=== PATIENT | male | born 1940 | race Caucasian/White ===

== ENCOUNTER → 2017-04-10 | Outpatient (CLI) | payer OTHER ==
[~2017-04-10] MED LIST: ALEN70TA2 PO; ASPCH81X PO; ATOR-24 PO; CIPR-255 PO; FINA5TAB PO; HYDR-3983 PO; MTR600 PO; OXYC7.5T65 PO; PHEN-775 PO; SILO8CAP PO; TAMS0.4C38 PO; ZNF4 PO
== END | disposition home or self-care (01) ==
LOC: C.LABSPEC 17:23
PROVIDERS: ATTEND Nurse Practitioner Adult Health
DX: N40.1 Benign prostatic hyperplasia with lower urinary tract symptoms (principal)

== ENCOUNTER → 2017-05-22 | Outpatient (CLI) | payer OTHER ==
[2017-05-22 17:55] LABS: URINE APPEARANCE CLEAR (CLEAR); URINE BILIRUBIN NEG (NEG); URINE COLOR YELLOW; URINE NITRITE NEG (NEG); URINE SPECIFIC GRAVITY 1.018 (1.000-1.030); UROBILINOGEN NEG (NEG)
[2017-05-22 18:08] LABS: MANUAL MICROSCOPIC REQUIRED? NO; REVIEW REQ? NO
--- NOTE | 2017-06-06 10:42 | CODING QUERY MEDICAL NECESSITY ---
CQSUPPORTING DIAGNOSIS NEEDED A supporting diagnosis is required for the test/procedure performed on this patient in order for us to be reimbursed by the patient's insurance. Please provide a supporting diagnosis for the following test/procedure listed below next to the test name along with your signature. *If there is no additional diagnosis for this patient that would support the following test/procedure please document that below next to the test/procedure. Test(s)/Procedure(s) that require a supporting diagnosis: PIETRO 05/22/17 URINE CULTURE TEST Provider Signature: Date: Thank you Carmen Cespedes Health Information Management Once completed, please kindly fax back to [phone] For questions please call [phone]
== END | disposition home or self-care (01) ==
LOC: C.LABSPEC 13:32
PROVIDERS: ATTEND Urology
DX: Z01.812 Encounter for preprocedural laboratory examination (principal)

== ENCOUNTER → 2017-05-23 | Day surgery (SDC) | payer OTHER ==
[2017-05-11 09:04] VITALS: BMI 25.0
[~2017-05-23] VITALS: Ht 167.6 cm; Wt 70.9 kg
[~2017-05-23] MED LIST changes: +ATROPINE SULFATE 0.1 MG/ML 5ML SYR IV PRN; +EpHEDrine SULFATE INJ 50 MG/ML AMP IV PRN; +LIDOCAINE HCL 2% 2 ML VIAL (20MG/ML) ONE; +MIDAZOLAM HCL 1 MG/ML 2ML VIAL ONE; +PROPOFOL IV EMULSION 10 MG/ML 20 ML VIAL IV ONE
[2017-05-23 13:57] VITALS: Ht 167.6 cm; Wt 70.9 kg
[2017-05-23 14:03] VITALS: TEMP 36.4
--- NOTE | 2017-05-23 14:46 | Endo History and Physical ---
History & Physical Date of Service: May 23, 2017. Chief Complaint: Rectal Bleeding Referring Physician: JOANNA Michelle History of Present Illness For colonoscopy Past Surgical History Hx Cardiac Surgery: No Hx Internal Defibrillator: No Hx Pacemaker: No Hx Abdominal Surgery: Yes (HERNIA REPAIR X2 ) Hx of Implantable Prosthesis: No Hx Post-Op Nausea and Vomiting: No Hx Cancer Surgery: No Hx Thoracic Surgery: No Hx Orthopedic: No Hx Urinary Tract Surgery: No Family History Polyp Social History Smoking Status: Current Every Day Smoker Hx Substance Use: No Hx Alcohol Use: No Allergies Coded Allergies: NO KNOWN DRUG ALLERGIES (Verified Allergy, Unknown, ., 05/11/17) Current Medications Reported Home Medications Medications Dose Route/Sig Max Daily Dose Days Date Category Dose Instructions Zanaflex (Tizanidine HCl) 4 Mg Tab 4 Mg PO BID PRN 05/11/17 Reported Rapaflo (Silodosin) 8 Mg Cap 1 Cap PO QPM 90 05/11/17 Reported Ibuprofen 600 Mg Tab 1 Tab PO DIRECTED PRN 05/11/17 Reported Percocet 7.5MG/325MG (Oxycodone/Acetaminophen) Tab 1 Tab PO Q8H PRN 05/11/17 Reported PRN PAIN Flomax (Tamsulosin Hcl) 0.4 Mg Cap 0.4 Mg PO DAILY 05/11/17 Reported pt not sure what time he takes this Proscar (Finasteride) 5 Mg Tab 5 Mg PO QAM 05/11/17 Reported Lipitor (Atorvastatin Calcium) 40 Mg Tab 40 Mg PO QAM 05/11/17 Reported Aspirin Chewable (Aspirin) 81 Mg Chew 1 Tab PO QAM 05/11/17 Reported Fosamax (Alendronate Sodium) 70 Mg Tab 70 Mg PO WK 05/11/17 Reported wednesdays Vital Signs Weight (Kilograms): 70.91 Height (Feet): 5 Height (Inches): 6 Date Time Temp Pulse Resp B/P (MAP) Pulse Ox O2 Delivery O2 Flow Rate FiO2 05/23/17 14:03 36.4 80 18 145/80 (101) 96 Room Air Physical Exam General Appearance: WD/WN, + pertinent finding (neurofibromas) Respiratory/Chest: Respiratory effort: no dyspnea Cardiovascular: Heart Auscultation: RRR Abdomen: Inspection & Palpation: soft Assessment and Plan rectal bleeding for colonoscopy
--- NOTE | 2017-05-23 15:12 | Discharge Instructions ---
Endoscopy Patient Instructions Date / Procedure(s) Performed May 23, 2017. Colonoscopy Allergy Information Coded Allergies: NO KNOWN DRUG ALLERGIES (Verified Allergy, Unknown, ., 05/11/17) Discharge Date / Findings May 23, 2017. Diverticulosis, hemorrhoids Medication Instructions Restart Stopped Medication(s): resume meds Reported Home Medications Medications Dose Route/Sig Max Daily Dose Days Date Category Dose Instructions Zanaflex (Tizanidine HCl) 4 Mg Tab 4 Mg PO BID PRN 05/11/17 Reported Rapaflo (Silodosin) 8 Mg Cap 1 Cap PO QPM 90 05/11/17 Reported Ibuprofen 600 Mg Tab 1 Tab PO DIRECTED PRN 05/11/17 Reported Percocet 7.5MG/325MG (Oxycodone/Acetaminophen) Tab 1 Tab PO Q8H PRN 05/11/17 Reported PRN PAIN Flomax (Tamsulosin Hcl) 0.4 Mg Cap 0.4 Mg PO DAILY 05/11/17 Reported pt not sure what time he takes this Proscar (Finasteride) 5 Mg Tab 5 Mg PO QAM 05/11/17 Reported Lipitor (Atorvastatin Calcium) 40 Mg Tab 40 Mg PO QAM 05/11/17 Reported Aspirin Chewable (Aspirin) 81 Mg Chew 1 Tab PO QAM 05/11/17 Reported Fosamax (Alendronate Sodium) 70 Mg Tab 70 Mg PO WK 05/11/17 Reported wednesdays Provider Instructions Activity Restrictions - No exercising or heavy lifting for 24 hours. - Do not drink alcohol the day of the procedure. - Do not drive a car or operate machinery until the day after the procedure. - Do not make any important decisions or sign important papers in 24 hours after the procedure. Following Day: - Return to full activity which may include returning to work/school. Diet Start your diet with liquids and light foods (jello, soup, juice, toast). Then eat your usual diet if not nauseated. Treatment For Common After Affects For mild abdominal pain, bloating, or excessive gas: - Rest - Eat lightly - Lie on right side Follow-Up Information Follow-up with JOANNA Michelle as scheduled Anesthesia Information What You Should Know You have had a procedure that required some medicine to reduce anxiety and discomfort. This treatment is called moderate sedation. After receiving the treatment, you may be sleepy, but you will be able to breathe on your own. The effects of the treatment may last for several hours. Follow these instructions along with Activity/Diet recommendations noted above: * Do NOT do anything where dizziness or clumsiness would be dangerous. * Rest quietly at home today, then you can be up and about tomorrow. * Have a responsible person stay with you the rest of today. * You may have had an I.V. today. If so, you may take the dressing off later today. Recommendations Call your doctor if: * Trouble breathing * Continuous vomiting for more than 24 hours * Temperature above 101 degrees * Severe abdominal pain or bloating * Pain not relieved by pain medicine ordered * There is increased drainage or redness from any incision * A large amount of rectal bleeding greater than 2-3 tablespoons. (If you had a polyp/s removed or have hemorrhoids, a small amount of blood - from the rectum is to be expected.) * You have any unanswered questions or concerns. IN THE EVENT OF A SERIOUS EMERGENCY, GO TO THE NEAREST EMERGENCY ROOM Your discharge instructions were prepared by provider Amol Beal. Patient Instructions Signature Page Donavon Bartlett Patient (or Guardian) Signature/Date: I have read and understand the instructions given to me by my caregivers. Caregiver/RN/Doctor Signature/Date: The above-named patient and/or guardian has received patient instructions on this date. + Original Patient Signature Page (only) stays with chart. Please make copy for patient.
--- NOTE | 2017-05-23 15:15 | GI REPORT ---
Procedure Date: 05/23/2017 2:37 PM Procedure: Colonoscopy Indications: Rectal bleeding Medicines: Midazolam 2 mg IV, Propofol total dose 130 mg IV, Lidocaine 45 mg IV Complications: No immediate complications. Estimated Blood Loss: Estimated blood loss: none. Procedure: Pre-Anesthesia Assessment: - Prior to the procedure, a History and Physical was performed, and patient medications, allergies and sensitivities were reviewed. The patient's tolerance of previous anesthesia was reviewed. - The risks and benefits of the procedure and the sedation options and risks were discussed with the patient. All questions were answered and informed consent was obtained. After I obtained informed consent, the scope was passed under direct vision. Throughout the procedure, the patient's blood pressure, pulse, and oxygen saturations were monitored continuously. The scope was introduced through the anus and advanced to the cecum, identified by appendiceal orifice and ileocecal valve. The colonoscopy was performed without difficulty. The patient tolerated the procedure well. The quality of the bowel preparation was good. Findings: Non-bleeding internal hemorrhoids were found during endoscopy. The hemorrhoids were mild. A few diverticula were found in the sigmoid colon. Impression: - Non-bleeding internal hemorrhoids. - Diverticulosis in the sigmoid colon. - No specimens collected. Recommendation: - Discharge patient to home (ambulatory). - Continue present medications. - Repeat colonoscopy in 10 years for screening purposes. - Return to primary care physician PRN. Amol Beal M.D. Amol Beal MD 05/23/2017 3:14:49 PM This report has been signed electronically. Note Initiated On: 05/23/2017 2:37 PM I attest to the content of the Intraoperative Record and orders documented therein, exceptions below
--- NOTE | 2017-05-23 15:35 | Anesthesiology Progress Note ---
Anesthesia Post Op Note Date & Time May 23, 2017 at 15:35 Vital Signs Pain Intensity: 0 Vital Signs Past 12 Hours Date Time Temp Pulse Resp B/P (MAP) Pulse Ox O2 Delivery O2 Flow Rate FiO2 05/23/17 15:29 69 18 125/90 (102) 97 Room Air 05/23/17 15:14 64 16 134/78 (96) 97 Room Air 05/23/17 14:03 36.4 80 18 145/80 (101) 96 Room Air Notes Mental Status: alert / awake / arousable, participated in evaluation Pt Amnestic to Procedure: Yes Nausea / Vomiting: adequately controlled Pain: adequately controlled Airway Patency, RR, SpO2: stable & adequate BP & HR: stable & adequate Hydration State: stable & adequate Anesthetic Complications: no major complications apparent
[2017-05-23 15:41] VITALS: BP 164/97; PULSE 64; O2SAT 97
== END | disposition home or self-care (01) ==
LOC: C.GI 13:42
PROVIDERS: ATTEND Internal Medicine Gastroenterology
DX: K62.5 Hemorrhage of anus and rectum (principal); K64.8 Other hemorrhoids; K57.30 Diverticulosis of large intestine without perforation or abscess without bleeding; Z87.891 Personal history of nicotine dependence; Z79.82 Long term (current) use of aspirin; Z79.899 Other long term (current) drug therapy

== ENCOUNTER → 2017-05-31 | Outpatient (CLI) | payer OTHER ==
[~2017-05-31] MED LIST changes: -ATROPINE SULFATE 0.1 MG/ML 5ML SYR IV PRN; -EpHEDrine SULFATE INJ 50 MG/ML AMP IV PRN; -LIDOCAINE HCL 2% 2 ML VIAL (20MG/ML) ONE; -MIDAZOLAM HCL 1 MG/ML 2ML VIAL ONE; +OPTIRAY 320 IV PRN; -PROPOFOL IV EMULSION 10 MG/ML 20 ML VIAL IV ONE
--- NOTE | 2017-05-31 11:51 | DIAGNOSTIC IMAGING REPORT ---
(CHEST) THORAX WITH CLINICAL HISTORY: 76 years-old Male presenting with R93.8 Abnormal chest xrayvalid 05/25/14-08/23/17 E X0D E [id number]. TECHNIQUE: Multidetector CT imaging of the chest was performed after the administration of intravenous contrast. IV contrast: 91 mL of Optiray 320. A dose lowering technique was used consistent with the principles of ALARA (as low as reasonably achievable). COMPARISON: Chest x-ray from 05/21/2017. CT DOSE (mGy.cm): The estimated cumulative dose is 222.69 mGycm. FINDINGS: Under Cutting Machine Operator topogram: Unremarkable. On soft tissue windows, subcentimeter hypodense nodule in the left lobe of the thyroid with associated coarse calcification. Numerous soft tissue nodules associated with the skin, likely neurofibromas. No axillary, supraclavicular, hilar, or mediastinal lymphadenopathy. Normal aorta. Normal heart size. Aortic valve calcification. No pericardial or pleural effusion. Upper abdomen normal. On lung windows, dependent groundglass opacity at the lung bases. No other focal infiltrate. Few blebs in pulmonary cysts noted. Paraseptal emphysema at the right apex. Mild emphysema at the apices. Airways patent. On bone windows, degenerative changes of the spine. IMPRESSION: 1. Dependent groundglass opacity at the lung bases, likely atelectasis. No pulmonary nodule. The radiographic appearance of pulmonary nodules was secondary to superimposed numerous skin nodules that are most suggestive of neurofibromas. Correlate with a history of neurofibromatosis. Electronically signed by: Jos Rogers M.D. 05/31/2017 11:50 AM Dictated Date/Time: 05/31/2017 11:30 AM
== END | disposition home or self-care (01) ==
LOC: C.CTS 10:43
PROVIDERS: ATTEND Urology
DX: R93.8 Abnormal findings on diagnostic imaging of other specified body structures (principal)

== ENCOUNTER 2017-06-04 08:55 | Day surgery (SDC) | payer OTHER ==
[2017-05-21 14:56] VITALS: BMI 25.0
--- NOTE | 2017-05-21 15:31 | PAT Medication Instructions ---
Service Date May 21, 2017. Current Home Medication List Alendronate Sodium (Fosamax), 70 MG PO WK Aspirin (Aspirin Chewable), 1 TAB PO QAM Atorvastatin (Lipitor), 40 MG PO QAM Finasteride (Proscar), 5 MG PO QAM Ibuprofen (Ibuprofen), 1 TAB PO DIRECTED PRN for Pain Oxycodone/Acetaminophen 7.5MG/325MG (Percocet 7.5MG/325MG), 1 TAB PO Q8H PRN for Pain Silodosin (Rapaflo), 1 CAP PO QPM Tamsulosin Hcl (Flomax), 0.4 MG PO daily Tizanidine (Zanaflex ), 4 MG PO BID PRN for Pain Medication Instructions For Your Scheduled Surgery - Continue as usual: Alendronate Sodium (Fosamax), 70 MG PO WK - Hold the following medications 7-10 days prior to surgery per surgeon's instructions: Aspirin (Aspirin Chewable), 1 TAB PO QAM - Hold the following medications the morning of surgery: Ibuprofen (Ibuprofen), 1 TAB PO DIRECTED PRN for Pain (otherwise okay to continue per surgeon) Tizanidine (Zanaflex ), 4 MG PO BID PRN for Pain - Take the following medications the morning of surgery with a sip of water OTHERWISE NOTHING TO EAT OR DRINK AFTER MIDNIGHT: Atorvastatin (Lipitor), 40 MG PO QAM Finasteride (Proscar), 5 MG PO QAM Oxycodone/Acetaminophen 7.5MG/325MG (Percocet 7.5MG/325MG), 1 TAB PO Q8H PRN for Pain (may take if needed up to 4 hours prior to surgery) Tamsulosin Hcl (Flomax), 0.4 MG PO daily - Take the following medications as scheduled the night before surgery: Oxycodone/Acetaminophen 7.5MG/325MG (Percocet 7.5MG/325MG), 1 TAB PO Q8H PRN for Pain Tizanidine (Zanaflex ), 4 MG PO BID PRN for Pain Silodosin (Rapaflo), 1 CAP PO QPM If you have any questions please call us at [phone] or [phone] or [phone]
--- NOTE | 2017-05-21 16:18 | DIAGNOSTIC IMAGING REPORT ---
TWO VIEW CHEST CLINICAL HISTORY: Preoperative examination. FINDINGS: PA and lateral chest radiographs are obtained. No prior studies are available for comparison at the time of dictation. A PA view is degraded by patient rotation. The heart is enlarged and there is atherosclerotic calcification of the thoracic aorta. The pulmonary vasculature is noncongested. There is left basilar atelectasis. No airspace consolidation or pleural effusion is identified. There is no pneumothorax. The skeletal structures are osteopenic. Degenerative change is noted throughout the thoracic spine. There are healed right-sided rib fractures. There are numerous soft tissue nodules identified. Additionally, there are at least 2 foci of nodularity projecting over the right lung measuring up to 1.2 cm. IMPRESSION: 1. Mild cardiomegaly with no active disease in the chest. 2. Numerous subcutaneous nodules are identified. 3. There are 2 rounded nodular densities projecting over the right lung. These also likely represent subcutaneous soft tissue nodules but cannot be definitively localized. Follow-up with a chest CT is recommended to exclude pulmonary lesions. Electronically signed by: Jaylon Garza M.D. 05/21/2017 4:16 PM Dictated Date/Time: 05/21/2017 4:14 PM
[2017-05-21 16:25] LABS: BASO % 0.9 %; BASO ABS # 0.06 K/uL (0-0.2); COMPLETE YES; EOS % 2.5 %; HEMATOCRIT 41.6 % (42-52); IG% 2.3 %; LYMPH % 34.2 %; LYMPH ABS # 2.34 K/uL (1.2-3.4); MEAN CELL VOLUME 92.9 fL (80-100); MEAN CORPUSCULAR HEMOGLOBIN 31.5 pg (25-34); MEAN CORPUSCULAR HGB CONC 33.9 g/dl (32-36); MEAN PLATELET VOLUME 9.2 fL (7.4-10.4); MONO % 9.1 %; PLATELET COUNT 252 K/uL (130-400); RED BLOOD COUNT 4.48 M/uL (4.7-6.1); WHITE BLOOD COUNT 6.85 K/uL (4.8-10.8)
[2017-05-21 16:32] LABS: BUN/CREATININE RATIO 17.5 (10-20); CALCIUM 8.9 mg/dl (8.5-10.1); CREATININE 1.1 mg/dl (0.60-1.40); POTASSIUM 4.7 mmol/L (3.5-5.1)
[~2017-06-04] VITALS: Ht 167.6 cm; Wt 72.3 kg
[~2017-06-04 08:55] MED LIST changes: -CIPR-255 PO; +CIPROFLOXACIN / D5W 400 MG IV SCH; -HYDR-3983 PO; +LACTATED RINGER'S 1000ML 1,000 ML IV SCH; -OPTIRAY 320 IV PRN; -PHEN-775 PO
[2017-06-04 09:26] VITALS: BP 177/99; PULSE 73; TEMP 36.5; O2SAT 96; Ht 167.6 cm; Wt 72.3 kg
[2017-06-04] MEDS ORDERED: DEXAMETHASONE SOD INJ 4 MG/ML VIAL ONE (09:37)
[2017-06-04] MEDS ORDERED: ONDANSETRON INJ 2 MG/ML 2 ML VIAL ONE (09:37)
[2017-06-04] MEDS ORDERED: PROPOFOL IV EMULSION 10 MG/ML 20 ML VIAL IV ONE (09:37)
[2017-06-04] MEDS ORDERED: LIDOCAINE HCL 2% 2 ML VIAL (20MG/ML) ONE (09:37)
[2017-06-04] MEDS ORDERED: FENTANYL CITRATE INJ 50 MCG/1 ML 2 ML VIAL ONE (09:37)
[2017-06-04] MEDS ORDERED: MIDAZOLAM HCL 1 MG/ML 2ML VIAL ONE (09:37)
[2017-06-04] MEDS ORDERED: HYDR-3983 PO (09:47)
--- NOTE | 2017-06-04 10:00 | History & Physical Bridge Note ---
H&P Re-Evaluation Bridge Note: I have examined the patient, reviewed the History & Physical and in the interval since the performance of the History & Physical I have noted the following changes of clinical significance: No changes noted
[2017-06-04] MEDS ORDERED: PHEN-775 PO (10:12)
[2017-06-04] MEDS ORDERED: CIPR-255 PO (10:12)
[2017-06-04] MEDS ORDERED: ONDANSETRON INJ 2 MG/ML 2 ML VIAL IV PRN (10:15)
[2017-06-04] MEDS ORDERED: PROMETHAZINE HCL INJ 6.25 MG in SODIUM CHLORIDE 0.9% 50ML 50 ML IV PRN (10:15)
[2017-06-04] MEDS ORDERED: EpHEDrine SULFATE INJ 50 MG/ML AMP IV PRN (10:15)
[2017-06-04] MEDS ORDERED: ATROPINE SULFATE 0.1 MG/ML 5ML SYR IV PRN (10:15)
[2017-06-04] MEDS ORDERED: FENTANYL CITRATE INJ 50 MCG/1 ML 2 ML VIAL IV PRN (10:15)
--- NOTE | 2017-06-04 10:19 | Discharge Instructions ---
Discharge Instructions Date of Service Jun 04, 2017. Admission Reason for Admission: Benign Prostatic Hypertrophy Discharge Discharge Diagnosis / Problem: BPH s/p GLTURP Discharge Goals Goal(s): Improve function, Improve disease control, Therapeutic intervention Activity Recommendations Activity Limitations: as noted below Lifting Limitations: no more than 25 pounds, gradually increase as tolerated Exercise/Sports Limitations: rest today, gradually increase as tolerated May Resume Sexual Activity: after two weeks Shower/Bathe: may shower/bathe in 3 days Driving or Machine Use: resume 1 day after discharge . Instructions / Follow-Up Instructions / Follow-Up As scheduled in office for removal of catheter and postoperative check OK to use home narcotics. Pyridium for bladder discomfort, take Cipro as prescribed Discharge Diet Recommended Diet: Regular Diet (good fluid intake) Procedures Procedures Performed: Greenlight TURP Pending Studies Studies pending at discharge: no Medical Emergencies . Who to Call and When: Medical Emergencies: If at any time you feel your situation is an emergency, please call 911 immediately. . Non-Emergent Contact Non-Emergency issues call your: Urologist Call Non-Emergent contact if: you have a fever, temperature is above 101, your pain is not controlled, your pain is worsening, your pain is unusual for you, your pain is concerning you, you have any medication questions . . "Provider Documentation" section prepared by Anthony Santana. . VTE Core Measure Inpt VTE Proph given/why not?: SCD's [place] Drug Monitoring Program Search Results: patient reviewed within database, see additional documentation (regular Rx for narcotics)
[2017-06-04] MEDS ORDERED: SODIUM CHLORIDE 0.9% INJ 10 ML VIAL ONE (10:57)
[2017-06-04] MEDS ORDERED: EpHEDrine SULFATE 50MG/5ML SYR ONE (10:57)
[2017-06-04] MEDS ORDERED: BELLADONNA/OPIUM SUPP 60 MG SUPP PR ONE ×2 (11:11)
--- NOTE | 2017-06-04 11:49 | [facility] Post Operative Brief Note ---
Immediate Operative Summary Operative Date Jun 04, 2017. Pre-Operative Diagnosis Benign Prostatic Hyperplasia with Lower Urinary Tract Symptoms Post-Operative Diagnosis Benign Prostatic Hyperplasia with Lower Urinary Tract Symptoms Procedure(s) Performed Greenlight TURP Surgeon Dr. Riley Santana Roller Gold Leaf Surgeon(s) NONE Estimated Blood Loss 20 ml Findings Open fossa and excellent hemostasis after 109K J used. Specimens NONE per surgeon Drains 22 fr 15 cc H2O Anesthesia GALMA Complication(s) None Disposition Recovery Room / PACU
--- NOTE | 2017-06-04 11:52 | [facility] Operative Report ---
Operative Report Operative Date Jun 04, 2017. Pre-Operative Diagnosis Benign Prostatic Hyperplasia with Lower Urinary Tract Symptoms Post-Operative Diagnosis Benign Prostatic Hyperplasia with Lower Urinary Tract Symptoms Procedure(s) Performed Greenlight TURP Surgeon Dr. Riley Santana Digital Pre Press Operator Surgeon(s) NONE Estimated Blood Loss 20 ml Findings Open fossa and excellent hemostasis after 109K J used. Specimens NONE per surgeon Drains 22 fr 15 cc H2O Anesthesia GALMA Disposition Recovery Room / PACU Indications 76-year-old male with refractory urinary symptoms despite the use of oral medications for his BPH was been found to have obstructive prostatic hypertrophy on office cystoscopy. He is here today for greenlight vaporization of his prostate gland manage his disease. Please see H&P for further details. Intravenous ciprofloxacin was provided for antibiotic coverage and SCDs used for DVT prophylaxis. Description of Procedure Patient was properly identified and brought into the operative suite after identification of appropriate consent of the chart. General anesthesia with laryngeal mask was initiated and the patient was prepped and draped in standard fashion for this procedure. Full timeout procedure was followed. Greenlight laser resectoscope was inserted into the bladder under direct visualization of bladder was surveyed in its entirety. Ureteral orifices were noted to be relatively close to the bladder neck and great care was taken to avoid any injury over the course of the procedure. No intravesical tumors, papillary lesions, mucosal changes or stones were noted. A lobulated prostate gland with obstructive hypertrophy was appreciated mostly through the lateral lobes although an elevated bladder neck was also present. Using a side-firing greenlight laser fiber circumferential vaporization of the prostate was undertaken. This was performed between 80 and 140 W. Relaxing incisions were made at the bladder neck, again great care being taken to avoid injury to the ureters, at the 5 and 7:00 positions to avoid future bladder neck contracture. Care was also taken to avoid any resection distal to the verumontanum. After completion of vaporization for approximate 109,000 J of energy prostate was noted to be visually unobstructed with excellent hemostasis. Bladder was partially distended and 22 Turkmen Strong catheter was placed with no resistance and return of clear irrigation. 15 mL of sterile water were placed within the balloon. Catheter was placed to gravity drainage and belladonna and opium suppository was provided for additional postoperative analgesia. Anesthesia was reversed and patient was transferred to the recovery room in stable condition. Follow-up care: Patient will be discharged home with a Strong catheter in place. Outpatient trial void is confirmed. Prescription for ciprofloxacin and pyridium was provided; patient has narcotic pain medication chronically at home. Outpatient appointments are confirmed. Patient to contact our service with any fevers, chills, nausea, vomiting or other difficulties in the postoperative period. I attest to the content of the Intraoperative Record and any orders documented therein. Any exceptions are noted below.
[2017-06-04] MEDS ORDERED: OXYCODONE/ACETAMINOPHEN 5-325 TAB PO PRN (12:00)
[2017-06-04] MEDS ORDERED: PHENAZOPYRIDINE HCL 200 MG TAB PO PRN (12:00)
--- NOTE | 2017-06-04 12:20 | Anesthesiology Progress Note ---
Anesthesia Post Op Note Date & Time Jun 04, 2017 at 12:20 Vital Signs Pain Intensity: 0 Vital Signs Past 12 Hours Date Time Temp Pulse Resp B/P (MAP) Pulse Ox O2 Delivery O2 Flow Rate FiO2 06/04/17 12:10 36.6 65 16 156/93 97 Room Air 06/04/17 12:00 66 18 170/94 97 Oxymask 3 06/04/17 11:50 65 16 163/98 96 Oxymask 5 06/04/17 11:40 36.7 83 14 177/119 95 Oxymask 10 06/04/17 09:26 36.5 73 16 177/99 (125) 96 Room Air Notes Mental Status: alert / awake / arousable, participated in evaluation Pt Amnestic to Procedure: Yes Nausea / Vomiting: adequately controlled Pain: adequately controlled Airway Patency, RR, SpO2: stable & adequate BP & HR: stable & adequate Hydration State: stable & adequate Anesthetic Complications: no major complications apparent
[2017-06-04 12:23] VITALS: BP 176/86; PULSE 63; TEMP 36.9; O2SAT 96
[2017-06-04 12:53] VITALS: BP 173/84; PULSE 70; TEMP 36.7; O2SAT 94
== END 2017-06-04 13:18 | disposition home or self-care (01) ==
LOC: C.ACU 08:55
PROVIDERS: ATTEND Urology
DX: N40.1 Benign prostatic hyperplasia with lower urinary tract symptoms (principal); R33.9 Retention of urine, unspecified; R39.12 Poor urinary stream; E78.00 Pure hypercholesterolemia, unspecified; E11.9 Type 2 diabetes mellitus without complications; I25.2 Old myocardial infarction; Z68.25 Body mass index [BMI] 25.0-25.9, adult; Z98.41 Cataract extraction status, right eye; Z98.42 Cataract extraction status, left eye; Z79.82 Long term (current) use of aspirin; Z79.899 Other long term (current) drug therapy

== ENCOUNTER → 2017-06-26 | Outpatient (CLI) | payer OTHER ==
[~2017-06-26] MED LIST changes: +CIPR-255 PO; -CIPROFLOXACIN / D5W 400 MG IV SCH; +HYDR-3983 PO; -LACTATED RINGER'S 1000ML 1,000 ML IV SCH; -OXYC7.5T65 PO
== END | disposition home or self-care (01) ==
LOC: C.LABSPEC 10:16
PROVIDERS: ATTEND Urology
DX: N40.1 Benign prostatic hyperplasia with lower urinary tract symptoms (principal); R33.9 Retention of urine, unspecified; R39.12 Poor urinary stream

== ENCOUNTER → 2017-07-25 | Outpatient (CLI) | payer OTHER | END | disposition home or self-care (01) | LOC: C.LABBFT 09:12 | PROVIDERS: ATTEND Nurse Practitioner Adult Health | DX: N40.1 Benign prostatic hyperplasia with lower urinary tract symptoms (principal); R33.9 Retention of urine, unspecified ==

== ENCOUNTER → 2017-08-01 | Outpatient (CLI) | payer OTHER | END | disposition home or self-care (01) | LOC: C.LABSPEC 16:59 | PROVIDERS: ATTEND Urology | DX: N40.1 Benign prostatic hyperplasia with lower urinary tract symptoms (principal); R33.9 Retention of urine, unspecified; R30.0 Dysuria; R39.12 Poor urinary stream ==

== ENCOUNTER → 2017-09-06 | Outpatient (CLI) | payer OTHER | END | disposition home or self-care (01) | LOC: C.MAMM 12:54 | PROVIDERS: ATTEND Nurse Practitioner Family | DX: M81.0 Age-related osteoporosis without current pathological fracture (principal); M85.851 Other specified disorders of bone density and structure, right thigh ==

== ENCOUNTER → 2017-12-18 | Outpatient (CLI) | payer OTHER ==
[~2017-12-18] MED LIST changes: +ALPR-411 PO; +PRD/1 PO; +PRED10TA PO
--- NOTE | 2017-12-19 07:45 | PULMONARY FUNCTION TEST ---
Spirometry shows a normal forced vital capacity and FEV1 with a slightly decreased FEV1/FVC ratio. Mid flow rates were 66% of predicted. This would be suggesting mild obstruction. Repeat study done following bronchodilators showed improvement in small airways function only. Advise clinical correlation. Flow volume loops were consistent with spirometric findings.
== END | disposition home or self-care (01) ==
LOC: C.RC 10:04
PROVIDERS: ATTEND Nurse Practitioner Family
DX: R05 Cough (principal); F17.210 Nicotine dependence, cigarettes, uncomplicated

== ENCOUNTER → 2017-12-21 | Day surgery (SDC) | payer OTHER ==
[2017-12-20 13:51] VITALS: BMI 26.0
[~2017-12-21] VITALS: Ht 167.6 cm; Wt 72.7 kg
[~2017-12-21] MED LIST changes: +ATROPINE SULFATE 0.1 MG/ML 5ML SYR IV PRN; +CEFAZOLIN 1000MG IV PUSH 7.5 ML IV SCH; -CIPR-255 PO; +EpHEDrine SULFATE INJ 50 MG/ML AMP IV PRN; +FENTANYL CITRATE INJ 50 MCG/1 ML 2 ML VIAL IV PRN; +FENTANYL CITRATE INJ 50 MCG/1 ML 2 ML VIAL ONE; +LACTATED RINGER'S 1000ML 1,000 ML IV SCH; +LIDOCAINE HCL 1% 20 ML VIAL ONE; +LIDOCAINE HCL 2% 2 ML VIAL (20MG/ML) ONE; +MIDAZOLAM HCL 1 MG/ML 2ML VIAL ONE; +ONDANSETRON INJ 2 MG/ML 2 ML VIAL IV PRN; +ONDANSETRON INJ 2 MG/ML 2 ML VIAL ONE; +PROPOFOL IV EMULSION 10 MG/ML 20 ML VIAL IV ONE; -SILO8CAP PO; +SODIUM CHLORIDE 0.9% 1000ML 1,000 ML IV SCH
[2017-12-21 10:50] VITALS: BP 172/102; PULSE 78; TEMP 36.8; O2SAT 96; Ht 167.6 cm; Wt 72.7 kg
--- NOTE | 2017-12-21 11:13 | History and Physical ---
History & Physical Date Dec 21, 2017. (Maribel Prince, SIXTO) Chief Complaint possible temporal arteritis (Maribel Prince PA-C) History of Present Illness The patient is a 77 year old male with PMH of hypercholesterolemia, BPH, depression/anxiety, neurofibromatosis, seen today for temporal artery biopsy to be performed. Pt states he has had severe, sharp pains in BL temporal areas for past month. They were occurring approx once per hour and lasting a few seconds to a minute. States he called his PCP, who started him on prednisone, which has improved his sx significantly. Did see fondant cooker yesterday, as well, who suggested temporary artery bx be performed. Pt denies hx of similar sx in past. Admits worsening vision over past few months. Denies dizziness, chest pain, SOB, abd pain, N/V, rest pain, claudication, other complaints. (Maribel Prince PA-C) Allergies Coded Allergies: NO KNOWN DRUG ALLERGIES (Verified Allergy, Unknown, ., 12/21/17) Home Medications Scheduled Alendronate Sodium (Fosamax), 70 MG PO WK Aspirin (Aspirin Chewable), 1 TAB PO QAM Atorvastatin (Lipitor), 40 MG PO QAM Finasteride (Proscar), 5 MG PO QAM Prednisone Tab (Prednisone), 40 MG PO QAM Tamsulosin Hcl (Flomax), 0.4 MG PO QAM Scheduled PRN Alprazolam (Xanax), 0.5 MG PO DAILY PRN for Anxiety/Agitation Hydrocodone/Acetaminophen 7.5MG/325MG ([place] 7.5MG/325MG), 1 TAB PO UD PRN for Pain Ibuprofen (Ibuprofen), 1 TAB PO DIRECTED PRN for Pain Tizanidine (Zanaflex ), 4 MG PO UD PRN for Pain Surgical / Medical History Hx Cardiac Surgery: No Hx Abdominal Surgery: Yes (HERNIA REPAIR X1 ) Hx Cancer Surgery: No Hx Thoracic Surgery: No Hx Orthopedic: No Hx Urinary Tract Surgery: No HX Other Surgery: Yes Past Medical/Surgical History: High Cholesterol, Other (BPH, neurofibromatosis) (Maribel Prince, SIXTO) Family History + father from ruptured AAA (Maribel Prince PA-C) Social History Smoking Status: Current Every Day Smoker Hx Tobacco Use In Past Year?: Yes (TYRING TO QUIT, 1/2PPD, SMOKING FOR 50 YRS ) Hx Alcohol Use - Type & Amnt: No Hx Substance Use -Type & Amnt: No (Maribel Prince, CYC) Review of Systems Constitutional: No chills, No fever, No malaise Skin: No change in color ENMT: No sore throat Respiratory: No cough, No hemoptysis, No short of breath Cardiovascular: No chest pain, No chest pressure, No palpitations, No syncope, No edema, No intermittent claudication Gastrointestinal: No abdominal pain, No diarrhea, No nausea, No vomiting Neurologic: + headache, No dizziness, No weakness, No numbness, No tingling ( Maribel Prince, CYC) Physical Exam Constitutional: General Apperance: heathly-appearing, well-nourished, well-developed Level of Distress: NAD Psychiatric: Mental Status: active & alert, normal mood, normal affect Orientation: oriented except where noted, to time, to place, to person Memory: recent memory normal, remote memory normal Head: normocephalic, atraumatic (Mildly tender over temporal areas BL, L more than R) Eyes: EOM: EOMI ENMT: normal ENT inspection, hearing grossly normal Neck: supple, trachea midline Lungs: Respiratory effort: no dyspnea Auscultation: no wheezing, no rales/crackles Cardiovascular: Apical Impulse: not displaced Heart Auscultation: RRR, no rubs, no gallops Peripheral Pulses: Pulses: full and equal, in all extremities except if noted Bruits: none appreciated Carotid Pulse: normal on the left, normal on the right Brachial Pulses: normal on the left, normal on the right Radial Pulse: normal on the left, normal on the right Femoral Pulse: normal on the left, normal on the right Posterior Tibialis Pulse: normal on the left, normal on the right Dorsalis Pedis Pulse: normal on the left, normal on the right Abdomen: Bowel Sounds: normal Inspection & Palpation: soft, non-distended, no tenderness, guarding & rebound Musculoskeletal: normal strength (5/5 throughout), normal tone Extremities: Upper Right: no cyanosis, no edema, no varicosities Upper Left: no cyanosis, no edema, no varicosities Lower Right: no cyanosis, no edema, no varicosities Lower Left: no cyanosis, no edema, no varicosities Neurologic: Cranial Nerves: grossly intact Sensation: grossly intact Additional Comments: Entire body covered with numerous nontender, flesh colored papules. (Maribel Prince, PA-C) Assessment and Plan ASSESSMENT and PLAN: Possible temporal arteritis Pt has had improvement of sx since starting prednisone and temporal tenderness is noted on exam. Pt admitted for BL temporal artery bx to be performed in OR by Dr Macedo today. Procedure discussed with pt, he is agreeable. (Maribel Prince, PA-C) Patient was seen, examined, and chart reviewed. Agree with exam and treatment plan of the Vascular PA. Patient for bilateral temporal artery biopsies. I have discussed the risks options and benefits of the procedure with the patient. The patient understands the risks options and benefits and agrees to the procedure. (Doug Macedo M.D.)
--- NOTE | 2017-12-21 14:27 | [facility] Post Operative Brief Note ---
Immediate Operative Summary Operative Date Dec 21, 2017. Pre-Operative Diagnosis Temporal Arteritis Post-Operative Diagnosis Giant cell arteritis Procedure(s) Performed Bilateral Temporal Artery Biopsy Surgeon Dr Macedo Patient Care Surgeon(s) Alisa Prince PA-C Estimated Blood Loss 5ml Findings Consistent with Post-Op Diagnosis Specimens A. Right temporal artery biopsy B. Left temporal artery biopsy Drains None Anesthesia Type MAC Complication(s) none Disposition Accompanied Pt To Recover: no Disposition: Recovery Room / PACU
--- NOTE | 2017-12-21 14:31 | Discharge Instructions ---
Discharge Instructions Date of Service Dec 21, 2017. Visit Reason for Visit: Temporal Arteritis Discharge Discharge Diagnosis / Problem: Giant cell arteritis Discharge Goals Goal(s): Diagnostic testing Activity Recommendations Activity Limitations: per Instructions/Follow-up section Anesthesia . Post Anesthesia Instructions: If you have had General Anesthesia or IV Sedation: * Do not drive today. * Resume driving when surgeon permits. * Do not make important decisions or sign legal documents today. * Call surgeon for: 1. Temperature elevations greater than 101 degrees F. 2. Uncontrollable pain. 3. Excessive bleeding. 4. Persistent nausea and vomiting. 5. Medication intolerance (nausea, vomiting or rash). * For nausea and vomiting use only clear liquids such as: tea, soda, bouillon until nausea subsides, then gradually increase diet as tolerated. * If you have any concerns or questions, call your surgeon's office. If physician is unavailable and it is an emergency, call 911 or go to the nearest emergency room. . Instructions / Follow-Up Instructions / Follow-Up Call [phone] to schedule a follow up appointment if one not already scheduled. ACTIVITY RECOMMENDATIONS: See Above SPECIAL CARE INSTRUCTIONS: Call your doctor if: * Temperature above 101 degrees * Pain not relieved by pain medicine ordered * There is increased drainage or redness from any incision * You have any unanswered questions or concerns. Diet Recommendations Recommended Home Diet: resume previous diet Procedures Procedures Performed: Bilateral Temporal Artery Biopsy Pending Studies Studies pending at discharge: yes List of pending studies: path report Medical Emergencies . Who to Call and When: Medical Emergencies: If at any time you feel your situation is an emergency, please call 911 immediately. . Non-Emergent Contact Non-Emergency issues call your: Surgeon . . "Provider Documentation" section prepared by Doug Macedo. .
--- NOTE | 2017-12-21 14:38 | [facility] Operative Report ---
Operative Report Operative Date Dec 21, 2017. Pre-Operative Diagnosis Temporal Arteritis Post-Operative Diagnosis Giant cell arteritis Procedure(s) Performed Bilateral Temporal Artery Biopsy Surgeon Dr Macedo Metallurgical Engineer Surgeon(s) Alisa Prince PA-C Estimated Blood Loss 5ml Findings Both temporal arteries were biopsied, neither appeared thickened. Specimens A. Right temporal artery biopsy B. Left temporal artery biopsy Drains None Anesthesia Type MAC Complication(s) none Disposition no Recovery Room / PACU Indications This is a 77-year-old gentleman who had a bilateral headaches and tenderness over the temporal arteries. He was started on steroids and biopsy was recommended.I have discussed the risks options and benefits of the procedure with the patient. The patient understands the risks options and benefits and agrees to the procedure. Both temporal arteries was biopsied at this time. Description of Procedure The patient was taken to the operating room placed in supine position. The right temporal area was then prepped and draped in a sterile manner. Local anesthetic was administered. An incision was made over the temporal artery pulse. The temporal artery was then isolated. Bleeding was controlled using the electrocautery. The temporal artery was then ligated on both sides and a 2 cm piece was excised and sent for biopsy. Adequate hemostasis was then obtained. The wound was closed with interrupted 3-0 Vicryl for the subcutaneous layer and a running 4-0 subcuticular Vicryl suture for the skin edges. Dermabond was used for dressing. The left religious area was then prepped and draped in a sterile manner. Again local anesthetic was administered. A longitudinal incision was made over the temporal artery pulse. The temporal artery was identified. Again it was isolated and ligated proximally and distally. Approximately a 2 cm piece was excised and sent for biopsy. Bleeding was controlled using electrocautery. The wound was then closed on this side also with a 3-0 Vicryl for the subcutaneous layer and a running 4-0 subcuticular Vicryl for the skin edges. Dermabond was used for dressing on this side also. The patient left the operating room in satisfactory condition and tolerated the procedure well. Needle, sponge, and instrument were correct at the case. I attest to the content of the Intraoperative Record and any orders documented therein. Any exceptions are noted below.
[2017-12-21 15:15] VITALS: BP 159/90; PULSE 70; TEMP 37.2; O2SAT 95
--- NOTE | 2017-12-21 15:16 | Anesthesiology Progress Note ---
Anesthesia Post Op Note Date & Time Dec 21, 2017 at 15:15 Vital Signs Pain Intensity: 3 Vital Signs Past 12 Hours Date Time Temp Pulse Resp B/P (MAP) Pulse Ox O2 Delivery O2 Flow Rate FiO2 12/21/17 14:40 36.5 78 16 160/92 95 Room Air 12/21/17 10:50 36.8 78 18 172/102 (125) 96 Room Air Notes Mental Status: alert / awake / arousable, participated in evaluation Pt Amnestic to Procedure: Yes Nausea / Vomiting: adequately controlled Pain: adequately controlled Airway Patency, RR, SpO2: stable & adequate BP & HR: stable & adequate Hydration State: stable & adequate Anesthetic Complications: no major complications apparent
== END | disposition home or self-care (01) ==
LOC: C.ACU 10:11
PROVIDERS: ATTEND Surgery Vascular Surgery
DX: M31.6 Other giant cell arteritis (principal); E78.00 Pure hypercholesterolemia, unspecified; N40.0 Benign prostatic hyperplasia without lower urinary tract symptoms; Z98.890 Other specified postprocedural states; Z79.899 Other long term (current) drug therapy; Z79.82 Long term (current) use of aspirin; F17.200 Nicotine dependence, unspecified, uncomplicated; Z98.41 Cataract extraction status, right eye; Z98.42 Cataract extraction status, left eye

== ENCOUNTER → 2017-12-24 | Outpatient (CLI) | payer OTHER ==
[~2017-12-24] MED LIST changes: -ATROPINE SULFATE 0.1 MG/ML 5ML SYR IV PRN; -CEFAZOLIN 1000MG IV PUSH 7.5 ML IV SCH; -EpHEDrine SULFATE INJ 50 MG/ML AMP IV PRN; -FENTANYL CITRATE INJ 50 MCG/1 ML 2 ML VIAL IV PRN; -FENTANYL CITRATE INJ 50 MCG/1 ML 2 ML VIAL ONE; -LACTATED RINGER'S 1000ML 1,000 ML IV SCH; -LIDOCAINE HCL 1% 20 ML VIAL ONE; -LIDOCAINE HCL 2% 2 ML VIAL (20MG/ML) ONE; -MIDAZOLAM HCL 1 MG/ML 2ML VIAL ONE; -ONDANSETRON INJ 2 MG/ML 2 ML VIAL IV PRN; -ONDANSETRON INJ 2 MG/ML 2 ML VIAL ONE; -PRD/1 PO; -PROPOFOL IV EMULSION 10 MG/ML 20 ML VIAL IV ONE; -SODIUM CHLORIDE 0.9% 1000ML 1,000 ML IV SCH
[2017-12-24 12:23] LABS: HEMATOCRIT 41.6 % (42-52); HEMOGLOBIN 14.1 g/dL (14.0-18.0); MEAN CELL VOLUME 91.2 fL (80-100); MEAN CORPUSCULAR HEMOGLOBIN 30.9 pg (25-34); MEAN CORPUSCULAR HGB CONC 33.9 g/dl (32-36); MEAN PLATELET VOLUME 9.3 fL (7.4-10.4); PLATELET COUNT 310 K/uL (130-400); RED CELL DISTRIBUTION WIDTH CV 13.3 % (11.5-14.5); RED CELL DISTRIBUTION WIDTH SD 43.9 fL (36.4-46.3); WHITE BLOOD COUNT 11.16 K/uL (4.8-10.8)
[2017-12-24 12:34] LABS: ALBUMIN 3.2 gm/dl (3.4-5.0); ALKALINE PHOSPHATASE 54 U/L (45-117); ALT/SGPT 29 U/L (12-78); AST/SGOT 14 U/L (15-37); CREATININE 1.19 mg/dl (0.60-1.40)
[2017-12-24 13:08] LABS: BASO % 0.2 %; BASO ABS # 0.02 K/uL (0-0.2); EOS % 0.2 %; EOS ABS # 0.02 K/uL (0-0.5); IG# 0.61 K/uL (0.00-0.02); LYMPH % 11.2 %; LYMPH ABS # 1.25 K/uL (1.2-3.4); MONO % 3.5 %; MONO ABS # 0.39 K/uL (0.11-0.59); NEUT % 79.4 %; NEUT ABS # 8.87 K/uL (1.4-6.5)
== END | disposition home or self-care (01) ==
LOC: C.LAB1850 10:45
PROVIDERS: ATTEND Internal Medicine Rheumatology
DX: R70.0 Elevated erythrocyte sedimentation rate (principal); M31.6 Other giant cell arteritis

== ENCOUNTER → 2018-04-18 | Outpatient (CLI) | payer OTHER | END | disposition home or self-care (01) | LOC: C.LABBFT 12:09 | PROVIDERS: ATTEND Internal Medicine Rheumatology | DX: M31.6 Other giant cell arteritis (principal); M81.0 Age-related osteoporosis without current pathological fracture; K21.9 Gastro-esophageal reflux disease without esophagitis ==

== ENCOUNTER 2018-09-29 17:01 | Observation (INO) ==
[2018-09-29] MEDS ORDERED: SODIUM CHLORIDE 0.9% 500 ML IV SCH (17:45)
[2018-09-29 18:05] LABS: Basophils # (auto) 0.04 K/uL (0-0.2); Basophils % (auto) 0.5 %; Eosinophils # (auto) 0.02 K/uL (0-0.5); Eosinophils % (auto) 0.3 %; Hematocrit (blood only) 44.4 % (42-52); Hemoglobin 15.3 g/dL (14.0-18.0); Immature Granulocytes # (auto) 0.12 K/uL (0.00-0.02); Immature Granulocytes % (auto) 1.6 %; Lymphocytes # (auto) 1.13 K/uL (1.2-3.4); Lymphocytes % (auto) 14.9 %; Mean Corpuscular Hgb Conc 34.5 g/dL (32-36); Mean Corpuscular Volume 93.9 fL (80-100); Mean Platelet Volume 9.8 fL (7.4-10.4); Monocytes # (auto) 0.58 K/uL (0.11-0.59); Monocytes % (auto) 7.6 %; Neutrophils % (auto) 75.1 %; Platelet Count 210 K/uL (130-400); RDW Coefficient of Variation 12.9 % (11.5-14.5); RDW Standard Deviation 44.2 fL (36.4-46.3); Red Blood Count 4.73 M/uL (4.7-6.1); White Blood Count 7.59 K/uL (4.8-10.8)
--- NOTE | 2018-09-29 18:07 | XRay Report ---
XR chest 1V portable CLINICAL HISTORY: 77 years-old Male presenting with weakness. TECHNIQUE: Portable upright AP view of the chest was obtained. COMPARISON: 08/22/2018. FINDINGS: Cardiac silhouette mildly enlarged. No focal opacity. No large effusion or pneumothorax. Osteopenia s uggested. Numerous skin lesions suggested as on prior exam. IMPRESSION: 1. Mild cardiomegaly. No other convincing evidence of acute cardiopulmonary disease. Electronically signed by: Jos Rogers M.D. 09/29/2018 6:05 PM
--- NOTE | 2018-09-29 18:37 | CT Scan Report ---
CT head/brain wo con CLINICAL HISTORY: 77 years-old Male presenting with fall, dizzy. TECHNIQUE: Multidetector CT imaging of the head was performed without the use of intravenous contrast . IV contrast: None. A dose lowering technique was used consistent with the principles of ALARA (as l ow as reasonably achievable). COMPARISON: 08/22/2018. CT DOSE (mGy.cm): The estimated cumulative dose is 614.27 mGy.cm. FINDINGS: Race Steward topogram: Unremarkable. Proportional ventricular and sulcal prominence, likely age-related parenchymal volume loss. No hemorr tami. Periventricular and subcortical white matter hypoattenuation, nonspecific but likely indicative of chronic small vessel ischemic change. 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 No ac [place] territorial infarct. No mass effect or midline shift. No extra-axial fluid collection. Paranasal sinuses and mastoid air cells clear. Calvarium intact. Prominence of diploic veins. Innumerable skin nodules associated with skin thickening. IMPRESSION: 1. No significant change compared to the prior study. No acute intracranial abnormality. Electronically signed by: Jos Rogers M.D. 09/29/2018 6:35 PM
[2018-09-29 18:41] LABS: Albumin Globulin Ratio 1.2 (0.9-2); Albumin Level 3.7 gm/dl (3.4-5.0); BUN Creatinine Ratio 17.5 (10-20); Bilirubin,Total 0.5 mg/dl (0.2-1); Calcium 8.8 mg/dl (8.5-10.1); Est GFR (African American) 54.7; Est GFR (Non-African American) 47.2; Globulin 3.1 gm/dl (2.5-4.0); Total Protein 6.8 gm/dl (6.4-8.2)
[2018-09-29 19:18] LABS: Appearance Urine Clear (Clear); Bilirubin Urine Negative (Negative); Color Urine Yellow; Glucose Urine UA Negative (Negative); Ketones Urine Negative (Negative); Leukocyte Esterase Urine Negative (Negative); Nitrite Urine Negative (Negative); Protein Urine Negative (Negative); Specific Gravity Urine 1.017 (1.000-1.030); Urobilinogen Urine Negative (Negative)
--- NOTE | 2018-09-29 19:40 | Emergency Department Note ---
Entered by Get Alanis acting as a scribe for History of Present Illness General Chief complaint: Fall Stated complaint: FALL Time Seen by Provider: 09/29/18 17:28 Source: patient History of Present Illness Provider complaint: Fall Onset (ago): hour(s) (Today) Location: lower extremity Radiation: non-radiation Severity: similar to prior episodes Pain Consistency: + other (Episodic) Relieved By: + none Associated symptoms: + nausea/vomiting, + weakness and + other (Lightheaded, no diarrhea, no abdominal pain, no hematochezia, no incontinence); no chest pain, no fever/chills and no syncope The patient is a 77 year old male who presents to the Emergency Room after having two falling episodes today at his living facility. The first time he fell he was without a cane and walking near the entrance of his facility. He states both of his legs suddenly became weak but he did not lose consciousness. The second fall occurred due to the same mechanisn, however he did have a cane this time. During the second fall he did hit his head, but denies ever losing consciousness. He has has no recent illnesses but he has been feeling lightheaded as of late and vomited after the first fall today. He denies any abdominal pain, hematochezia, fever, flu symptoms, neck pain, back pain incontinence, chest pain or tongue bite but he has had trouble staying hydrated. He is not on any blood thinners. 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 Home Medications Home Medications Medication Instructions Recorded Confirmed Type alendronate 70 mg PO WK 09/29/18 09/29/18 History aspirin 81 m PO DAILY 09/29/18 09/29/18 History baclofen 10 mg PO HS PRN 09/29/18 09/29/18 History cilostazol 50 mg PO BID 09/29/18 09/29/18 History finasteride 5 mg PO DAILY 09/29/18 09/29/18 History fluoxetine 40 mg PO DAILY 09/29/18 09/29/18 History hydrocodone-acetaminophen 1 tab PO BID PRN 09/29/18 09/29/18 History ipratropium-albuterol [Combivent 1 puff INHALATION QID 09/29/18 09/29/18 History Respimat] lovastatin 40 mg PO DAILY 09/29/18 09/29/18 History omeprazole 20 mg PO HS 09/29/18 09/29/18 History prednisone 5 mg PO DAILY 09/29/18 09/29/18 History quetiapine 50 mg PO HS 09/29/18 09/29/18 History tizanidine 4 mg PO Q8H PRN 09/29/18 09/29/18 History verapamil 120 mg PO DAILY 09/29/18 09/29/18 History Allergies Allergy/AdvReac Type Severity Reaction Status Date / Time No Known Allergies Allergy Verified 09/29/18 17:30 Past Med/Surg History Medical History Neurofibromatosis Hyperlipidemia Temporal arteritis Family History Other AAA (abdominal aortic aneurysm) Social History Feels Safe at Home: Yes Smoking Status: Current every day smoker Review of Systems See HPI for pertinent positives & negatives. and A total of 10 systems reviewed and were otherwise negative Physical Exam Vital Signs Vital Signs - 24 hr 09/29/18 17:09 09/29/18 17:32 09/29/18 19:06 Temperature 36.6 C Temperature Source Oral Sepsis Recent Fever Within 48 Hours No Sepsis New/Unexplained Change in Mental Status No Sepsis Action Taken by Nursing No Action Required Pulse Rate 88 Pulse Rate [Apical] 82 Respiratory Rate 20 20 Blood Pressure 177/109 H Blood Pressure [Left Arm] 193/112 H Blood Pressure Mean 131 Blood Pressure Mean [Left Arm] 139 Blood Pressure Position Sitting Pulse Oximetry 96 97 99 Oxygen Delivery Method Room Air Room Air Room Air 09/29/18 20:37 Temperature Temperature Source Sepsis Recent Fever Within 48 Hours Sepsis New/Unexplained Change in Mental Status Sepsis Action Taken by Nursing Pulse Rate Pulse Rate [Apical] 82 Respiratory Rate 20 Blood Pressure Blood Pressure [Left Arm] 163/105 H Blood Pressure Mean Blood Pressure Mean [Left Arm] 124 Blood Pressure Position Pulse Oximetry 98 Oxygen Delivery Method Room Air General: Non-ill appearing older male in no acute distress. HEENT: Normal cephalic with small contusion on the posterior scalp without active bleeding. Pupils are equal round and reactive to light. Extraocular movements are intact. Oropharynx is pink with moist mucous membranes. No swelling of the mouth lips or tongue. Neck: Supple with a midline trachea. No meningeal signs or stiffness, no JVD or bruits. No Stridor. Chest: Clear to auscultation bilaterally. No wheezes or rhonchi. No increased work of breathing. Heart: regular rate and rhythm. Abdomen: Soft nontender, nondistended without rebound guarding or rigidity. Extremities: No cyanosis clubbing or edema. No calf tenderness or assymetry Spine/Back. Non tender to palpation. No CVA tenderness Skin: Good turgor without rashes. Multiple diffuse neurofibromatosis Neurologic exam: Cranial nerves two through 12 are intact. Motor and sensation are intact and symmetrical throughout. Course 1730: Past medical records reviewed. The patient was evaluated in room A11B, and a complete history and physical examination were performed. 0: I spoke to the patient and he states he feels generally weak and does not feel comfortable going home. 1927: I spoke to Dr. Masha Lowery [facility] Hospitalist about the patient's case and he is going to accept him for further evaluation. He also is going to see the patient and wants tme to order a brain MRI and carotid ultrasound. 1930: I reevaluated the patient and he is resting comfortably. I also updated the patient a about the treatment plan and he agreed. Consultations Consultation #1: I spoke to Dr. Masha Lowery [facility] Hospitalist about the patient's case and he is going to accept him for further evaluation. He also is going to see the patient and wants tme to order a brain MRI and carotid ultrasound. Time: 19:28 Administered Medications Discontinued Medications Sodium Chloride (Nss) 500 mls @ 999 mls/hr IV .Q31M [facility] Stop: 09/29/18 18:15 Last Infusion: 09/29/18 20:20 Dose: 0 mls/hr Admin: 09/29/18 19:25 Dose: 500 mls/hr Medical Decision Making Differential Diagnosis Differential Diagnoses include: Cardiac disease, dehydration, anemia, arrthymia , neurological process, and electrolyte/metabolic abnormality, amongst others. Medical Records Attestation: I reviewed the patient's medical records. Home Medications Current Medication List: was personally reviewed by me Laboratory Data Attestation: I reviewed the patient's lab results. Result diagrams: 09/29/18 17:55 09/29/18 17:55 Lab Results 09/29/18 09/29/18 09/29/18 Range/Units 17:55 17:55 17:58 WBC 7.59 (4.8-10.8) K/uL RBC 4.73 (4.7-6.1) M/uL Hgb 15.3 (14.0-18.0) g/dL Hct 44.4 (42-52) % MCV 93.9 (80-100) fL MCH 32.3 (25-34) pg MCHC 34.5 (32-36) g/dL RDW Std Deviation 44.2 (36.4-46.3) fL RDW Coeff of Alexei 12.9 (11.5-14.5) % Plt Count 210 (130-400) K/uL MPV 9.8 (7.4-10.4) fL Immature Gran % (Auto) 1.6 % Neut % (Auto) 75.1 % Lymph % (Auto) 14.9 % [place] % (Auto) 7.6 % Eos % (Auto) 0.3 % Baso % (Auto) 0.5 % Immature Gran # (Auto) 0.12 H (0.00-0.02) K/uL Neut # (Auto) 5.70 (1.4-6.5) K/uL Lymph # (Auto) 1.13 L (1.2-3.4) K/uL [place] # (Auto) 0.58 (0.11-0.59) K/uL Eos # (Auto) 0.02 (0-0.5) K/uL Baso # (Auto) 0.04 (0-0.2) K/uL Sodium 140 (136-145) mmol/L Potassium (3.5-5.1) mmol/L Chloride 107 (98-107) mmol/L Carbon Dioxide 24 (21-32) mmol/L Anion Gap 10.0 (3-11) BUN 25 H (7-18) mg/dl Creatinine 1.44 H (0.6-1.4) mg/dl Est Cr Clr Drug Dosing 40.0 ml/min Est GFR ( Amer) 54.7 Est GFR (Non-Af Amer) 47.2 BUN/Creatinine Ratio 17.5 (10-20) Glucose 116 H (70-99) mg/dl Calcium 8.8 (8.5-10.1) mg/dl Total Bilirubin 0.5 (0.2-1) mg/dl AST (15-37) U/L ALT 15 (12-78) U/L Alkaline Phosphatase 38 L (45-117) U/L POC Troponin I < 0.03 (0-0.045) ng/ml Total Protein 6.8 (6.4-8.2) gm/dl Albumin 3.7 (3.4-5.0) gm/dl Globulin 3.1 (2.5-4.0) gm/dl Albumin/Globulin Ratio 1.2 (0.9-2) TSH 2.330 (0.300-4.500) uIu/ml Urine Color Urine Appearance (Clear) Urine pH (4.5-7.5) Ur Specific Protection (1.000-1.030) Urine Protein (Negative) Urine Glucose (UA) (Negative) Urine Ketones (Negative) Urine Blood (Negative) Urine Nitrite (Negative) Urine Bilirubin (Negative) Urine Urobilinogen (Negative) Ur Leukocyte Esterase (Negative) 09/29/18 Range/Units 19:00 WBC (4.8-10.8) K/uL RBC (4.7-6.1) M/uL Hgb (14.0-18.0) g/dL Hct (42-52) % MCV (80-100) fL MCH (25-34) pg MCHC (32-36) g/dL RDW Std Deviation (36.4-46.3) fL RDW Coeff of Alexei (11.5-14.5) % Plt Count (130-400) K/uL MPV (7.4-10.4) fL Immature Gran % (Auto) % Neut % (Auto) % Lymph % (Auto) % [place] % (Auto) % Eos % (Auto) % Baso % (Auto) % Immature Gran # (Auto) (0.00-0.02) K/uL Neut # (Auto) (1.4-6.5) K/uL Lymph # (Auto) (1.2-3.4) K/uL [place] # (Auto) (0.11-0.59) K/uL Eos # (Auto) (0-0.5) K/uL Baso # (Auto) (0-0.2) K/uL Sodium (136-145) mmol/L Potassium (3.5-5.1) mmol/L Chloride (98-107) mmol/L Carbon Dioxide (21-32) mmol/L Anion Gap (3-11) BUN (7-18) mg/dl Creatinine (0.6-1.4) mg/dl Est Cr Clr Drug Dosing ml/min Est GFR ( Amer) Est GFR (Non-Af Amer) BUN/Creatinine Ratio (10-20) Glucose (70-99) mg/dl Calcium (8.5-10.1) mg/dl Total Bilirubin (0.2-1) mg/dl AST (15-37) U/L ALT (12-78) U/L Alkaline Phosphatase (45-117) U/L POC Troponin I (0-0.045) ng/ml Total Protein (6.4-8.2) gm/dl Albumin (3.4-5.0) gm/dl Globulin (2.5-4.0) gm/dl Albumin/Globulin Ratio (0.9-2) TSH (0.300-4.500) uIu/ml Urine Color Yellow Urine Appearance Clear (Clear) Urine pH 5.0 (4.5-7.5) Ur Specific Protection 1.017 (1.000-1.030) Urine Protein Negative (Negative) Urine Glucose (UA) Negative (Negative) Urine Ketones Negative (Negative) Urine Blood Negative (Negative) Urine Nitrite Negative (Negative) Urine Bilirubin Negative (Negative) Urine Urobilinogen Negative (Negative) Ur Leukocyte Esterase Negative (Negative) Imaging Data Radiologist's Impression: Radiology results as stated below per my review and the radiologist's interpretation: XR chest 1V portable CLINICAL HISTORY: 77 years-old Male presenting with weakness. TECHNIQUE: Portable upright AP view of the chest was obtained. COMPARISON: 08/22/2018. FINDINGS: Cardiac silhouette mildly enlarged. No focal opacity. No large effusion or pneumothorax. Osteopenia suggested. Numerous skin lesions suggested as on prior exam. IMPRESSION: 1. Mild cardiomegaly. No other convincing evidence of acute cardiopulmonary disease. Electronically signed by: Jos Rogers M.D. 09/29/2018 6:[address] head/brain wo con CLINICAL HISTORY: 77 years-old Male presenting with fall, dizzy. TECHNIQUE: Multidetector CT imaging of the head was performed without the use of intravenous contrast. IV contrast: None. A dose lowering technique was used consistent with the principles of ALARA (as low as reasonably achievable). COMPARISON: 08/22/2018. CT DOSE (mGy.cm): The estimated cumulative dose is 614.27 mGy.cm. FINDINGS: Atm Manager topogram: Unremarkable. Proportional ventricular and sulcal prominence, likely age-related parenchymal volume loss. No hemorrhage. Periventricular and subcortical white matter hypoattenuation, nonspecific but likely indicative of chronic small vessel ischemic change. 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 No acute territorial infarct. No mass effect or midline shift. No extra-axial fluid collection. Paranasal sinuses and mastoid air cells clear. Calvarium intact. Prominence of diploic veins. Innumerable skin nodules associated with skin thickening. IMPRESSION: 1. No significant change compared to the prior study. No acute intracranial abnormality. Electronically signed by: Jos Rogers M.D. 09/29/2018 6:35 PM ECG Data Attestation: I personally reviewed and interpreted this ECG as follows: Indication: weakness Rate (beats per minute): 88 Rhythm: normal sinus Findings: + other (Old inferior infarct), + 1st degree AV block and + PVC; no ST elevation Comparison ECG Date: from (August 22, 2018) Change: the following changes noted (PVCs are now present) Blood Pressure Blood Pressure Findings: Elevated blood pressure Blood Pressure Disposition: further management by hospitalist [facility] Narrative This patient comes in as described above. He was placed in room A 11. He has been falling he fell twice today, he is not sure why. he does not think that he passed out he said that his legs just gave out bilaterally. He does not report any seizure-like activity or incontinence or tongue biting. IV access was established hydrated with IV normal saline bolus. EKG was obtained which does not suggest any acute coronary syndrome or significant arrhythmia. He has no significant x-ray or metabolic abnormalities. CAT scan of his head was obtained and was unremarkable. He has no significant electrolyte or metabolic abnormalities. his blood pressure was noted to be elevated. In the past, this has also been significantly elevated. I think this is more of a chronic issue and therefore does not need to be lowered acutely without any evidence of acute end organ damage. he does have some renal insufficiency. I did discuss case with Dr. Rodriguez as I do think he needs to be admitted/observe for weakness and falls. Dr. Castellano has asked in the meantime if I could order a noncontrast MRI of his brain as well as a carotid ultrasound which I did. The patient will be admitted/observe to Dr. Castellano. Impression & Plan Weakness, Dizziness, Frequent falls Discharge Plan Visit Data Chief Complaint: Fall Stated Complaint: FALL ED Provider: Hussain Ocasio Discharge Problem: Weakness, Dizziness, Frequent falls Patient Disposition: Being Evaluated by Hospitalist Forms Stand Alone Forms: My [facility] Prescriptions Prescriptions: No Action verapamil 120 mg tablet extended release 120 mg PO DAILY RF: 0 fluoxetine 40 mg capsule 40 mg PO DAILY RF: 0 cilostazol 50 mg tablet 50 mg PO BID RF: 0 tizanidine 4 mg tablet 4 mg PO Q8H PRN (Reason: Muscle Spasm) RF: 0 alendronate 70 mg tablet 70 mg PO WK RF: 0 lovastatin 40 mg tablet 40 mg PO DAILY RF: 0 prednisone 5 mg tablet 5 mg PO DAILY RF: 0 baclofen 10 mg tablet 10 mg PO HS PRN (Reason: Pain) RF: 0 hydrocodone-acetaminophen 7.5-325 mg tablet 1 tab PO BID PRN (Reason: Pain) RF: 0 omeprazole 20 mg capsule,delayed release(DR/EC) 20 mg PO HS RF: 0 finasteride 5 mg tablet 5 mg PO DAILY RF: 0 quetiapine 50 mg tablet 50 mg PO HS RF: 0 ipratropium-albuterol [Combivent Respimat] 20-100 mcg/actuation mist 1 puff Inhalation QID RF: 0 aspirin 81 mg Tablet,Delayed Release (Dr/Ec) 81 m PO DAILY RF: 0 Referrals Referrals: Jennifer Fitch [Primary Care Provider] - The scribe's documentation has been prepared under my direction and personally reviewed by me in its entirety. I confirm that the note above accurately reflects all work, treatment, procedures, and medical decision making performed by me.
--- NOTE | 2018-09-29 21:21 | Magnetic Resonance Report ---
MR brain wo con CLINICAL HISTORY: 77 years-old Male presenting with leg weakness, unable to stand, freq falls, lighth eadedness; history of seizures. TECHNIQUE: Multisequence, multiplanar MR imaging of the brain was performed without the use of intrav enous contrast. IV contrast: None. COMPARISON: Noncontrast CT head performed today. FINDINGS: Localizer images: Unremarkable. Proportional ventricular and sulcal prominence, likely age-related parenchymal volume loss. Periventr icular and subcortical white matter T2/FLAIR hyperintensity, nonspecific but likely indicative of chr onic small vessel ischemic change. Postcontrast imaging was not performed. No mass effect or midline shift. No restricted diffusion to suggest acute ischemia. No hemorrhage. No extra-axial fluid collection. T2 skull base flow voids preserved. Bone marrow signal intensity within the calvarium within normal l imits. Innumerable skin nodules with diffuse skin thickening. IMPRESSION: 1. Chronic small vessel ischemic change. No acute intracranial abnormality. Electronically signed by: Jos Rogers M.D. 09/29/2018 9:20 PM
--- NOTE | 2018-09-29 21:46 | Ultrasound Report ---
US carotid doppler BI CLINICAL HISTORY: 77 years-old Male presenting with weakness, falls. TECHNIQUE: Real-time grayscale and color and spectral Doppler ultrasound imaging of the bilateral car otid arteries was performed. NASCET criteria was used in evaluating this study. COMPARISON: None. FINDINGS: RIGHT: Common carotid artery (CCA): Patent. Peak systolic velocity (PSV) 84 cm/s. Internal carotid artery (ICA): Patent. PSV 66 cm/s. End diastolic velocity (EDV) 23 cm/s. ICA/CCA (systolic) ratio: 0.8. External carotid artery (ECA): Patent. PSV 103 cm/s. LEFT: CCA: Atherosclerosis at the carotid bulb. PSV 80 cm/s. ICA: Patent. PSV 61 cm/s. EDV 22 cm/s. ICA/CCA (systolic) ratio: 0.8. ECA: Patent. PSV 81 cm/s. Bilateral antegrade flow within the vertebral arteries. Blood pressure: Not taken due to intravenous line. Brachial: Right: mmHg, Left: mmHg. Reference ranges: Stenosis measurements are compared to reference velocity parameters by the Society of Radiologists in Ultrasound (SRU) consensus and Sonographic NASCET index (S-NASCET). * SRU Primary parameters: ICA PSV <125 cm/s = normal or less than 50% stenosis; ICA PSV 125-230 cm/s = 50-69% stenosis; ICA PSV >230 cm/s = greater than or equal to 70% stenosis. * SRU Additional parameters: ICA/CCA PSV ratio <2 = normal or less than 50% stenosis; ratio 2-4 = 5 0-69% stenosis; ratio >4 = greater than or equal to 70% stenosis. ICA EDV <40 cm/s = normal or less t sanders 50% stenosis; ICA EDV 40-100 cm/s = 50-69% stenosis; ICA EDV >100 cm/s = greater than or equal to 70% stenosis. * S-NASCET parameters: Deceleration spectral broadening + PSV <125 cm/s = less than 50% stenosis; pa nsystolic spectral broadening + PSV <125 cm/s = 16-49% stenosis; pansystolic spectral broadening + PS V >125 cm/s + EDV <110 cm/s or ICA/CCA PSV ratio 2-4 = 50-69% stenosis; pansystolic spectral broadeni ng + PSV >270 cm/s OR EDV >110 cm/s OR ICA/CCA PSV ratio >4 = 70-79% stenosis; EDV >140 cm/s = 80-99% stenosis. IMPRESSION: 1. No hemodynamically significant stenosis seen within the carotid arteries. Electronically signed by: Jos Rogers M.D. 09/29/2018 9:44 PM
--- NOTE | 2018-09-29 22:42 | History & Physical Report ---
Date of Service September 29, 2018 Assessment & Plan (1) Frequent falls: 77M here for acute weakness and fall while at home. 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 Says his legs will "give out" on him suddenly while walking with his cane or without. He states this has been an ongoing problem off and on for at least two years. On review of records it does appear that he has been in the ED for similar complaints in the past. Pt is rather sedentary, stating "there's nothing to do " in his home, walks with a cane. Does have lower back pain that is treated symptomatically. Work up thus far to query CVA causes have been negative. Pt does not currently complain of focal weakness. He is on daily prednisone, for giant cell arteritis, as well as actemra. He has medication induced osteoporosis on review of outpatient records. Pt stated he felt generally weak and unsafe to return home. ED course: CXR, head CT, brain MRI and carotid doppler studies unremarkable for acute or significant changes. ECG does not suggest acute coronary syndrome. CBC and BMP generally unremarkable with the exception of slightly elevated creatinine. Trop negative. TSH wnl. UA normal. 500ml bolus given. Frequent falls -acute bilateral leg weakness, has been going on for 3 years per patient -not associated with pain in legs to suggest claudication although pt's h/o CAD makes it possible -XR lumbar spine/pelvis ordered to evaluate for acute abnormalities or stenosis to explain weakness -PT/OT to eval and treat -suspect this is multifactorial -- likely due to chronic prednisone use (for his temporal arteritis), is also on actemra ([place]-6 inh) but weakness is not a known side effect -pt is very sedentary, deconditioning also likely a contributing factor FEN/GI: heart healthy diet, no fluids at this time DVT ppx: lovenox CODE STATUS: FULL DISPO: med/surg, PT OT to eval treat, DC planning for possible rehab (2) Neurofibromatosis: (3) Hyperlipidemia: home statin continued (4) Temporal arteritis: Stable; Followed by rheumatology [facility] [place] home meds continued including prednisone -actemra injection is every Sunday, so not ordered here. (5) Weakness: as above (6) Depression: home fluoxetine, seroquel continued (7) BPH (benign prostatic hyperplasia): home meds continued (8) CAD (coronary artery disease): home meds continued (9) GERD (gastroesophageal reflux disease): home meds continued History of Present Illness Primary Care Provider: Jennifer Fitch 77M here for acute weakness and fall while at home. 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 Says his legs will "give out" on him suddenly while walking with his cane or without. He states this has been an ongoing problem off and on for at least two years. On review of records it does appear that he has been in the ED for similar complaints in the past. Pt is rather sedentary, stating "there's nothing to do " in his home, walks with a cane. Does have lower back pain that is treated symptomatically. Work up thus far to query CVA causes have been negative. Pt does not currently complain of focal weakness. He is on daily prednisone, for giant cell arteritis, as well as actemra. He has medication induced osteoporosis on review of outpatient records. Pt stated he felt generally weak and unsafe to return home. ED course: CXR, head CT, brain MRI and carotid doppler studies unremarkable for acute or significant changes. ECG does not suggest acute coronary syndrome. CBC and BMP generally unremarkable with the exception of slightly elevated creatinine. Trop negative. TSH wnl. UA normal. 500ml bolus given. Allergies Allergy/AdvReac Type Severity Reaction Status Date / Time No Known Allergies Allergy Verified 09/29/18 17:30 Home Medications Home Medications Medication Instructions Recorded Confirmed Type alendronate 70 mg PO WK 09/29/18 09/29/18 History aspirin 81 m PO DAILY 09/29/18 09/29/18 History baclofen 10 mg PO HS PRN 09/29/18 09/29/18 History cilostazol 50 mg PO BID 09/29/18 09/29/18 History finasteride 5 mg PO DAILY 09/29/18 09/29/18 History fluoxetine 40 mg PO DAILY 09/29/18 09/29/18 History hydrocodone-acetaminophen 1 tab PO BID PRN 09/29/18 09/29/18 History ipratropium-albuterol [Combivent 1 puff INHALATION QID 09/29/18 09/29/18 History Respimat] lovastatin 40 mg PO DAILY 09/29/18 09/29/18 History omeprazole 20 mg PO HS 09/29/18 09/29/18 History prednisone 5 mg PO DAILY 09/29/18 09/29/18 History quetiapine 50 mg PO HS 09/29/18 09/29/18 History tizanidine 4 mg PO Q8H PRN 09/29/18 09/29/18 History verapamil 120 mg PO DAILY 09/29/18 09/29/18 History Past Med/Surg History Medical History Neurofibromatosis (Chronic) Hyperlipidemia (Chronic) Temporal arteritis (Chronic) Family History Other AAA (abdominal aortic aneurysm) Social History Feels Safe at Home: Yes Smoking Status: Current every day smoker Review of Systems All systems reviewed & are unremarkable except as noted in HPI & below ( nonspecific weakness, but denies fevers/chills, dysphagia, facial droop, seizurelike activity, chest pain, dyspnea, abdominal pain, diarrhea/constipation , or numbness tingling in extremities.) Physical Exam 2 Vital Signs (Past 24 Hours): Last Vital Signs Temp 36.6 C 09/29/18 17:09 Pulse 80 09/29/18 22:30 Resp 18 09/29/18 22:30 BP 134/99 09/29/18 22:30 Pulse Ox 98 09/29/18 22:30 Physical Exam: Vitals noted as above and within normal limits. GENERAL: Awake, alert, well-appearing, in no distress HENT: Normocephalic, atraumatic. EYES: Normal conjunctiva. Sclera non-icteric. EOMI. NECK: Supple. Full range of motion. no JVD RESPIRATORY: Clear to auscultation. CARDIAC: Regular rate, normal rhythm. Extremities warm and well perfused. Pulses equal. ABDOMEN: Soft, non-distended. No tenderness to palpation. No rebound or guarding. No masses. Bowel sounds are normal. LOWER EXTREMITIES: Calves are equal size bilaterally and non-tender. No edema. No discoloration. NEURO: No gross focal motor deficits noted. Negative Babinski bilaterally. Finger to nose normal. CN II-XII in tact. SKIN: Rash not present. No jaundice noted. Countless dermal neurofibromas diffusely across body surface. Results & Data Laboratory Results 09/29/18 09/29/18 09/29/18 Range/Units 19:00 17:58 17:55 WBC (4.8-10.8) K/uL RBC (4.7-6.1) M/uL Hgb (14.0-18.0) g/dL Hct (42-52) % MCV (80-100) fL MCH (25-34) pg MCHC (32-36) g/dL RDW Std Deviation (36.4-46.3) fL RDW Coeff of Alexei (11.5-14.5) % Plt Count (130-400) K/uL MPV (7.4-10.4) fL Immature Gran % (Auto) % Neut % (Auto) % Lymph % (Auto) % [place] % (Auto) % Eos % (Auto) % Baso % (Auto) % Immature Gran # (Auto) (0.00-0.02) K/uL Neut # (Auto) (1.4-6.5) K/uL Lymph # (Auto) (1.2-3.4) K/uL [place] # (Auto) (0.11-0.59) K/uL Eos # (Auto) (0-0.5) K/uL Baso # (Auto) (0-0.2) K/uL Sodium 140 (136-145) mmol/L Potassium (3.5-5.1) mmol/L Chloride 107 (98-107) mmol/L Carbon Dioxide 24 (21-32) mmol/L Anion Gap 10.0 (3-11) BUN 25 H (7-18) mg/dl Creatinine 1.44 H (0.6-1.4) mg/dl Est Cr Clr Drug Dosing 40.0 ml/min Est GFR ( Amer) 54.7 Est GFR (Non-Af Amer) 47.2 BUN/Creatinine Ratio 17.5 (10-20) Glucose 116 H (70-99) mg/dl Calcium 8.8 (8.5-10.1) mg/dl Total Bilirubin 0.5 (0.2-1) mg/dl AST (15-37) U/L ALT 15 (12-78) U/L Alkaline Phosphatase 38 L (45-117) U/L POC Troponin I < 0.03 (0-0.045) ng/ml Total Protein 6.8 (6.4-8.2) gm/dl Albumin 3.7 (3.4-5.0) gm/dl Globulin 3.1 (2.5-4.0) gm/dl Albumin/Globulin Ratio 1.2 (0.9-2) TSH 2.330 (0.300-4.500) uIu/ml Urine Color Yellow Urine Appearance Clear (Clear) Urine pH 5.0 (4.5-7.5) Ur Specific [place] 1.017 (1.000-1.030) Urine Protein Negative (Negative) Urine Glucose (UA) Negative (Negative) Urine Ketones Negative (Negative) Urine Blood Negative (Negative) Urine Nitrite Negative (Negative) Urine Bilirubin Negative (Negative) Urine Urobilinogen Negative (Negative) Ur Leukocyte Esterase Negative (Negative) 09/29/18 Range/Units 17:55 WBC 7.59 (4.8-10.8) K/uL RBC 4.73 (4.7-6.1) M/uL Hgb 15.3 (14.0-18.0) g/dL Hct 44.4 (42-52) % MCV 93.9 (80-100) fL MCH 32.3 (25-34) pg MCHC 34.5 (32-36) g/dL RDW Std Deviation 44.2 (36.4-46.3) fL RDW Coeff of Alexei 12.9 (11.5-14.5) % Plt Count 210 (130-400) K/uL MPV 9.8 (7.4-10.4) fL Immature Gran % (Auto) 1.6 % Neut % (Auto) 75.1 % Lymph % (Auto) 14.9 % [place] % (Auto) 7.6 % Eos % (Auto) 0.3 % Baso % (Auto) 0.5 % Immature Gran # (Auto) 0.12 H (0.00-0.02) K/uL Neut # (Auto) 5.70 (1.4-6.5) K/uL Lymph # (Auto) 1.13 L (1.2-3.4) K/uL [place] # (Auto) 0.58 (0.11-0.59) K/uL Eos # (Auto) 0.02 (0-0.5) K/uL Baso # (Auto) 0.04 (0-0.2) K/uL Sodium (136-145) mmol/L Potassium (3.5-5.1) mmol/L Chloride (98-107) mmol/L Carbon Dioxide (21-32) mmol/L Anion Gap (3-11) BUN (7-18) mg/dl Creatinine (0.6-1.4) mg/dl Est Cr Clr Drug Dosing ml/min Est GFR ( Amer) Est GFR (Non-Af Amer) BUN/Creatinine Ratio (10-20) Glucose (70-99) mg/dl Calcium (8.5-10.1) mg/dl Total Bilirubin (0.2-1) mg/dl AST (15-37) U/L ALT (12-78) U/L Alkaline Phosphatase (45-117) U/L POC Troponin I (0-0.045) ng/ml Total Protein (6.4-8.2) gm/dl Albumin (3.4-5.0) gm/dl Globulin (2.5-4.0) gm/dl Albumin/Globulin Ratio (0.9-2) TSH (0.300-4.500) uIu/ml Urine Color Urine Appearance (Clear) Urine pH (4.5-7.5) Ur Specific [place] (1.000-1.030) Urine Protein (Negative) Urine Glucose (UA) (Negative) Urine Ketones (Negative) Urine Blood (Negative) Urine Nitrite (Negative) Urine Bilirubin (Negative) Urine Urobilinogen (Negative) Ur Leukocyte Esterase (Negative) Diagnostic Findings XR chest 1V portable CLINICAL HISTORY: 77 years-old Male presenting with weakness. TECHNIQUE: Portable upright AP view of the chest was obtained. COMPARISON: 08/22/2018. FINDINGS: Cardiac silhouette mildly enlarged. No focal opacity. No large effusion or pneumothorax. Osteopenia suggested. Numerous skin lesions suggested as on prior exam. IMPRESSION: 1. Mild cardiomegaly. No other convincing evidence of acute cardiopulmonary disease. Electronically signed by: Jos Rogers M.D. 09/29/2018 6:[address] head/brain wo con CLINICAL HISTORY: 77 years-old Male presenting with fall, dizzy. TECHNIQUE: Multidetector CT imaging of the head was performed without the use of intravenous contrast. IV contrast: None. A dose lowering technique was used consistent with the principles of ALARA (as low as reasonably achievable). COMPARISON: 08/22/2018. CT DOSE (mGy.cm): The estimated cumulative dose is 614.27 mGy.cm. FINDINGS: Pul[employer] And [employer] Tester topogram: Unremarkable. Proportional ventricular and sulcal prominence, likely age-related parenchymal volume loss. No hemorrhage. Periventricular and subcortical white matter hypoattenuation, nonspecific but likely indicative of chronic small vessel ischemic change. 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 No acute territorial infarct. No mass effect or midline shift. No extra-axial fluid collection. Paranasal sinuses and mastoid air cells clear. Calvarium intact. Prominence of diploic veins. Innumerable skin nodules associated with skin thickening. IMPRESSION: 1. No significant change compared to the prior study. No acute intracranial abnormality. Electronically signed by: Jos Rogers M.D. 09/29/2018 6:35 PM MR brain wo con CLINICAL HISTORY: 77 years-old Male presenting with leg weakness, unable to stand, freq falls, lightheadedness; history of seizures. TECHNIQUE: Multisequence, multiplanar MR imaging of the brain was performed without the use of intravenous contrast. IV contrast: None. COMPARISON: Noncontrast CT head performed today. FINDINGS: Localizer images: Unremarkable. Proportional ventricular and sulcal prominence, likely age-related parenchymal volume loss. Periventricular and subcortical white matter T2/FLAIR hyperintensity, nonspecific but likely indicative of chronic small vessel ischemic change. Postcontrast imaging was not performed. No mass effect or midline shift. No restricted diffusion to suggest acute ischemia. No hemorrhage. No extra-axial fluid collection. T2 skull base flow voids preserved. Bone marrow signal intensity within the calvarium within normal limits. Innumerable skin nodules with diffuse skin thickening. IMPRESSION: 1. Chronic small vessel ischemic change. No acute intracranial abnormality. Electronically signed by: Jos Rogers M.D. 09/29/2018 9:20 PM US carotid doppler BI CLINICAL HISTORY: 77 years-old Male presenting with weakness, falls. TECHNIQUE: Real-time grayscale and color and spectral Doppler ultrasound imaging of the bilateral carotid arteries was performed. NASCET criteria was used in evaluating this study. COMPARISON: None. FINDINGS: RIGHT: Common carotid artery (CCA): Patent. Peak systolic velocity (PSV) 84 cm/s. Internal carotid artery (ICA): Patent. PSV 66 cm/s. End diastolic velocity (EDV ) 23 cm/s. ICA/CCA (systolic) ratio: 0.8. External carotid artery (ECA): Patent. PSV 103 cm/s. LEFT: CCA: Atherosclerosis at the carotid bulb. PSV 80 cm/s. ICA: Patent. PSV 61 cm/s. EDV 22 cm/s. ICA/CCA (systolic) ratio: 0.8. ECA: Patent. PSV 81 cm/s. Bilateral antegrade flow within the vertebral arteries. Blood pressure: Not taken due to intravenous line. Brachial: Right: mmHg, Left: mmHg. Reference ranges: Stenosis measurements are compared to reference velocity parameters by the Society of Radiologists in Ultrasound (SRU) consensus and Sonographic NASCET index (S-NASCET). * SRU Primary parameters: ICA PSV <125 cm/s = normal or less than 50% stenosis ; ICA PSV 125-230 cm/s = 50-69% stenosis; ICA PSV >230 cm/s = greater than or equal to 70% stenosis. * SRU Additional parameters: ICA/CCA PSV ratio <2 = normal or less than 50% stenosis; ratio 2-4 = 50-69% stenosis; ratio >4 = greater than or equal to 70% stenosis. ICA EDV <40 cm/s = normal or less than 50% stenosis; ICA EDV 40-100 cm /s = 50-69% stenosis; ICA EDV >100 cm/s = greater than or equal to 70% stenosis. * S-NASCET parameters: Deceleration spectral broadening + PSV <125 cm/s = less than 50% stenosis; pansystolic spectral broadening + PSV <125 cm/s = 16-49% stenosis; pansystolic spectral broadening + PSV >125 cm/s + EDV <110 cm/s or ICA /CCA PSV ratio 2-4 = 50-69% stenosis; pansystolic spectral broadening + PSV > 270 cm/s OR EDV >110 cm/s OR ICA/CCA PSV ratio >4 = 70-79% stenosis; EDV >140 cm /s = 80-99% stenosis. IMPRESSION: 1. No hemodynamically significant stenosis seen within the carotid arteries. Electronically signed by: Jos Rogers M.D. 09/29/2018 9:44 PM Medications Administered 500 ml bolus NSS IV ECG Additional Comments: rate 80s, normal sinus rhythm with old inferior infarct, and first deg AV block, no ST elevations. Code Status & VTE Plan Code Status full Supervising Physician Co-Signing Physician Notes Attending addendum: I have physically seen this patient, have supervised the medical residents activities, and agree with the H&P unless as otherwise noted. Assessment and Plan: Increasing frequency of falls/acute, predictable bilateral lower extremity weakness hypo- Previous imaging from 1 month ago plus today's imaging are negative for acute brain event. Would order x-rays of lumbar spine and pelvis, and if necessary a CT and/or MRI. Consult PT/OT. Patient has a very sedentary lifestyle, which likely is contributing to his symptoms. Continue on his usual pain regimen from home. We will consult manager social responsibility, as patient may require an inpatient rehab stay. Remainder of orders and notations as noted. Resident Activity Tracking Resident Involvement: Resident Care Provided Care Provided: Adult Hospital Medicine
[2018-09-30] MEDS ORDERED: POLYETHYLENE (MIRALAX) 17 GM PACK PO PRN (00:19)
[2018-09-30] MEDS ORDERED: BACLOFEN 10 MG TAB PO PRN (00:19)
[2018-09-30] MEDS: HYDROCODONE/ACETAMINOPHEN 7.5/325MG TAB PO PRN ×3 (00:35→18:50)
[2018-09-30 07:24] LABS: INR 1.1 (0.9-1.1); Prothrombin Time 10.7 Seconds (9.0-12.0)
[2018-09-30] MEDS: TIZANIDINE HCL 4 MG TABLET PO PRN (07:47)
[2018-09-30] MEDS: predniSONE 5 MG TAB PO SCH (07:48)
[2018-09-30] MEDS: FLUOXETINE HCL 20 MG CAP PO SCH (07:48)
[2018-09-30] MEDS: ASPIRIN 81 MG ECTAB PO SCH (07:49)
[2018-09-30] MEDS: CILOSTAZOL 100 MG TAB PO SCH ×2 (07:49→20:12)
[2018-09-30] MEDS: LOVASTATIN 20 MG TAB PO SCH (07:50)
[2018-09-30] MEDS: ENOXAPARIN INJ 40 MG/0.4 ML SYR SQ SCH (07:51)
[2018-09-30] MEDS: IPRATROPIUM BROMIDE/ALBUTEROL respimat INH INH SCH ×4 (07:51→20:11)
[2018-09-30] MEDS: FINASTERIDE 5 MG TAB PO SCH (07:59)
[2018-09-30 08:41] LABS: BUN Creatinine Ratio 18.4 (10-20); Calcium 8.5 mg/dl (8.5-10.1); Creatinine Clr Calc Pharmacy 50.5 ml/min; Est GFR (African American) 72.5; Est GFR (Non-African American) 62.6; Magnesium 2.1 mg/dl (1.8-2.4); Potassium 3.4 mmol/L (3.5-5.1)
[2018-09-30] MEDS ORDERED: POTASSIUM CHLORIDE 10 MEQ TABCR PO STA (08:52)
[2018-09-30] MEDS ORDERED: LISINOPRIL 5 MG TAB PO SCH (09:00)
--- NOTE | 2018-09-30 09:15 | XRay Report ---
XR pelvis 1-2V routine, XR lumbar spine 2-3V HISTORY: 77 years-old Male bilateral leg weakness acute bilateral leg weakness COMPARISON: CTA of the abdomen and pelvis 07/29/2018 TECHNIQUE: Single AP view of the pelvis with 3 views of the lumbar spine FINDINGS: PELVIS: Mild right and mild to moderate left femoral acetabular joint osteoarthritis. Multiple phleboliths of the pelvis. No acute fracture, dislocation or avascular necrosis. Mild ill-defined sclerosis involve s the superior aspect of the right femoral neck. Innumerable soft tissue skin lesions are noted. LUMBAR SPINE: 5 nonrib-bearing lumbar type vertebral segments are present. Mildly demineralized appearance of the b ones. No acute fracture or subluxation. Moderate facet arthrosis at L5-S1. Minimal multilevel spondyl itic spurring without significant intervertebral disc space narrowing. Innumerable cutaneous soft tis stevan lesions. IMPRESSION: 1. No acute fracture line or subluxation identified. 2. Mild ill-defined sclerosis about the superior aspect of the right femoral neck may reflect underly ing stress fracture. Correlate with patient history and clinical exam. 3. Innumerable cutaneous lesions redemonstrated. The above report was generated using voice recognition software. It may contain grammatical, syntax o r spelling errors. Electronically signed by: Uziel Oreilly M.D. 09/30/2018 9:14 AM
--- NOTE | 2018-09-30 11:05 | Neurology Consultation ---
Date of Consultation September 30, 2018 Assessment & Plan (1) Weakness: This patient has a the chronic, progressive, significant proximal weakness particularly in the lower extremities. He has mild proximal weakness in the upper extremities as well. 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 Other etiologies of myopathy cannot be excluded. However, the leg weakness is profoundly worse than the upper extremity weakness and I wonder about an additional issue making the legs weaker creating his frequent falls. I believe his falls are due to this weakness pattern. He has chronic low back pain and I cannot exclude a mid lumbar radiculopathy creating extra proximal weakness. In addition with his history of neurofibromatosis I cannot exclude a neurofibroma in the lumbar spine. He does not seem to have any central neurologic deficits or reasons for his symptomatology otherwise. 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 He has diffuse/extensive peripheral neurofibromas including nodular, cutaneous, and plexiform patterns. He has cut failed lay spots and no axillary freckling. Although he is 77 years old, he has never had any central nervous system tumors that anyone is aware. He has no vision changes and nothing to suggest optic pathway gliomas. He has no seizure disorder or cognitive function. The dizziness is interesting and he has tinnitus on the left. I cannot exclude a small neurofibroma in his left inner ear. MRI of the brain was not done with contrast and may have missed a small neurofibroma. Patient has hypertension which is associated with neurofibromatosis. Because of his lower extremity symptoms I cannot exclude lumbar spine neurofibromas. (3) Temporal arteritis: Patient was diagnosed with temporal arteritis in December of 2017 from biopsy. He is being treated with Actemra every 2 weeks. Steroids are being tapered off. 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 (4) Dizziness: More recently the patient has had some nonspecific brief periods of vertiginous symptomatology consistent with a benign positional vertigo. It is mild and fleeting but he has some association with tinnitus on the left. This may be simply a nonspecific inner ear dysfunction but I cannot exclude a neurofibroma in the inner ear (5) Hypertension: Patient has hypertension of a longstanding nature. A considerable patients with neurofibromatosis have hypertension. Pheochromocytoma is possible in someone with neurofibromatosis but he does not have other symptoms such as tremor or flushing. His headaches are markedly improved since he has been on steroids. But he does get them. Recommendations: 1. MRI of the lumbar spine with without contrast to evaluate for neurofibromas or spinal stenosis (from disc or bone) which could explain mid lumbar radiculopathy. 2. Decrease prednisone to 5 milligrams daily. I would like to taper him off this as quickly as possible but I would defer to Rheumatology as I would want to just stop the steroids. As long as he is on steroids he could continue to have steroid myopathy symptoms. 3. Physical therapy for strengthening and gait training. In my opinion he would be an excellent candidate the for the [facility] for further strengthening and gait training as he cannot walk well on his own and would not be safe to go home. 4. He needs a standard walker for support in order to more safely ambulate. I will defer this however to physical therapy. 5. Consider EMG and nerve conduction studies, to be done as an outpatient. 6. Control hypertension as you are doing. 7. I may consider a repeat MRI of the brain with contrast attention to the posterior fossa, to evaluate for neurofibromas. Overall, I spent a total of 125 minutes with this case including review of records, review of MRI and other films, direct evaluation the patient at bedside , and discussion of the case with the patient at bedside, clinical staff, and Dr. Murray, including differential diagnosis and treatment options. History of Present Illness Reason for Consultation: Patient is a 77-year-old, who I was asked to see the request of Dr. Murray, for neurologic consultation regarding weakness and falling Requesting Physician: Dr. Murray Attending Physician: Luiz Murray MD, PhD, [facility] History of Present Illness Patient was diagnosed with neurofibromatosis as an . He started noticing skin lesions as a child and these have gradually gotten worse over time. He has a positive family history of neurofibromatosis in his mother, maternal grandmother, and 3 of his children. No one has ever diagnosed any internal neurofibromas. The patient has had high blood pressure for more than 15 years now. He started getting low back pain and lower extremity pain and weakness in his mid to later 50s. 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 He has led a fairly sedentary lifestyle recently. He has had some arthritis in general for the last 15 years as well. His knees are his most symptomatic joints but he does get hip pain in addition to his back pain. Over the last year or so he has been getting headaches. In December of 2017 he underwent a temporal artery biopsy which proved temporal arteritis. He was initiated on high-dose steroids by Dr. Minor and initiated on Actemra which is currently getting 162 milligrams every 2 weeks. His steroids have been tapered since the summer and he is down to 7.5 milligrams prednisone daily. He has been on this for [address] Minor September 09, 2018. He does not know if he has any side effects to Actemra. He has not had any significant infections as far as he is aware. Over the last month or so he has had some intermittent dizziness. This dizziness consists of the sudden onset of some vertiginous sensations lasting a few seconds and then resolving. It can occur randomly but he can also occur with position change. He has chronic, intermittent tinnitus in his left ear but no hearing loss or ear pain. This has been unchanged to slightly better recently in the frequency. He has noted weakness in his lower extremities for the last a year getting worse gradually over time. His low back has pain intermittently as well. He can have aching pain in his thighs bilaterally symmetrically and he has bilateral hip pain. Activities is not change this pain. He has no numbness or lack of feeling in his limbs and he has no significant incontinence of urine although he has some urgency. He denies cervical or thoracic spine pain and has no pain, weakness, or numbness in his arms. He gets only occasional headaches with most days being headache free. He denies double vision or swallowing problems. Over the last year he has fallen intermittently although this has been much more frequent in the last couple of months. He fell a week ago and twice on September 29. He feels he falls because his legs buckle and give out. He has no alteration in consciousness or dizziness that causes him to fall. It is hard for him to get up to a standing position and he uses a cane for support. It is very hard for him to walk. MR angiography of the head August 30 was unremarkable with no significant stenoses or vessel anomalies. He arrived at the emergency room on September 29 at 1709 hours with a temperature 36.6, pulse 88 and regular, respiratory rate 20, blood pressure 177/ 109, and O2 saturation 96 percent. Neuro examination was described as unremarkable. He was awake and alert with no altered consciousness or mental status changes and he had no focal neurologic signs. He has multiple neurofibromas skin lesions throughout. CBC was unremarkable and a sed rate September 06 was 7. Chem profile showed an elevated BUN and creatinine on admission but today was normal. Liver enzymes were unremarkable and TSH was normal. Urinalysis was unremarkable. CT scan of the head was unremarkable. MRI of the brain without contrast showed mild atrophy and old small vessel ischemic changes of a nonspecific nature. There were no acute findings. Carotid ultrasound was unremarkable. Lumbar spine and pelvis x-rays showed mild nonspecific degenerative changes with a possible right femoral neck stress fracture. This morning, he is stable with no new events. He still has the leg issues as before. He has a mild nonspecific headache this morning. Allergies Allergy/AdvReac Type Severity Reaction Status Date / Time No Known Allergies Allergy Verified 09/29/18 17:30 Home Medications Home Medications Medication Instructions Recorded Confirmed Type alendronate 70 mg PO WK 09/29/18 09/29/18 History aspirin 81 m PO DAILY 09/29/18 09/29/18 History baclofen 10 mg PO HS PRN 09/29/18 09/29/18 History cilostazol 50 mg PO BID 09/29/18 09/29/18 History finasteride 5 mg PO DAILY 09/29/18 09/29/18 History fluoxetine 40 mg PO DAILY 09/29/18 09/29/18 History hydrocodone-acetaminophen 1 tab PO BID PRN 09/29/18 09/29/18 History ipratropium-albuterol [Combivent 1 puff INHALATION QID 09/29/18 09/29/18 History Respimat] lovastatin 40 mg PO DAILY 09/29/18 09/29/18 History omeprazole 20 mg PO HS 09/29/18 09/29/18 History prednisone 5 mg PO DAILY 09/29/18 09/29/18 History quetiapine 50 mg PO HS 09/29/18 09/29/18 History tizanidine 4 mg PO Q8H PRN 09/29/18 09/29/18 History verapamil 120 mg PO DAILY 09/29/18 09/29/18 History Patient History Medical History Neurofibromatosis (Chronic) Hyperlipidemia (Chronic) Temporal arteritis (Chronic) Surgical History History of cataract surgery History of hernia repair Family History Mother , age 68 of COPD complications COPD (chronic obstructive pulmonary disease) Neurofibromatosis Father , age 77 of ruptured abdominal aortic aneurysm AAA (abdominal aortic aneurysm) Family/Other Neurofibromatosis Grandmother (Maternal) Neurofibromatosis Son Neurofibromatosis Daughter Neurofibromatosis Social History Current Living Situation: Alone current occupational status: retired 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, 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, 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 Feels Safe at Home: Yes Safety Concerns: Feels Safe At This Time Smoking Status: Current every day smoker Tobacco Type: cigarettes Years Smoked : 55 Cigarettes per Day: 4 Hx Alcohol Use: No Hx Substance Use: No Beliefs That Will Affect Care: None Preferred Language: Salvadorean Communication Ability: Effective Biologist Aide Required: No Review of Systems Constitutional: + body aches and + weakness; no fever and no fatigue Eyes: no diplopia, no eye pain and no worsening vision Ear, Nose, Mouth, Throat: + tinnitus; no ear pain, no hearing loss and no dysphagia Respiratory: no cough and no dyspnea Cardiovascular: no chest pain, no dyspnea and no palpitations Gastrointestinal: no abdominal pain, no nausea and no vomiting Genitourinary (Male): + urinary frequency and + urinary urgency; no dysuria and no urinary incontinence Musculoskeletal: + back pain, + joint pain, + myalgia and + muscle weakness; no neck pain, no radicular pain and no muscle atrophy Integumentary: + lesions (Multiple neurofibromatomas); no rash Neurologic: + gait abnormality, + falls, + localized weakness and + headache(s) ; no generalized weakness, no tingling, no numbness, no tremor(s), no abnormal movements, no dizziness, no abnormal speech, no behavioral changes, no confusion and no memory loss Psychiatric: no depression, no abnormal sleep pattern, no anxiety, no difficulty concentrating, no confusion and no hallucinations Endocrine: no fatigue and no flushing Hematologic / Lymphatic: no easy bleeding and no easy bruising Allergy / Immunological: no urticaria Physical Exam 2 Vital Signs (Past 24 Hours): Last Vital Signs Temp 36.3 C L 09/30/18 00:17 Pulse 93 H 09/30/18 00:17 Resp 18 09/30/18 00:17 BP 164/87 H 09/30/18 05:31 Pulse Ox 94 09/30/18 00:17 Constitutional: no acute distress Eyes: normal visual alas by confrontation (with grossly normal visual acuity ), PERRL (3 mm) and EOM intact bilaterally; no retinal abnormality (no exudates , hemorrhages, or blood vessel changes seen), no vascular abnormality (+ venous pulsations bilaterally), no optic disc abnormality and no nystagmus Cardiovascular: Rate/Rhythm: regular rate and regular rhythm Heart Sounds: no murmur Vessels: normal peripheral pulses; no carotid bruit and no cranial bruit (and no ocular bruits) Extremities: no edema Musculoskeletal: Spine: normal cervical ROM, no pain with cervical ROM, no cervical spinal tenderness, no thoracic spinal tenderness and no lumbar spinal tenderness Extremities: + muscle atrophy; + abnormal strength (Motor strength is 4+/5 diffusely in the deltoids, biceps, and triceps bilaterally. Strength is closer to 5/5 distally in the hands and forearms. Strength is 4/5 in the hip flexors and quadriceps bilaterally. He has 5/5 in tibialis anterior tibialis posterior, gastrocs, and peroneus eye muscles [place]) and normal muscle tone (no rigidity or spasticity; no tenderness to palpation, myotonia to percussion) Gait: + abnormal gait (The patient is not able to to get from a sitting to a standing position without considerable difficulty and pushing off. His stance is slightly wide base and he has a waddling gait with unstable pelvis. He needs the assistance of a 1-2 people) Skin: + lesion (The patient has multiple cafe au Lait spots throughout. He has neurofibromas too numerous to count in all limbs, trunk, head, diffusely. There are various sizes comma soft and movable. They tend to be nontender.) and + subcutaneous nodules His neurofibromas include cutaneous, nodular, and plexiform types. Neurologic: plantar reflexes intact bilaterally (toes are downgoing with plantar stimulation) and awake; + abnormal deep tendon reflexes (Biceps, triceps , and brachioradialis tendons are 2/4 bilaterally. Quadriceps tendon reflexes are 1/4 and Achilles tendon reflexes are absent bilaterally.) Speech / Cognition: normal speech (No dysarthria), no expressive aphasia, no receptive aphasia and normal cognition Motor/Sensory: graphesthesia intact bilaterally and stereognosis intact bilaterally; no tremor (resting, postural, nor action), normal movement, no fasciculations, no pronator drift, no asterixis and no sensory deficit (sensation intact to touch and pin through all 4 limbs; vibratory and position sense testing normal; normal sensation to temperature) Cranial Nerves: PERRL, EOM intact bilaterally, normal facial strength (with normal facial sensation in all 3 distributions of the fifth cranial nerve bilaterally), tongue midline, normal hearing (to voice and finger rub bilaterally), able to elevate shoulders bilaterally, no nystagmus and symmetric palate elevation Coordination: normal [id number] test Right Handed Psychiatric: Orientation: alert and cooperative Apperance: appropriately dressed and appropriately groomed Speech: normal rate/rhythm/volume of speech Affect: euthymic affect and mood congruent with affect Thought Process: clear/coherent thought process Cognition: recent memory grossly intact, remote memory grossly intact and attention grossly intact Estimated Intelligence: consistent with education level Results & Data Diagnostic Findings MR brain wo con CLINICAL HISTORY: 77 years-old Male presenting with leg weakness, unable to stand, freq falls, lightheadedness; history of seizures. TECHNIQUE: Multisequence, multiplanar MR imaging of the brain was performed without the use of intravenous contrast. IV contrast: None. COMPARISON: Noncontrast CT head performed today. FINDINGS: Localizer images: Unremarkable. Proportional ventricular and sulcal prominence, likely age-related parenchymal volume loss. Periventricular and subcortical white matter T2/FLAIR hyperintensity, nonspecific but likely indicative of chronic small vessel ischemic change. Postcontrast imaging was not performed. No mass effect or midline shift. No restricted diffusion to suggest acute ischemia. No hemorrhage. No extra-axial fluid collection. T2 skull base flow voids preserved. Bone marrow signal intensity within the calvarium within normal limits. Innumerable skin nodules with diffuse skin thickening. IMPRESSION: 1. Chronic small vessel ischemic change. No acute intracranial abnormality. Electronically signed by: Jos Rogers M.D. 09/29/2018 9:20 PM
[2018-09-30 11:44] LABS: Vitamin B12 > 2000 pg/ml (211-911)
[2018-09-30 11:45] LABS: Folate (Folic Acid) 19.84 ng/ml (>5.38)
[2018-09-30] MEDS: GADOBUTROL 65ML VIAL IV PRN (12:46)
--- NOTE | 2018-09-30 13:12 | Magnetic Resonance Report ---
MR lumbar spine wo/w con HISTORY: Pain. Neuropathy. lower extremity weakness TECHNIQUE: Multiplanar multisequence MRI of the lumbar spine was performed both before and after the intravenous administration of contrast. COMPARISON: None. FINDINGS: For the purpose of the report the L5-S1 disc space will be located on axial image 2426. Heterogeneous bone marrow throughout. Most likely age-related and/or secondary to anemia. Vertebral b bridger stature is unremarkable. Mild degenerative disc changes throughout. Postcontrast sagittal images are considered negative for an enhancing lesion. L1-L2: No significant central canal or neural foraminal narrowing. L2-L3: No significant central canal or neural foraminal narrowing. L3-L4: No significant central canal or neural foraminal narrowing. L4-L5: No significant central canal or neural foraminal narrowing. L5-S1: No significant central canal or neural foraminal narrowing. IMPRESSION: 1. Mild degenerative disc change. 2. Heterogeneous bone marrow most likely age-related. 3. No evidence of disc herniation or spinal stenosis. The above report was generated using voice recognition software. It may contain grammatical, syntax or spelling errors. Electronically signed by: Curt Perry M.D. 09/30/2018 1:11 PM
[2018-09-30] MEDS ORDERED: HydrALAZINE HCL 20 MG/ML VIAL IV PRN (17:27)
--- NOTE | 2018-09-30 17:37 | Hospitalist Progress Note ---
Date of Service September 30, 2018 Assessment & Plan (1) Frequent falls: (2) Neurofibromatosis: (3) Hyperlipidemia: (4) Temporal arteritis: (5) Weakness: (6) Depression: (7) BPH (benign prostatic hyperplasia): (8) CAD (coronary artery disease): (9) GERD (gastroesophageal reflux disease): 77M admitted on September 29, 2018 because of acute weakness and multiple falls while at home. 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 Other etiologies of myopathy cannot be excluded. Patient has been on steroids, possible need to have gradual tapering, Neurofibromatosis: Stable and not active, lumbar spine MRI was done which was nonsignificant, Hyperlipidemia: statin continued hx of Temporal arteritis: No active, actemra injection is every Sunday, so not ordered here. Depression: Continue home dose of fluoxetine, seroquel benign prostatic hyperplasia, continue home medicine hx of CAD: Stable and not active, home meds continued GERD stable continue home medicine Accelerated hypertension, start lisinopril 5 mg this morning, however blood pressure is significant continue to getting higher, I changed to 5 mg to 10 mg and start hydralazine as needed Discussed with patient and family about her condition and care plan, PT OT, may be need rehab, and outpatient follow-up with neurologist, Subjective Reports generalized weakness, balance problem and frequent fall, denies any pain, denied dizziness palpitation, denied lower extremity swelling, Review of Systems Constitutional: Positive weakness, or fatigue Respiratory: no cough, sputum, wheezing, or dyspnea on exertion Cardiac: No chest pain, No orthopnea, No PND, No claudication, No palpitations , Abdomen: No pain, No nausea, No vomiting, No diarrhea, No constipation, No GI bleeding Musculoskeletal: Chronic lower back pain,, No muscle pain, No swelling, No calf pain, No problem reported : No dysuria, No urinary frequency, No incontinence, No hematuria Neurologic: Report generalized upper and lower extremity weakness, no paralysis , No numbness/tingling, Psychiatric: No depression symptoms, No anhedonism, No anxiety, No insomnia, No substance abuse Heme: No abnormal bleeding/bruising, No clotting problems, No swollen lymph nodes, No night sweats Skin: Neuro fibrosis can be seen in the skin, no rash, No itch, Physical Exam 2 Vital Signs (Past 24 Hours): Last Vital Signs Temp 36.9 C 09/30/18 15:00 Pulse 79 09/30/18 15:00 Resp 16 09/30/18 15:00 BP 164/102 H 09/30/18 15:00 Pulse Ox 95 09/30/18 15:00 Physical Exam: GENERAL: Looks chronically ill looking, generalized weakness, awake, alert, well-appearing, in no distress HENT: Normocephalic, atraumatic. EYES: Normal conjunctiva. Sclera non-icteric. EOMI. NECK: Supple. Full range of motion. no JVD RESPIRATORY: Clear to auscultation. CARDIAC: Regular rate, normal rhythm. Extremities warm and well perfused. Pulses equal. ABDOMEN: Soft, non-distended. No tenderness to palpation. No rebound or guarding. No masses. Bowel sounds are normal. LOWER EXTREMITIES: Calves are equal size bilaterally and non-tender. No edema. No discoloration. NEURO: No gross focal motor deficits noted. Negative Babinski bilaterally. Finger to nose normal. CN II-XII in tact. SKIN: Rash not present. Countless dermal neurofibromas diffusely across body Results & Data Laboratory Results Laboratory Results - last 24 hr 09/29/18 09/29/18 09/29/18 17:55 17:55 17:58 WBC 7.59 RBC 4.73 Hgb 15.3 Hct 44.4 MCV 93.9 MCH 32.3 MCHC 34.5 RDW Std Deviation 44.2 RDW Coeff of Alexei 12.9 Plt Count 210 MPV 9.8 Immature Gran % (Auto) 1.6 Neut % (Auto) 75.1 Lymph % (Auto) 14.9 Childress % (Auto) 7.6 Eos % (Auto) 0.3 Baso % (Auto) 0.5 Immature Gran # (Auto) 0.12 H Neut # (Auto) 5.70 Lymph # (Auto) 1.13 L Childress # (Auto) 0.58 Eos # (Auto) 0.02 Baso # (Auto) 0.04 PT INR Sodium 140 Potassium Chloride 107 Carbon Dioxide 24 Anion Gap 10.0 BUN 25 H Creatinine 1.44 H Est Cr Clr Drug Dosing 40.0 Est GFR ( Amer) 54.7 Est GFR (Non-Af Amer) 47.2 BUN/Creatinine Ratio 17.5 Glucose 116 H Calcium 8.8 Phosphorus Magnesium Total Bilirubin 0.5 AST ALT 15 Alkaline Phosphatase 38 L POC Troponin I < 0.03 Total Protein 6.8 Albumin 3.7 Globulin 3.1 Albumin/Globulin Ratio 1.2 Vitamin B12 Folate TSH 2.330 Urine Color Urine Appearance Urine pH Ur Specific Jewell Urine Protein Urine Glucose (UA) Urine Ketones Urine Blood Urine Nitrite Urine Bilirubin Urine Urobilinogen Ur Leukocyte Esterase 09/29/18 09/30/18 09/30/18 19:00 06:35 06:35 WBC RBC Hgb Hct MCV MCH MCHC RDW Std Deviation RDW Coeff of Alexei Plt Count MPV Immature Gran % (Auto) Neut % (Auto) Lymph % (Auto) Childress % (Auto) Eos % (Auto) Baso % (Auto) Immature Gran # (Auto) Neut # (Auto) Lymph # (Auto) Childress # (Auto) Eos # (Auto) Baso # (Auto) PT 10.7 INR 1.1 Sodium 142 Potassium 3.4 L Chloride 109 H Carbon Dioxide 25 Anion Gap 8.0 BUN 21 H Creatinine 1.14 D Est Cr Clr Drug Dosing 50.5 Est GFR ( Amer) 72.5 Est GFR (Non-Af Amer) 62.6 BUN/Creatinine Ratio 18.4 Glucose 90 Calcium 8.5 Phosphorus Magnesium 2.1 Total Bilirubin AST ALT Alkaline Phosphatase POC Troponin I Total Protein Albumin Globulin Albumin/Globulin Ratio Vitamin B12 Folate TSH Urine Color Yellow Urine Appearance Clear Urine pH 5.0 Ur Specific Jewell 1.017 Urine Protein Negative Urine Glucose (UA) Negative Urine Ketones Negative Urine Blood Negative Urine Nitrite Negative Urine Bilirubin Negative Urine Urobilinogen Negative Ur Leukocyte Esterase Negative 09/30/18 09/30/18 10:57 10:57 WBC RBC Hgb Hct MCV MCH MCHC RDW Std Deviation RDW Coeff of Alexei Plt Count MPV Immature Gran % (Auto) Neut % (Auto) Lymph % (Auto) Childress % (Auto) Eos % (Auto) Baso % (Auto) Immature Gran # (Auto) Neut # (Auto) Lymph # (Auto) Childress # (Auto) Eos # (Auto) Baso # (Auto) PT INR Sodium Potassium Chloride Carbon Dioxide Anion Gap BUN Creatinine Est Cr Clr Drug Dosing Est GFR ( Amer) Est GFR (Non-Af Amer) BUN/Creatinine Ratio Glucose Calcium Phosphorus 3.2 Magnesium Total Bilirubin AST ALT Alkaline Phosphatase POC Troponin I Total Protein Albumin Globulin Albumin/Globulin Ratio Vitamin B12 > 2000 H Folate 19.84 TSH Urine Color Urine Appearance Urine pH Ur Specific Jewell Urine Protein Urine Glucose (UA) Urine Ketones Urine Blood Urine Nitrite Urine Bilirubin Urine Urobilinogen Ur Leukocyte Esterase Diagnostic Findings Lumbar spine MRI: 1. Mild degenerative disc change. 2. Heterogeneous bone marrow most likely age-related. 3. No evidence of disc herniation or spinal stenosis.
[2018-09-30] MEDS ORDERED: LISINOPRIL 5 MG TAB PO STA (17:43)
[2018-09-30] MEDS: QUETIAPINE FUMARATE 25 MG TABLET PO SCH (20:11)
[2018-09-30] MEDS: PANTOprazole 40 MG TAB PO SCH (20:11)
[2018-10-01] MEDS: HYDROCODONE/ACETAMINOPHEN 7.5/325MG TAB PO PRN ×3 (00:09→17:55)
[2018-10-01] MEDS: ENOXAPARIN INJ 40 MG/0.4 ML SYR SQ SCH (08:17)
[2018-10-01] MEDS: IPRATROPIUM BROMIDE/ALBUTEROL respimat INH INH SCH ×4 (08:18→20:43)
[2018-10-01] MEDS: ASPIRIN 81 MG ECTAB PO SCH (08:18)
[2018-10-01] MEDS: CILOSTAZOL 100 MG TAB PO SCH ×2 (08:18→20:42)
[2018-10-01] MEDS: LOVASTATIN 20 MG TAB PO SCH (08:18)
[2018-10-01] MEDS: FINASTERIDE 5 MG TAB PO SCH (08:20)
[2018-10-01] MEDS: predniSONE 5 MG TAB PO SCH (08:20)
[2018-10-01] MEDS: LISINOPRIL 10 MG TAB PO SCH (08:21)
[2018-10-01] MEDS: FLUOXETINE HCL 20 MG CAP PO SCH (08:21)
[2018-10-01 09:22] LABS: BUN Creatinine Ratio 19.8 (10-20); Calcium 8.7 mg/dl (8.5-10.1); Creatinine Clr Calc Pharmacy 53.8 ml/min; Est GFR (African American) 78.3; Est GFR (Non-African American) 67.5; Potassium 3.6 mmol/L (3.5-5.1)
--- NOTE | 2018-10-01 10:21 | Neurology Progress Note ---
Date of Service October 01, 2018 Assessment & Plan (1) Weakness: This patient has a the chronic, progressive, significant proximal weakness particularly in the lower extremities. He has mild proximal weakness in the upper extremities as well. 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 Other etiologies of myopathy cannot be excluded. However, the leg weakness is profoundly worse than the upper extremity weakness and I wonder about an additional issue making the legs weaker creating his frequent falls. I believe his falls are due to this weakness pattern. Although he still may have lumbosacral radiculopathy, he has no spinal stenosis or neural fibromatosis in his lumbar spine (no significant or operable lesion present). He does not seem to have any central neurologic deficits or reasons for his symptomatology otherwise. 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 He has diffuse/extensive peripheral neurofibromas including nodular, cutaneous, and plexiform patterns. He has cut failed lay spots and no axillary freckling. Although he is 77 years old, he has never had any central nervous system tumors that anyone is aware. He has no vision changes and nothing to suggest optic pathway gliomas. He has no seizure disorder or cognitive function. The dizziness is interesting and he has tinnitus on the left. I cannot exclude a small neurofibroma in his left inner ear. MRI of the brain was not done with contrast and may have missed a small neurofibroma. Patient has hypertension which is associated with neurofibromatosis. (3) Temporal arteritis: Patient was diagnosed with temporal arteritis in December of 2017 from biopsy. He is being treated with Actemra every 2 weeks. Steroids are being tapered off. 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 Currently, he is on 5 milligrams prednisone daily for 1 day now. (4) Dizziness: More recently the patient has had some nonspecific brief periods of vertiginous symptomatology consistent with a benign positional vertigo. It is mild and fleeting but he has some association with tinnitus on the left. This may be simply a nonspecific inner ear dysfunction but I cannot exclude a neurofibroma in the inner ear (5) Hypertension: Patient has hypertension of a longstanding nature. A considerable patients with neurofibromatosis have hypertension. Pheochromocytoma is possible in someone with neurofibromatosis but he does not have other symptoms such as tremor or flushing. His headaches are markedly improved since he has been on steroids. But he does get them. Recommendations: 1. Continue prednisone at 5 milligrams daily. Keep this daily for 1-2 weeks and then decrease to 5 milligrams every other day for 1-2 weeks, and perhaps he can be discontinued. 2. Physical therapy for strengthening and gait training. In my opinion he would be an excellent candidate the for the rehabilitation hospital for further strengthening and gait training as he cannot walk well on his own and would not be safe to go home. 3. He needs a standard walker for support in order to more safely ambulate. 4. Consider EMG and nerve conduction studies, to be done as an outpatient. 5. Control hypertension as you are doing. 6. I may consider a repeat MRI of the brain with contrast attention to the posterior fossa, to evaluate for neurofibromas. Overall, I spent a total of 25 minutes with this case including review of records, review of MRI films, direct evaluation the patient at bedside, and discussion of the case with the patient at bedside, clinical staff, and Dr. Murray , including differential diagnosis and treatment options. Subjective Still has some achiness in his thighs but is up walking better with a regular walker. Nursing reports that he is doing well with this and has no issues overnight or this morning. Blood pressure is improved at 142/79. B12 and folate were unremarkable as well. MRI of the lumbar spine with without contrast showed some degenerative changes of a mild diffuse nature. There was no evidence of spinal stenosis and no enhancement pseudo suggest neurofibromas. Physical Exam 2 Vital Signs (Past 24 Hours): Last Vital Signs Temp 36.5 C 10/01/18 07:22 Pulse 77 10/01/18 07:22 Resp 20 10/01/18 07:22 BP 142/79 H 10/01/18 07:22 Pulse Ox 92 10/01/18 07:22 Physical Exam: He is awake and alert. Speech is without aphasia or dysarthria. Mood is normal and affect is appropriate. Thought processes are intact. He is moving his limbs as per yesterday. There is no ataxia. Leg strength is weak proximally as before.
--- NOTE | 2018-10-01 16:16 | Hospitalist Progress Note ---
Date of Service October 01, 2018 Assessment & Plan (1) Frequent falls: (2) Neurofibromatosis: (3) Hyperlipidemia: (4) Temporal arteritis: (5) Weakness: (6) Depression: (7) BPH (benign prostatic hyperplasia): (8) CAD (coronary artery disease): (9) GERD (gastroesophageal reflux disease): 77M admitted on September 29, 2018 because of acute weakness and multiple falls while at home. 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 Other etiologies of myopathy cannot be excluded. Neuro input appreciated , recs Continue prednisone at 5 milligrams daily. Keep this daily for 1-2 weeks and then decrease to 5 milligrams every other day for 1 -2 weeks, and perhaps he can be discontinued. 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 Depression: Continue home dose of fluoxetine, seroquel benign prostatic hyperplasia, continue home medicine hx of CAD: Stable and not active, home meds continued GERD stable continue home medicine Accelerated hypertension, start lisinopril 5 mg this morning, however blood pressure is significant continue to getting higher, I changed to 5 mg to 10 mg and start hydralazine as needed Discussed with patient and family about her condition and care plan, PT OT, excellent candidate the for the rehabilitation hospital, would not be safe to go home. needs a standard walker for support in order to more safely ambulate. Consider EMG and nerve conduction studies, to be done as an outpatient. per recs of neuro, will order MRI of the brain with contrast attention to the posterior fossa, to evaluate for neurofibromas. Subjective In bed, doing fair, reports generalized weakness, still have balance problem and frequent fall, Report constipation no bowel movement for 2 days denies any pain, denied dizziness palpitation, denied lower extremity swelling, Review of Systems Constitutional: Positive weakness, or fatigue Respiratory: no cough, sputum, wheezing, or dyspnea on exertion Cardiac: No chest pain, No orthopnea, No PND, No claudication, No palpitations , Abdomen: No pain, No nausea, No vomiting, No diarrhea No GI bleeding Musculoskeletal: Chronic lower back pain,, No muscle pain, No swelling, No calf pain, No problem reported : No dysuria, No urinary frequency, No incontinence, No hematuria Neurologic: Report generalized upper and lower extremity weakness, no paralysis , No numbness/tingling, Psychiatric: No depression symptoms, No anhedonism, No anxiety, Heme: No abnormal bleeding/bruising, No clotting problems, No swollen lymph nodes, No night sweats Skin: Neuro fibrosis can be seen in the skin, no rash, No itch, Physical Exam 2 Vital Signs (Past 24 Hours): Last Vital Signs Temp 36.4 C L 10/01/18 15:37 Pulse 81 10/01/18 15:37 Resp 20 10/01/18 15:37 BP 146/86 H 10/01/18 15:37 Pulse Ox 92 10/01/18 15:37 Physical Exam: GENERAL: Looks chronically ill looking, generalized weakness, awake, alert, well-appearing, in no distress HENT: Normocephalic, atraumatic. EYES: Normal conjunctiva. Sclera non-icteric. EOMI. NECK: Supple. Full range of motion. no JVD RESPIRATORY: Clear to auscultation. CARDIAC: Regular rate, normal rhythm. Extremities warm and well perfused. Pulses equal. ABDOMEN: Soft, non-distended. No tenderness to palpation. No rebound or guarding. No masses. Bowel sounds are normal. LOWER EXTREMITIES: Calves are equal size bilaterally and non-tender. No edema. No discoloration. NEURO: No gross focal motor deficits noted. Negative Babinski bilaterally. Finger to nose normal. CN II-XII in tact. Thought process is intact, no aphasia, SKIN: Rash not present. Countless dermal neurofibromas diffusely across body Results & Data Laboratory Results Laboratory Results - last 24 hr 10/01/18 08:39 Sodium 137 Potassium 3.6 Chloride 106 Carbon Dioxide 23 Anion Gap 8.0 BUN 21 H Creatinine 1.07 Est Cr Clr Drug Dosing 53.8 Est GFR ( Amer) 78.3 Est GFR (Non-Af Amer) 67.5 BUN/Creatinine Ratio 19.8 Glucose 93 Calcium 8.7
[2018-10-01] MEDS: GADOBUTROL 65ML VIAL IV PRN (20:20)
[2018-10-01] MEDS: DOCUSATE SODIUM 100 MG CAP PO SCH (20:42)
[2018-10-01] MEDS: QUETIAPINE FUMARATE 25 MG TABLET PO SCH (20:43)
[2018-10-01] MEDS: PANTOprazole 40 MG TAB PO SCH (20:44)
--- NOTE | 2018-10-01 20:44 | Magnetic Resonance Report ---
MR brain wo/w con HISTORY: 77 years-old Male To rule out posterior brain fibroneurosis patient presents with history of neurofibromatosis. Acutely altered mental status COMPARISON: Brain MRI 09/29/2018 TECHNIQUE: Multiplanar multisequence MRI of the brain was obtained both with and without the use of 7 mL Gadavist FINDINGS: There is no restricted diffusion to suggest acute or subacute infarction. Midline structures includin g the corpus callosum, brainstem, optic chiasm, pituitary and pineal glands appear unremarkable on th e sagittal T1 series. No cerebellar tonsillar herniation. Degenerative changes noted about the imaged cervical spine. No acute intracranial hemorrhage, midline shift, abnormal extra axial collections, hydrocephalus or i ntracranial mass. Age-related involutional changes with ex vacuo ventriculomegaly. Mild to moderate T 2/FLAIR hyperintensities about the subcortical and periventricular white matter redemonstrated sugges tive of chronic microvascular ischemic changes. Remote lacunar infarctions about the right edwards rad iata and lentiform nuclei. Major flow voids appear patent. Mild mucosal thickening of the ethmoid air cells and maxillary sinuses. Mastoid air cells are generally clear. Skull and orbits are unremarkabl e. Prior bilateral cataract repair. Innumerable cutaneous lesions redemonstrated compatible with domo ent history of neurofibromatosis. No abnormal intra-axial or extra-axial enhancement. IMPRESSION: 1. No acute intracranial abnormality. 2. No abnormal enhancement. 3. Chronic microvascular ischemic changes. The above report was generated using voice recognition software. It may contain grammatical, syntax o r spelling errors. Electronically signed by: Uziel Oreilly M.D. 10/01/2018 8:42 PM
[2018-10-01] MEDS: TIZANIDINE HCL 4 MG TABLET PO PRN (20:47)
[2018-10-02 07:07] VITALS: BP 132/79; TEMP 97.9; O2SAT 93
[2018-10-02] MEDS: ENOXAPARIN INJ 40 MG/0.4 ML SYR SQ SCH (08:09)
[2018-10-02] MEDS: IPRATROPIUM BROMIDE/ALBUTEROL respimat INH INH SCH ×2 (08:10→13:00)
[2018-10-02] MEDS: ASPIRIN 81 MG ECTAB PO SCH (08:10)
[2018-10-02] MEDS: LOVASTATIN 20 MG TAB PO SCH (08:11)
[2018-10-02] MEDS: predniSONE 5 MG TAB PO SCH (08:11)
[2018-10-02] MEDS: CILOSTAZOL 100 MG TAB PO SCH (08:11)
[2018-10-02] MEDS: LISINOPRIL 10 MG TAB PO SCH (08:12)
[2018-10-02] MEDS: FINASTERIDE 5 MG TAB PO SCH (08:12)
[2018-10-02] MEDS: DOCUSATE SODIUM 100 MG CAP PO SCH (08:12)
[2018-10-02] MEDS: FLUOXETINE HCL 20 MG CAP PO SCH (08:12)
[2018-10-02 14:04] VITALS: PULSE 81
--- NOTE | 2018-10-02 14:58 | Discharge Summary ---
Date of Service October 02, 2018 Admission HPI Per Admitting Provider 77M here for acute weakness and fall while at home. PMH significant for arthritis, benign prostatic hyperplasia with lower urinary tract symptoms, High cholesterol, mcc (current) use of systemic steroids, Osteoporosis, Temporal arteritis syndrome, history of myocardial infarction. Says his legs will "give out" on him suddenly while walking with his cane or without. He states this has been an ongoing problem off and on for at least two years. On review of records it does appear that he has been in the ED for similar complaints in the past. Pt is rather sedentary, stating "there's nothing to do " in his home, walks with a cane. Does have lower back pain that is treated symptomatically. Work up thus far to query CVA causes have been negative. Pt does not currently complain of focal weakness. He is on daily prednisone, for giant cell arteritis, as well as actemra. He has medication induced osteoporosis on review of outpatient records. Pt stated he felt generally weak and unsafe to return home. ED course: CXR, head CT, brain MRI and carotid doppler studies unremarkable for acute or significant changes. ECG does not suggest acute coronary syndrome. CBC and BMP generally unremarkable with the exception of slightly elevated creatinine. Trop negative. TSH wnl. UA normal. 500ml bolus given. Principal Diagnosis no Discharge Data Allergies Allergy/AdvReac Type Severity Reaction Status Date / Time No Known Allergies Allergy Verified 09/29/18 17:30 Consultations 09/29/18 19:21 ED Decision to Admit Stat 09/30/18 00:19 Consult Case Management - Discharge Planning Routine 09/30/18 08:54 Consult Neurology Routine Ordered Studies 09/29/18 17:32 CT head/brain wo con Stat 09/29/18 19:29 MR brain wo con Stat US carotid doppler BI Stat 09/30/18 10:19 MR lumbar spine wo/w con Stat 10/01/18 16:17 MR brain wo/w con Stat Hospital Course (1) Frequent falls: (2) Neurofibromatosis: (3) Hyperlipidemia: (4) Temporal arteritis: (5) Weakness: (6) Depression: (7) BPH (benign prostatic hyperplasia): (8) CAD (coronary artery disease): (9) GERD (gastroesophageal reflux disease): 77M admitted on September 29, 2018 because of acute weakness and multiple falls while at home. 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 Other etiologies of myopathy cannot be excluded. Neuro input appreciated , recs Continue prednisone at 5 milligrams daily. Keep this daily for 1-2 weeks and then decrease to 5 milligrams every other day for 1 -2 weeks, and perhaps he can be discontinued. 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 Depression: Continue home dose of fluoxetine, seroquel benign prostatic hyperplasia, continue home medicine hx of CAD: Stable and not active, home meds continued GERD stable continue home medicine Accelerated hypertension, started lisinopril 5 mg this morning, however blood pressure was significant continue to getting higher, I changed to 5 mg to 10 mg and start hydralazine as needed, upon discharge blood pressure 132/79, cont lisinopril 10 mg Discussed with patient and family about her condition and care plan, PT OT, excellent candidate the for the rehabilitation hospital, would not be safe to go home. needs a standard walker for support in order to more safely ambulate. Consider EMG and nerve conduction studies, to be done as an outpatient. per recs of neuro, will order MRI of the brain with contrast attention to the posterior fossa, to evaluate for neurofibromas, which was negative Patient will be discharged to [facility] for rehab today Subjective upon discharge: Report feeling a little bit better, denies any pain, denied dizziness palpitation, denied lower extremity swelling, Review of Systems upon discharge Constitutional: Positive weakness, or fatigue Respiratory: no cough, sputum, wheezing, or dyspnea on exertion Cardiac: No chest pain, No orthopnea, No PND, No claudication, No palpitations , Abdomen: No pain, No nausea, No vomiting, No diarrhea No GI bleeding Musculoskeletal: Chronic lower back pain,, No muscle pain, No swelling, No calf pain, No problem reported : No dysuria, No urinary frequency, No incontinence, No hematuria Neurologic: Report generalized upper and lower extremity weakness, no paralysis , No numbness/tingling, Psychiatric: No depression symptoms, No anhedonism, No anxiety, Heme: No abnormal bleeding/bruising, No clotting problems, No swollen lymph nodes, No night sweats Skin: Neuro fibrosis can be seen in the skin, no rash, No itch, Physical Exam upon discharge GENERAL: Looks chronically ill looking, generalized weakness, awake, alert, well-appearing, in no distress HENT: Normocephalic, atraumatic. EYES: Normal conjunctiva. Sclera non-icteric. EOMI. NECK: Supple. Full range of motion. no JVD RESPIRATORY: Clear to auscultation. CARDIAC: Regular rate, normal rhythm. Extremities warm and well perfused. Pulses equal. ABDOMEN: Soft, non-distended. No tenderness to palpation. No rebound or guarding. No masses. Bowel sounds are normal. LOWER EXTREMITIES: Calves are equal size bilaterally and non-tender. No edema. No discoloration. NEURO: No gross focal motor deficit. CN II-XII in tact. Thought process is intact, no aphasia, SKIN: Rash not present. 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 Discharge Goals: Decrease discomfort, Diagnostic testing, Improve disease control and Improve function Activity: Resume your previous activity Non-emergency contact: Primary Care Provider and Neurologist Call non-emergency contact if: you have any medication questions Diet: Heart Healthy Addtl Provider Instructions: you have acute weakness and multiple falls while at home. 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 neurologist recs Continue prednisone at 5 milligrams daily. Keep this daily for 1 weeks and then decrease to 5 milligrams every other day for 1-2 weeks, and perhaps he can be discontinued. 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 - call your primary care physician, or go to local emergency room if has any fever/chill, chest pain, shortness of breathing, nausea/vomiting/abdominal pain , facial droop/slurry speech/local weakness, or if has any questions. - fall precaution - diet as instructed - you need to follow up with your subspecialist, such as Dr. Cantu Prescriptions: New lisinopril [Zestril] 10 mg Tablet 10 mg PO QAM 30 Days Qty: 30 RF: 0 Continue verapamil 120 mg tablet extended release 120 mg PO DAILY RF: 0 fluoxetine 40 mg capsule 40 mg PO DAILY RF: 0 cilostazol 50 mg tablet 50 mg PO BID RF: 0 tizanidine 4 mg tablet 4 mg PO Q8H PRN (Reason: Muscle Spasm) RF: 0 alendronate 70 mg tablet 70 mg PO WK RF: 0 lovastatin 40 mg tablet 40 mg PO DAILY RF: 0 prednisone 5 mg tablet 5 mg PO DAILY RF: 0 baclofen 10 mg tablet 10 mg PO HS PRN (Reason: Pain) RF: 0 hydrocodone-acetaminophen 7.5-325 mg tablet 1 tab PO BID PRN (Reason: Pain) RF: 0 omeprazole 20 mg capsule,delayed release(DR/EC) 20 mg PO HS RF: 0 finasteride 5 mg tablet 5 mg PO DAILY RF: 0 quetiapine 50 mg tablet 50 mg PO HS RF: 0 ipratropium-albuterol 20-100 mcg/actuation mist 1 puff Inhalation QID RF: 0 aspirin 81 mg Tablet,Delayed Release (Dr/Ec) 81 m PO DAILY RF: 0 Stand-Alone Forms: [facility], [facility] Discharge Orders: Discharge Order (Routine); Ordered 10/02/18 Ordered By: Luiz Murray Skilled Items Patient informed of condition?: Yes DNR: No Discharge Level of Care: Skilled Communicable Disease: No Discharge Prognosis: Stable Admission Data Admit Date/Time: 09/29/18 23:11 Attending Provider: Luiz Murray Admit Provider: Camila May Primary Care Provider: Jennifer Fitch Other Providers: Jose Flanagan Emile Pierre III Service: Medical Other Interventions: Discharge Summary Assessment (RN) Last Done: 10/02/18 14:02
== END 2018-10-02 15:14 ==
LOC: 4E 17:01 → ED 17:01 → SUATTDRO 23:11 → 4E 23:48
DX: Q85.00 Neurofibromatosis, unspecified; F17.200 Nicotine dependence, unspecified, uncomplicated; Z79.52 Long term (current) use of systemic steroids; N40.1 Benign prostatic hyperplasia with lower urinary tract symptoms; I25.2 Old myocardial infarction; K21.9 Gastro-esophageal reflux disease without esophagitis; M19.90 Unspecified osteoarthritis, unspecified site; E78.5 Hyperlipidemia, unspecified; R42 Dizziness and giddiness; E78.00 Pure hypercholesterolemia, unspecified; M81.0 Age-related osteoporosis without current pathological fracture; M31.6 Other giant cell arteritis; R53.1 Weakness; I25.10 Atherosclerotic heart disease of native coronary artery without angina pectoris; R29.6 Repeated falls; F32.9 Major depressive disorder, single episode, unspecified; Z79.82 Long term (current) use of aspirin

== ENCOUNTER 2022-02-27 23:51 | Inpatient (IN) ==
[2022-02-28 01:13] LABS: Basophils # (auto) 0.01 K/uL (0-0.2); Basophils % (auto) 0.2 %; Eosinophils # (auto) 0.03 K/uL (0-0.5); Eosinophils % (auto) 0.5 %; Hematocrit (blood only) 36.6 % (42-52); Hemoglobin 12.4 g/dL (14.0-18.0); Immature Granulocytes % (auto) 1.7 %; Lymphocytes # (auto) 1.05 K/uL (1.2-3.4); Lymphocytes % (auto) 17.8 %; Mean Corpuscular Hemoglobin 31.6 pg (25-34); Mean Corpuscular Hgb Conc 33.9 g/dL (32-36); Mean Corpuscular Volume 93.1 fL (80-100); Mean Platelet Volume 9.1 fL (7.4-10.4); Monocytes # (auto) 0.72 K/uL (0.11-0.59); Monocytes % (auto) 12.2 %; Neutrophils # (auto) 3.98 K/uL (1.4-6.5); Neutrophils % (auto) 67.6 %; Platelet Count 168 K/uL (130-400); RDW Coefficient of Variation 13.1 % (11.5-14.5); RDW Standard Deviation 44.4 fL (36.4-46.3); Red Blood Count 3.93 M/uL (4.7-6.1); White Blood Count 5.89 K/uL (4.8-10.8)
[2022-02-28 01:39] LABS: Albumin Globulin Ratio 1.9 (0.9-2); Albumin Level 3.6 gm/dl (3.4-5.0); BUN Creatinine Ratio 17.6 (10-20); Bilirubin,Total 0.4 mg/dl (0.2-1.0); Calcium 8.8 mg/dl (8.5-10.1); Creatinine Clr Calc Pharmacy 31.8 ml/min; Est GFR (African American) 41.7 ml/min; Globulin 1.9 gm/dl (2.5-4.0); Magnesium 2.1 mg/dl (1.7-2.4); Potassium 3.9 mmol/L (3.5-5.1); Total Protein 5.5 gm/dl (6.0-8.3)
[2022-02-28 01:42] LABS: Troponin I High Sensitivity 10.1 pg/ml (0-20)
[2022-02-28] MEDS: SODIUM CHLORIDE 0.9% 1000ML 1,000 ML IV SCH ×3 (02:02→20:03)
[2022-02-28 02:53] LABS: Appearance Urine Clear (Clear); Bilirubin Urine Negative (Negative); Blood Urine Negative (Negative); Color Urine Yellow; Glucose Urine UA Negative (Negative); Ketones Urine Trace (Negative); Leukocyte Esterase Urine Negative (Negative); Nitrite Urine Negative (Negative); Protein Urine Negative (Negative); Urobilinogen Urine Negative (Negative)
--- NOTE | 2022-02-28 03:12 | Emergency Department Note ---
Impression & Plan Syncope and collapse, Orthostatic hypotension, MANUEL (acute kidney injury), Dehydration ED Provider Note CHIEF COMPLAINT: Syncope HISTORY OF PRESENT ILLNESS: This 81-year-old male patient presents to the emergency department with complaints of a syncopal episode. The patient apparently lost consciousness and believes he hit his head. He was feeling lightheaded and dizzy prior to the episode. Patient does live at home alone and was walking in his kitchen to get a snack. Patient states he is unclear how long he was out. He had been feeling lightheaded for approximately 10 minutes prior to the episode. He was able to call for assistance on exam. 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 He denies any chest pain or shortness of breath prior to the onset of the incident. REVIEW OF SYSTEMS: A review of systems was performed with positives and pertinent negatives listed in the history of present illness. 10 systems were reviewed and are otherwise negative. ALLERGIES: see below MEDICATIONS: see below PMH: see below SOCIAL HISTORY: see below DDx: Vasovagal event, dehydration, infection, hypoglycemia, electrolyte abnor malities, cardiac sources, intracerebral event, pulmonary embolism, seizure, toxicologic, neurologic, as well as other pathologies. PHYSICAL EXAM: Vital signs reviewed. General: Chronically ill-appearing 81yo male, in no significant distress. HEENT: No scleral icterus, PERRLA, neck supple. Atraumatic. Cardiovascular: Regular rate and rhythm, no extra sounds. Pulmonary: Clear to auscultation bilaterally, normal work of breathing. Abdomen: Soft, nontender, nondistended, positive bowel sounds. Musculoskeletal: Atraumatic, no peripheral edema. Neurologic: Patient awake alert and oriented x 3, speech is clear Skin: Warm, dry, no rash EMERGENCY DEPARTMENT COURSE/MDM: This patient was evaluated and appeared to be in no significant distress. IV access was obtained and laboratory work was dr abdalla. The patient is admitted orthostatic upon standing. Blood pressure has dropped 20 points systolically. IV fluids were initiated. Laboratory work is significant for a prerenal state and a mild MANUEL. EKG reveals no evidence of acute ischemia but there is a first-degree AV block. Given that the patient lives at home alone, had a syncope and collapse episode of unexplained etiology, he will be evaluated by the hospitalist service for admission and further management. Patient is aware of the plan and agrees. MONITORING: An order for cardiac monitoring was placed and the patient is noted to be in a sinus rhythm with first-degree AV block at 70 beats per minute. RADIOLOGY: See below CT HEAD: No evidence of acute intracranial pathology. Mild nonspecific white matter changes. Bilateral lens replacements. Comparison made to prior head CT from February 03, 2022. Radiologist: Maine Nguyen MD Study ready at 02:17 and initial results transmitted at 02:48 CT C SPINE: No evidence of acute cervical spine pathology. No comparisons. Mild calcified atherosclerotic disease of the carotid bifurcations. Calcified left thyroid nodule. Radiologist: Maine Nguyen MD Study ready at 02:16 and initial results transmitted at 02:47 EKG:sinus rhythm with first degree AV block at 81 bpm. No PVC, no PAC. LAD, QTc 441. No acute ischemic change. DISPOSITION: Admission Past Med/Surg History Medical History BPH loc w urin obs/LUTS Frequency of micturition Hyperlipidemia Neurofibromatosis Nocturia Prostate cancer (02/17/21) Temporal arteritis Surgical History History of cataract surgery History of hernia repair Family History Mother , age 68 of COPD complications COPD (chronic obstructive pulmonary disease) Neurofibromatosis Cancer Lung Cancer Father , age 77 of ruptured abdominal aortic aneurysm AAA (abdominal aortic aneurysm) Family/Other Neurofibromatosis Grandmother (Maternal) Neurofibromatosis Son Neurofibromatosis Daughter Neurofibromatosis Social History Smoking Status: Current every day smoker Tobacco Type: Cigarettes Years Smoked: 55; Cigarettes Per Day: 4-5; Second Hand Exposure: No; Hx Alcohol Use: No Hx Substance Use: No Preferred Language: [place] Communication Ability: Effective Visual Impairment: Limited Hearing Ability: Hard of Hearing Pacu Rn Required: No Beliefs That Will Affect Care: None Current Living Situation: Alone current occupational status: retired 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, 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, 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 Feels Safe at Home: Yes caffeine: Yes during the past year weight has: remained stable Dental Care, Regularly: No Physical Activity Frequency: 5-6 Times per Week Assistive Devices: Cane and Walker Allergies Allergies Allergy/AdvReac Type Severity Reaction Status Date / Time mirabegron [From [email or web address]] AdvReac Hypertensio Verified 02/03/22 15:41 n Home Meds Home Medications Medication Instructions Recorded Confirmed aspirin 81 mg tablet,delayed 81 m PO DAILY 09/29/18 02/28/22 release omeprazole 20 mg capsule,delayed 20 mg PO HS 09/29/18 02/28/22 release verapamil 120 mg tablet,extended 120 mg PO DAILY 09/29/18 02/28/22 release (Calan SR) tocilizumab 162 mg/0.9 mL 0 mg SUBCUT UNKNOWN #2 ml 05/09/19 02/28/22 subcutaneous syringe (Actemra) cilostazol 50 mg tablet 50 mg PO BID 01/16/20 02/28/22 fluoxetine 40 mg capsule (Prozac) 40 mg PO DAILY 01/16/20 02/28/22 ibuprofen 600 mg tablet 600 mg PO Q8H PRN 01/16/20 02/28/22 quetiapine 25 mg tablet (Seroquel) 25 mg PO DAILY 01/16/20 02/28/22 denosumab 60 mg/mL subcutaneous 60 mg SUBCUT .q 6 month ml 03/17/21 02/28/22 syringe (Prolia) docusate sodium 100 mg capsule 100 mg PO DAILY PRN 03/17/21 02/28/22 (Dulcolax Stool Softener (docusate)) vitamin B complex (B 1 tab PO DAILY 03/17/21 02/28/22 Complex-Vitamin B12) prednisone 5 mg tablet 5 mg PO DAILY 07/18/21 02/28/22 cholecalciferol (vitamin D3) 25 25 mcg PO DAILY 02/03/22 02/28/22 mcg (1,000 unit) tablet (Vitamin D3) lisinopril 2.5 mg tablet 2.5 mg PO DAILY 02/03/22 02/28/22 rosuvastatin 10 mg tablet 10 mg PO DAILY 02/03/22 02/28/22 albuterol sulfate 90 mcg/actuation 2 puff INHALATION QID PRN 02/28/22 02/28/22 aerosol inhaler hydrocodone 5 mg-acetaminophen 325 1 tab PO TID PRN 02/28/22 02/28/22 mg tablet Previous Rx's Medication Instructions Recorded tamsulosin 0.4 mg capsule 0.4 mg PO DAILY #90 cap 02/17/22 Results & Data (ED) Vital Signs Vital Signs - 24 hr 02/28/22 00:01 02/28/22 00:28 02/28/22 00:59 Temperature 37 C Temperature Source Oral Pulse Rate 80 73 Pulse Rate [Apical] 84 76 Pulse Rhythm Regular Pulse Rhythm [Apical] Regular Respiratory Rate 22 16 20 Respiratory Effort / Characteristics Non-Labored Respiratory Depth Normal Normal Blood Pressure - Lying 126/85 Blood Pressure - Sitting 120/74 Blood Pressure- Standing 105/67 Blood Pressure 107/71 Blood Pressure [Right Arm] 125/95 137/85 Blood Pressure Mean 83 Blood Pressure Mean [Right Arm] 105 102 Pulse Oximetry 94 95 96 Oxygen Delivery Method Room Air Room Air Room Air Sepsis Recent Fever Within 48 Hours No Sepsis New/Unexplained Change in Mental Status No Sepsis Action Taken by Nursing No Action Required 02/28/22 01:05 Temperature Temperature Source Pulse Rate Pulse Rate [Apical] Pulse Rhythm Pulse Rhythm [Apical] Respiratory Rate Respiratory Effort / Characteristics Respiratory Depth Blood Pressure - Lying Blood Pressure - Sitting Blood Pressure- Standing Blood Pressure Blood Pressure [Right Arm] Blood Pressure Mean Blood Pressure Mean [Right Arm] Pulse Oximetry Oxygen Delivery Method Room Air Sepsis Recent Fever Within 48 Hours Sepsis New/Unexplained Change in Mental Status Sepsis Action Taken by Group Home Medications Current Medication List: was personally reviewed by me Laboratory Data Attestation: I reviewed the patient's lab results. Result diagrams: 03/04/22 08:51 03/06/22 07:04 Lab Results 02/28/22 02/28/22 02/28/22 Range/Units 01:02 01:02 01:02 WBC 5.89 (4.8-10.8) K/uL RBC 3.93 L (4.7-6.1) M/uL Hgb 12.4 L (14.0-18.0) g/dL Hct 36.6 L (42-52) % MCV 93.1 (80-100) fL MCH 31.6 (25-34) pg MCHC 33.9 (32-36) g/dL RDW Std Deviation 44.4 (36.4-46.3) fL RDW Coeff of Alexei 13.1 (11.5-14.5) % Plt Count 168 (130-400) K/uL MPV 9.1 (7.4-10.4) fL Immature Gran % (Auto) 1.7 % Neut % (Auto) 67.6 % Lymph % (Auto) 17.8 % Garza % (Auto) 12.2 % Eos % (Auto) 0.5 % Baso % (Auto) 0.2 % Neut # (Auto) 3.98 (1.4-6.5) K/uL Lymph # (Auto) 1.05 L (1.2-3.4) K/uL Garza # (Auto) 0.72 H (0.11-0.59) K/uL Eos # (Auto) 0.03 (0-0.5) K/uL Baso # (Auto) 0.01 (0-0.2) K/uL Immature Gran # (Auto) 0.10 H (0.00-0.02) K/uL Sodium 137 (136-145) mmol/L Potassium 3.9 (3.5-5.1) mmol/L Chloride 109 H (98-107) mmol/L Carbon Dioxide 20 L (21-32) mmol/L Anion Gap 8 (3-11) BUN 31 H (6-23) mg/dl Creatinine 1.76 H (0.6-1.4) mg/dl Est Cr Clr Drug Dosing 31.8 ml/min Est GFR ( Amer) 41.7 ml/min Est GFR (Non-Af Amer) 36.0 ml/min BUN/Creatinine Ratio 17.6 (10-20) Glucose 115 H (70-99(Fasting)) mg/dl Estimat Average Glucose 117 mg/dl Hemoglobin A1c 5.7 H (4.5-5.6) % Lactate (0.4-2.0) mmol/L Calcium 8.8 (8.5-10.1) mg/dl Magnesium 2.1 (1.7-2.4) mg/dl Total Bilirubin 0.4 (0.2-1.0) mg/dl AST 10 L (13-39) U/L ALT 8 (7-52) U/L Alkaline Phosphatase 26 L (34-104) U/L Troponin I High Sens 10.1 (0-20) pg/ml Total Protein 5.5 L (6.0-8.3) gm/dl Albumin 3.6 (3.4-5.0) gm/dl Globulin 1.9 L (2.5-4.0) gm/dl Albumin/Globulin Ratio 1.9 (0.9-2) Triglycerides (0-150) mg/dl Cholesterol (0-200) mg/dl LDL Cholesterol, Calc mg/dl VLDL Cholesterol, Calc (0-30) mg/dl HDL Cholesterol mg/dl Cholesterol/HDL Ratio (0-5) Urine Color Urine Appearance (Clear) Urine pH (4.5-7.5) Ur Specific [place] (1.000-1.030) Urine Protein (Negative) Urine Glucose (UA) (Negative) Urine Ketones (Negative) Urine Blood (Negative) Urine Nitrite (Negative) Urine Bilirubin (Negative) Urine Urobilinogen (Negative) Ur Leukocyte Esterase (Negative) SARS-CoV-2, RNA, NAAT (NEGATIVE) 02/28/22 02/28/22 02/28/22 Range/Units 01:02 01:49 01:57 WBC (4.8-10.8) K/uL RBC (4.7-6.1) M/uL Hgb (14.0-18.0) g/dL Hct (42-52) % MCV (80-100) fL MCH (25-34) pg MCHC (32-36) g/dL RDW Std Deviation (36.4-46.3) fL RDW Coeff of Alexei (11.5-14.5) % Plt Count (130-400) K/uL MPV (7.4-10.4) fL Immature Gran % (Auto) % Neut % (Auto) % Lymph % (Auto) % Garza % (Auto) % Eos % (Auto) % Baso % (Auto) % Neut # (Auto) (1.4-6.5) K/uL Lymph # (Auto) (1.2-3.4) K/uL Garza # (Auto) (0.11-0.59) K/uL Eos # (Auto) (0-0.5) K/uL Baso # (Auto) (0-0.2) K/uL Immature Gran # (Auto) (0.00-0.02) K/uL Sodium (136-145) mmol/L Potassium (3.5-5.1) mmol/L Chloride (98-107) mmol/L Carbon Dioxide (21-32) mmol/L Anion Gap (3-11) BUN (6-23) mg/dl Creatinine (0.6-1.4) mg/dl Est Cr Clr Drug Dosing ml/min Est GFR ( Amer) ml/min Est GFR (Non-Af Amer) ml/min BUN/Creatinine Ratio (10-20) Glucose (70-99(Fasting)) mg/dl Estimat Average Glucose mg/dl Hemoglobin A1c (4.5-5.6) % Lactate 0.6 (0.4-2.0) mmol/L Calcium (8.5-10.1) mg/dl Magnesium (1.7-2.4) mg/dl Total Bilirubin (0.2-1.0) mg/dl AST (13-39) U/L ALT (7-52) U/L Alkaline Phosphatase (34-104) U/L Troponin I High Sens (0-20) pg/ml Total Protein (6.0-8.3) gm/dl Albumin (3.4-5.0) gm/dl Globulin (2.5-4.0) gm/dl Albumin/Globulin Ratio (0.9-2) Triglycerides 153 H (0-150) mg/dl Cholesterol 207 H (0-200) mg/dl LDL Cholesterol, Calc 108 mg/dl VLDL Cholesterol, Calc 31 H (0-30) mg/dl HDL Cholesterol 68 mg/dl Cholesterol/HDL Ratio 3.0 (0-5) Urine Color Urine Appearance (Clear) Urine pH (4.5-7.5) Ur Specific [place] (1.000-1.030) Urine Protein (Negative) Urine Glucose (UA) (Negative) Urine Ketones (Negative) Urine Blood (Negative) Urine Nitrite (Negative) Urine Bilirubin (Negative) Urine Urobilinogen (Negative) Ur Leukocyte Esterase (Negative) SARS-CoV-2, RNA, NAAT NEGATIVE (NEGATIVE) 02/28/22 02/28/22 02/28/22 Range/Units 02:44 08:45 08:45 WBC 5.08 (4.8-10.8) K/uL RBC 3.69 L (4.7-6.1) M/uL Hgb 11.9 L (14.0-18.0) g/dL Hct 34.8 L (42-52) % MCV 94.3 (80-100) fL MCH 32.2 (25-34) pg MCHC 34.2 (32-36) g/dL RDW Std Deviation 44.3 (36.4-46.3) fL RDW Coeff of Alexei 12.8 (11.5-14.5) % Plt Count 166 (130-400) K/uL MPV 9.1 (7.4-10.4) fL Immature Gran % (Auto) 1.2 % Neut % (Auto) 62.1 % Lymph % (Auto) 21.5 % Garza % (Auto) 13.4 % Eos % (Auto) 1.6 % Baso % (Auto) 0.2 % Neut # (Auto) 3.16 (1.4-6.5) K/uL Lymph # (Auto) 1.09 L (1.2-3.4) K/uL Garza # (Auto) 0.68 H (0.11-0.59) K/uL Eos # (Auto) 0.08 (0-0.5) K/uL Baso # (Auto) 0.01 (0-0.2) K/uL Immature Gran # (Auto) 0.06 H (0.00-0.02) K/uL Sodium 138 (136-145) mmol/L Potassium 3.7 (3.5-5.1) mmol/L Chloride 110 H (98-107) mmol/L Carbon Dioxide 21 (21-32) mmol/L Anion Gap 7 (3-11) BUN 26 H (6-23) mg/dl Creatinine 1.49 H (0.6-1.4) mg/dl Est Cr Clr Drug Dosing 37.6 ml/min Est GFR ( Amer) 51.0 ml/min Est GFR (Non-Af Amer) 44.0 ml/min BUN/Creatinine Ratio 17.4 (10-20) Glucose 77 (70-99(Fasting)) mg/dl Estimat Average Glucose mg/dl Hemoglobin A1c (4.5-5.6) % Lactate (0.4-2.0) mmol/L Calcium 8.3 L (8.5-10.1) mg/dl Magnesium (1.7-2.4) mg/dl Total Bilirubin (0.2-1.0) mg/dl AST (13-39) U/L ALT (7-52) U/L Alkaline Phosphatase (34-104) U/L Troponin I High Sens (0-20) pg/ml Total Protein (6.0-8.3) gm/dl Albumin (3.4-5.0) gm/dl Globulin (2.5-4.0) gm/dl Albumin/Globulin Ratio (0.9-2) Triglycerides (0-150) mg/dl Cholesterol (0-200) mg/dl LDL Cholesterol, Calc mg/dl VLDL Cholesterol, Calc (0-30) mg/dl HDL Cholesterol mg/dl Cholesterol/HDL Ratio (0-5) Urine Color Yellow Urine Appearance Clear (Clear) Urine pH 5.0 (4.5-7.5) Ur Specific [place] 1.020 (1.000-1.030) Urine Protein Negative (Negative) Urine Glucose (UA) Negative (Negative) Urine Ketones Trace H (Negative) Urine Blood Negative (Negative) Urine Nitrite Negative (Negative) Urine Bilirubin Negative (Negative) Urine Urobilinogen Negative (Negative) Ur Leukocyte Esterase Negative (Negative) SARS-CoV-2, RNA, NAAT (NEGATIVE) 03/01/22 03/01/22 Range/Units 06:48 06:48 WBC 4.84 (4.8-10.8) K/uL RBC 3.77 L (4.7-6.1) M/uL Hgb 11.9 L (14.0-18.0) g/dL Hct 35.6 L (42-52) % MCV 94.4 (80-100) fL MCH 31.6 (25-34) pg MCHC 33.4 (32-36) g/dL RDW Std Deviation 44.4 (36.4-46.3) fL RDW Coeff of Alexei 12.9 (11.5-14.5) % Plt Count 170 (130-400) K/uL MPV 9.3 (7.4-10.4) fL Immature Gran % (Auto) 0.8 % Neut % (Auto) 62.0 % Lymph % (Auto) 22.1 % Garza % (Auto) 12.8 % Eos % (Auto) 1.7 % Baso % (Auto) 0.6 % Neut # (Auto) 3.00 (1.4-6.5) K/uL Lymph # (Auto) 1.07 L (1.2-3.4) K/uL Garza # (Auto) 0.62 H (0.11-0.59) K/uL Eos # (Auto) 0.08 (0-0.5) K/uL Baso # (Auto) 0.03 (0-0.2) K/uL Immature Gran # (Auto) 0.04 H (0.00-0.02) K/uL Sodium 138 (136-145) mmol/L Potassium 4.1 (3.5-5.1) mmol/L Chloride 112 H (98-107) mmol/L Carbon Dioxide 23 (21-32) mmol/L Anion Gap 3 (3-11) BUN 22 (6-23) mg/dl Creatinine 1.19 D (0.6-1.4) mg/dl Est Cr Clr Drug Dosing 47.1 ml/min Est GFR ( Amer) 66.9 ml/min Est GFR (Non-Af Amer) 57.8 ml/min BUN/Creatinine Ratio 18.5 (10-20) Glucose 71 (70-99(Fasting)) mg/dl Estimat Average Glucose mg/dl Hemoglobin A1c (4.5-5.6) % Lactate (0.4-2.0) mmol/L Calcium 7.6 L (8.5-10.1) mg/dl Magnesium 1.9 (1.7-2.4) mg/dl Total Bilirubin (0.2-1.0) mg/dl AST (13-39) U/L ALT (7-52) U/L Alkaline Phosphatase (34-104) U/L Troponin I High Sens (0-20) pg/ml Total Protein (6.0-8.3) gm/dl Albumin (3.4-5.0) gm/dl Globulin (2.5-4.0) gm/dl Albumin/Globulin Ratio (0.9-2) Triglycerides (0-150) mg/dl Cholesterol (0-200) mg/dl LDL Cholesterol, Calc mg/dl VLDL Cholesterol, Calc (0-30) mg/dl HDL Cholesterol mg/dl Cholesterol/HDL Ratio (0-5) Urine Color Urine Appearance (Clear) Urine pH (4.5-7.5) Ur Specific [place] (1.000-1.030) Urine Protein (Negative) Urine Glucose (UA) (Negative) Urine Ketones (Negative) Urine Blood (Negative) Urine Nitrite (Negative) Urine Bilirubin (Negative) Urine Urobilinogen (Negative) Ur Leukocyte Esterase (Negative) SARS-CoV-2, RNA, NAAT (NEGATIVE) Administered Medications Acetaminophen (Acetaminophen 325 Mg Tab) 650 mg PO Q4H PRN PRN Reason: pain/fever Stop: 03/30/22 08:02 Last Admin: 03/04/22 12:23 Dose: 650 mg Documented by: [id number] Admin: 03/03/22 19:48 Dose: 650 mg Documented by: [id number] Admin: 03/03/22 09:25 Dose: 650 mg Documented by: [id number] Admin: 03/01/22 21:26 Dose: 650 mg Documented by: [id number] Admin: 02/28/22 20:00 Dose: 650 mg Documented by: [id number] Aspirin (Aspirin 81 Mg Ectab) 81 mg PO DAILY TREY Stop: 03/30/22 08:59 Last Admin: 03/07/22 07:52 Dose: 81 mg Documented by: [id number] Admin: 03/06/22 09:25 Dose: 81 mg Documented by: [id number] Admin: 03/05/22 08:04 Dose: 81 mg Documented by: [id number] Admin: 03/03/22 19:49 Dose: 81 mg Documented by: [id number] Admin: 03/03/22 08:07 Dose: 81 mg Documented by: [id number] Admin: 03/02/22 08:01 Dose: 81 mg Documented by: [id number] Admin: 03/01/22 08:38 Dose: 81 mg Documented by: [id number] Admin: 02/28/22 10:56 Dose: 81 mg Documented by: [id number] Fluoxetine HCl (Fluoxetine Hcl 20 Mg Cap) 40 mg PO DAILY [facility] Stop: 03/30/22 08:59 Last Admin: 03/07/22 07:52 Dose: 40 mg Documented by: [id number] Admin: 03/06/22 09:25 Dose: 40 mg Documented by: [id number] Admin: 03/05/22 08:04 Dose: 40 mg Documented by: [id number] Admin: 03/04/22 08:21 Dose: 40 mg Documented by: [id number] Admin: 03/03/22 08:07 Dose: 40 mg Documented by: [id number] Admin: 03/02/22 08:01 Dose: 40 mg Documented by: [id number] Admin: 03/01/22 08:38 Dose: 40 mg Documented by: [id number] Admin: 02/28/22 10:56 Dose: 40 mg Documented by: [id number] Lisinopril (Lisinopril 2.5 Mg Tab) 2.5 mg PO QAM TREY Stop: 04/02/22 09:29 Last Admin: 03/03/22 10:16 Dose: 2.5 mg Documented by: [id number] Melatonin (Melatonin 3 Mg Tab) 3 mg PO HS PRN PRN Reason: Sleep Stop: 03/30/22 22:31 Last Admin: 03/05/22 20:03 Dose: 3 mg Documented by: [id number] Admin: 03/04/22 20:05 Dose: 3 mg Documented by: [id number] Admin: 03/03/22 19:48 Dose: 3 mg Documented by: [id number] Admin: 03/01/22 21:26 Dose: 3 mg Documented by: [id number] Admin: 02/28/22 23:12 Dose: 3 mg Documented by: [id number] Pantoprazole Sodium (Pantoprazole 40 Mg Tab) 40 mg PO HS [facility] Stop: 03/30/22 20:59 Last Admin: 03/06/22 20:31 Dose: 40 mg Documented by: [id number] Admin: 03/05/22 20:03 Dose: 40 mg Documented by: [id number] Admin: 03/04/22 20:05 Dose: 40 mg Documented by: [id number] Admin: 03/03/22 19:49 Dose: 40 mg Documented by: [id number] Admin: 03/02/22 21:50 Dose: 40 mg Documented by: [id number] Admin: 03/01/22 21:21 Dose: 40 mg Documented by: [id number] Admin: 02/28/22 20:01 Dose: 40 mg Documented by: [id number] Prednisone (Prednisone 10 Mg Tablet) 10 mg PO QAM TREY Stop: 04/03/22 12:14 Last Admin: 03/07/22 07:52 Dose: 10 mg Documented by: [id number] Admin: 03/06/22 09:24 Dose: 10 mg Documented by: [id number] Admin: 03/05/22 09:31 Dose: 10 mg Documented by: [id number] Admin: 03/04/22 13:25 Dose: 10 mg Documented by: [id number] Quetiapine Fumarate (Quetiapine Fumarate 25 Mg Tablet) 25 mg PO DAILY TREY Stop: 03/30/22 08:59 Last Admin: 03/07/22 07:52 Dose: 25 mg Documented by: [id number] Admin: 03/06/22 09:24 Dose: 25 mg Documented by: [id number] Admin: 03/05/22 08:04 Dose: 25 mg Documented by: [id number] Admin: 03/04/22 08:20 Dose: 25 mg Documented by: [id number] Admin: 03/03/22 08:08 Dose: 25 mg Documented by: [id number] Admin: 03/02/22 08:01 Dose: 25 mg Documented by: [id number] Admin: 03/01/22 08:38 Dose: 25 mg Documented by: [id number] Admin: 02/28/22 10:56 Dose: 25 mg Documented by: [id number] Rosuvastatin Calcium (Rosuvastatin Calcium 10 Mg Tab) 10 mg PO DAILY TREY Stop: 03/30/22 08:59 Last Admin: 03/07/22 07:52 Dose: 10 mg Documented by: [id number] Admin: 03/06/22 10:40 Dose: 10 mg Documented by: [id number] Admin: 03/05/22 08:04 Dose: 10 mg Documented by: [id number] Admin: 03/04/22 08:21 Dose: 10 mg Documented by: [id number] Admin: 03/03/22 08:08 Dose: 10 mg Documented by: [id number] Admin: 03/02/22 08:01 Dose: 10 mg Documented by: [id number] Admin: 03/01/22 08:37 Dose: 10 mg Documented by: [id number] Admin: 02/28/22 10:56 Dose: 10 mg Documented by: [id number] Verapamil HCl (Verapamil Hcl 120 Mg Tabcr) 120 mg PO BID TREY Stop: 03/30/22 10:59 Last Admin: 03/07/22 07:51 Dose: 120 mg Documented by: [id number] Admin: 03/06/22 20:31 Dose: 120 mg Documented by: [id number] Admin: 03/06/22 09:23 Dose: 120 mg Documented by: [id number] Admin: 03/05/22 20:03 Dose: 120 mg Documented by: [id number] Admin: 03/05/22 08:04 Dose: 120 mg Documented by: [id number] Admin: 03/04/22 20:05 Dose: 120 mg Documented by: [id number] Admin: 03/04/22 08:20 Dose: 120 mg Documented by: [id number] Admin: 03/03/22 19:49 Dose: 120 mg Documented by: [id number] Admin: 03/03/22 08:08 Dose: 120 mg Documented by: [id number] Admin: 03/02/22 21:50 Dose: 120 mg Documented by: [id number] Admin: 03/02/22 08:01 Dose: 120 mg Documented by: [id number] Admin: 03/01/22 21:22 Dose: 120 mg Documented by: [id number] Admin: 03/01/22 08:37 Dose: 120 mg Documented by: [id number] Admin: 02/28/22 20:01 Dose: 120 mg Documented by: [id number] Admin: 02/28/22 12:25 Dose: 120 mg Documented by: [id number] Discontinued Medications Hydralazine HCl (Hydralazine Hcl 20 Mg/Ml Vial) 10 mg IV NOW STA Stop: 02/28/22 08:52 Last Admin: 02/28/22 10:23 Dose: 10 mg Documented by: [id number] Sodium Chloride (Nss 1000ml) 1,000 mls @ 80 mls/hr IV .[id number] TREY Stop: 03/30/22 01:14 Last Infusion: 03/02/22 15:35 Dose: 0 mls/hr Documented by: [id number] Admin: 03/02/22 04:31 Dose: 80 mls/hr Documented by: [id number] Infusion: 03/02/22 04:29 Dose: 80 mls/hr Documented by: [id number] Admin: 03/01/22 15:59 Dose: 80 mls/hr Documented by: [id number] Infusion: 03/01/22 15:59 Dose: 80 mls/hr Documented by: [id number] Infusion: 03/01/22 10:59 Dose: 80 mls/hr Documented by: [id number] Admin: 03/01/22 05:23 Dose: 100 mls/hr Documented by: [id number] Infusion: 03/01/22 05:23 Dose: 100 mls/hr Documented by: [id number] Admin: 02/28/22 20:03 Dose: 100 mls/hr Documented by: [id number] Infusion: 02/28/22 19:53 Dose: 100 mls/hr Documented by: [id number] Infusion: 02/28/22 15:12 Dose: 100 mls/hr Documented by: [id number] Admin: 02/28/22 10:56 Dose: 125 mls/hr Documented by: [id number] Infusion: 02/28/22 10:02 Dose: 125 mls/hr Documented by: [id number] Admin: 02/28/22 02:02 Dose: 125 mls/hr Documented by: [id number] Hydrocortisone Sodium (Succinate 40 mg/ Syringe) 0.8 mls @ 4 mls/min IV Q8H TREY Stop: 04/01/22 09:14 Last Admin: 03/02/22 10:01 Dose: 4 mls/min Documented by: [id number] Calcium Gluconate 1,000 mg/ (Dextrose) 60 mls @ 240 mls/hr IV NOW ONE Stop: 03/02/22 09:44 Last Infusion: 03/02/22 09:58 Dose: 0 mls/hr Documented by: [id number] Admin: 03/02/22 09:42 Dose: 240 mls/hr Documented by: [id number] Hydrocortisone Sodium (Succinate 30 mg/ Syringe) 0.6 mls @ 4 mls/min IV Q8H TREY Stop: 04/01/22 15:40 Last Admin: 03/03/22 08:08 Dose: 4 mls/min Documented by: [id number] Admin: 03/02/22 23:07 Dose: 4 mls/min Documented by: [id number] Admin: 03/02/22 17:30 Dose: 4 mls/min Documented by: [id number] Hydrocortisone Sodium (Succinate 20 mg/ Syringe) 0.4 mls @ 4 mls/min IV Q8H TREY Stop: 04/02/22 09:17 Last Admin: 03/03/22 09:39 Dose: Not Given Documented by: [id number] Hydrocortisone Sodium (Succinate 30 mg/ Syringe) 0.6 mls @ 4 mls/min IV Q8H TERY Stop: 03/04/22 09:17 Last Admin: 03/04/22 04:49 Dose: 4 mls/min Documented by: [id number] Admin: 03/03/22 19:49 Dose: 4 mls/min Documented by: [id number] Admin: 03/03/22 14:46 Dose: 4 mls/min Documented by: [id number] Sodium Chloride (Nss) 500 mls @ 80 mls/hr IV .Q6H15M [facility] Stop: 03/04/22 18:14 Last Infusion: 03/04/22 19:01 Dose: 0 mls/hr Documented by: [id number] Admin: 03/04/22 12:24 Dose: 80 mls/hr Documented by: [id number] Sodium Chloride (Nss) 500 mls @ 80 mls/hr IV .Q6H15M [facility] Stop: 03/05/22 14:59 Last Infusion: 03/05/22 16:04 Dose: 0 mls/hr Documented by: [id number] Admin: 03/05/22 09:31 Dose: 80 mls/hr Documented by: [id number] Midodrine (Midodrine Hcl 2.5 Mg Tab) 5 mg PO TID@0800,1200,1700 [facility] Stop: 03/31/22 11:59 Last Admin: 03/02/22 08:01 Dose: 5 mg Documented by: [id number] Admin: 03/01/22 17:50 Dose: 5 mg Documented by: [id number] Admin: 03/01/22 12:25 Dose: 5 mg Documented by: [id number] Prednisone (Prednisone 5 Mg Tab) 5 mg PO DAILY [facility] Stop: 03/30/22 08:59 Last Admin: 03/02/22 08:01 Dose: 5 mg Documented by: [id number] Admin: 03/01/22 08:37 Dose: 5 mg Documented by: [id number] Admin: 02/28/22 10:56 Dose: 5 mg Documented by: [id number] Imaging Data Radiologist's Impression: Chest X-Ray 02/28/22 01:05 XR chest 1V portable CLINICAL HISTORY: dizzy, fall COMPARISON STUDY: Chest CT November 05, 2020. Chest radiograph February 03, 2022. FINDINGS: Lung volumes are normal. Lungs are clear. There is no pneumothorax or pleural effusion. Cardiac size is stable. Mediastinal contours are normal. There is no evidence for pulmonary edema. Innumerable skin lesions are again noted. Old posterior right seventh rib fracture is noted. IMPRESSION: No acute cardiopulmonary findings. No change in appearance of the chest. ACT 112: Negative or not required by law. Electronically signed by: Don Ferreira M.D. 02/28/2022 6:[address] 02/28/22 01:05 CT OF THE HEAD WITHOUT CONTRAST CLINICAL HISTORY: fall, [facility] COMPARISON STUDY: MRI of the brain November 29, 2021. Head CT February 03, 2022. TECHNIQUE: Helical axial images of the head were obtained without IV contrast. Automated exposure control was utilized for the study. A dose lowering technique was utilized adhering to the principles of ALARA. FINDINGS: No acute intracranial hemorrhage, midline shift or mass effect is present. The ventricular system is stable. 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 The basal cisterns are patent. No extra-axial collections are present. There are no findings to suggest acute dural sinus thrombosis or acute territorial infarct. No significant calvarial abnormalities are present. Visualized portions of the sinuses and mastoid air cells are clear. Innumerable skin lesions or skin thickening is again noted. IMPRESSION: 1. No acute intracranial findings. No change in appearance of the brain. 2. No acute calvarial fracture. ACT 112: Negative or not required by law. Electronically signed by: Don Ferreira M.D. 02/28/2022 7:[address] 02/28/22 01:25 CT cervical spine wo con CT DOSE: 982.59 mGy.cm CLINICAL HISTORY: 81 years-old Male with Fall, neck pain. Acute neck pain stat us post fall COMPARISON: CT head of same day TECHNIQUE: Multiple axial CT images of the cervical spine were obtained without contrast. A dose lowering technique was utilized adhering to the principles of ALARA. FINDINGS: Calcified granuloma of the left thyroid lobe. No pneumothorax or preve rtebral edema. Atherosclerosis of the carotid bulbs. There is nonspecific diffuse nodularity of the cutaneous and subcutaneous tissues. Demineralized appearance the bones. Moderate multilevel facet arthrosis with mild spondylitic spurring and uncovertebral hypertrophy. 3 mm anterolisthesis C7 on T1 is likely degenerative. The intervertebral disc spaces are generally well maintained. No acute fracture, subluxation or destructive bone lesion. IMPRESSION: No acute cervical spine fracture or subluxation. ACT 112: Negative or not required by law. The above report was generated using voice recognition software. It may contain grammatical, syntax or spelling errors. Electronically signed by: Fernie Oreilly M.D. 02/28/2022 7:22 AM Carotid Doppler Study 02/28/22 08:52 US carotid doppler BI CLINICAL HISTORY: 81 years-old Male with syncope. COMPARISON: Carotid ultrasound 09/29/2018 TECHNIQUE: Multiple real time sonographic images of the carotid bifurcations were obtained assessing ward scale, color Doppler and spectral wave form ap pearance FINDINGS: RIGHT CAROTID: The peak systolic velocity measured within the right ICA is 43 cm/sec. The end diastolic velocity measured 12 cm/sec. The ICA to CCA ratio measured 0.45 which correlates with a stenosis of 0-50%. There is mild atherosclerotic plaque of the carotid bulb and proximal cervical segment of the right ICA. LEFT CAROTID: The peak systolic velocity measured within the left ICA is 64 cm/sec. The end diastolic velocity measured 28 cm/sec. The ICA to CCA ratio me asured 0.63 which correlates with a stenosis of 0-50%. There is mild atherosclerotic plaque of the carotid bulb and proximal cervical segment of the left ICA. There is normal antegrade vertebral flow bilaterally. IMPRESSION: 1. Mild atherosclerotic plaque without hemodynamically significant stenosis. 2. Normal antegrade vertebral flow bilaterally. ACT 112: Negative or not required by law. The above report was generated using voice recognition software. It may contain grammatical, syntax or spelling errors. Electronically signed by: Fernie Oreilly M.D. 02/28/2022 10:36 AM Blood Pressure Blood Pressure Findings: Normal blood pressure Blood Pressure Disposition: did not require urgent referral Discharge Plan Visit Data Chief Complaint: Syncope Stated Complaint: FALL w/ LOC ; HEADACHE ED Provider: Christine Donaldson Discharge Problem: Syncope and collapse, Orthostatic hypotension, MANUEL (acute kidney injury), Dehydration Patient Disposition: Admitted As Inpatient Discharge Instructions Interventions: ED Discharge Assessment Last Done: 02/28/22 08:03
--- NOTE | 2022-02-28 03:48 | History & Physical Report ---
Date of Service February 28, 2022 Assessment & Plan (1) Syncope and collapse: Plan: 81yo male with a history of HTN, HLD, CAD, [place], neurofibromatosis, prostate cancer, temporal arteritis, GERD, MDD, and frequent falls presents after a syncopal episode at home. Syncope Patient with increasingly-frequent syncopal episodes over the past few years On admission, patient was mildly hypertensive, vitals otherwise stable EKG showing sinus rhythm with 1st degree AV block, hsTroponin negative Labs notable for mild anemia to 12.4 and elevated BUN/creatinine (see below); no electrolyte abnormalities Imaging in ED: CXR without acute process CT head: no acute intracranial pathology, mild nonspecific white matter changes ([facility]) CT c-spine: no evbidence of fracture, mild atherosclerotic disease of the carotid bifurcations ([facility]) Awaiting official radiology over-read on the above Admit to med/surg telemetry Differential is broad: Factors supporting a cardiogenic etiology: history of HTN/HLD/CAD/[place], verapamil use (alters cardiac conduction), seroquel use (QT-prolonging) Factors not supporting a cardiogenic etiology: lightheadedness for about a minute preceding the fall; symptoms not exertional; no associated CP, palpitations, or SOB; persistent fatigue after regaining consciousness Factors supporting orthostatic/hypotension-mediated etiology: dehydration (as evidenced by current MANUEL), cilostazol use (vasodilator), tamsulosin use (alpha1 blockade) Factors supporting a neurogenic etiology: prodromal symptoms, ?post-ictal symptoms, history of neurofibromatosis (higher risk of DATA MODELER tumors, 2x risk of seizure), history of malignancy (chance of brain mets) Orthostatic vital signs ordered Echo ordered Cardiology consulted, appreciate recommendations Continue NSS @ 125mL/hr Hold home cilostazol, verapamil, tamsulosin Fall precautions Daily EKG MANUEL Creatinine on admission 1.76 (baseline ~1.2), suspect secondary to poor PO intake Hold home lisinopril, ibuprofen Continue NSS @ 125mL/hr, avoid nephrotoxins, trend BMP Anemia Hgb on admission 12.4, no signs of active bleeding FOBT ordered, trend daily CBC BPH: holding home tamsulosin HTN: BP only mildly elevated on admission; holding home lisinopril and verapamil HLD, CAD: continue home rosuvastatin and aspirin, repeat lipid profile ordered MDD: continue home fluoxetine, seroquel History of prostate cancer: doing well s/p radiation, as per last urology note; no intervention at this time Temporal arteritis: continue home prednisone FEN: heart-healthy diet, NSS @ 125mL/hr Code status: DNR/DNI DVT ppx: SCDs Consults: cardiology PT/OT: ordered Dispo: med/surg telemetry (2) Frequent falls: (3) Hypertension: (4) Hyperlipidemia: (5) CAD (coronary artery disease): (6) BPH (benign prostatic hyperplasia): (7) Neurofibromatosis: (8) Prostate cancer: (9) Temporal arteritis: History of Present Illness Primary Care Provider: NO PCP 81yo male with a history of HTN, HLD, CAD, [place] (multiple, last was 2-3 years ago), neurofibromatosis, prostate cancer, temporal arteritis, GERD, MDD, and frequent falls presents after a syncopal episode at home. Yesterday night, patient was at home (where he lives alone) walking in his kitchen when he s tarted feeling lightheaded; this lasted for an estimated minute before patient lost consciousness and fell, hitting his forehead on the kitchen table. Patient estimates he was unconscious on the ground for about five minutes before waking up. He then stayed laying on the ground for about a half hour before getting up and going to lay down in bed. Patient endorses "extreme" fatigue after the fall, which has persisted since, though the fatigue is gradually improving. Patient denies other prodromal symptoms including sweating, nausea, vomiting, changes in vision, CP, SOB, palpitations, or other symptoms. Patient is unable to identify any trigger although he does note that he becomes lightheaded if he stands up too quickly - this has led to similar falls in the past. Other than fatigue and facial pain, patient denies other symptoms after regaining consciousness including bowel/bladder incontinence, tongue biting, vision changes, CP, SOB, abdominal pain, nausea, or vomiting. Patient denies recent medication changes. Patient notes he has had occasional falls for the past few years; these occur about 2-3 times monthly, and usually don't result in injury. Patient is a poor historian and is unsure if he has ever had his frequent falls worked up medically beyond an ED visit earlier this month. He does note that his falls have become more frequent over the past year or so. Patient is unsure about a personal or family history of seizures. Patient notes he has had "multiple" heart attacks (he is unsure how many) and notes the last one was "about 2 or 3 years ago". Patient does not believe he has undergone cardiac catheterization before. In the ED, EKG showed sinus rhythm with 1st degree AV block, without sign of ischemic change. Allergies Allergy/AdvReac Type Severity Reaction Status Date / Time mirabegron [From [facility]] AdvReac Hypertensio Verified 02/03/22 15:41 n Home Medications Medication Instructions Recorded Confirmed Type aspirin 81 mg tablet,delayed 81 m PO DAILY 09/29/18 02/28/22 History release omeprazole 20 mg capsule,delayed 20 mg PO HS 09/29/18 02/28/22 History release verapamil 120 mg tablet,extended 120 mg PO DAILY 09/29/18 02/28/22 History release (Calan SR) tocilizumab 162 mg/0.9 mL 0 mg SUBCUT UNKNOWN #2 ml 05/09/19 02/28/22 History subcutaneous syringe (Actemra) cilostazol 50 mg tablet 50 mg PO BID 01/16/20 02/28/22 History fluoxetine 40 mg capsule (Prozac) 40 mg PO DAILY 01/16/20 02/28/22 History ibuprofen 600 mg tablet 600 mg PO Q8H PRN 01/16/20 02/28/22 History quetiapine 25 mg tablet (Seroquel) 25 mg PO DAILY 01/16/20 02/28/22 History denosumab 60 mg/mL subcutaneous 60 mg SUBCUT .q 6 month ml 03/17/21 02/28/22 History syringe (Prolia) docusate sodium 100 mg capsule 100 mg PO DAILY PRN 03/17/21 02/28/22 History (Dulcolax Stool Softener (docusate)) vitamin B complex (B 1 tab PO DAILY 03/17/21 02/28/22 History Complex-Vitamin B12) prednisone 5 mg tablet 5 mg PO DAILY 07/18/21 02/28/22 History cholecalciferol (vitamin D3) 25 25 mcg PO DAILY 02/03/22 02/28/22 History mcg (1,000 unit) tablet (Vitamin D3) lisinopril 2.5 mg tablet 2.5 mg PO DAILY 02/03/22 02/28/22 History rosuvastatin 10 mg tablet 10 mg PO DAILY 02/03/22 02/28/22 History tamsulosin 0.4 mg capsule 0.4 mg PO DAILY #90 cap 02/17/22 02/28/22 Rx albuterol sulfate 90 mcg/actuation 2 puff INHALATION QID PRN 02/28/22 02/28/22 History aerosol inhaler hydrocodone 5 mg-acetaminophen 325 1 tab PO TID PRN 02/28/22 02/28/22 History mg tablet Past Med/Surg History Medical History BPH loc w urin obs/LUTS Frequency of micturition Hyperlipidemia Neurofibromatosis Nocturia Prostate cancer (02/17/21) Temporal arteritis Surgical History History of cataract surgery History of hernia repair Family History Mother , age 68 of COPD complications COPD (chronic obstructive pulmonary disease) Neurofibromatosis Cancer Lung Cancer Father , age 77 of ruptured abdominal aortic aneurysm AAA (abdominal aortic aneurysm) Family/Other Neurofibromatosis Grandmother (Maternal) Neurofibromatosis Son Neurofibromatosis Daughter Neurofibromatosis Social History Smoking Status: Current every day smoker Tobacco Type: Cigarettes Years Smoked: 55; Cigarettes Per Day: 4-5; Second Hand Exposure: No; Hx Alcohol Use: No Hx Substance Use: No Preferred Language: Romansh Communication Ability: Effective Visual Impairment: Limited Hearing Ability: Hard of Hearing Aged Or Disabled Carer Required: No Beliefs That Will Affect Care: None Current Living Situation: Alone current occupational status: retired 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, 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, 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 Feels Safe at Home: Yes caffeine: Yes during the past year weight has: remained stable Dental Care, Regularly: No Physical Activity Frequency: 5-6 Times per Week Assistive Devices: Walker Physical Exam Physical Exam: Constitutional: well-appearing, no acute distress HEENT: NCAT, PERRL, EOMI CV: regular rhythm, no murmur appreciated, extremities well-perfused, no LE edema Resp: CTABL, no wheezes/rales/rhonchi appreciated, no increased work of breathing GI: mild LUQ tenderness, nontender elsewhere, nondistended, BS present Skin: innumerable cutaneous neurofibromas Neuro: alert, oriented, no focal neurologic deficit appreciated, CN2-12 grossly intact, strength 5/5 in upper and lower extremities bilaterally Results & Data Results & Data ([facility]) Vital Signs (Past 12 Hours) Vital Signs Temp Pulse Pulse Resp BP BP Pulse Ox 02/28/22 03:00 67 17 147/109 H 95 02/28/22 00:59 73 76 20 137/85 96 02/28/22 00:28 84 16 125/95 95 02/28/22 00:01 37 C 80 22 107/71 94
--- NOTE | 2022-02-28 06:37 | XRay Report ---
XR chest 1V portable CLINICAL HISTORY: dizzy, fall COMPARISON STUDY: Chest CT November 05, 2020. Chest radiograph February 03, 2022. FINDINGS: Lung volumes are normal. Lungs are clear. There is no pneumothorax or pleural effusion. Car diac size is stable. Mediastinal contours are normal. There is no evidence for pulmonary edema. Innum erable skin lesions are again noted. Old posterior right seventh rib fracture is noted. IMPRESSION: No acute cardiopulmonary findings. No change in appearance of the chest. ACT 112: Negative or not required by law. Electronically signed by: Don Ferreira M.D. 02/28/2022 6:35 AM
--- NOTE | 2022-02-28 07:23 | CT Scan Report ---
CT cervical spine wo con CT DOSE: 982.59 mGy.cm CLINICAL HISTORY: 81 years-old Male with Fall, neck pain. Acute neck pain status post fall COMPARISON: CT head of same day TECHNIQUE: Multiple axial CT images of the cervical spine were obtained without contrast. A dose low ering technique was utilized adhering to the principles of ALARA. FINDINGS: Calcified granuloma of the left thyroid lobe. No pneumothorax or prevertebral edema. Athero sclerosis of the carotid bulbs. There is nonspecific diffuse nodularity of the cutaneous and subcutan eous tissues. Demineralized appearance the bones. Moderate multilevel facet arthrosis with mild spondylitic spurrin g and uncovertebral hypertrophy. 3 mm anterolisthesis C7 on T1 is likely degenerative. The interverte bral disc spaces are generally well maintained. No acute fracture, subluxation or destructive bone le matilda. IMPRESSION: No acute cervical spine fracture or subluxation. ACT 112: Negative or not required by law. The above report was generated using voice recognition software. It may contain grammatical, syntax o r spelling errors. Electronically signed by: Fernie Oreilly M.D. 02/28/2022 7:22 AM
--- NOTE | 2022-02-28 07:32 | CT Scan Report ---
CT OF THE HEAD WITHOUT CONTRAST CLINICAL HISTORY: fall, [facility] COMPARISON STUDY: MRI of the brain November 29, 2021. Head CT February 03, 2022. TECHNIQUE: Helical axial images of the head were obtained without IV contrast. Automated exposure con trol was utilized for the study. A dose lowering technique was utilized adhering to the principles o f ALARA. FINDINGS: No acute intracranial hemorrhage, midline shift or mass effect is present. The ventricular system is stable. 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 The basal cisterns are p atent. No extra-axial collections are present. There are no findings to suggest acute dural sinus thr ombosis or acute territorial infarct. No significant calvarial abnormalities are present. Visualized portions of the sinuses and mastoid air cells are clear. Innumerable skin lesions or skin thickening is again noted. IMPRESSION: 1. No acute intracranial findings. No change in appearance of the brain. 2. No acute calvarial fracture. ACT 112: Negative or not required by law. Electronically signed by: Don Ferreira M.D. 02/28/2022 7:30 AM
[2022-02-28] MEDS ORDERED: ONDANSETRON INJ 2 MG/ML 2 ML VIAL IV PRN (08:03)
[2022-02-28 08:46] LABS: Estimated Average Glucose 117 mg/dl; Hemoglobin A1C 5.7 % (4.5-5.6)
[2022-02-28] MEDS ORDERED: hydrALAZINE HCL 20 MG/ML VIAL IV STA (08:51)
--- NOTE | 2022-02-28 08:53 | Cardiology Consultation ---
Date of Consultation February 28, 2022 Assessment & Plan (1) Syncope and collapse: Impression: 1. Syncope likely secondary to orthostasis due to dehydration 2. Uncontrolled htn 3. Chronic shortness of breath and dyspnea on exertion, which is predominantly pulmonary in etiology. 4. Echocardiogram suggesting a small LV with hyperdynamic function and an LVOT gradient without evidence of systolic anterior motion of the anterior mitral valve leaflet. 5. Event recorder 2018 without evidence of pauses, SVT or nonsustained VT, but frequent PACs and PVCs. 4. Symptoms of claudication. 5. Cramping in his hands and his feet secondary to statin therapy. 6. Negative dobutamine stress echo for ischemia September 2018. Mr. Bartlett's syncope is likely orthostasis secondary to dehydration. He has an MANUEL. His echo supports dehydration as an issue with flattened IVC and hyperdynamic ventricle. He has been dealing with ongoing orthostasis, gait instability and dizziness for many years. He was encouraged to increase his fluid consumption at his last office visit in January. CT of his head was negative for acute findings. His carotid doppler was negative for significant stenosis. High sensitivity troponin was wnl. EKG was without ischemic changes. His first degree HB is chronic. His blood pressure is poorly controlled at present. His verapamil should be resumed, this will also help with his hyperdynamic ventricle. His lisinopril is held for his MANUEL. His pressures in the office have been wnl. It may be that Mr. Bartlett needs more support than his current living situation especially as dehydration has been an ongoing issue and he was seen for similar earlier this month at [facility]. History of Present Illness Attending Physician: Jos Spears MD History of Present Illness Mr. Bartlett presented to the ED after a fall at his residence. He got up from the couch and started to ambulate toward his dining room. He did feel lightheaded but did not feel presyncopal - no darkening vision or seeing stars. He thinks he tried to grab a chair as he went down. He lost consciousness. He did hit his head. He has a mild headache and continues to feel a bit dizzy now. No focal weakness or speech changes. He felt out of it for a little while after the syncopal event but no loss of control of bowel or bladder. He reports occasional chest discomfort, never with exertion. No palpitations. No edema. He has had a few falls every month. No syncope while seated or laying down, only while on his feet though its not always going from sitting to standing, can be while he has been on his feet. He feels like he has a head cold but denies any changes in appetite or reduced po intake. He was seen on 02/03 in the ED for feeling dizzy and lightheaded and wobbly on his feet. This has been an issue with feeling lightheaded and unsteady gait since at least 2019 per records. Social: long time smoker now smoking about 5 cigarettes per day but has smoked as much as 3 packs per day. Quit drinking 50 years ago. No other substances. Pmhx: HTN, hypercholesteremia, neurofibromatosis, blind in right eye, prostate cancer s/p radiation, temporal arteritis, Family: family history of ID Allergies Allergy/AdvReac Type Severity Reaction Status Date / Time mirabegron [From RealMatch] AdvReac Hypertensio Verified 02/03/22 15:41 n Home Medications Medication Instructions Recorded Confirmed Type aspirin 81 mg tablet,delayed 81 m PO DAILY 09/29/18 02/28/22 History release omeprazole 20 mg capsule,delayed 20 mg PO HS 09/29/18 02/28/22 History release verapamil 120 mg tablet,extended 120 mg PO DAILY 09/29/18 02/28/22 History release (Calan SR) tocilizumab 162 mg/0.9 mL 0 mg SUBCUT UNKNOWN #2 ml 05/09/19 02/28/22 History subcutaneous syringe (Actemra) cilostazol 50 mg tablet 50 mg PO BID 01/16/20 02/28/22 History fluoxetine 40 mg capsule (Prozac) 40 mg PO DAILY 01/16/20 02/28/22 History ibuprofen 600 mg tablet 600 mg PO Q8H PRN 01/16/20 02/28/22 History quetiapine 25 mg tablet (Seroquel) 25 mg PO DAILY 01/16/20 02/28/22 History denosumab 60 mg/mL subcutaneous 60 mg SUBCUT .q 6 month ml 03/17/21 02/28/22 History syringe (Prolia) docusate sodium 100 mg capsule 100 mg PO DAILY PRN 03/17/21 02/28/22 History (Dulcolax Stool Softener (docusate)) vitamin B complex (B 1 tab PO DAILY 03/17/21 02/28/22 History Complex-Vitamin B12) prednisone 5 mg tablet 5 mg PO DAILY 07/18/21 02/28/22 History cholecalciferol (vitamin D3) 25 25 mcg PO DAILY 02/03/22 02/28/22 History mcg (1,000 unit) tablet (Vitamin D3) lisinopril 2.5 mg tablet 2.5 mg PO DAILY 02/03/22 02/28/22 History rosuvastatin 10 mg tablet 10 mg PO DAILY 02/03/22 02/28/22 History tamsulosin 0.4 mg capsule 0.4 mg PO DAILY #90 cap 02/17/22 02/28/22 Rx albuterol sulfate 90 mcg/actuation 2 puff INHALATION QID PRN 02/28/22 02/28/22 History aerosol inhaler hydrocodone 5 mg-acetaminophen 325 1 tab PO TID PRN 02/28/22 02/28/22 History mg tablet Patient History Medical History BPH loc w urin obs/LUTS Frequency of micturition Hyperlipidemia Neurofibromatosis Nocturia Prostate cancer (02/17/21) Temporal arteritis Surgical History History of cataract surgery History of hernia repair Family History Mother , age 68 of COPD complications COPD (chronic obstructive pulmonary disease) Neurofibromatosis Cancer Lung Cancer Father , age 77 of ruptured abdominal aortic aneurysm AAA (abdominal aortic aneurysm) Family/Other Neurofibromatosis Grandmother (Maternal) Neurofibromatosis Son Neurofibromatosis Daughter Neurofibromatosis Social History Smoking Status: Current every day smoker Tobacco Type: Cigarettes Years Smoked: 55; Cigarettes Per Day: 4-5; Second Hand Exposure: No; Hx Alcohol Use: No Hx Substance Use: No Preferred Language: Irish Communication Ability: Effective Visual Impairment: Limited Hearing Ability: Hard of Hearing Hammer Setter Required: No Beliefs That Will Affect Care: None Current Living Situation: Alone current occupational status: retired 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, 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, 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 Feels Safe at Home: Yes caffeine: Yes during the past year weight has: remained stable Dental Care, Regularly: No Physical Activity Frequency: 5-6 Times per Week Assistive Devices: Walker Review of Systems Review of Systems: All systems reviewed & are unremarkable except as noted in HPI & below Physical Exam Constitutional: WD/WN, vitals as above Respiratory: normal respiratory effort, lungs clear to auscultation Cardiovascular: RRR, no murmur, no edema Skin: no rashes, warm and dry Neurologic: moves all extremities and awake Psychiatric: A+Ox3, euthymic affect Results & Data ([facility]) Vital Signs (Past 12 Hours) Vital Signs Temp Pulse Pulse Resp BP BP Pulse Ox 02/28/22 08:00 84 22 02/28/22 07:31 87 19 02/28/22 07:00 79 20 02/28/22 06:30 78 17 02/28/22 06:00 76 17 185/109 H 97 02/28/22 05:30 76 16 96 02/28/22 05:00 74 22 167/101 H 96 02/28/22 04:30 25 H 97 02/28/22 04:00 70 12 144/87 H 96 02/28/22 03:30 72 18 96 02/28/22 03:25 77 17 168/97 H 96 02/28/22 03:15 69 17 152/88 H 96 02/28/22 03:00 72 67 26 H 147/109 H 147/109 H 96 02/28/22 02:45 70 13 154/94 H 96 02/28/22 02:30 70 19 156/96 H 97 02/28/22 02:13 122/79 02/28/22 02:10 75 19 02/28/22 02:00 85 20 157/88 H 96 02/28/22 01:47 71 17 137/85 95 02/28/22 01:15 74 21 123/72 95 02/28/22 01:00 77 17 129/74 96 02/28/22 00:59 73 76 20 137/85 96 02/28/22 00:53 85 21 105/65 02/28/22 00:45 84 18 128/68 96 02/28/22 00:30 78 18 118/65 97 02/28/22 00:28 84 16 125/95 95 02/28/22 00:15 76 17 104/62 96 02/28/22 00:10 77 18 97 02/28/22 00:01 37 C 80 22 107/71 94
[2022-02-28] MEDS ORDERED: TAMSULOSIN HCL 0.4 MG CAP PO SCH (09:00)
[2022-02-28 09:05] LABS: Basophils # (auto) 0.01 K/uL (0-0.2); Basophils % (auto) 0.2 %; Eosinophils # (auto) 0.08 K/uL (0-0.5); Eosinophils % (auto) 1.6 %; Hematocrit (blood only) 34.8 % (42-52); Hemoglobin 11.9 g/dL (14.0-18.0); Immature Granulocytes # (auto) 0.06 K/uL (0.00-0.02); Immature Granulocytes % (auto) 1.2 %; Lymphocytes # (auto) 1.09 K/uL (1.2-3.4); Lymphocytes % (auto) 21.5 %; Mean Corpuscular Hemoglobin 32.2 pg (25-34); Mean Corpuscular Hgb Conc 34.2 g/dL (32-36); Mean Corpuscular Volume 94.3 fL (80-100); Mean Platelet Volume 9.1 fL (7.4-10.4); Monocytes # (auto) 0.68 K/uL (0.11-0.59); Monocytes % (auto) 13.4 %; Neutrophils # (auto) 3.16 K/uL (1.4-6.5); Neutrophils % (auto) 62.1 %; Platelet Count 166 K/uL (130-400); RDW Coefficient of Variation 12.8 % (11.5-14.5); RDW Standard Deviation 44.3 fL (36.4-46.3); Red Blood Count 3.69 M/uL (4.7-6.1); White Blood Count 5.08 K/uL (4.8-10.8)
--- NOTE | 2022-02-28 09:14 | Electrocardiogram Report ---
Test Reason : Blood Pressure : / mmHG Vent. Rate : 081 BPM Atrial Rate : 081 BPM P-R Int : 272 ms QRS Dur : 068 ms QT Int : 380 ms P-R-T Axes : 049 -25 043 degrees QTc Int : 441 ms Sinus rhythm with 1st degree A-V block Otherwise normal ECG When compared with ECG of 03-FEB-2022 14:21, Premature supraventricular complexes are no longer Present Confirmed by Kaden Harmon ([id number]) on 02/28/2022 9:13:54 AM Referred By: REFERRED SELF Confirmed By:Kaden Harmon
[2022-02-28 09:24] LABS: BUN Creatinine Ratio 17.4 (10-20); Calcium 8.3 mg/dl (8.5-10.1); Creatinine Clr Calc Pharmacy 37.6 ml/min; Potassium 3.7 mmol/L (3.5-5.1)
--- NOTE | 2022-02-28 10:37 | Ultrasound Report ---
US carotid doppler BI CLINICAL HISTORY: 81 years-old Male with syncope. COMPARISON: Carotid ultrasound 09/29/2018 TECHNIQUE: Multiple real time sonographic images of the carotid bifurcations were obtained assessing ward scale, color Doppler and spectral wave form appearance FINDINGS: RIGHT CAROTID: The peak systolic velocity measured within the right ICA is 43 cm/sec. The end diast olic velocity measured 12 cm/sec. The ICA to CCA ratio measured 0.45 which correlates with a stenosi s of 0-50%. There is mild atherosclerotic plaque of the carotid bulb and proximal cervical segment of the right ICA. LEFT CAROTID: The peak systolic velocity measured within the left ICA is 64 cm/sec. The end diastol ic velocity measured 28 cm/sec. The ICA to CCA ratio measured 0.63 which correlates with a stenosis o f 0-50%. There is mild atherosclerotic plaque of the carotid bulb and proximal cervical segment of t he left ICA. There is normal antegrade vertebral flow bilaterally. IMPRESSION: 1. Mild atherosclerotic plaque without hemodynamically significant stenosis. 2. Normal antegrade vertebral flow bilaterally. ACT 112: Negative or not required by law. The above report was generated using voice recognition software. It may contain grammatical, syntax o r spelling errors. Electronically signed by: Fernie Oreilly M.D. 02/28/2022 10:36 AM
--- NOTE | 2022-02-28 10:50 | XCELERA ---
[id number]
[2022-02-28] MEDS: QUEtiapine FUMARATE 25 MG TABLET PO SCH (10:56)
[2022-02-28] MEDS: ROSUVASTATIN CALCIUM 10 MG TAB PO SCH (10:56)
[2022-02-28] MEDS: predniSONE 5 MG TAB PO SCH (10:56)
[2022-02-28] MEDS: ASPIRIN 81 MG ECTAB PO SCH (10:56)
[2022-02-28] MEDS: FLUoxetine HCL 20 MG CAP PO SCH (10:56)
[2022-02-28] MEDS: VERAPAMIL HCL 120 MG TABCR PO SCH ×2 (12:25→20:01)
--- NOTE | 2022-02-28 15:22 | History & Physical Bridge Note ---
Date of Service February 28, 2022 History & Physical Bridge Note I have examined the patient, reviewed the History & Physical and in the interval since the performance of the History & Physical as well as consultation note from cardiology. I have noted the following changes of clinical significance: Added Hydralazine 10mg IV x1 dose now given this morning for accelerated HTN Noted that cardiology has ordered Verapamil 120mg BID Obtained carotid duplex-findings did not demonstrate any significant stenosis Reviewed echocardiogram Continued IVF with reduction of rate to 100 ml/hr Repeat orthostatic VS and labs tomorrow morning Await PT/OT eval to determine appropriate dispo
[2022-02-28] MEDS: ACETAMINOPHEN 325 MG TAB PO PRN (20:00)
[2022-02-28] MEDS: PANTOprazole 40 MG TAB PO SCH (20:01)
[2022-02-28] MEDS: MELATONIN 3 MG TAB PO PRN (23:12)
[2022-03-01] MEDS: SODIUM CHLORIDE 0.9% 1000ML 1,000 ML IV SCH ×2 (05:23→15:59)
[2022-03-01 07:04] LABS: Basophils # (auto) 0.03 K/uL (0-0.2); Basophils % (auto) 0.6 %; Eosinophils # (auto) 0.08 K/uL (0-0.5); Eosinophils % (auto) 1.7 %; Hematocrit (blood only) 35.6 % (42-52); Hemoglobin 11.9 g/dL (14.0-18.0); Immature Granulocytes # (auto) 0.04 K/uL (0.00-0.02); Immature Granulocytes % (auto) 0.8 %; Lymphocytes # (auto) 1.07 K/uL (1.2-3.4); Lymphocytes % (auto) 22.1 %; Mean Corpuscular Hemoglobin 31.6 pg (25-34); Mean Corpuscular Hgb Conc 33.4 g/dL (32-36); Mean Corpuscular Volume 94.4 fL (80-100); Mean Platelet Volume 9.3 fL (7.4-10.4); Monocytes # (auto) 0.62 K/uL (0.11-0.59); Monocytes % (auto) 12.8 %; Platelet Count 170 K/uL (130-400); RDW Coefficient of Variation 12.9 % (11.5-14.5); RDW Standard Deviation 44.4 fL (36.4-46.3); Red Blood Count 3.77 M/uL (4.7-6.1); White Blood Count 4.84 K/uL (4.8-10.8)
[2022-03-01 07:26] LABS: BUN Creatinine Ratio 18.5 (10-20); Calcium 7.6 mg/dl (8.5-10.1); Creatinine Clr Calc Pharmacy 47.1 ml/min; Est GFR (African American) 66.9 ml/min; Est GFR (Non-African American) 57.8 ml/min; Magnesium 1.9 mg/dl (1.7-2.4); Potassium 4.1 mmol/L (3.5-5.1)
[2022-03-01] MEDS: VERAPAMIL HCL 120 MG TABCR PO SCH ×2 (08:37→21:22)
[2022-03-01] MEDS: predniSONE 5 MG TAB PO SCH (08:37)
[2022-03-01] MEDS: ROSUVASTATIN CALCIUM 10 MG TAB PO SCH (08:37)
[2022-03-01] MEDS: ASPIRIN 81 MG ECTAB PO SCH (08:38)
[2022-03-01] MEDS: QUEtiapine FUMARATE 25 MG TABLET PO SCH (08:38)
[2022-03-01] MEDS: FLUoxetine HCL 20 MG CAP PO SCH (08:38)
--- NOTE | 2022-03-01 10:16 | Hospitalist Progress Note ---
Date of Service March 01, 2022 Assessment & Plan (1) Orthostatic hypotension: Plan: - Presenting with syncope and fall, placed in obs for syncope work up - Seen by cardiology on 02/28, had echo, advised resumption of Verapamil d/t hyperdynamic left ventricle noted on echo - Continues to be orthostatic despite IVF hydration and normalization of creatinine - DELPHINE inhibitor remains on hold - Check TSH and AM cortisol - Add Midodrine 5mg TID - PT/OT - home v rehab - Repeat orthostatic VS in AM (2) Acute kidney injury: Plan: - Hydrated with IVF and creatinine has now normalized from 1.76 to 1.19 (his normal baseline) - Will reduce fluids to 80 ml/hr, likely cap this afternoon (3) Neurofibromatosis: Plan: - Chronic/stable (4) Depression: Plan: - Continue Fluoxetine (5) BPH (benign prostatic hyperplasia): Plan: - With h/o Prostate CA s/p radiation - Tamsulosin on hold d/t orthostasis (6) CAD (coronary artery disease): Plan: - Stable, HS trop, no WMA noted on echo, no CP - Continue Crestor and ASA (7) Hypertension: Plan: - BP acceptably controlled upon resumption of Verapamil done yesterday - Lisinopril remains on hold d/t orthostasis Plan: Await OT eval to determine appropriate dispo. Additional labs and Midodrine. Make patient full admit. Plan to be d/w Dr. Sen. Admission and Anticipated Discharge Date Admission Date: February 28, 2022 Subjective Patient seen on daily rounds this morning. At time of visit, pt was working with PT. Had just had orthostatic VS prior to my arrival which noted a drop in systolic pressure from sitting to standing from 150 to 120 mmHg. Pt continues to c/o dizziness/lightheadedness upon standing. He denies headache, blurred vision, focal weakness, chest pain or dyspnea. No n/v/d. Review of Systems Review of Systems: All systems reviewed and are unremarkable except as noted in HPI and below. Denies fever, chills, fatigue, headache, nasal congestion, sore throat, cough, chest pain, shortness of breath, palpitations, orthopnea, PND, abdominal pain, n/v/d, constipation, dysuria, hematuria, frequency, back pain, joint pain or swelling, easy bruising or bleeding, skin rashes. Physical Exam Physical Exam: GENERAL: 81 yo Well-developed, thin elderly WM. NAD. LUNGS: Clear to auscultation bilaterally. No W/R/R. CARDIOVASCULAR: Regular rate and rhythm. ABDOMEN: Soft, non-tender and non-distended. BS normoactive x 4 quad. EXTREMITIES: No edema. Non-tender. Peripheral pulses +2/4. NEUROLOGIC: A&O x3. No focal neurological deficits. CN II-XII grossly intact. PSYCHIATRIC: Cooperative. Appropriate mood and affect. SKIN: Warm, dry, intact. Numerous scattered tumor-like growths on all skin surfaces varying in size. Results & Data Results & Data ([facility]) Vital Signs (Past 12 Hours) Vital Signs Temp Pulse Pulse Resp BP Pulse Ox 03/01/22 06:24 36.9 C 75 18 143/87 H 93 03/01/22 06:13 64 03/01/22 02:38 36.9 C 73 18 150/80 H 94 02/28/22 22:32 37.0 C 67 18 135/78 95 02/28/22 22:17 73 Laboratory Results 03/01/22 06:48 03/01/22 06:48 PG Care Time/CCT Total # of Minutes Spent Total Time Spent with Patient: Total time spent is greater than 50% in coordination of care (as documented) at patient's floor/unit and/or counseling patient: Coding Level of Care Code 11269 Subseq Hosp Care Lvl 2 Diagnoses Orthostatic hypotension I95.1 Neurofibromatosis Q85.00 Depression F32.9 BPH (benign prostatic hyperplasia) N40.0 CAD (coronary artery disease) I25.10 Hypertension I10 Acute kidney injury N17.9
--- NOTE | 2022-03-01 11:50 | Electrocardiogram Report ---
Test Reason : Blood Pressure : / mmHG Vent. Rate : 069 BPM Atrial Rate : 069 BPM P-R Int : 290 ms QRS Dur : 064 ms QT Int : 412 ms P-R-T Axes : 039 -38 052 degrees QTc Int : 441 ms Sinus rhythm with 1st degree A-V block with occasional Premature ventricular complexes Left axis deviation Abnormal ECG When compared with ECG of 28-FEB-2022 00:01, Premature ventricular complexes are now Present Confirmed by Kaden Harmon ([id number]) on 03/01/2022 11:50:08 AM Referred By: REFERRED SELF Confirmed By:Kaden Harmon
[2022-03-01] MEDS: MIDODRINE HCL 2.5 MG TAB PO SCH ×2 (12:25→17:50)
[2022-03-01] MEDS: PANTOprazole 40 MG TAB PO SCH (21:21)
[2022-03-01] MEDS: ACETAMINOPHEN 325 MG TAB PO PRN (21:26)
[2022-03-01] MEDS: MELATONIN 3 MG TAB PO PRN (21:26)
[2022-03-02] MEDS: SODIUM CHLORIDE 0.9% 1000ML 1,000 ML IV SCH (04:31)
--- NOTE | 2022-03-02 07:55 | Hospitalist Progress Note ---
Date of Service March 02, 2022 Assessment & Plan (1) Orthostatic hypotension: Plan: Presenting with syncope and fall [employer] (sister reports multiple falls at home, lives alone) Cards flaquita 02/28 -- echo reviewed, resumed Verapamil d/t hyperdynamic LV DELPHINE inhibitor remaining on hold Continued on IVF, will discontinued BP 157/78 but still orthostatic this morning (improved from prior), d/c IVF and started on steroids as outlined as Cr improved to baseline 1.07 (1.76 on admit) TSH elevated but likely reactive and can repeat outpt TFT 4-6 weeks. 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 CM alerted as sister would also like rehab (2) Acute kidney injury: Plan: Cr 1.76 on admit with normal baseline IVF provided, decreased to 80cc/hr this morning and will d/c as Cr 1.07 and placed on steroids as above Monitor (3) Neurofibromatosis: Plan: Chronic/stable Follows with Rheumatology, Dr Doherty (4) Depression: Plan: Continue Fluoxetine (5) BPH (benign prostatic hyperplasia): Plan: - With h/o Prostate CA s/p radiation - Tamsulosin on hold d/t orthostasis UOP acceptable (6) CAD (coronary artery disease): Plan: - Stable, HS trop, no WMA noted on echo, no CP - Continue Crestor and ASA (7) Hypertension: Plan: - BP acceptably controlled upon resumption of Verapamil done yesterday - Lisinopril remains on hold d/t orthostasis but if BPs stable/Cr stable could potentially resume in AM? (8) Giant cell arteritis: Plan: hx of such, follows with neurology had been attempting to decreased steroids/d/c over past year but remained on 5mg am cortisol low as above stress dose steroids ordered, f/u endocrinology as well for adrenal insufficiency but suspect patient with PMR as well (9) Adrenal insufficiency: Plan: suspected based on chronic prednisone use, orthostatic hypotension and low AM cortisol tx as outlined, place on PO increased dose at d/c and f/u outpt Plan: Continued inpatient stay Start Hydrocortisone, f/u endocrinology outpt PT/OT rec'd rehab --> sister would also like to look into this. CM alerted Admission and Anticipated Discharge Date Admission Date: March 01, 2022 Subjective Patient evaluated this morning. Eating/drinking without issue. Still with some issues with lightheadedness/dizziness with standing. BP systolic 160s to 130s standing this morning. Discussed cortisol level and follow up with Endocrinology. His sister Teresa is POA and helps with decisions. Updated on phone in room. She would like to consider rehab for patient as traveling to [place] tomorrow and issues with falls at home and feels would benefit at least short term either rehab or skilled facility. No fever/chills, chest pain, shortness of breath, abdominal pain, nausea or vomiting. Review of Systems Review of Systems: All systems reviewed & are unremarkable except as noted in HPI & below Physical Exam Physical Exam: GENERAL: WD disheveled male, sitting up at side of bed, NAD HEENT: head normocephalic, atraumatic RESP: CTAB, no w/c/r, 94% on RA CV: RRR, no m/r/g, no pitting edema, no calf tenderness, cap refill wnl GI: +BS, soft , nontender MSK/Neuro: moves all extremities, no focal deficits, CN intact grossly Psych: AOx3, cooperative Skin: multiple lesions c/w neurofibromatosis diagnosis to chest/back/extremities on all surfaces with varying size, non-painful, non-tender, non-erythematous Results & Data Results & Data ([facility]) Vital Signs (Past 12 Hours) Vital Signs Temp Pulse Pulse Resp BP Pulse Ox 03/02/22 06:26 36.7 C 66 70 20 157/78 H 94 03/02/22 02:56 36.4 C L 57 L 18 144/84 H 94 03/01/22 23:37 36.9 C 61 18 148/77 H 95 03/01/22 23:19 72 Laboratory Results 03/02/22 03/02/22 03/02/22 Range/Units 10:05 08:13 08:13 WBC 3.60 L (4.8-10.8) K/uL RBC 4.00 L (4.7-6.1) M/uL Hgb 12.8 L (14.0-18.0) g/dL Hct 37.7 L (42-52) % MCV 94.3 (80-100) fL MCH 32.0 (25-34) pg MCHC 34.0 (32-36) g/dL RDW Std Deviation 45.0 (36.4-46.3) fL RDW Coeff of Alexei 13.1 (11.5-14.5) % Plt Count 174 (130-400) K/uL MPV 9.1 (7.4-10.4) fL ESR 55 H (0-20) mm/hr Sodium (136-145) mmol/L Potassium (3.5-5.1) mmol/L Chloride (98-107) mmol/L Carbon Dioxide (21-32) mmol/L Anion Gap (3-11) BUN (6-23) mg/dl Creatinine (0.6-1.4) mg/dl Est Cr Clr Drug Dosing ml/min Est GFR ( Amer) ml/min Est GFR (Non-Af Amer) ml/min BUN/Creatinine Ratio (10-20) Glucose (70-99(Fasting)) mg/dl Calcium (8.5-10.1) mg/dl Iron (35-175) mcg/dl TIBC (250-450) mcg/dl Unsaturated IBC (155-355) mcg/dl Transferrin % Sat (20-50) % Ferritin (8-388) ng/ml Total Bilirubin (0.2-1.0) mg/dl AST (13-39) U/L ALT (7-52) U/L Alkaline Phosphatase (34-104) U/L Total Protein (6.0-8.3) gm/dl Albumin (3.4-5.0) gm/dl Globulin (2.5-4.0) gm/dl Albumin/Globulin Ratio (0.9-2) Vitamin B12 (180-914) pg/ml 25-OH Vitamin D Total (30-100) ng/ml TSH (0.300-4.500) uIu/ml Free T4 (0.61-1.60) ng/dl Cortisol AM Sample (6.2-22.6) mcg/dl Stool Occult Bld Scrn Negative (Negative) 03/02/22 03/02/22 03/02/22 Range/Units 08:13 07:21 07:21 WBC (4.8-10.8) K/uL RBC (4.7-6.1) M/uL Hgb (14.0-18.0) g/dL Hct (42-52) % MCV (80-100) fL MCH (25-34) pg MCHC (32-36) g/dL RDW Std Deviation (36.4-46.3) fL RDW Coeff of Alexei (11.5-14.5) % Plt Count (130-400) K/uL MPV (7.4-10.4) fL ESR (0-20) mm/hr Sodium 138 (136-145) mmol/L Potassium 4.0 (3.5-5.1) mmol/L Chloride 113 H (98-107) mmol/L Carbon Dioxide 20 L (21-32) mmol/L Anion Gap 5 (3-11) BUN 18 (6-23) mg/dl Creatinine 1.07 (0.6-1.4) mg/dl Est Cr Clr Drug Dosing 52.3 ml/min Est GFR ( Amer) 76.1 ml/min Est GFR (Non-Af Amer) 65.7 ml/min BUN/Creatinine Ratio 16.8 (10-20) Glucose 111 H (70-99(Fasting)) mg/dl Calcium 7.7 L (8.5-10.1) mg/dl Iron 109 (35-175) mcg/dl TIBC 281 (250-450) mcg/dl Unsaturated IBC 172 (155-355) mcg/dl Transferrin % Sat 39 (20-50) % Ferritin 58.9 (8-388) ng/ml Total Bilirubin 0.6 (0.2-1.0) mg/dl AST 11 L (13-39) U/L ALT 8 (7-52) U/L Alkaline Phosphatase 23 L (34-104) U/L Total Protein 5.4 L (6.0-8.3) gm/dl Albumin 3.5 (3.4-5.0) gm/dl Globulin 1.9 L (2.5-4.0) gm/dl Albumin/Globulin Ratio 1.8 (0.9-2) Vitamin B12 748 (180-914) pg/ml 25-OH Vitamin D Total 50.8 (30-100) ng/ml TSH (0.300-4.500) uIu/ml Free T4 (0.61-1.60) ng/dl Cortisol AM Sample 5.81 L (6.2-22.6) mcg/dl Stool Occult Bld Scrn (Negative) 03/02/22 Range/Units 07:21 WBC (4.8-10.8) K/uL RBC (4.7-6.1) M/uL Hgb (14.0-18.0) g/dL Hct (42-52) % MCV (80-100) fL MCH (25-34) pg MCHC (32-36) g/dL RDW Std Deviation (36.4-46.3) fL RDW Coeff of Alexei (11.5-14.5) % Plt Count (130-400) K/uL MPV (7.4-10.4) fL ESR (0-20) mm/hr Sodium (136-145) mmol/L Potassium (3.5-5.1) mmol/L Chloride (98-107) mmol/L Carbon Dioxide (21-32) mmol/L Anion Gap (3-11) BUN (6-23) mg/dl Creatinine (0.6-1.4) mg/dl Est Cr Clr Drug Dosing ml/min Est GFR ( Amer) ml/min Est GFR (Non-Af Amer) ml/min BUN/Creatinine Ratio (10-20) Glucose (70-99(Fasting)) mg/dl Calcium (8.5-10.1) mg/dl Iron (35-175) mcg/dl TIBC (250-450) mcg/dl Unsaturated IBC (155-355) mcg/dl Transferrin % Sat (20-50) % Ferritin (8-388) ng/ml Total Bilirubin (0.2-1.0) mg/dl AST (13-39) U/L ALT (7-52) U/L Alkaline Phosphatase (34-104) U/L Total Protein (6.0-8.3) gm/dl Albumin (3.4-5.0) gm/dl Globulin (2.5-4.0) gm/dl Albumin/Globulin Ratio (0.9-2) Vitamin B12 (180-914) pg/ml 25-OH Vitamin D Total (30-100) ng/ml TSH 4.984 H (0.300-4.500) uIu/ml Free T4 0.87 (0.61-1.60) ng/dl Cortisol AM Sample (6.2-22.6) mcg/dl Stool Occult Bld Scrn (Negative) PG Care Time/CCT Total # of Minutes Spent Total Time Spent with Patient: Total time spent is greater than 50% in coordination of care (as documented) at patient's floor/unit and/or counseling patient: Coding Level of Care Code 98041 Subseq Hosp Care Lvl 3 Diagnoses Orthostatic hypotension I95.1 Acute kidney injury N17.9 Neurofibromatosis Q85.00 Depression F32.9 BPH (benign prostatic hyperplasia) N40.0 CAD (coronary artery disease) I25.10 Hypertension I10 Giant cell arteritis M31.6 Adrenal insufficiency E27.40
[2022-03-02] MEDS: MIDODRINE HCL 2.5 MG TAB PO SCH (08:01)
[2022-03-02] MEDS: predniSONE 5 MG TAB PO SCH (08:01)
[2022-03-02] MEDS: VERAPAMIL HCL 120 MG TABCR PO SCH ×2 (08:01→21:50)
[2022-03-02] MEDS: ROSUVASTATIN CALCIUM 10 MG TAB PO SCH (08:01)
[2022-03-02] MEDS: ASPIRIN 81 MG ECTAB PO SCH (08:01)
[2022-03-02] MEDS: FLUoxetine HCL 20 MG CAP PO SCH (08:01)
[2022-03-02] MEDS: QUEtiapine FUMARATE 25 MG TABLET PO SCH (08:01)
[2022-03-02 08:22] LABS: Thyroid Stimulating Hormone 4.984 uIu/ml (0.300-4.500)
[2022-03-02 08:24] LABS: T4 Free Thyroxine 0.87 ng/dl (0.61-1.60)
[2022-03-02 08:43] LABS: Hematocrit (blood only) 37.7 % (42-52); Hemoglobin 12.8 g/dL (14.0-18.0); Mean Corpuscular Volume 94.3 fL (80-100); Mean Platelet Volume 9.1 fL (7.4-10.4); Platelet Count 174 K/uL (130-400); RDW Coefficient of Variation 13.1 % (11.5-14.5)
[2022-03-02 09:05] LABS: Albumin Globulin Ratio 1.8 (0.9-2); Albumin Level 3.5 gm/dl (3.4-5.0); BUN Creatinine Ratio 16.8 (10-20); Bilirubin,Total 0.6 mg/dl (0.2-1.0); Calcium 7.7 mg/dl (8.5-10.1); Creatinine Clr Calc Pharmacy 52.3 ml/min; Est GFR (African American) 76.1 ml/min; Est GFR (Non-African American) 65.7 ml/min; Globulin 1.9 gm/dl (2.5-4.0); Total Protein 5.4 gm/dl (6.0-8.3)
[2022-03-02] MEDS ORDERED: STAT IV STA (09:09)
[2022-03-02] MEDS ORDERED: HYDROCORTISONE SOD 40 MG in SYRINGE 0 ML IV SCH (09:15)
[2022-03-02 09:23] LABS: Ferritin 58.9 ng/ml (8-388)
[2022-03-02] MEDS ORDERED: CALCIUM GLUCONATE 10% 1,000 MG in DEXTROSE 5% 50 ML IV ONE (09:30)
[2022-03-02 09:32] LABS: Vitamin D, 25 Hydrox 50.8 ng/ml (30-100)
[2022-03-02 13:30] LABS: Lyme Ab IgG w/WB Rflx Negative (Negative); Lyme Ab IgM w/WB Rflx Negative (Negative)
[2022-03-02] MEDS: HYDROCORTISONE SOD 30 MG in SYRINGE 0 ML IV SCH ×2 (17:30→23:07)
[2022-03-02] MEDS: PANTOprazole 40 MG TAB PO SCH (21:50)
[2022-03-03 07:26] LABS: Hematocrit (blood only) 36.7 % (42-52); Hemoglobin 12.4 g/dL (14.0-18.0); Mean Corpuscular Hemoglobin 31.3 pg (25-34); Mean Corpuscular Hgb Conc 33.8 g/dL (32-36); Mean Corpuscular Volume 92.7 fL (80-100); Mean Platelet Volume 9.4 fL (7.4-10.4); Platelet Count 177 K/uL (130-400); Red Blood Count 3.96 M/uL (4.7-6.1); White Blood Count 5.87 K/uL (4.8-10.8)
[2022-03-03 07:36] LABS: BUN Creatinine Ratio 18.8 (10-20); Calcium 7.9 mg/dl (8.5-10.1); Creatinine Clr Calc Pharmacy 55.4 ml/min; Est GFR (African American) 81.6 ml/min; Est GFR (Non-African American) 70.4 ml/min; Potassium 3.8 mmol/L (3.5-5.1)
--- NOTE | 2022-03-03 07:45 | Hospitalist Progress Note ---
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) Cards flaquita 02/28 -- echo reviewed, resumed Verapamil d/t hyperdynamic LV DELPHINE inhibitor remaining on hold but can resume in AM as keeping up w/ PO and Cr back to baseline if orthostatic VSs improved IVF disctontinued 03/02 as well as midodrine initially added for BP support AM Cortisol LOW (on prednisone 5mg daily for hx GCA), ESR 55 Placed on Hydrocortisone 30mg IV Q8H, decreased to 20mg 03/03 however orthostatics still positive and increased back to 30mg Q8H for now although patient did report improvement in lightheaded/dizziness today (of note did get dose lisinopril this morning for elevated BPs and could have worsened dehydration a little as well. no IVF and encourage PO) Discussed with Dr Noriega and he felt patient likely just not able to deal with stress and needed stress dose steroids from the start (cortisol labs could have been suppressed from exogenous prednisone use) Could consider two options: prednisone likely needing to be 7.5mg vs 10mg daily for hx GCA, vs starting hydrocortisone PO 20mg QAM, 10mg QPM and tapering the prednisone off as outpatient if able to coordinate with PCP Will plan to continue hydrocortisone increased dosing for now and if BPs improved can place on prednisone 10mg daily for tomorrow for couple days and taper to 7.5mg as needed TSH elevated but likely reactive and can repeat outpt TFT 4-6 weeks. T4 wnl PT/OT --> rec rehab. CM alerted as sister would also like rehab. [facility] possibly (2) Acute kidney injury: Plan: Cr 1.76 on admit with normal baseline IVF provided, decreased to 80cc/hr 03/02 and d/c'd as above. Cr 1.01 (3) Neurofibromatosis: Plan: Chronic/stable Follows with Rheumatology, Dr Doherty (4) Depression: Plan: Continue Fluoxetine (5) BPH (benign prostatic hyperplasia): Plan: - With h/o Prostate CA s/p radiation, completed external beam radiation in July 2021, PSA at that time 0.014 - Tamsulosin on hold d/t orthostasis UOP acceptable 1.09mg/kg/hr, consider discontinuing this medication if no issues with voiding to prevent worsening hypotension (6) CAD (coronary artery disease): Plan: - Stable, HS trop, no WMA noted on echo, no CP - Continue Crestor and ASA (7) Hypertension: Plan: Verapamil resumed by cards previously, midodrine discontinued when placed on stress dose steroids for above, hopefully able to decrease dose ELEVATED TO 190/105 this morning w/ headache. No cp/sob/blurry vision --> lisinopril resumed and BP 119/72 on repeat, symptoms of headache resolved with tylenol ?steroid induced from above Monitor BP (8) Giant cell arteritis: Plan: hx of such, follows with neurology had been attempting to decreased steroids/d/c over past year but remains on 5mg am cortisol low as above stress dose steroids ordered, f/u endocrinology as well for adrenal insufficiency but could have been needing stress dose steroids for recent stressors, which could have been multiple falls at home over the past couple of months (9) Adrenal insufficiency: Plan: suspected based on chronic prednisone use, orthostatic hypotension and low AM cortisol however low could be from suppression on prednisone discussed with Dr Noriega, rec'd if using prednisone 7.5 vs 10mg daily -- 10mg daily x couple days, then decrease to tolerated 7.5mg vs hydrocortisone dosing Does appear w/ multiple falls at home likely needing stress dose on occassions physical/emotional/infectious events and will need further enforcement for additional dosing in times of stress at d/c and d/c from rehab Plan: Continued inpatient stay Start Hydrocortisone, continue IV for now, possible transition to prednisone 10mg daily tomorrow f/u endocrinology outpt PT/OT rec'd rehab --> CM sent referrals Admission and Anticipated Discharge Date Admission Date: March 01, 2022 Subjective Patient evaluated this morning, resting comfortably in bed. Walked with aide in [place], less lightheaded/dizziness reported but does have a slight headache this morning. BP elevated (hydrocortisone dose decreased, resuming lisinopril), no CP/SOB reported but does have a slight headache. Frontal in nature, no visual changes reported. Requesting dose of tylenol, will have RN administer. Awaiting orthostatic VS. No fever/chills, n/v, abdominal pain. Eating/drinking fine per patient account. Discussed recommendations for rehab, and will need to await a bed. [facility]. Will reach out to . Review of Systems Review of Systems: All systems reviewed & are unremarkable except as noted in HPI & below Physical Exam Physical Exam: GENERAL: WD frail elderly male, resting in bed, NAD HEENT: head normocephalic, atraumatic RESP: CTAB, no w/c/r, 95% on RA CV: RRR, no m/r/g, no pitting edema, no calf tenderness, cap refill wnl GI: +BS, soft , nontender MSK/Neuro: moves all extremities, no focal deficits, CN intact grossly Psych: AOx3, cooperative Skin: multiple lesions c/w neurofibromatosis diagnosis to chest/back/extremities on all surfaces with varying size, non-painful, non-tender, non-erythematous Results & Data Results & Data ([facility]) Vital Signs (Past 12 Hours) Vital Signs Temp Pulse Pulse Resp BP Pulse Ox 03/03/22 03:42 36.6 C 75 18 145/75 H 93 03/02/22 23:34 70 03/02/22 22:55 36.7 C 74 20 161/88 H 94 PG Care Time/CCT Total # of Minutes Spent Total Time Spent with Patient: Total time spent is greater than 50% in coordination of care (as documented) at patient's floor/unit and/or counseling patient: Coding Level of Care Code 85326 Subseq Hosp Care Lvl 3 Diagnoses Orthostatic hypotension I95.1 Acute kidney injury N17.9 Neurofibromatosis Q85.00 Depression F32.9 BPH (benign prostatic hyperplasia) N40.0 CAD (coronary artery disease) I25.10 Hypertension I10 Giant cell arteritis M31.6 Adrenal insufficiency E27.40
[2022-03-03] MEDS: FLUoxetine HCL 20 MG CAP PO SCH (08:07)
[2022-03-03] MEDS: ASPIRIN 81 MG ECTAB PO SCH ×2 (08:07→19:49)
[2022-03-03] MEDS: QUEtiapine FUMARATE 25 MG TABLET PO SCH (08:08)
[2022-03-03] MEDS: ROSUVASTATIN CALCIUM 10 MG TAB PO SCH (08:08)
[2022-03-03] MEDS: HYDROCORTISONE SOD 30 MG in SYRINGE 0 ML IV SCH ×3 (08:08→19:49)
[2022-03-03] MEDS: VERAPAMIL HCL 120 MG TABCR PO SCH ×2 (08:08→19:49)
[2022-03-03] MEDS ORDERED: HYDROCORTISONE SOD 20 MG in SYRINGE 0 ML IV SCH (09:18)
[2022-03-03] MEDS: ACETAMINOPHEN 325 MG TAB PO PRN ×2 (09:25→19:48)
[2022-03-03] MEDS ORDERED: lisinopril 2.5 MG TAB PO SCH (09:30)
[2022-03-03] MEDS: MELATONIN 3 MG TAB PO PRN (19:48)
[2022-03-03] MEDS: PANTOprazole 40 MG TAB PO SCH (19:49)
[2022-03-04] MEDS: HYDROCORTISONE SOD 30 MG in SYRINGE 0 ML IV SCH (04:49)
--- NOTE | 2022-03-04 07:49 | Hospitalist Progress Note ---
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) Cards flaquita 02/28 -- echo reviewed, resumed Verapamil d/t hyperdynamic LV DELPHINE inhibitor remaining on hold but can resume in AM as keeping up w/ PO and Cr back to baseline if orthostatic VSs improved IVF disctontinued 03/02 as well as midodrine initially added for BP support AM Cortisol LOW (on prednisone 5mg daily for hx GCA), ESR 55 Placed on Hydrocortisone 30mg IV Q8H 03/02, transitioned to 10mg prednisone today (typically on 5mg daily for hx GCA) Continue 10mg daily, consider decreasing to 7.5mg after 2 days and monitor Patient reporting minimal if any at all lightheaded/dizziness today Discussed with Dr Noriega and he felt patient likely just not able to deal with stress and needed stress dose steroids from the start (cortisol labs could have been suppressed from exogenous prednisone use) Could consider two options: prednisone likely needing to be 7.5mg vs 10mg daily for hx GCA, vs starting hydrocortisone PO 20mg QAM, 10mg QPM and tapering the prednisone off as outpatient if able to coordinate with PCP Will plan for prednisone for now and if BPs/symptoms stable, can consider decrease to 7.5mg in next 2-3 days UOP great -- would NOT resume flomax unless any issues with urination Ordered 500cc NS @ 80cc/hr for 1 bag for minimal dehydration (got lisinopril for elevated BP yesterday) TSH elevated but likely reactive and can repeat outpt TFT 4-6 weeks. T4 wnl PT/OT --> rec rehab. CM following updated sister and friend per patient's wishes sister states patient not always complaint and would like at least short term rehab. patient agreeable (2) Acute kidney injury: Plan: Cr 1.76 on admit with normal baseline Resolved with IVF, Cr 0.95 (3) Neurofibromatosis: Plan: Chronic/stable Follows with Rheumatology, Dr Doherty (4) Depression: Plan: Continue Fluoxetine (5) BPH (benign prostatic hyperplasia): Plan: - With h/o Prostate CA s/p radiation, completed external beam radiation in July 2021, PSA at that time 0.014 - Tamsulosin on hold d/t orthostasis UOP acceptable , making great UOP Would not resume flomax at d/c unless issues w/ voiding -- discussed with friend and sister as well as patient given risk for orthostatic hypotension (6) CAD (coronary artery disease): Plan: - Stable, HS trop, no WMA noted on echo, no CP - Continue Crestor and ASA (7) Hypertension: Plan: Verapamil resumed by cards previously, midodrine discontinued when placed on stress dose steroids for above, decreased to 10mg prednisone today as above BP taken prior to medications 174/95, slight headache but since improved Holding lisinopril as above (given dose x 1 / for HTN w/ improvement but slightly dehydrated) -- No focal deficit/slurred speech/visual disturbances Suspect steroid induced, should be better w/ decreased dose steroids/smalll volume IVF for minimal dehydration and encouraged PO intake (8) Giant cell arteritis: Plan: hx of such, follows with neurology had been attempting to decreased steroids/d/c over past year but remains on 5mg am cortisol low as above stress dose steroids ordered, f/u endocrinology as well for adrenal insufficiency but could have been needing stress dose steroids for recent stressors, which could have been multiple falls at home over the past couple of months (9) Adrenal insufficiency: Plan: suspected based on chronic prednisone use, orthostatic hypotension and low AM cortisol however low could be from suppression on prednisone discussed with Dr Noriega, rec'd if using prednisone 7.5 vs 10mg daily -- 10mg daily x couple days, then decrease to tolerated 7.5mg vs hydrocortisone dosing Does appear w/ multiple falls at home likely needing stress dose on occassions physical/emotional/infectious events and will need further enforcement for additional dosing in times of stress at d/c and d/c from rehab Plan: Continued inpatient stay Switched to prednisone 10mg today, 500cc NSS PT/OT recs for rehab, CM following and awaiting bed Admission and Anticipated Discharge Date Admission Date: March 01, 2022 Subjective patient evaluated this morning doing much better states almost no further dizziness/lightheadedness with standing/ambulation today and he was hopeful for dc discussed awaiting bed at rehab updated sister and "friend" that lives down the [place] from him in room at bedside. Educated about stress dose steroids at home -- patient endorsed after issues/falls at home profound weakness following and discussed in those instances would need increased steroids for "stress dosing" and can provide extra 5mg tablets to take during those times, however would continue either 10mg vs down to 7.5mg if remaining stable to be on lowest tolerated amount. no fever/chills/chest pain/shortness of breath/abdominal pain, nausea or vomiting. PER CM, encompass not able to take today unless having d/c. Insurance auth pending. Review of Systems Review of Systems: All systems reviewed & are unremarkable except as noted in HPI & below Physical Exam Physical Exam: GENERAL: WD frail elderly male, sitting up in bed, NAD HEENT: head normocephalic, atraumatic, slightly dry mm RESP: CTAB, no w/c/r, 95% on RA CV: RRR, no m/r/g, no pitting edema, no calf tenderness, cap refill wnl GI: +BS, soft , nontender MSK/Neuro: moves all extremities, no focal deficits, CN intact grossly Psych: AOx3, cooperative Skin: multiple lesions c/w neurofibromatosis diagnosis to chest/back/extremities on all surfaces with varying size, non-painful, non-tender, non-erythematous Results & Data Results & Data ([facility]) Vital Signs (Past 12 Hours) Vital Signs Temp Pulse Pulse Resp BP Pulse Ox 03/04/22 03:18 36.9 C 64 16 130/66 94 03/03/22 23:06 60 03/03/22 22:50 36.5 C 61 17 151/83 H 93 Laboratory Results 03/04/22 03/04/22 Range/Units 08:51 08:51 WBC 5.99 (4.8-10.8) K/uL RBC 3.94 L (4.7-6.1) M/uL Hgb 12.5 L (14.0-18.0) g/dL Hct 36.6 L (42-52) % MCV 92.9 (80-100) fL MCH 31.7 (25-34) pg MCHC 34.2 (32-36) g/dL RDW Std Deviation 44.6 (36.4-46.3) fL RDW Coeff of Alexei 13.1 (11.5-14.5) % Plt Count 191 (130-400) K/uL MPV 9.3 (7.4-10.4) fL Sodium 136 (136-145) mmol/L Potassium 3.6 (3.5-5.1) mmol/L Chloride 108 H (98-107) mmol/L Carbon Dioxide 20 L (21-32) mmol/L Anion Gap 8 (3-11) BUN 21 (6-23) mg/dl Creatinine 0.95 (0.6-1.4) mg/dl Est Cr Clr Drug Dosing 58.9 ml/min Est GFR ( Amer) 87.9 ml/min Est GFR (Non-Af Amer) 75.8 ml/min BUN/Creatinine Ratio 22.1 H (10-20) Glucose 141 H (70-99(Fasting)) mg/dl Calcium 8.0 L (8.5-10.1) mg/dl Total Bilirubin 0.7 (0.2-1.0) mg/dl AST 14 (13-39) U/L ALT 11 (7-52) U/L Alkaline Phosphatase 25 L (34-104) U/L Total Protein 5.9 L (6.0-8.3) gm/dl Albumin 3.8 (3.4-5.0) gm/dl Globulin 2.1 L (2.5-4.0) gm/dl Albumin/Globulin Ratio 1.8 (0.9-2) PG Care Time/CCT Total # of Minutes Spent Total Time Spent with Patient: Total time spent is greater than 50% in coordination of care (as documented) at patient's floor/unit and/or counseling patient: Coding Level of Care Code 28576 Subseq Hosp Care Lvl 3 Diagnoses Orthostatic hypotension I95.1 Acute kidney injury N17.9 Neurofibromatosis Q85.00 Depression F32.9 BPH (benign prostatic hyperplasia) N40.0 CAD (coronary artery disease) I25.10 Hypertension I10 Giant cell arteritis M31.6 Adrenal insufficiency E27.40
[2022-03-04] MEDS: VERAPAMIL HCL 120 MG TABCR PO SCH ×2 (08:20→20:05)
[2022-03-04] MEDS: QUEtiapine FUMARATE 25 MG TABLET PO SCH (08:20)
[2022-03-04] MEDS: FLUoxetine HCL 20 MG CAP PO SCH (08:21)
[2022-03-04] MEDS: ROSUVASTATIN CALCIUM 10 MG TAB PO SCH (08:21)
[2022-03-04] MEDS ORDERED: predniSONE 10 MG TABLET PO SCH (09:00)
[2022-03-04 09:28] LABS: Hematocrit (blood only) 36.6 % (42-52); Hemoglobin 12.5 g/dL (14.0-18.0); Mean Corpuscular Hemoglobin 31.7 pg (25-34); Mean Corpuscular Hgb Conc 34.2 g/dL (32-36); Mean Corpuscular Volume 92.9 fL (80-100); Mean Platelet Volume 9.3 fL (7.4-10.4); Platelet Count 191 K/uL (130-400); RDW Coefficient of Variation 13.1 % (11.5-14.5); RDW Standard Deviation 44.6 fL (36.4-46.3); Red Blood Count 3.94 M/uL (4.7-6.1); White Blood Count 5.99 K/uL (4.8-10.8)
[2022-03-04 10:10] LABS: Albumin Globulin Ratio 1.8 (0.9-2); Albumin Level 3.8 gm/dl (3.4-5.0); BUN Creatinine Ratio 22.1 (10-20); Bilirubin,Total 0.7 mg/dl (0.2-1.0); Creatinine Clr Calc Pharmacy 58.9 ml/min; Est GFR (African American) 87.9 ml/min; Est GFR (Non-African American) 75.8 ml/min; Globulin 2.1 gm/dl (2.5-4.0); Potassium 3.6 mmol/L (3.5-5.1); Total Protein 5.9 gm/dl (6.0-8.3)
[2022-03-04] MEDS ORDERED: SODIUM CHLORIDE 0.9% 500 ML IV SCH (12:00)
[2022-03-04] MEDS: ACETAMINOPHEN 325 MG TAB PO PRN (12:23)
[2022-03-04] MEDS: predniSONE 10 MG TABLET PO SCH (13:25)
[2022-03-04] MEDS ORDERED: HYDROCODONE/ACETAMOPHEN 5/325MG TAB PO PRN (13:50)
[2022-03-04] MEDS: MELATONIN 3 MG TAB PO PRN (20:05)
[2022-03-04] MEDS: PANTOprazole 40 MG TAB PO SCH (20:05)
--- NOTE | 2022-03-05 07:45 | Hospitalist Progress Note ---
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) Heri sams 02/28 -- echo reviewed, resumed Verapamil d/t hyperdynamic LV DELPHINE inhibitor remaining on hold but can resume in AM as keeping up w/ PO and Cr back to baseline if orthostatic VSs improved IVF disctontinued 03/02 as well as midodrine initially added for BP support AM Cortisol LOW (on prednisone 5mg daily for hx GCA), ESR 55 Placed on Hydrocortisone 30mg IV Q8H 03/02, transitioned to 10mg prednisone 03/04 (typically on 5mg daily for hx GCA) Continue 10mg daily, consider decreasing to 7.5mg after 3 days and monitor RESOLUTION OF LIGHTHEADED/DIZZINESS UOP great 1.36ml/kg/hr-- would NOT resume flomax unless any issues with urination given issues with orthostatic hypotension 500cc NSS for slight dehydration TSH elevated but likely reactive and can repeat outpt TFT 4-6 weeks. T4 wnl PT/OT --> rec rehab. CM following updated sister and friend per patient's wishes 03/04 of note, sister states patient not always complaint and would like at least short term rehab. patient agreeable (2) Acute kidney injury: Plan: Cr 1.76 on admit with normal baseline 500cc NSS for slight dehydration, Cr stable BMP in AM (3) Neurofibromatosis: Plan: Chronic/stable Follows with Rheumatology, Dr Doherty (4) Depression: Plan: Continue Fluoxetine (5) BPH (benign prostatic hyperplasia): Plan: - With h/o Prostate CA s/p radiation, completed external beam radiation in July 2021, PSA at that time 0.014 - Tamsulosin on hold d/t orthostasis UOP acceptable , making great UOP Would not resume flomax at d/c unless issues w/ voiding -- discussed with friend and sister as well as patient given risk for orthostatic hypotension (6) CAD (coronary artery disease): Plan: - Stable, HS trop, no WMA noted on echo, no CP - Continue Crestor and ASA (7) Hypertension: Plan: Verapamil resumed by cards previously, midodrine discontinued when placed on stress dose steroids for above, decreased to 10mg prednisone today as above BP taken prior to medications 174/95, slight headache but since improved Holding lisinopril as above (given dose x 1 03/03 for HTN w/ improvement but slightly dehydrated) -- No focal deficit/slurred speech/visual disturbances Suspect steroid induced, BP checked this morning prior to medications 500cc NSS for dehydration (improvement in BP 03/04 with such) No headache/blurry vision/cp/sob Monitor (8) Giant cell arteritis: Plan: hx of such, follows with neurology had been attempting to decreased steroids/d/c over past year but remains on 5mg am cortisol low as above stress dose steroids ordered, f/u endocrinology as well for adrenal insufficiency but could have been needing stress dose steroids for recent stressors, which could have been multiple falls at home over the past couple of months (9) Adrenal insufficiency: Plan: suspected based on chronic prednisone use, orthostatic hypotension and low AM cortisol however low could be from suppression on prednisone discussed with Dr Noriega, rec'd if using prednisone 7.5 vs 10mg daily -- 10mg daily x couple days, then decrease to tolerated 7.5mg vs hydrocortisone dosing Does appear w/ multiple falls at home likely needing stress dose on occ assions physical/emotional/infectious events and will need further enforcement for additional dosing in times of stress at d/c and d/c from rehab Plan: Continued inpatient stay awaiting bed at rehab -- [facility] accepted by insurance auth pending (open this weekend but reportedly backed up/short staffed) Admission and Anticipated Discharge Date Admission Date: March 01, 2022 Subjective Patient evaluated this morning. Resting comfortable in bed. No further headache or lightheaded/dizziness. Standby assist with staff w/ ambulation. Awaiting bed. No fever/chill, chest pain, shortness of breath, abdominal pain or nausea/vomiting at this time. Review of Systems Review of Systems: All systems reviewed & are unremarkable except as noted in HPI & below Physical Exam Physical Exam: GENERAL: WD frail elderly male, resting comfortably in bed, NAD HEENT: head normocephalic, atraumatic, mm slightly dry RESP: CTAB, no w/c/r, 96% on RA CV: RRR, no m/r/g, no pitting edema, no calf tenderness, cap refill wnl GI: +BS, soft , nontender MSK/Neuro: moves all extremities, no focal deficits, CN intact grossly Psych: AOx3, cooperative Skin: multiple lesions c/w neurofibromatosis diagnosis to chest/back/extremities on all surfaces with varying size, non-painful, non-tender, non-erythematous Results & Data Results & Data ([facility]) Vital Signs (Past 12 Hours) Vital Signs Temp Pulse Pulse Resp BP BP Pulse Ox 03/05/22 07:33 36.9 C 54 L 19 167/95 H 96 03/05/22 07:31 57 L 03/05/22 05:00 37.0 C 67 19 150/90 H 96 03/05/22 02:30 36.6 C 68 18 154/84 H 95 03/04/22 23:45 36.3 C L 65 18 150/84 H 95 03/04/22 23:01 62 Laboratory Results 03/05/22 03/05/22 Range/Units 06:58 06:58 ESR < 1 (0-20) mm/hr Sodium 140 (136-145) mmol/L Potassium 4.4 D (3.5-5.1) mmol/L Chloride 108 H (98-107) mmol/L Carbon Dioxide 28 (21-32) mmol/L Anion Gap 4 (3-11) BUN 30 H (6-23) mg/dl Creatinine 1.09 (0.6-1.4) mg/dl Est Cr Clr Drug Dosing 51.4 ml/min Est GFR ( Amer) 74.4 ml/min Est GFR (Non-Af Amer) 64.2 ml/min BUN/Creatinine Ratio 27.5 H (10-20) Glucose 77 (70-99(Fasting)) mg/dl Calcium 8.6 (8.5-10.1) mg/dl PG Care Time/CCT Total # of Minutes Spent Total Time Spent with Patient: Total time spent is greater than 50% in coordination of care (as documented) at patient's floor/unit and/or counseling patient: Coding Level of Care Code 78737 Subseq Hosp Care Lvl 2 Diagnoses Orthostatic hypotension I95.1 Acute kidney injury N17.9 Neurofibromatosis Q85.00 Depression F32.9 BPH (benign prostatic hyperplasia) N40.0 CAD (coronary artery disease) I25.10 Hypertension I10 Giant cell arteritis M31.6 Adrenal insufficiency E27.40
[2022-03-05] MEDS: VERAPAMIL HCL 120 MG TABCR PO SCH ×2 (08:04→20:03)
[2022-03-05] MEDS: FLUoxetine HCL 20 MG CAP PO SCH (08:04)
[2022-03-05] MEDS: QUEtiapine FUMARATE 25 MG TABLET PO SCH (08:04)
[2022-03-05] MEDS: ASPIRIN 81 MG ECTAB PO SCH (08:04)
[2022-03-05] MEDS: ROSUVASTATIN CALCIUM 10 MG TAB PO SCH (08:04)
[2022-03-05 08:12] LABS: BUN Creatinine Ratio 27.5 (10-20); Calcium 8.6 mg/dl (8.5-10.1); Creatinine Clr Calc Pharmacy 51.4 ml/min; Est GFR (African American) 74.4 ml/min; Est GFR (Non-African American) 64.2 ml/min; Potassium 4.4 mmol/L (3.5-5.1)
[2022-03-05] MEDS ORDERED: SODIUM CHLORIDE 0.9% 500 ML IV SCH (08:45)
[2022-03-05] MEDS: predniSONE 10 MG TABLET PO SCH (09:31)
[2022-03-05] MEDS: MELATONIN 3 MG TAB PO PRN (20:03)
[2022-03-05] MEDS: PANTOprazole 40 MG TAB PO SCH (20:03)
[2022-03-06 08:02] LABS: BUN Creatinine Ratio 30.2 (10-20); Calcium 7.7 mg/dl (8.5-10.1); Creatinine Clr Calc Pharmacy 52.8 ml/min; Est GFR (Non-African American) 66.4 ml/min; Potassium 3.8 mmol/L (3.5-5.1)
--- NOTE | 2022-03-06 08:19 | Hospitalist Progress Note ---
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 T4 wnl PT/OT --> rec rehab. CM following updated sister and friend per patient's wishes 03/04 of note, sister states patient not always complaint and would like at least short term rehab. patient agreeable (2) Acute kidney injury: Plan: Cr 1.76 on admit resolved with ivf (3) Neurofibromatosis: Plan: Chronic/stable Follows with Rheumatology, Dr Doherty (4) Depression: Plan: Continue Fluoxetine (5) BPH (benign prostatic hyperplasia): Plan: - With h/o Prostate CA s/p radiation, completed external beam radiation in July 2021, PSA at that time 0.014 - Tamsulosin on hold d/t orthostasis UOP acceptable , making great UOP Would not resume flomax at d/c unless issues w/ voiding -- discussed with friend and sister as well as patient given risk for orthostatic hypotension (6) CAD (coronary artery disease): Plan: - Stable, HS trop, no WMA noted on echo, no CP - Continue Crestor and ASA (7) Hypertension: Plan: Verapamil resumed Holding lisinopril as above (8) Giant cell arteritis: Plan: hx of such, follows with neurology had been attempting to decreased steroids/d/c over past year stress dose steroids ordered, f/u endocrinology as well for adrenal insufficiency but could have been needing stress dose steroids for recent stressors, which could have been multiple falls at home over the past couple of months Plan: Continued inpatient stay awaiting bed at rehab -- [facility] accepted by insurance auth pending (open this weekend but reportedly backed up/short staffed) Admission and Anticipated Discharge Date Admission Date: March 01, 2022 Subjective pt has no complaints want to take a shower, is still supportive of upcoming rehab Review of Systems Review of Systems: Mild distress and fatigue no headache, no visual changes no speech or swallowing issues no chest pain, pressure or palpitations no shortness of breath, cough or wheezes no abdominal pain, nausea or vomiting, diarrhea or constipation no dysuria, hematuria or frequency no focal joint pain or swelling no back pain, CVA tenderness or radicular pain no bruising, bleeding or rashes no focal signs of weakness or numbness or altered sensation no complaints of anxiety or depression.. Physical Exam Physical Exam: The patient appeared stable Vital signs as documented. Lungs are clear to auscultation and appear unlabored Cardiac exam, Rhythm is regular.. No murmurs, rubs or gallops. Abdominal exam reveals normal bowel sounds, soft non tender, no masses Extremities are nonedematous and both pedal pulses are normal. 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 Results & Data Results & Data ([facility]) Vital Signs (Past 12 Hours) Vital Signs Temp Pulse Pulse Resp BP Pulse Ox 03/06/22 08:00 97.5 F L 61 18 151/91 H 96 03/06/22 02:17 98.2 F 65 18 139/78 95 03/05/22 22:50 69 03/05/22 22:30 97.9 F 66 18 144/89 H 95 PG Care Time/CCT Total # of Minutes Spent Total Time Spent with Patient: Total time spent is greater than 50% in coordination of care (as documented) at patient's floor/unit and/or counseling patient: Coding Level of Care Code 14143 Subseq Hosp Care Lvl 1 Diagnoses Orthostatic hypotension I95.1 Acute kidney injury N17.9 Neurofibromatosis Q85.00 Depression F32.9 BPH (benign prostatic hyperplasia) N40.0 CAD (coronary artery disease) I25.10 Hypertension I10 Giant cell arteritis M31.6
[2022-03-06] MEDS: VERAPAMIL HCL 120 MG TABCR PO SCH ×2 (09:23→20:31)
[2022-03-06] MEDS: predniSONE 10 MG TABLET PO SCH (09:24)
[2022-03-06] MEDS: QUEtiapine FUMARATE 25 MG TABLET PO SCH (09:24)
[2022-03-06] MEDS: ASPIRIN 81 MG ECTAB PO SCH (09:25)
[2022-03-06] MEDS: FLUoxetine HCL 20 MG CAP PO SCH (09:25)
[2022-03-06] MEDS: ROSUVASTATIN CALCIUM 10 MG TAB PO SCH (10:40)
[2022-03-06] MEDS: PANTOprazole 40 MG TAB PO SCH (20:31)
[2022-03-07] MEDS: VERAPAMIL HCL 120 MG TABCR PO SCH ×2 (07:51→19:55)
[2022-03-07] MEDS: ASPIRIN 81 MG ECTAB PO SCH (07:52)
[2022-03-07] MEDS: FLUoxetine HCL 20 MG CAP PO SCH (07:52)
[2022-03-07] MEDS: predniSONE 10 MG TABLET PO SCH (07:52)
[2022-03-07] MEDS: ROSUVASTATIN CALCIUM 10 MG TAB PO SCH (07:52)
[2022-03-07] MEDS: QUEtiapine FUMARATE 25 MG TABLET PO SCH (07:52)
--- NOTE | 2022-03-07 17:27 | Hospitalist Progress Note ---
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 T4 wnl PT/OT --> rec rehab. CM following updated sister and friend per patient's wishes 03/04 of note, sister states patient not always complaint and would like at least short term rehab. patient agreeable (2) Acute kidney injury: Plan: Cr 1.76 on admit resolved with ivf (3) Neurofibromatosis: Plan: Chronic/stable Follows with Rheumatology, Dr oDherty (4) Depression: Plan: Continue Fluoxetine (5) BPH (benign prostatic hyperplasia): Plan: - With h/o Prostate CA s/p radiation, completed external beam radiation in July 2021, PSA at that time 0.014 - Tamsulosin on hold d/t orthostasis UOP acceptable , making great UOP Would not resume flomax at d/c unless issues w/ voiding -- discussed with friend and sister as well as patient given risk for orthostatic hypotension (6) CAD (coronary artery disease): Plan: - Stable, HS trop, no WMA noted on echo, no CP - Continue Crestor and ASA (7) Hypertension: Plan: Verapamil resumed Holding lisinopril as above, its low dose anyway (8) Giant cell arteritis: Plan: hx of such, follows with neurology had been attempting to decreased steroids/d/c over past year stress dose steroids ordered, f/u endocrinology as well for adrenal insu fficiency but could have been needing stress dose steroids for recent stressors, which could have been multiple falls at home over the past couple of months Plan: Denied [facility] accepted by insurance pt wants to go home and will consider 03/08/22 Admission and Anticipated Discharge Date Admission Date: March 01, 2022 Subjective pt is doing well, has desire to go home, did call friends to set up many support associated to look in on him, will try to arrange some home health Review of Systems Review of Systems: Mild distress and fatigue no headache, no visual changes no speech or swallowing issues no chest pain, pressure or palpitations no shortness of breath, cough or wheezes no abdominal pain, nausea or vomiting, diarrhea or constipation no dysuria, hematuria or frequency no focal joint pain or swelling no back pain, CVA tenderness or radicular pain diffuse Dermatofibroma no focal signs of weakness or numbness or altered sensation no complaints of anxiety or depression.. Physical Exam Physical Exam: The patient appeared stable Vital signs as documented. Lungs are clear to auscultation and appear unlabored Cardiac exam, Rhythm is regular.. No murmurs, rubs or gallops. Abdominal exam reveals normal bowel sounds, soft non tender, no masses Extremities are nonedematous and both pedal pulses are normal. 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 Results & Data Results & Data ([facility]) Vital Signs (Past 12 Hours) Vital Signs Temp Pulse Pulse Resp BP BP Pulse Ox 03/07/22 16:00 98.1 F 56 L 18 124/74 94 03/07/22 15:00 61 03/07/22 12:00 97.7 F 62 18 149/81 H 95 03/07/22 07:23 56 L 03/07/22 06:33 97.9 F 60 18 147/76 H 95 PG Care Time/CCT Total # of Minutes Spent Total Time Spent with Patient: Total time spent is greater than 50% in coordination of care (as documented) at patient's floor/unit and/or counseling patient: Coding Level of Care Code 17902 Subseq Hosp Care Lvl 2 Diagnoses Orthostatic hypotension I95.1 Acute kidney injury N17.9 Neurofibromatosis Q85.00 Depression F32.9 BPH (benign prostatic hyperplasia) N40.0 CAD (coronary artery disease) I25.10 Hypertension I10 Giant cell arteritis M31.6
[2022-03-07] MEDS: PANTOprazole 40 MG TAB PO SCH (19:55)
[2022-03-08] MEDS: VERAPAMIL HCL 120 MG TABCR PO SCH (08:13)
[2022-03-08] MEDS: FLUoxetine HCL 20 MG CAP PO SCH (08:13)
[2022-03-08] MEDS: ASPIRIN 81 MG ECTAB PO SCH (08:13)
[2022-03-08] MEDS: predniSONE 10 MG TABLET PO SCH (08:13)
[2022-03-08] MEDS: ROSUVASTATIN CALCIUM 10 MG TAB PO SCH (08:13)
[2022-03-08] MEDS: QUEtiapine FUMARATE 25 MG TABLET PO SCH (08:14)
[2022-03-08 11:10] LABS: BUN Creatinine Ratio 30.6 (10-20); Calcium 8.5 mg/dl (8.5-10.1); Creatinine Clr Calc Pharmacy 46.3 ml/min; Est GFR (African American) 65.6 ml/min; Est GFR (Non-African American) 56.6 ml/min; Potassium 4.2 mmol/L (3.5-5.1)
[2022-03-08] MEDS ORDERED: FLUDROCORTISONE ACETATE 0.1 MG TAB PO SCH (12:00)
[2022-03-08 15:51] VITALS: BP 142/87; TEMP 96.4; O2SAT 95
--- NOTE | 2022-03-08 15:53 | Discharge Summary ---
Date of Service March 08, 2022 Admission HPI Per Admitting Provider 81yo male with a history of HTN, HLD, CAD, MA (multiple, last was 2-3 years ago), neurofibromatosis, prostate cancer, temporal arteritis, GERD, MDD, and frequent falls presents after a syncopal episode at home. Yesterday night, patient was at home (where he lives alone) walking in his kitchen when he started feeling lightheaded; this lasted for an estimated minute before patient lost consciousness and fell, hitting his forehead on the kitchen table. Patient estimates he was unconscious on the ground for about five minutes before waking up. He then stayed laying on the ground for about a half hour before getting up and going to lay down in bed. Patient endorses "extreme" fatigue after the fall, which has persisted since, though the fatigue is gradually improving. Patient denies other prodromal symptoms including sweating, nausea, vomiting, changes in vision, CP, SOB, palpitations, or other symptoms. Patient is unable to identify any trigger although he does note that he becomes lightheaded if he stands up t oo quickly - this has led to similar falls in the past. Other than fatigue and facial pain, patient denies other symptoms after regaining consciousness including bowel/bladder incontinence, tongue biting, vision changes, CP, SOB, abdominal pain, nausea, or vomiting. Patient denies recent medication changes. Patient notes he has had occasional falls for the past few years; these occur about 2-3 times monthly, and usually don't result in injury. Patient is a poor historian and is unsure if he has ever had his frequent falls worked up medically beyond an ED visit earlier this month. He does note that his falls have become more frequent over the past year or so. Patient is unsure about a personal or family history of seizures. Patient notes he has had "multiple" heart attacks (he is unsure how many) and notes the last one was "about 2 or 3 years ago". Patient does not believe he has undergone cardiac catheterization before. In the ED, EKG showed sinus rhythm with 1st degree AV block, without sign of ischemic change. Principal Diagnosis Orthostatic hypotension Discharge Exam General: A&Ox3. NAD. Cooperative. Skin: Diffuse numerous neurofibroma HEENT: Atraumatic, normocephalic. Vision and hearing grossly intact Pulm: CTAB A&P. -wheezes, -rales, -rhonchi. Symmetrical chest rise. No increase in work of breathing. No respiratory distress. Cardiac: RRR, -mrg. Radial pulses intact and symmetrical. Abdominal: Nontender, nondistended, soft. BS present. 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 Sensation soft touch intact in hands and feet without asymmetry. Discharge Data Allergies Allergy/AdvReac Type Severity Reaction Status Date / Time mirabegron [From Myrbetriq] AdvReac Hypertensio Verified 02/03/22 15:41 n Consultations 02/28/22 07:00 Consult Cardiology Routine Ordered Studies 02/28/22 01:05 CT head/brain wo con Urgent 02/28/22 01:25 CT cervical spine wo con Urgent 02/28/22 08:52 US carotid doppler BI Routine Hospital Course (1) Orthostatic hypotension: Donavon is a 81-year-old male who presented following an episode of syncope for evaluation. Echocardiogram was hyperdynamic, did not show any evidence of decreased wall motion or MA. Patient was clinically volume depleted with an MANUEL and responded well to fluids. TSH was elevated, in the setting of acute illness and should be repeated in 1 month. Morning cortisol was low suggesting adrenal insufficiency in the setting of steroid use for giant cell arteritis recently decreased to 5 mg. Patient was placed on prednisone 10 mg for adrenal insufficiency, and Flomax/cilostazol were held for contribution to orthostasis. OT saw patient and i recommended home versus rehab. Insurance was denied for rehab, patient was discharged home with home health with family support. Patient's blood pressure clinically improved, and he felt clinically well on day of discharge however did have a orthostatic drop of initially 40 points, and 20 points on reassessment following hydration and his profound orthostasis and history of adrenal insufficiency he was started on 0.1 mg of fludrocortisone for orthostatic hypotension, and her/benefits of this including worsening of supine hypertension were reviewed. Patient will check his blood pressure at home and have close outpatient follow-up. Patient did maintain blood pressure systolic greater than 100 on follow-up orthostatic check, and did not have symptomatic orthostasis on day of discharge. Outpatient: 1. Continued follow-up blood pressure checks. 2. Taper prednisone to minimum prior dose versus conversion hydrocortisone as outpatient. Patient discharged to continue 10 mg for 1 week, and then decrease to 7.5 mg if doing well with further care per PCP/endocrinology 3. Continue fludrocortisone 0.1 mg for symptomatic orthostasis which did not improve with volume repletion and conservative medical treatment alone. 4. Follow-up for BPH symptoms, Flomax and cilastatin all were held for contribution to orthostasis. Patient was able to void well prior to discharge, if has difficulty voiding following discharge may need to resume Flomax 5. 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 T4 wnl Orthostasis improved but incompletely treated with fluid hydration and conservative care. Fludrocortisone added in addition to prednisone above for adrenal insufficiency. Follow-up being scheduled with endocrine and PCP (2) Acute kidney injury: Cr 1.76 on admit resolved with ivf Patient was significantly volume depleted on admission which undoubtedly contributed to his orthostasis and syncope, however despite creatinine returning to baseline and patient being relatively euvolemic he continued to have severe orthostasis both 1 and 3-minute measurements (3) Neurofibromatosis: Chronic/stable Follows with Rheumatology, Dr Doherty (4) Depression: Continue Fluoxetine (5) BPH (benign prostatic hyperplasia): - With h/o Prostate CA s/p radiation, completed external beam radiation in July 2021, PSA at that time 0.014 - Tamsulosin on hold d/t orthostasis UOP acceptable , making great UOP Would not resume flomax at d/c unless issues w/ voiding -- discussed with friend and sister as well as patient given risk for orthostatic hypotension (6) CAD (coronary artery disease): - Stable, HS trop, no WMA noted on echo, no CP - Continue Crestor and ASA (7) Hypertension: Verapamil resumed Lisinopril low-dose continued Resting/supine hypertension balanced against orthostasis as above (8) Giant cell arteritis: hx of such, follows with neurology had been attempting to decreased steroids/d/c over past year stress dose steroids ordered, f/u endocrinology as well for adrenal insufficiency but could have been needing stress dose steroids for recent stressors, which could have been multiple falls at home over the past couple of months Denied [facility] accepted by insurance pt wants to go home and was discharged with home health 03/08 Total Time Total Time Spent Total Time Spent (In Minutes): Time spend day of discharge 50 minutes including direct patient care, documentation, review of labs and images, and coordination of care. Discharge Plan Discharge Items Patient Disposition: Home - Home Health Services Reason For Visit: syncope Discharge Diagnosis: Adrenal Insufficiency Orthostatic Hypotension Activity: Per Instructions section Non-emergency contact: Primary Care Provider Call non-emergency contact if: you have any medication questions, your symptoms worsen, your pain is not controlled and your pain is worsening Follow-up/Referrals: Bigg Noriega MD [Physician] - 11/08/22 8:15 am (New patient appointment to become established with Endocrinology - adrenal insufficiency.) Kalyn Jean [Outside Practitioners] - 03/16/22 10:30 am Diet: Heart Healthy Addtl Attending Provider Instructions: You were seen in the hospital for an episode of syncope. You are found to be very dehydrated, and also had orthostatic hypotension. You clinically improved with fluids. You had low steroid hormone levels in the morning indicating that you were adrenally suppressed, this can worsen low blood pressure and orthostatic hypotension (low blood pressure when standing). Your dose of prednisone was increased to 10 mg with careful follow-up as outpatient. Due to persistent severe orthostatic hypotension you are also started on a second steroid medication called fludrocortisone which helps retain salt, as noted below. You are seen by physical therapy who recommended return home versus rehab. Insurance denied rehab, and you are being discharged to home with home health services being arranged. You have been prescribed a steroid medication, prednisone. Please take prednisone 10 mg daily for 1 week, then decrease to 7.5 mg daily with further adjustments to be made by your outpatient provider. Prednisone has long-term effects including weight gain, bone demineralization, and blood sugar dysregulation and you should be on the minimum dose possible. You have been prescribed a mineralocorticoid (salt steroid medication) fl udrocortisone. Please take fludrocortisone 0.1 mg by mouth every morning. Your cilostazol and Flomax have been stopped as these can contribute to low blood pressure when standing and passing out. Please do not take these when returning home. Your syncope/low blood pressure medications must be balanced against high blood pressure when at rest. Please check your blood pressure at home daily, and follow-up with your PCP for medication adjustments as needed. It is important to stay hydrated, dehydration can both impair kidney function and can worsen orthostatic hypotension leading to episodes of passing out which can lead to serious, life-threatening, or permanent injury. Follow-up appointments are being scheduled for you with both your primary care provider and endocrine. If you develop any new or worsening symptoms including fever, chills, sweats, chest pain, chest pressure, difficulty breathing, uncontrolled nausea/vomiting, rash, wheezing, passing out or nearly passing out, bleeding, black/bloody bowel movements, or other new or concerning symptoms please call your primary care physician, or call 911 for re-evaluation in the emergency department if you are very concerned. Pending Studies at Discharge: No Stand-Alone Forms: My [facility], Smoking Cessation Medications and DC Order Prescriptions: New fludrocortisone 0.1 mg Tablet 0.1 mg PO QAM Qty: 30 RF: 0 prednisone 5 mg tablet See Rx Instructions .ROUTE .COMPLEX Qty: 60 RF: 0 Continued vitamin B complex [B Complex-Vitamin B12] Tablet 1 tab PO DAILY RF: 0 Prolia 60 mg/mL syringe 60 mg subcut .q 6 month RF: 0 docusate sodium [Dulcolax Stool Softener (dss)] 100 mg capsule 100 mg PO DAILY PRN (Reason: Constipation) RF: 0 Actemra 162 mg/0.9 mL syringe 0 mg subcut UNKNOWN Qty: 2 RF: 0 verapamil [Calan SR] 120 mg tablet extended release 120 mg PO DAILY RF: 0 omeprazole 20 mg capsule,delayed release(DR/EC) 20 mg PO HS RF: 0 aspirin 81 mg Tablet,Delayed Release (Dr/Ec) 81 m PO DAILY RF: 0 quetiapine [Seroquel] 25 mg tablet 25 mg PO DAILY RF: 0 fluoxetine [Prozac] 40 mg capsule 40 mg PO DAILY RF: 0 lisinopril 2.5 mg tablet 2.5 mg PO DAILY RF: 0 rosuvastatin 10 mg tablet 10 mg PO DAILY RF: 0 cholecalciferol (vitamin D3) [Vitamin D3] 25 mcg (1,000 unit) Tablet 25 mcg PO DAILY RF: 0 hydrocodone-acetaminophen 5-325 mg tablet 1 tab PO TID PRN (Reason: mod-severe pain) RF: 0 albuterol sulfate 90 mcg/actuation HFA aerosol inhaler 2 puff INHALATION QID PRN (Reason: Shortness Of Breath) RF: 0 Discontinued prednisone 5 mg tablet 5 mg PO DAILY RF: 0 tamsulosin 0.4 mg capsule 0.4 mg PO DAILY Qty: 90 RF: 3 cilostazol 50 mg tablet 50 mg PO BID RF: 0 ibuprofen 600 mg tablet 600 mg PO Q8H PRN (Reason: Pain) RF: 0 Discharge Orders: Discharge Order (Routine); Ordered 03/08/22 Ordered By: Jos Spears Admission Data Admit Date/Time: 03/01/22 10:44 Attending Provider: Jos Spears Admit Provider: Reggie Juarez Primary Care Provider: Hilda Ochoa Other Providers: Dutch Tello ; Kaden Harmon ; Carlos Davis ; Anand Desai ; Dalton Das ; Jean Palma Jr ; Jhon Gómez ; Cindy Rojo ; Erica Guevara ; Matt Mcdaniel ; Joe Elizondo ; Get Escoto ; Rossana Soria ; Joanna Alcantara ; Abdoul Celestin ; Gilberto Schultz Michael K. ; Yakov Wellington ; Anand Taylor V. ; [facility] Coding Level of Care Code D/C DAY MANAGEMENT >30 MINS Diagnoses Orthostatic hypotension I95.1 Acute kidney injury N17.9 Neurofibromatosis Q85.00 Depression F32.9 BPH (benign prostatic hyperplasia) N40.0 CAD (coronary artery disease) I25.10 Hypertension I10 Giant cell arteritis M31.6
[2022-03-08 16:06] VITALS: PULSE 75
== END 2022-03-08 17:00 | disposition home health service (06) | DRG 312 ==
LOC: ED 23:51 → EDINP 23:51 → SUATTDRO 02-28 04:58 → 2W 02-28 08:03 → SUATTDRO 03-01 10:44

== ENCOUNTER 2022-04-23 15:57 | Observation (INO) ==
[2022-04-23] MEDS ORDERED: ACETAMINOPHEN 500 MG TAB PO STA (16:27)
[2022-04-23] MEDS ORDERED: SODIUM CHLORIDE 0.9% 1000ML 1,000 ML IV STA (16:27)
--- NOTE | 2022-04-23 16:38 | Emergency Department Note ---
Impression & Plan Dizziness, Fall, Abrasion of elbow, left ED Provider Note INFORMANT: Patient and EMS ED PROVIDER(S): Rodolfo Gunter MD CHIEF COMPLAINT: Dizziness PLAN: Disposition: Admitted Condition: Good Outpatient prescription management: none Referral: None MEDICAL DECISION MAKING: Patient presented because of dizziness and feeling generally weak. He had a fall but suffered no significant injury at this time. He has had multiple falls recently. A work-up was initiated. The patient had an unremarkable head CT. Urinalysis was negative. His CBC, chemistry panel, LFTs, and troponin were negative as well. Patient had some mild change with orthostatic testing but was not truly symptomatic with this. Heart rate never fluctuated. His ECG did not show any acute findings either. Patient had an ambulatory trial and nursing noted the patient was not steady on his feet and was not safe. I discussed further management in the hospital. Patient was in agreement. Consultation was made with Dr. Jose Flanagan of the [facility] service. Patient was evaluated in the ER for further management. Triage Nursing notes reviewed and agree them. Vital Signs: reviewed and remarkable for hypertension Differential diagnosis: Infection, dehydration, metabolic abnormality, hypo/hyperglycemia, electrolyte disturbance, anemia, hypoxia, cardiac sources, intracerebral event, toxicologic, neurologic, BPV, as well as other pathologies. Diagnostics interpreted by me: ECG: Twelve-lead ECG revealed sinus rhythm with a first-degree AV block at 65 bpm. Left axis deviation. LVH.. Q wave. No change from 01 March 2022. Cardiac Monitoring: Cardiac monitoring ordered by me: The patient was placed on continuous cardiac monitoring and observed. It revealed a normal sinus rhythm at 73 beats per minute without ectopy or evidence of dysrhythmia. Imaging studies: Head CT: A noncontrast CT scan of the head was performed and was negative for tumor, fracture, intracranial hemorrhage, or other acute pathology. Chest x-ray. Findings: A chest x-ray was performed and revealed no pneumothorax, effusion, infiltrate, pulmonary edema, free air under the diaphragm, or wide mediastinum. Impression: No acute disease. HPI: The patient is a 81year old male who presents to the Emergency Room with complaints of dizziness. This started years ago and is recurrent problem for him. The patient also notes the following associated symptoms, a fall, left elbow abrasion, and mild headache (patient states is chronic). Patient was recently here after a fall and suffering multiple rib fractures. He states he is healing from that but still has some discomfort. The patient has taken no medication for relieving factors. Current pain is rated as 2/10. Pt denies LOC, fevers, chills, diaphoresis, visual changes, neck pain, chest pain, breathing difficulties, nausea, vomiting, abdominal pain, back pain, melena, hematochezia, urinary symptoms, numbness, weakness, lymphadenopathy, rash, or other complaints. ROS: See above HPI for pertinent positives & negatives. A total of 10 systems reviewed and were otherwise negative. PAST MEDICAL HISTORY:See Below , multiple rib fractures, frequent falls, prostate cancer PAST SURGICAL HISTORY:See Below, FAMILY HISTORY:See Below SOCIAL HISTORY:See Below, lives alone HOME MEDICATIONS:See Below ALLERGIES:See Below VITALS:See Below PHYSICAL EXAMINATION: GENERAL: Awake, alert, phy-edluqzjjxew-mxphaohek, in no distress HENT: Normocephalic, atraumatic. Oropharynx unremarkable. EYES: Normal conjunctiva. Sclera non-icteric. NECK: Inspection normal. Non-tender. Supple. No nuchal rigidity. FROM. No masses. RESPIRATORY: Clear to auscultation. No wheezes. No rales. Normal respiratory effort. CARDIAC: Normal rate. Normal rhythm. No murmurs. No rubs. Extremities warm and well perfused. Pulses equal. No JVD. GI: Soft, non-distended. No tenderness to palpation. No rebound or guarding. No masses. RECTAL: Deferred. MUSCULOSKELETAL: Atraumatic. Chest examination reveals no tenderness. The back is symmetrical on inspection without obvious abnormality. There is no CVA tenderness to palpation. No joint edema. LOWER EXTREMITIES: Calves are equal size bilaterally and non-tender. No edema. No discoloration. NEURO: Normal sensorium. Mild generalized weakness but no focal sensory or motor deficits noted. No drift. SKIN: Multiple neurofibromas noted throughout the skin. No rash or jaundice noted. Rodolfo Gunter MD Past Med/Surg History Medical History Acute kidney injury MANUEL (acute kidney injury) BPH loc w urin obs/LUTS Dehydration Frequency of micturition Hyperlipidemia Neurofibromatosis Nocturia Prostate cancer (02/17/21) Temporal arteritis Surgical History History of cataract surgery History of hernia repair Family History Mother , age 68 of COPD complications COPD (chronic obstructive pulmonary disease) Neurofibromatosis Cancer Lung Cancer Father , age 77 of ruptured abdominal aortic aneurysm AAA (abdominal aortic aneurysm) Family/Other Neurofibromatosis Grandmother (Maternal) Neurofibromatosis Son Neurofibromatosis Daughter Neurofibromatosis Social History Smoking Status: Current every day smoker Tobacco Type: Cigarettes Years Smoked: 55; Cigarettes Per Day: 4-5; Second Hand Exposure: No; Hx Alcohol Use: No Hx Substance Use: No Preferred Language: Monegasque Communication Ability: Effective Visual Impairment: Limited Hearing Ability: Hard of Hearing Obstetrics Gyn Required: No Beliefs That Will Affect Care: None Current Living Situation: Alone current occupational status: retired 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, 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, 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 Feels Safe at Home: Yes caffeine: Yes during the past year weight has: remained stable Dental Care, Regularly: No Physical Activity Frequency: 5-6 Times per Week Assistive Devices: Cane and Walker Allergies Allergies Allergy/AdvReac Type Severity Reaction Status Date / Time mirabegron [From Myrbetriq] AdvReac Hypertensio Verified 03/29/22 10:05 n Home Meds Home Medications Medication Instructions Recorded Confirmed aspirin 81 mg tablet,delayed 81 m PO DAILY 09/29/18 04/23/22 release omeprazole 20 mg capsule,delayed 20 mg PO HS 09/29/18 04/23/22 release verapamil 120 mg tablet,extended 120 mg PO DAILY 09/29/18 04/23/22 release (Calan SR) tocilizumab 162 mg/0.9 mL 0 mg subcut MONTHLY #2 mL 05/09/19 04/23/22 subcutaneous syringe (Actemra) fluoxetine 40 mg capsule (Prozac) 40 mg PO DAILY 01/16/20 04/23/22 quetiapine 25 mg tablet (Seroquel) 25 mg PO DAILY 01/16/20 04/23/22 denosumab 60 mg/mL subcutaneous 60 mg subcut .q 6 month 03/17/21 04/23/22 syringe (Prolia) docusate sodium 100 mg capsule 100 mg PO DAILY PRN Constipation 03/17/21 04/23/22 (Dulcolax Stool Softener (docusate)) vitamin B complex (B 1 tab PO DAILY 03/17/21 04/23/22 Complex-Vitamin B12 tablet) cholecalciferol (vitamin D3) 25 25 mcg PO DAILY 02/03/22 04/23/22 mcg (1,000 unit) tablet (Vitamin D3) lisinopril 2.5 mg tablet 2.5 mg PO DAILY 02/03/22 04/23/22 rosuvastatin 10 mg tablet 10 mg PO DAILY 02/03/22 04/23/22 albuterol sulfate 90 mcg/actuation 2 puff inhalation QID PRN 02/28/22 04/23/22 aerosol inhaler Shortness Of Breath Previous Rx's Medication Instructions Recorded fludrocortisone 0.1 mg tablet 0.1 mg PO QAM #30 tabs 03/08/22 prednisone 1 mg tablet 1 mg PO DAILY #90 tabs 03/29/22 prednisone 2.5 mg tablet 2.5 mg PO DAILY #90 tabs 03/29/22 prednisone 5 mg tablet 5 mg PO DAILY #90 tabs 03/29/22 Results & Data (ED) Vital Signs Vital Signs - 24 hr 04/23/22 16:04 04/23/22 19:04 04/23/22 17:32 Temperature 36.8 C Temperature Source Temporal Artery Scan Pulse Rate - Lying Pulse Rate - Sitting Pulse Rate - Standing Pulse Rate 73 88 Pulse Rate [Left Finger] 75 Pulse Rhythm [Left Finger] Regular Respiratory Rate 20 20 22 Respiratory Effort / Characteristics Non-Labored Spontaneous Respiratory Depth Normal Normal Blood Pressure - Lying Blood Pressure - Sitting Blood Pressure- Standing Blood Pressure 136/88 Blood Pressure [Right Arm] 183/108 H Blood Pressure Mean 104 Blood Pressure Mean [Right Arm] 133 Blood Pressure Position Sitting Blood Pressure Position [Right Arm] Semi-fowlers Pulse Oximetry 98 97 98 Oxygen Delivery Method Room Air Room Air Room Air Sepsis Recent Fever Within 48 Hours No Sepsis New/Unexplained Change in Mental Status No Sepsis Action Taken by Nursing No Action Required 04/23/22 18:24 Temperature Temperature Source Pulse Rate - Lying 65 Pulse Rate - Sitting 72 Pulse Rate - Standing 73 Pulse Rate Pulse Rate [Left Finger] Pulse Rhythm [Left Finger] Respiratory Rate Respiratory Effort / Characteristics Respiratory Depth Blood Pressure - Lying 194/106 H Blood Pressure - Sitting 165/98 H Blood Pressure- Standing 152/91 H Blood Pressure Blood Pressure [Right Arm] Blood Pressure Mean Blood Pressure Mean [Right Arm] Blood Pressure Position Blood Pressure Position [Right Arm] Pulse Oximetry Oxygen Delivery Method Sepsis Recent Fever Within 48 Hours Sepsis New/Unexplained Change in Mental Status Sepsis Action Taken by Nursing Laboratory Data Result diagrams: 04/23/22 17:07 04/23/22 17:07 Lab Results 04/23/22 04/23/22 04/23/22 Range/Units 17:07 17:07 17:07 WBC 6.06 (4.8-10.8) K/ul RBC 4.43 L (4.63-6.08) M/uL Hgb 14.2 (14.0-18.0) g/dl Hct 42.2 (40.1-51.0) % MCV 95.3 (80.0-100.0) fL MCH 32.1 (25.0-34.0) pg MCHC 33.6 (32.0-36.0) g/dL RDW Std Deviation 44.0 (36.4-46.3) fL RDW Coeff of Alexei 12.6 (11.5-14.5) % Plt Count 205 (130-400) K/uL MPV 9.1 L (9.4-12.4) fL Immature Gran % (Auto) 2.5 % Neut % (Auto) 81.8 % Lymph % (Auto) 8.4 % [place] % (Auto) 6.4 % Eos % (Auto) 0.2 % Baso % (Auto) 0.7 % Neut # (Auto) 4.96 (1.4-6.5) K/uL Lymph # (Auto) 0.51 L (1.2-3.4) K/uL [place] # (Auto) 0.39 (0.24-0.82) K/uL Eos # (Auto) 0.01 (0-0.50) K/uL Baso # (Auto) 0.04 (0-0.2) K/uL Immature Gran # (Auto) 0.15 H (0.00-0.02) K/uL Sodium 138 (136-145) mmol/L Potassium 4.0 (3.5-5.1) mmol/L Chloride 104 (98-107) mmol/L Carbon Dioxide 26 (21-32) mmol/L Anion Gap 8 (3-11) BUN 25 H (6-23) mg/dl Creatinine 1.31 (0.6-1.4) mg/dl Est Cr Clr Drug Dosing Not Reportable Est GFR ( Amer) 59.6 ml/min Est GFR (Non-Af Amer) 51.4 ml/min BUN/Creatinine Ratio 19.1 (10-20) Glucose 106 H (70-99(Fasting)) mg/dl Calcium 9.3 (8.5-10.1) mg/dl Magnesium 2.1 (1.7-2.4) mg/dl Total Bilirubin 0.8 (0.2-1.0) mg/dl AST 13 (13-39) U/L ALT 10 (7-52) U/L Alkaline Phosphatase 41 (34-104) U/L Troponin I High Sens 9.7 (0-20) pg/ml Total Protein 6.4 (6.0-8.3) gm/dl Albumin 4.1 (3.4-5.0) gm/dl Globulin 2.3 L (2.5-4.0) gm/dl Albumin/Globulin Ratio 1.8 (0.9-2) TSH 4.274 (0.300-4.500) uIu/ml Urine Color Urine Appearance (Clear) Urine pH (4.5-7.5) Ur Specific [place] (1.000-1.030) Urine Protein (Negative) Urine Glucose (UA) (Negative) Urine Ketones (Negative) Urine Blood (Negative) Urine Nitrite (Negative) Urine Bilirubin (Negative) Urine Urobilinogen (Negative) Ur Leukocyte Esterase (Negative) SARS-CoV-2, RNA, NAAT (NEGATIVE) 04/23/22 04/23/22 Range/Units 17:07 18:22 WBC (4.8-10.8) K/ul RBC (4.63-6.08) M/uL Hgb (14.0-18.0) g/dl Hct (40.1-51.0) % MCV (80.0-100.0) fL MCH (25.0-34.0) pg MCHC (32.0-36.0) g/dL RDW Std Deviation (36.4-46.3) fL RDW Coeff of Alexei (11.5-14.5) % Plt Count (130-400) K/uL MPV (9.4-12.4) fL Immature Gran % (Auto) % Neut % (Auto) % Lymph % (Auto) % [place] % (Auto) % Eos % (Auto) % Baso % (Auto) % Neut # (Auto) (1.4-6.5) K/uL Lymph # (Auto) (1.2-3.4) K/uL [place] # (Auto) (0.24-0.82) K/uL Eos # (Auto) (0-0.50) K/uL Baso # (Auto) (0-0.2) K/uL Immature Gran # (Auto) (0.00-0.02) K/uL Sodium (136-145) mmol/L Potassium (3.5-5.1) mmol/L Chloride (98-107) mmol/L Carbon Dioxide (21-32) mmol/L Anion Gap (3-11) BUN (6-23) mg/dl Creatinine (0.6-1.4) mg/dl Est Cr Clr Drug Dosing Est GFR ( Amer) ml/min Est GFR (Non-Af Amer) ml/min BUN/Creatinine Ratio (10-20) Glucose (70-99(Fasting)) mg/dl Calcium (8.5-10.1) mg/dl Magnesium (1.7-2.4) mg/dl Total Bilirubin (0.2-1.0) mg/dl AST (13-39) U/L ALT (7-52) U/L Alkaline Phosphatase (34-104) U/L Troponin I High Sens (0-20) pg/ml Total Protein (6.0-8.3) gm/dl Albumin (3.4-5.0) gm/dl Globulin (2.5-4.0) gm/dl Albumin/Globulin Ratio (0.9-2) TSH (0.300-4.500) uIu/ml Urine Color Yellow Urine Appearance Clear (Clear) Urine pH 6.5 (4.5-7.5) Ur Specific [place] 1.014 (1.000-1.030) Urine Protein Negative (Negative) Urine Glucose (UA) Negative (Negative) Urine Ketones Negative (Negative) Urine Blood Negative (Negative) Urine Nitrite Negative (Negative) Urine Bilirubin Negative (Negative) Urine Urobilinogen Negative (Negative) Ur Leukocyte Esterase Negative (Negative) SARS-CoV-2, RNA, NAAT NEGATIVE (NEGATIVE) Administered Medications Discontinued Medications Acetaminophen (Acetaminophen 500 Mg Tab) 1,000 mg PO NOW STA Stop: 04/23/22 16:28 Last Admin: 04/23/22 17:27 Dose: 1,000 mg Documented By: TEMI Sodium Chloride (Nss 1000ml) 1,000 mls @ 125 mls/hr IV .Q8H STA Stop: 04/24/22 00:26 Last Infusion: 04/23/22 22:59 Dose: 0 mls/hr Documented By: Admin: 04/23/22 17:22 Dose: 125 mls/hr Documented By: TEMI Imaging Data Radiologist's Impression: Chest X-Ray 04/23/22 16:13 XR chest 1V portable HISTORY: weakness COMPARISON: Chest and right rib series 04/09/2022. FINDINGS: No pneumothorax. The patient's right-sided rib fractures are better appreciated on the recent rib series. The heart remains mildly enlarged. There is a new patchy density at the left lung base. No evidence for pulmonary edema. IMPRESSION: 1. The patient's right-sided rib fractures are better appreciated on the prior right rib series. 2. No pneumothorax. 3. Stable mild cardiomegaly. 4. Left basilar patchy density. This favors atelectasis. A pneumonia could also have a similar appearance in the appropriate clinical setting. ACT 112: Negative or not required by law. Electronically signed by: Farhad Kate M.D. 04/23/2022 5:[address] 04/23/22 16:[address] DOSE: 537.48 mGy.cm HISTORY: dizzy TECHNIQUE: Multiaxial CT images of the head were performed without the use of intravenous contrast. Automated exposure control was utilized for this study. A dose lowering technique was utilized adhering to the principles of ALARA. Comparison: Head CT 02/20/2022. Findings: The paranasal sinuses and mastoid air cells are clear. The calvarium and skull base are intact. There is no mass, hematoma, midline shift, acute infarct. White matter hypodensity is nonspecific but suggestive of microvascular ischemic change. The ventricles and sulci demonstrate mild age-related involutional changes. There is an old punctate lacunar infarct within the right basal ganglia, unchanged. Impression: No significant change compared to the prior study. No acute intracranial ab normality. ACT 112: Negative or not required by law. Electronically signed by: Farhad Kate M.D. 04/23/2022 7:08 PM Discharge Plan Visit Data Chief Complaint: Fall ED Provider: Rodolfo Gunter Discharge Problem: Dizziness, Fall, Abrasion of elbow, left Patient Disposition: Admitted As Inpatient Discharge Instructions Interventions: ED Discharge Assessment Last Done: 04/23/22 22:39
[2022-04-23 17:30] LABS: Basophils # (auto) 0.04 K/uL (0-0.2); Basophils % (auto) 0.7 %; Eosinophils # (auto) 0.01 K/uL (0-0.50); Eosinophils % (auto) 0.2 %; Hematocrit (blood only) 42.2 % (40.1-51.0); Hemoglobin 14.2 g/dl (14.0-18.0); Immature Granulocytes # (auto) 0.15 K/uL (0.00-0.02); Immature Granulocytes % (auto) 2.5 %; Lymphocytes # (auto) 0.51 K/uL (1.2-3.4); Lymphocytes % (auto) 8.4 %; Mean Corpuscular Hemoglobin 32.1 pg (25.0-34.0); Mean Corpuscular Hgb Conc 33.6 g/dL (32.0-36.0); Mean Corpuscular Volume 95.3 fL (80.0-100.0); Mean Platelet Volume 9.1 fL (9.4-12.4); Monocytes # (auto) 0.39 K/uL (0.24-0.82); Monocytes % (auto) 6.4 %; Neutrophils # (auto) 4.96 K/uL (1.4-6.5); Neutrophils % (auto) 81.8 %; Platelet Count 205 K/uL (130-400); RDW Coefficient of Variation 12.6 % (11.5-14.5); Red Blood Count 4.43 M/uL (4.63-6.08); White Blood Count 6.06 K/ul (4.8-10.8)
[2022-04-23 17:48] LABS: Anion Gap 8 (3-11); Blood Urea Nitrogen 25 mg/dl (6-23); Carbon Dioxide 26 mmol/L (21-32); Chloride 104 mmol/L (98-107); Sodium 138 mmol/L (136-145)
--- NOTE | 2022-04-23 17:48 | XRay Report ---
XR chest 1V portable HISTORY: weakness COMPARISON: Chest and right rib series 04/09/2022. FINDINGS: No pneumothorax. The patient's right-sided rib fractures are better appreciated on the rece nt rib series. The heart remains mildly enlarged. There is a new patchy density at the left lung base . No evidence for pulmonary edema. IMPRESSION: 1. The patient's right-sided rib fractures are better appreciated on the prior right rib series. 2. No pneumothorax. 3. Stable mild cardiomegaly. 4. Left basilar patchy density. This favors atelectasis. A pneumonia could also have a similar appear ance in the appropriate clinical setting. ACT 112: Negative or not required by law. Electronically signed by: Farhad Kate M.D. 04/23/2022 5:47 PM
[2022-04-23 17:49] LABS: Alanine Aminotransferase 10 U/L (7-52); Albumin Globulin Ratio 1.8 (0.9-2); Albumin Level 4.1 gm/dl (3.4-5.0); Alkaline Phosphatase 41 U/L (34-104); Aspartate Aminotransferase 13 U/L (13-39); BUN Creatinine Ratio 19.1 (10-20); Bilirubin,Total 0.8 mg/dl (0.2-1.0); Calcium 9.3 mg/dl (8.5-10.1); Est GFR (African American) 59.6 ml/min; Est GFR (Non-African American) 51.4 ml/min; Globulin 2.3 gm/dl (2.5-4.0); Glucose 106 mg/dl (70-99(Fasting)); Magnesium 2.1 mg/dl (1.7-2.4); Total Protein 6.4 gm/dl (6.0-8.3)
[2022-04-23 17:54] LABS: Troponin I High Sensitivity 9.7 pg/ml (0-20)
[2022-04-23 18:58] LABS: Appearance Urine Clear (Clear); Bilirubin Urine Negative (Negative); Blood Urine Negative (Negative); Color Urine Yellow; Glucose Urine UA Negative (Negative); Ketones Urine Negative (Negative); Leukocyte Esterase Urine Negative (Negative); Nitrite Urine Negative (Negative); Protein Urine Negative (Negative); Specific Gravity Urine 1.014 (1.000-1.030); Urobilinogen Urine Negative (Negative); pH Urine 6.5 (4.5-7.5)
--- NOTE | 2022-04-23 19:11 | CT Scan Report ---
HEAD CT NONCONTRAST CT DOSE: 537.48 mGy.cm HISTORY: dizzy TECHNIQUE: Multiaxial CT images of the head were performed without the use of intravenous contrast. A utomated exposure control was utilized for this study. A dose lowering technique was utilized adheri ng to the principles of ALARA. Comparison: Head CT 02/20/2022. Findings: The paranasal sinuses and mastoid air cells are clear. The calvarium and skull base are int act. There is no mass, hematoma, midline shift, acute infarct. White matter hypodensity is nonspecifi c but suggestive of microvascular ischemic change. The ventricles and sulci demonstrate mild age-rela carlton involutional changes. There is an old punctate lacunar infarct within the right basal ganglia, un changed. Impression: No significant change compared to the prior study. No acute intracranial abnormality. ACT 112: Negative or not required by law. Electronically signed by: Farhad Kate M.D. 04/23/2022 7:08 PM
--- NOTE | 2022-04-23 21:19 | History & Physical Report ---
Date of Service April 23, 2022 Assessment & Plan (1) Fall: Plan: - Patient has been admitted 2 months ago for syncope, at that time he had a cardiac work-up that was largely unremarkable, echo showed hyperdynamic left ventricle with EF 70%, grade 1 diastolic dysfunction, negative for decreased wall motion [place], he was volume depleted with MANUEL and responded to fluids, TSH elevated at that time, morning cortisol was low as suggesting adrenal insufficiency in setting of steroid use for giant cell arteritis, therefore he was placed on prednisone 8.5 mg daily, as well as 0.1 mg fludrocortisone for orthostatic hypotension. He was evaluated PT/OT who recommended patient go to rehab, however insurance denied this so he was discharged home with home health and family support. Despite this, he is continue to have ongoing falls that are presumably due to generalized weakness with sounds like orthostatic hypotension given his falls are occurring upon becoming lightheaded with standing up. - His labs and imaging here are unremarkable, with the exception of rib fr actures noted on CXR. - We will control his pain with Tylenol and Lidoderm patches, as well as heating pad overnight. - Holding lisinopril and verapamil in setting of suspected orthostatic hypotension. - PT and OT to evaluate and treat tomorrow a.m. for possible placement to rehab as it seems it may be unsafe for patient to return home given ongoing falls. (2) Multiple rib fractures: Plan: - Pain management as above with Tylenol, Lidoderm patch, heating pad. - Without pneumothorax or flail chest. (3) Orthostatic hypotension: Plan: - Holding lisinopril and verapamil. Patient is on 8.5 mg prednisone for temporal arteritis, as well as 0.1 mg fludrocortisone which was prescribed on discharge last admission. (4) CAD (coronary artery disease): Plan: - Chronic, stable. - Continue statin and aspirin. (5) Frequent falls: (6) GERD (gastroesophageal reflux disease): Plan: - Continue on omeprazole 20 mg at night, will have to switch to hospital formulary while admitted. (7) Depression: Plan: - Continue Seroquel 25 mg daily and fluoxetine 40 mg daily. (8) Temporal arteritis: Plan: - History of. - Continue prednisone, follows with neurology. (9) Hyperlipidemia: Plan: - Continue patient is on 10 mg daily. 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 Doherty. (11) Prostate cancer: Plan: - s/p radiation, doing well without any current interventions. - Continue vitamin E for hot flashes. Plan - Obs med/tele. - SCDs for VTE ppx. - DNR/DNI. History of Present Illness Chief Complaint: Frequent falls at home Primary Care Provider: Hilda Ochoa MD Donavon Bartlett is a 81-year-old male with a past medical history significant for hypertension, hyperlipidemia, CAD, neurofibromatosis, prostate cancer, temporal arteritis, GERD, depression, and frequent falls presents today due to ongoing falls and dizziness at home. Yesterday he was outside smoking a cigarette, and when he stood up he got lightheaded and fell down, landing on his back. After the fall, he had some back pain and a mild headache, which is actually been going on for several days now, otherwise without pain. He denies losing consciousness or hitting his head. He did not have any chest pain, shortness of breath, palpitations, vision loss or change, nausea, vomiting, abdominal pain, bowel or bladder incontinence, or diaphoresis before or during the fall. Prev iously been feeling well but does note that he is felt generally weak lately. He did not take anything for pain at home. In ED, vital signs are within normal limits and stable. Labs largely unrem arkable, he is without leukocytosis, anemia, electrolyte deficiency, renal function is at baseline, no transaminitis. Without evidence of UTI, COVID negative. CXR shows right-sided rib fractures, stable cardiomegaly, left basilar patchy density atelectasis versus pneumonia. Head CT shows no significant changes compared to previous study from 02/2022. Allergies Allergy/AdvReac Type Severity Reaction Status Date / Time [email or web address] [From [email or web address]] AdvReac Hypertensio Verified 03/29/22 10:05 n Home Medications Medication Instructions Recorded Confirmed Type aspirin 81 mg tablet,delayed 81 m PO DAILY 09/29/18 04/23/22 History release omeprazole 20 mg capsule,delayed 20 mg PO HS 09/29/18 04/23/22 History release verapamil 120 mg tablet,extended 120 mg PO DAILY 09/29/18 04/23/22 History release (Calan SR) tocilizumab 162 mg/0.9 mL 0 mg subcut MONTHLY #2 mL 05/09/19 04/23/22 History subcutaneous syringe (Actemra) fluoxetine 40 mg capsule (Prozac) 40 mg PO DAILY 01/16/20 04/23/22 History quetiapine 25 mg tablet (Seroquel) 25 mg PO DAILY 01/16/20 04/23/22 History denosumab 60 mg/mL subcutaneous 60 mg subcut .q 6 month 03/17/21 04/23/22 History syringe (Prolia) docusate sodium 100 mg capsule 100 mg PO DAILY PRN Constipation 03/17/21 04/23/22 History (Dulcolax Stool Softener (docusate)) vitamin B complex (B 1 tab PO DAILY 03/17/21 04/23/22 History Complex-Vitamin B12 tablet) cholecalciferol (vitamin D3) 25 25 mcg PO DAILY 02/03/22 04/23/22 History mcg (1,000 unit) tablet (Vitamin D3) lisinopril 2.5 mg tablet 2.5 mg PO DAILY 02/03/22 04/23/22 History rosuvastatin 10 mg tablet 10 mg PO DAILY 02/03/22 04/23/22 History albuterol sulfate 90 mcg/actuation 2 puff inhalation QID PRN 02/28/22 04/23/22 History aerosol inhaler Shortness Of Breath fludrocortisone 0.1 mg tablet 0.1 mg PO QAM #30 tabs 03/08/22 04/23/22 Rx prednisone 1 mg tablet 1 mg PO DAILY #90 tabs 03/29/22 04/23/22 Rx prednisone 2.5 mg tablet 2.5 mg PO DAILY #90 tabs 03/29/22 04/23/22 Rx prednisone 5 mg tablet 5 mg PO DAILY #90 tabs 03/29/22 04/23/22 Rx Past Med/Surg History Medical History Acute kidney injury MANUEL (acute kidney injury) BPH loc w urin obs/LUTS Dehydration Frequency of micturition Hyperlipidemia Neurofibromatosis Nocturia Prostate cancer (02/17/21) Temporal arteritis Surgical History History of cataract surgery History of hernia repair Family History Mother , age 68 of COPD complications COPD (chronic obstructive pulmonary disease) Neurofibromatosis Cancer Lung Cancer Father , age 77 of ruptured abdominal aortic aneurysm AAA (abdominal aortic aneurysm) Family/Other Neurofibromatosis Grandmother (Maternal) Neurofibromatosis Son Neurofibromatosis Daughter Neurofibromatosis Social History Smoking Status: Current every day smoker Tobacco Type: Cigarettes Years Smoked: 55; Cigarettes Per Day: 3; Second Hand Exposure: No; Do You Dip or Chew Tobacco: No; Tobacco Cessation Education Requested by Patient: No Hx Alcohol Use: No Hx Substance Use: No Preferred Language: Urdu Communication Ability: Effective Visual Impairment: Limited Hearing Ability: Hard of Hearing Radiological Metallurgist Required: No Beliefs That Will Affect Care: None Current Living Situation: Alone Current Living Situation Comment: lives alone in an apartment w/ elevator access current occupational status: retired 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, 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, 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 Other Information That Helps Us Care for You: No Feels Safe at Home: Yes Safety Concerns: Feels Safe At This Time caffeine: Yes during the past year weight has: remained stable Dental Care, Regularly: No Physical Activity Frequency: 5-6 Times per Week Assistive Devices: Walker Review of Systems Review of Systems: Constitutional: generalized weakness and lightheadedness upon standing; No fever/chills.fatigue, myalgias, anorexia, night sweats Eyes: No diplopia, no worsening or blurred vision ENT: normal hearing, no trouble swallowing Respiratory: No cough, sputum, dyspnea at rest or on exertion Cardiovascular: No chest pain, tightness or palpitations Abdomen: No pain, nausea, vomiting, diarrhea or constipation : Denies dysuria, hematuria, increased urgency/frequency, urinary retention Musculoskeletal: back pain beginning after fall; No joint pain, calf pain, swelling Neurologic: No weakness, numbness/tingling, or balance problems Psychiatric: No anxiety or depression Skin: No rash or itch Physical Exam Physical Exam: General: awake, alert, no apparent distress Head: Normocephalic, atraumatic ENT: PERRL, EOMI, no pharyngeal exudate, mucous membranes moist Chest: Clear to auscultation, on room air, no adventitious breath sounds Cardiac: Regular rate and rhythm, no murmur, no JVD, normal peripheral pulses, good capillary refill Abdominal: NABS x 4 quadrants, soft, nontender to palpation, no rebound, guarding or tenderness Extremities: Normal inspection, no peripheral edema or erythema, calfs nontender to palpation Psych: Normal mood and affect Neuro: AAO x 3, strength intact bilaterally and rated 5/5, no motor deficits, speech is clear, no peripheral sensory deficits Skin: no rash or erythema Results & Data Results & Data ([facility]) Vital Signs (Past 12 Hours) Vital Signs Temp Pulse Pulse Resp BP BP Pulse Ox 04/23/22 17:32 88 22 98 04/23/22 19:04 75 20 183/108 H 97 04/23/22 16:04 36.8 C 73 20 136/88 98 O2 Del Method 04/23/22 17:32 Room Air 04/23/22 19:04 Room Air 04/23/22 16:04 Room Air Laboratory Results Abnormal lab results 04/23/22 04/23/22 Range/Units 17:07 17:07 RBC 4.43 L (4.63-6.08) M/uL MPV 9.1 L (9.4-12.4) fL Lymph # (Auto) 0.51 L (1.2-3.4) K/uL Immature Gran # (Auto) 0.15 H (0.00-0.02) K/uL BUN 25 H (6-23) mg/dl Glucose 106 H (70-99(Fasting)) mg/dl Globulin 2.3 L (2.5-4.0) gm/dl Diagnostic Findings Chest X-Ray 04/23/22 16:13 XR chest 1V portable HISTORY: weakness COMPARISON: Chest and right rib series 04/09/2022. FINDINGS: No pneumothorax. The patient's right-sided rib fractures are better appreciated on the recent rib series. The heart remains mildly enlarged. There is a new patchy density at the left lung base. No evidence for pulmonary edema. IMPRESSION: 1. The patient's right-sided rib fractures are better appreciated on the prior right rib series. 2. No pneumothorax. 3. Stable mild cardiomegaly. 4. Left basilar patchy density. This favors atelectasis. A pneumonia could also have a similar appearance in the appropriate clinical setting. ACT 112: Negative or not required by law. Electronically signed by: Farhad Kate M.D. 04/23/2022 5:[address] 04/23/22 16:[address] DOSE: 537.48 mGy.cm HISTORY: dizzy TECHNIQUE: Multiaxial CT images of the head were performed without the use of intravenous contrast. Automated exposure control was utilized for this study. A dose lowering technique was utilized adhering to the principles of ALARA. Comparison: Head CT 02/20/2022. Findings: The paranasal sinuses and mastoid air cells are clear. The calvarium and skull base are intact. There is no mass, hematoma, midline shift, acute infarct. White matter hypodensity is nonspecific but suggestive of microvascular ischemic change. The ventricles and sulci demonstrate mild age-related involutional changes. There is an old punctate lacunar infarct within the right basal ganglia, unchanged. Impression: No significant change compared to the prior study. No acute intracranial abnormality. ACT 112: Negative or not required by law. Electronically signed by: Farhad Kate M.D. 04/23/2022 7:08 PM ECG Additional Comments: Sinus rhythm with 1st degree A-V block Left axis deviation Moderate voltage criteria for LVH, may be normal variant Inferior infarct (cited on or before 23-APR-2022) Abnormal ECG When compared with ECG of 01-MAR-2022 08:44, Premature ventricular complexes are no longer Present. Code Status & VTE Plan Code Status DNR/DNI. Supervising Physician Co-Signing Physician Notes Attending addendum: I have physically seen this patient, have supervised the KANA's activities, and agree with the H&P unless as otherwise noted. Assessment and Plan: Status post fall- The patient was admitted 2 months ago for syncopal work-up, which was negative at that time, and recommendation by PT/OT was for patient to go to rehab, however, insurance denied this request, so patient was discharged to home health and family support. The patient continues to not do well, and would likely still benefit from inpatient rehab. Will consult PT/OT again. Holding medications may contribute to orthostasis as noted, in particular lisinopril and verapamil. Fluoxetine may be an issue as well. Multiple rib fractures- From previous falls. Fortunately patient does not appear to have had additional fractures with his recent falls now. Hopefully his insurance will approve him to be admitted to inpatient rehab, as I would expect PT/OT recommend Remaining orders and notations as noted PG Care Time/CCT Total # of Minutes Spent Total Time Spent with Patient: Total time spent is greater than 50% in coordination of care (as documented) at patient's floor/unit and/or counseling patient: Coding Level of Care Code INT OBSERVATION CARE 50M LVL 2 Diagnoses Fall W19.XXXA Multiple rib fractures S22.49XA Orthostatic hypotension I95.1 CAD (coronary artery disease) I25.10 Frequent falls R29.6 GERD (gastroesophageal reflux disease) K21.9 Depression F32.9 Temporal arteritis M31.6 Hyperlipidemia E78.5 Neurofibromatosis Q85.00 Prostate cancer C61
[2022-04-23] MEDS ORDERED: ONDANSETRON INJ 2 MG/ML 2 ML VIAL IV PRN (22:55)
[2022-04-23] MEDS ORDERED: POLYETHYLENE (MIRALAX) 17 GM PACK PO PRN (22:55)
[2022-04-23] MEDS ORDERED: DOCUSATE SODIUM 100 MG CAP PO PRN (22:55)
[2022-04-23] MEDS ORDERED: LACTATED RINGER'S 1,000 ML IV SCH (22:55)
[2022-04-23] MEDS ORDERED: ALBUTEROL HFA 8 GM INHALER INH PRN (22:55)
[2022-04-24] MEDS: MELATONIN 3 MG TAB PO PRN ×2 (00:23→21:00)
[2022-04-24] MEDS: ACETAMINOPHEN 325 MG TAB PO PRN ×2 (06:30→21:00)
[2022-04-24 07:04] LABS: Basophils # (auto) 0.04 K/uL (0-0.2); Basophils % (auto) 0.7 %; Eosinophils # (auto) 0.08 K/uL (0-0.50); Eosinophils % (auto) 1.5 %; Immature Granulocytes # (auto) 0.05 K/uL (0.00-0.02); Immature Granulocytes % (auto) 0.9 %; Lymphocytes # (auto) 0.96 K/uL (1.2-3.4); Lymphocytes % (auto) 17.8 %; Mean Corpuscular Hemoglobin 31.4 pg (25.0-34.0); Mean Corpuscular Hgb Conc 34.2 g/dL (32.0-36.0); Mean Corpuscular Volume 91.8 fL (80.0-100.0); Monocytes # (auto) 0.64 K/uL (0.24-0.82); Monocytes % (auto) 11.9 %; Neutrophils # (auto) 3.63 K/uL (1.4-6.5); Neutrophils % (auto) 67.2 %; Platelet Count 192 K/uL (130-400); RDW Coefficient of Variation 12.4 % (11.5-14.5); RDW Standard Deviation 41.8 fL (36.4-46.3); Red Blood Count 4.14 M/uL (4.63-6.08)
[2022-04-24 07:23] LABS: BUN Creatinine Ratio 19.4 (10-20); Calcium 8.5 mg/dl (8.5-10.1); Est GFR (African American) 75.3 ml/min; Est GFR (Non-African American) 64.9 ml/min; Magnesium 1.9 mg/dl (1.7-2.4); Potassium 3.7 mmol/L (3.5-5.1)
[2022-04-24] MEDS: FLUoxetine HCL 20 MG CAP PO SCH (08:21)
[2022-04-24] MEDS: FLUDROCORTISONE ACETATE 0.1 MG TAB PO SCH (08:21)
[2022-04-24] MEDS: CHOLECALCIFEROL 1,000 UNITS 25 MCG TAB PO SCH (08:21)
[2022-04-24] MEDS: VITAMIN B COMPLEX TAB PO SCH (08:21)
[2022-04-24] MEDS: predniSONE 5 MG TAB PO SCH (08:22)
[2022-04-24] MEDS: predniSONE 2.5 MG TAB PO SCH (08:22)
[2022-04-24] MEDS: QUEtiapine FUMARATE 25 MG TABLET PO SCH (08:22)
[2022-04-24] MEDS: ROSUVASTATIN CALCIUM 10 MG TAB PO SCH (08:22)
[2022-04-24] MEDS: LIDOCAINE 5% 1 PATCH TD SCH (08:23)
[2022-04-24] MEDS: predniSONE 1 MG TAB PO SCH (08:23)
[2022-04-24] MEDS: ASPIRIN 81 MG ECTAB PO SCH (08:23)
--- NOTE | 2022-04-24 12:28 | Electrocardiogram Report ---
Test Reason : Blood Pressure : / mmHG Vent. Rate : 065 BPM Atrial Rate : 065 BPM P-R Int : 234 ms QRS Dur : 064 ms QT Int : 404 ms P-R-T Axes : 018 -37 009 degrees QTc Int : 420 ms Poor data quality, interpretation may be adversely affected Sinus rhythm with 1st degree A-V block Left axis deviation Moderate voltage criteria for LVH, may be normal variant Abnormal ECG When compared with ECG of 01-MAR-2022 08:44, Premature ventricular complexes are no longer Present Confirmed by Kaden Harmon ([id number]) on 04/24/2022 12:28:09 PM Referred By: REFERRED SELF Confirmed By:Kaden Harmon
--- NOTE | 2022-04-24 12:41 | Hospitalist Progress Note ---
Date of Service April 24, 2022 Assessment & Plan (1) Fall: Plan: - Patient has been admitted 2 months ago for syncope, at that time he had a cardiac work-up that was largely unremarkable, echo showed hyperdynamic left ventricle with EF 70%, grade 1 diastolic dysfunction, negative for decreased wall motion [place], he was volume depleted with MANUEL and responded to fluids, TSH elevated at that time, morning cortisol was low as suggesting adrenal insufficiency in setting of steroid use for giant cell arteritis, therefore he was placed on prednisone 8.5 mg daily, as well as 0.1 mg fludrocortisone for orthostatic hypotension. He was evaluated PT/OT who recommended patient go to rehab, however insurance denied this so he was discharged home with home health and family support. Despite this, he is continue to have ongoing falls that are presumably due to generalized weakness with sounds like orthostatic hypotension given his falls are occurring upon becoming lightheaded with standing up. - His labs and imaging here are unremarkable, with the exception of rib fr actures noted on CXR. - We will control his pain with Tylenol and Lidoderm patches, as well as heating pad overnight. - Holding lisinopril and verapamil in setting of suspected orthostatic hypotension. - PT and OT to evaluate and treat - Patient willing to have PT/OT and short-term placement. (2) Multiple rib fractures: Plan: - Pain management as above with Tylenol, Lidoderm patch, heating pad. - Without pneumothorax or flail chest. (3) Hypertension: Plan: BP today is 175/100, but see related issues. - For now, will monitor, but would consider cautious restarting of 1 of 2 home meds. (4) Orthostatic hypotension: Plan: - Holding lisinopril and verapamil. Patient is on 8.5 mg prednisone for temporal arteritis, as well as 0.1 mg fludrocortisone which was prescribed on discharge last admission. Per sister, may or may not be taking these regularly. - Monitor (5) CAD (coronary artery disease): Plan: - Chronic, stable. - Continue statin and aspirin. (6) GERD (gastroesophageal reflux disease): Plan: - Continue on omeprazole 20 mg at night, will have to switch to hospital formulary while admitted. (7) Depression: Plan: - Continue Seroquel 25 mg daily and fluoxetine 40 mg daily. (8) Temporal arteritis: Plan: - History of. - Continue prednisone, follows with neurology. (9) Hyperlipidemia: Plan: - Continue patient is on 10 mg daily. 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 Doherty. (11) Prostate cancer: Plan: S/p radiation, doing well without any current interventions. - Continue vitamin E for hot flashes. Admission and Anticipated Discharge Date Admission Date: April 23, 2022 Subjective Doing well today. Reports he is tired, but otherwise no major issues. Reports no fevers/chills, chest pain, shortness of breath, abdominal pain, nausea, or vomiting. Physical Exam Constitutional: WD/WN, vitals as above Eyes: EOM intact bilaterally; no conjunctival abnormality ENMT: external ear and nose normal, oropharynx normal Neck: trachea midline, no thyromegaly normal visual inspection Respiratory: normal respiratory effort, lungs clear to auscultation no respiratory distress Cardiovascular: RRR, no murmur, no edema Gastrointestinal (Abdomen): Inspection/Auscultation: abdomen normal to inspection; abdomen not distended Musculoskeletal: no cyanosis or clubbing, extremities motor strength 5/5 Skin: no rashes, warm and dry Neurologic: moves all extremities and awake Psychiatric: Orientation: alert, oriented to person and cooperative Results & Data Results & Data ([facility]) Vital Signs (Past 12 Hours) Vital Signs Temp Pulse Pulse Resp BP Pulse Ox O2 Del Method 04/24/22 11:39 36.4 C L 75 18 176/102 H 95 Room Air 04/24/22 07:41 61 04/24/22 07:40 36.6 C 61 18 183/93 H 95 04/24/22 07:37 Room Air 04/24/22 03:02 36.8 C 72 18 157/83 H 96 Room Air PG Care Time/CCT Total # of Minutes Spent Total Time Spent with Patient: Total time spent is greater than 50% in coordination of care (as documented) at patient's floor/unit and/or counseling patient: Coding Level of Care Code 00452 Subseq Hosp Care Lvl 3 Diagnoses Fall W19.XXXA Multiple rib fractures S22.49XA Hypertension I10 Orthostatic hypotension I95.1 CAD (coronary artery disease) I25.10 GERD (gastroesophageal reflux disease) K21.9 Depression F32.9 Temporal arteritis M31.6 Hyperlipidemia E78.5 Neurofibromatosis Q85.00 Prostate cancer C61
[2022-04-24] MEDS: PANTOprazole 40 MG TAB PO SCH (20:54)
[2022-04-25 06:45] LABS: Hematocrit (blood only) 38.7 % (40.1-51.0); Hemoglobin 13.1 g/dl (14.0-18.0); Mean Corpuscular Hgb Conc 33.9 g/dL (32.0-36.0); Mean Corpuscular Volume 94.4 fL (80.0-100.0); Mean Platelet Volume 8.9 fL (9.4-12.4); Platelet Count 178 K/uL (130-400); RDW Coefficient of Variation 12.5 % (11.5-14.5); RDW Standard Deviation 42.9 fL (36.4-46.3); White Blood Count 4.82 K/ul (4.8-10.8)
[2022-04-25 07:06] LABS: BUN Creatinine Ratio 21.6 (10-20); Calcium 8.4 mg/dl (8.5-10.1); Creatinine Clr Calc Pharmacy 48.7 ml/min; Est GFR (African American) 72.8 ml/min; Est GFR (Non-African American) 62.8 ml/min; Magnesium 1.9 mg/dl (1.7-2.4); Potassium 3.4 mmol/L (3.5-5.1)
[2022-04-25] MEDS: predniSONE 5 MG TAB PO SCH (08:50)
[2022-04-25] MEDS: FLUDROCORTISONE ACETATE 0.1 MG TAB PO SCH (08:50)
[2022-04-25] MEDS: FLUoxetine HCL 20 MG CAP PO SCH (08:50)
[2022-04-25] MEDS: QUEtiapine FUMARATE 25 MG TABLET PO SCH (08:51)
[2022-04-25] MEDS: LIDOCAINE 5% 1 PATCH TD SCH (08:51)
[2022-04-25] MEDS: ASPIRIN 81 MG ECTAB PO SCH (08:51)
[2022-04-25] MEDS: ROSUVASTATIN CALCIUM 10 MG TAB PO SCH (08:51)
[2022-04-25] MEDS: VITAMIN B COMPLEX TAB PO SCH (08:52)
[2022-04-25] MEDS: predniSONE 1 MG TAB PO SCH (08:52)
[2022-04-25] MEDS: predniSONE 2.5 MG TAB PO SCH (08:52)
[2022-04-25] MEDS: CHOLECALCIFEROL 1,000 UNITS 25 MCG TAB PO SCH (08:52)
--- NOTE | 2022-04-25 15:09 | Hospitalist Progress Note ---
Date of Service April 25, 2022 Assessment & Plan (1) Fall: Plan: - Patient has been admitted 2 months ago for syncope, at that time he had a cardiac work-up that was largely unremarkable, echo showed hyperdynamic left ventricle with EF 70%, grade 1 diastolic dysfunction, negative for decreased wall motion [place], he was volume depleted with MANUEL and responded to fluids, TSH elevated at that time, morning cortisol was low as suggesting adrenal insufficiency in setting of steroid use for giant cell arteritis, therefore he was placed on prednisone 8.5 mg daily, as well as 0.1 mg fludrocortisone for orthostatic hypotension. He was evaluated PT/OT who recommended patient go to rehab, however insurance denied this so he was discharged home with home health and family support. Despite this, he is continue to have ongoing falls that are presumably due to generalized weakness with sounds like orthostatic hypotension given his falls are occurring upon becoming lightheaded with standing up. - His labs and imaging here are unremarkable, with the exception of rib fr actures noted on CXR. - We will control his pain with Tylenol and Lidoderm patches, as well as heating pad overnight. - Holding lisinopril and verapamil in setting of suspected orthostatic hypotension. - PT and OT to evaluate and treat - Added MING hose on 04/24. Not orthostatic on 04/25: 129/81, 121/68, 118/72. - Patient willing to have PT/OT and short-term placement. (2) Multiple rib fractures: Plan: - Pain management as above with Tylenol, Lidoderm patch, heating pad. - Without pneumothorax or flail chest. (3) Hypertension: Plan: BP today is 165/90, but see related issues. - For now, will monitor, but would consider cautious restarting of 1 of 2 home meds. (4) Orthostatic hypotension: Plan: - Holding lisinopril and verapamil. Patient is on 8.5 mg prednisone for temporal arteritis, as well as 0.1 mg fludrocortisone which was prescribed on discharge last admission. Per sister, may or may not be taking these regularly. - As above (5) CAD (coronary artery disease): Plan: - Chronic, stable. - Continue statin and aspirin. (6) GERD (gastroesophageal reflux disease): Plan: - Continue on omeprazole 20 mg at night, will have to switch to hospital formulary while admitted. (7) Depression: Plan: - Continue Seroquel 25 mg daily and fluoxetine 40 mg daily. (8) Temporal arteritis: Plan: - History of. - Continue prednisone, follows with neurology. (9) Hyperlipidemia: Plan: - Continue patient is on 10 mg daily. 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 Doherty. (11) Prostate cancer: Plan: S/p radiation, doing well without any current interventions. - Continue vitamin E for hot flashes. Admission and Anticipated Discharge Date Admission Date: April 23, 2022 Subjective Doing well today. Reports he is tired, but otherwise no major issues. Reports no fevers/chills, chest pain, shortness of breath, abdominal pain, nausea, or vomiting. Physical Exam Constitutional: WD/WN, vitals as above Eyes: EOM intact bilaterally; no conjunctival abnormality ENMT: external ear and nose normal, oropharynx normal Neck: trachea midline, no thyromegaly normal visual inspection Respiratory: normal respiratory effort, lungs clear to auscultation no respiratory distress Cardiovascular: RRR, no murmur, no edema Gastrointestinal (Abdomen): Inspection/Auscultation: abdomen normal to inspection; abdomen not distended Musculoskeletal: no cyanosis or clubbing, extremities motor strength 5/5 Skin: no rashes, warm and dry Neurologic: moves all extremities and awake Psychiatric: Orientation: alert, oriented to person and cooperative Results & Data [facility] Vital Signs (Past 12 Hours) Vital Signs Temp Pulse Pulse Resp BP Pulse Ox O2 Del Method 04/25/22 14:42 64 04/25/22 11:42 36.4 C L 66 18 166/91 H 94 Room Air 04/25/22 08:08 36.4 C L 62 18 189/102 H 96 04/25/22 07:04 58 L 04/25/22 03:53 36.4 C L 61 18 163/93 H 96 Room Air 04/25/22 03:24 61 PG Care Time/CCT Total # of Minutes Spent Total Time Spent with Patient: Total time spent is greater than 50% in coordination of care (as documented) at patient's floor/unit and/or counseling patient: Coding Level of Care Code 58985 Subseq Hosp Care Lvl 2 Diagnoses Fall W19.XXXA Multiple rib fractures S22.49XA Hypertension I10 Orthostatic hypotension I95.1 CAD (coronary artery disease) I25.10 GERD (gastroesophageal reflux disease) K21.9 Depression F32.9 Temporal arteritis M31.6 Hyperlipidemia E78.5 Neurofibromatosis Q85.00 Prostate cancer C61
[2022-04-25] MEDS: lisinopril 2.5 MG TAB PO SCH (22:06)
[2022-04-25] MEDS: PANTOprazole 40 MG TAB PO SCH (22:06)
[2022-04-26] MEDS: ACETAMINOPHEN 325 MG TAB PO PRN ×2 (00:01→06:35)
[2022-04-26 06:48] LABS: Hemoglobin 13.2 g/dl (14.0-18.0); Mean Corpuscular Hemoglobin 31.4 pg (25.0-34.0); Mean Corpuscular Hgb Conc 33.8 g/dL (32.0-36.0); Mean Corpuscular Volume 92.9 fL (80.0-100.0); Mean Platelet Volume 9.4 fL (9.4-12.4); Platelet Count 198 K/uL (130-400); RDW Coefficient of Variation 12.5 % (11.5-14.5); RDW Standard Deviation 42.5 fL (36.4-46.3); White Blood Count 5.44 K/ul (4.8-10.8)
[2022-04-26 07:19] LABS: BUN Creatinine Ratio 30.6 (10-20); Calcium 8.6 mg/dl (8.5-10.1); Est GFR (African American) 75.3 ml/min; Est GFR (Non-African American) 64.9 ml/min; Potassium 3.6 mmol/L (3.5-5.1)
[2022-04-26] MEDS: FLUDROCORTISONE ACETATE 0.1 MG TAB PO SCH (09:38)
[2022-04-26] MEDS: LIDOCAINE 5% 1 PATCH TD SCH (09:38)
[2022-04-26] MEDS: VITAMIN B COMPLEX TAB PO SCH (09:39)
[2022-04-26] MEDS: predniSONE 1 MG TAB PO SCH (09:39)
[2022-04-26] MEDS: predniSONE 2.5 MG TAB PO SCH (09:39)
[2022-04-26] MEDS: QUEtiapine FUMARATE 25 MG TABLET PO SCH (09:39)
[2022-04-26] MEDS: FLUoxetine HCL 20 MG CAP PO SCH (09:39)
[2022-04-26] MEDS: ASPIRIN 81 MG ECTAB PO SCH (09:39)
[2022-04-26] MEDS: predniSONE 5 MG TAB PO SCH (09:39)
[2022-04-26] MEDS: ROSUVASTATIN CALCIUM 10 MG TAB PO SCH (09:39)
[2022-04-26] MEDS: CHOLECALCIFEROL 1,000 UNITS 25 MCG TAB PO SCH (09:39)
--- NOTE | 2022-04-26 14:43 | Hospitalist Progress Note ---
Date of Service April 26, 2022 Assessment & Plan (1) Fall: Plan: - Patient has been admitted 2 months ago for syncope, at that time he had a cardiac work-up that was largely unremarkable, echo showed hyperdynamic left ventricle with EF 70%, grade 1 diastolic dysfunction, negative for decreased wall motion [place], he was volume depleted with MANUEL and responded to fluids, TSH elevated at that time, morning cortisol was low as suggesting adrenal insufficiency in setting of steroid use for giant cell arteritis, therefore he was placed on prednisone 8.5 mg daily, as well as 0.1 mg fludrocortisone for orthostatic hypotension. He was evaluated PT/OT who recommended patient go to rehab, however insurance denied this so he was discharged home with home health and family support. Despite this, he is continue to have ongoing falls that are presumably due to generalized weakness with sounds like orthostatic hypotension given his falls are occurring upon becoming lightheaded with standing up. - His labs and imaging here are unremarkable, with the exception of rib fr actures noted on CXR. - We will control his pain with Tylenol and Lidoderm patches, as well as heating pad overnight. - Holding lisinopril and verapamil in setting of suspected orthostatic hypotension. - PT and OT to evaluate and treat - Added MING hose on 04/24. Not orthostatic on 04/25: 129/81, 121/68, 118/72. -> Back to orthostatic on 04/26: 148/81, 137/75, 99/66. - Will hold lisinopril as it seems this has an outsized effect on his BP. - Patient willing to have PT/OT and short-term placement. (2) Multiple rib fractures: Plan: - Pain management as above with Tylenol, Lidoderm patch, heating pad. - Without pneumothorax or flail chest. (3) Hypertension: Plan: BP today is 120/70, but see related issues. - For now, will hold lisinopril. Restarted on 04/25 in the evening, but immediately was orthostatic the next day. - Hold home verapamil. (4) Orthostatic hypotension: Plan: - Holding lisinopril and verapamil. Patient is on 8.5 mg prednisone for temporal arteritis, as well as 0.1 mg fludrocortisone which was prescribed on discharge last admission. Per sister, may or may not be taking these regularly. Also per sister, had planned to reduce prednisone with rheumatology as early as this Sunday. - Consider reaching out to rheumatology for recs on prednisone. - As above (5) CAD (coronary artery disease): Plan: - Chronic, stable. - Continue statin and aspirin. (6) GERD (gastroesophageal reflux disease): Plan: - Continue on omeprazole 20 mg at night, will have to switch to hospital formulary while admitted. (7) Depression: Plan: Affect is fairly stable, but does spend much of his day sleeping. - Continue Seroquel 25 mg daily and fluoxetine 40 mg daily. (8) Temporal arteritis: Plan: - History of. - Continue prednisone, follows with neurology. (9) Hyperlipidemia: Plan: - Continue patient is on 10 mg daily. 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 Doherty. (11) Prostate cancer: Plan: S/p radiation, doing well without any current interventions. - Continue vitamin E for hot flashes. (12) DVT prophylaxis: Plan: Lovenox 40 mg SQ daily Admission and Anticipated Discharge Date Admission Date: April 25, 2022 Subjective No issues today. Still reports being tired. Reports no fevers/chills, chest pain, shortness of breath, abdominal pain, nausea, or vomiting. Physical Exam Constitutional: WD/WN, vitals as above Eyes: EOM intact bilaterally; no conjunctival abnormality ENMT: external ear and nose normal, oropharynx normal Neck: trachea midline, no thyromegaly normal visual inspection Respiratory: normal respiratory effort, lungs clear to auscultation no respiratory distress Cardiovascular: RRR, no murmur, no edema Gastrointestinal (Abdomen): Inspection/Auscultation: abdomen normal to inspection; abdomen not distended Musculoskeletal: no cyanosis or clubbing, extremities motor strength 5/5 Skin: no rashes, warm and dry Neurologic: moves all extremities and awake Psychiatric: Orientation: alert, oriented to person and cooperative Results & Data Results & Data ([facility]) Vital Signs (Past 12 Hours) Vital Signs Temp Pulse Pulse Pulse Resp BP Pulse Ox 04/26/22 13:15 96 04/26/22 11:35 36.4 C L 61 20 120/69 94 04/26/22 07:40 36.6 C 59 L 20 129/72 96 04/26/22 07:43 67 04/26/22 04:13 36.7 C 81 20 148/84 H 92 O2 Del Method 04/26/22 13:15 04/26/22 11:35 Room Air 04/26/22 07:40 Room Air 04/26/22 07:43 04/26/22 04:13 Room Air PG Care Time/CCT Total # of Minutes Spent Total Time Spent with Patient: Total time spent is greater than 50% in coordination of care (as documented) at patient's floor/unit and/or counseling patient: Coding Level of Care Code 47248 Subseq Hosp Care Lvl 3 Diagnoses Fall W19.XXXA Multiple rib fractures S22.49XA Hypertension I10 Orthostatic hypotension I95.1 CAD (coronary artery disease) I25.10 GERD (gastroesophageal reflux disease) K21.9 Depression F32.9 Temporal arteritis M31.6 Hyperlipidemia E78.5 Neurofibromatosis Q85.00 Prostate cancer C61 DVT prophylaxis Z29.9
[2022-04-26] MEDS: lisinopril 2.5 MG TAB PO SCH (20:39)
[2022-04-26] MEDS: PANTOprazole 40 MG TAB PO SCH (20:39)
[2022-04-27 08:08] LABS: Hematocrit (blood only) 38.1 % (40.1-51.0); Hemoglobin 12.9 g/dl (14.0-18.0); Mean Corpuscular Hemoglobin 31.7 pg (25.0-34.0); Mean Corpuscular Hgb Conc 33.9 g/dL (32.0-36.0); Mean Corpuscular Volume 93.6 fL (80.0-100.0); Mean Platelet Volume 9.2 fL (9.4-12.4); Platelet Count 192 K/uL (130-400); RDW Coefficient of Variation 12.6 % (11.5-14.5); RDW Standard Deviation 43.4 fL (36.4-46.3); Red Blood Count 4.07 M/uL (4.63-6.08)
[2022-04-27] MEDS: ENOXAPARIN INJ 40 MG/0.4 ML SYR SQ SCH (08:31)
[2022-04-27] MEDS: predniSONE 1 MG TAB PO SCH (08:32)
[2022-04-27] MEDS: predniSONE 2.5 MG TAB PO SCH (08:32)
[2022-04-27] MEDS: ROSUVASTATIN CALCIUM 10 MG TAB PO SCH (08:32)
[2022-04-27] MEDS: FLUDROCORTISONE ACETATE 0.1 MG TAB PO SCH (08:33)
[2022-04-27] MEDS: CHOLECALCIFEROL 1,000 UNITS 25 MCG TAB PO SCH (08:33)
[2022-04-27] MEDS: ASPIRIN 81 MG ECTAB PO SCH (08:34)
[2022-04-27] MEDS: LIDOCAINE 5% 1 PATCH TD SCH (08:34)
[2022-04-27] MEDS: FLUoxetine HCL 20 MG CAP PO SCH (08:34)
[2022-04-27] MEDS: QUEtiapine FUMARATE 25 MG TABLET PO SCH (08:34)
[2022-04-27] MEDS: VITAMIN B COMPLEX TAB PO SCH (08:34)
[2022-04-27 08:43] LABS: BUN Creatinine Ratio 30.3 (10-20); Calcium 8.3 mg/dl (8.5-10.1); Creatinine Clr Calc Pharmacy 49.6 ml/min; Est GFR (African American) 74.4 ml/min; Est GFR (Non-African American) 64.2 ml/min; Potassium 3.6 mmol/L (3.5-5.1)
[2022-04-27] MEDS: predniSONE 5 MG TAB PO SCH (10:06)
--- NOTE | 2022-04-27 16:14 | Hospitalist Progress Note ---
Date of Service April 27, 2022 Assessment & Plan (1) Fall: Plan: - Patient has been admitted 2 months ago for syncope, at that time he had a cardiac work-up that was largely unremarkable, echo showed hyperdynamic left ventricle with EF 70%, grade 1 diastolic dysfunction, negative for decreased wall motion [place], he was volume depleted with MANUEL and responded to fluids, TSH elevated at that time, morning cortisol was low as suggesting adrenal insufficiency in setting of steroid use for giant cell arteritis, therefore he was placed on prednisone 8.5 mg daily, as well as 0.1 mg fludrocortisone for orthostatic hypotension. He was evaluated PT/OT who recommended patient go to rehab, however insurance denied this so he was discharged home with home health and family support. Despite this, he is continue to have ongoing falls that are presumably due to generalized weakness with sounds like orthostatic hypotension given his falls are occurring upon becoming lightheaded with standing up. - His labs and imaging here are unremarkable, with the exception of rib fr actures noted on CXR. - We will control his pain with Tylenol and Lidoderm patches, as well as heating pad overnight. - Holding lisinopril and verapamil in setting of suspected orthostatic hypotension. - PT and OT to evaluate and treat - Added MING hose on 04/24. Not orthostatic on 04/25: 129/81, 121/68, 118/72. -> Back to orthostatic on 04/26 & 04/27: 148/81, 137/75, 99/66 & 160/80, 123/73, 95/59 respectively. - Received lisinopril 2.5 mg HS on 04/26 & 04/27. -> Will stop this as it clearly seems to have a large impact on his BP. I discussed with patient and sister today that maybe we just need to tolerate a fairly high BP to avoid orthostasis. It obviously will come with higher long- term [place] and CVA risk, but I'm not sure how else to get his quality of life improved. (2) Multiple rib fractures: Plan: - Pain management as above with Tylenol, Lidoderm patch, heating pad. - Without pneumothorax or flail chest. (3) Hypertension: Plan: BP today is 165/90, but see related issues. - For now, will hold lisinopril. Restarted on 04/25 in the evening, but immediately was orthostatic the next day. - Hold home verapamil. (4) Orthostatic hypotension: Plan: - Holding lisinopril and verapamil. Patient is on 8.5 mg prednisone for temporal arteritis, as well as 0.1 mg fludrocortisone which was prescribed on discharge last admission. Per sister, may or may not be taking these regularly. Also per sister, had planned to reduce prednisone with rheumatology as early as this Sunday. - Consider reaching out to rheumatology for recs on prednisone. - As above (5) CAD (coronary artery disease): Plan: - Chronic, stable. - Continue statin and aspirin. (6) GERD (gastroesophageal reflux disease): Plan: - Continue on omeprazole 20 mg at night, will have to switch to hospital formulary while admitted. (7) Depression: Plan: Affect is fairly stable, but does spend much of his day sleeping. - Continue Seroquel 25 mg daily and fluoxetine 40 mg daily. (8) Temporal arteritis: Plan: - History of. - Continue prednisone, follows with neurology. - Continue home tocilizumab 162 mg Q14 days - Sister brought it in. (9) Hyperlipidemia: Plan: - Continue patient is on rosuvastatin 10 mg daily. 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 Doherty. (11) Prostate cancer: Plan: S/p radiation, doing well without any current interventions. - Continue vitamin E for hot flashes. (12) DVT prophylaxis: Plan: Lovenox 40 mg SQ daily Admission and Anticipated Discharge Date Admission Date: April 25, 2022 Subjective Feeling more energetic today with sister in the room. Agrees to work with PT today. Willing to go to rehab. Reports no fevers/chills, chest pain, shortness of breath, abdominal pain, nausea, or vomiting. Physical Exam Constitutional: WD/WN, vitals as above Eyes: EOM intact bilaterally; no conjunctival abnormality ENMT: external ear and nose normal, oropharynx normal Neck: trachea midline, no thyromegaly normal visual inspection Respiratory: normal respiratory effort, lungs clear to auscultation no respiratory distress Cardiovascular: RRR, no murmur, no edema Gastrointestinal (Abdomen): Inspection/Auscultation: abdomen normal to inspection; abdomen not distended Musculoskeletal: no cyanosis or clubbing, extremities motor strength 5/5 Skin: no rashes, warm and dry Neurologic: moves all extremities and awake Psychiatric: Orientation: alert, oriented to person and cooperative Results & Data Results & Data ([facility]) Vital Signs (Past 12 Hours) Vital Signs Temp Pulse Pulse Resp BP Pulse Ox O2 Del Method 04/27/22 07:08 64 04/27/22 06:41 36.7 C 62 18 165/90 H 96 Room Air PG Care Time/CCT Total # of Minutes Spent Total Time Spent with Patient: Total time spent is greater than 50% in coordination of care (as documented) at patient's floor/unit and/or counseling patient: Coding Level of Care Code 63869 Subseq Hosp Care Lvl 3 Diagnoses Fall W19.XXXA Multiple rib fractures S22.49XA Hypertension I10 Orthostatic hypotension I95.1 CAD (coronary artery disease) I25.10 GERD (gastroesophageal reflux disease) K21.9 Depression F32.9 Temporal arteritis M31.6 Hyperlipidemia E78.5 Neurofibromatosis Q85.00 Prostate cancer C61 DVT prophylaxis Z29.9
[2022-04-27] MEDS ORDERED: TOCILIZUMAB 162 MG/0.9 ML SQ SCH (18:00)
[2022-04-27] MEDS: PANTOprazole 40 MG TAB PO SCH (20:07)
[2022-04-27] MEDS: ACETAMINOPHEN 325 MG TAB PO PRN (20:09)
[2022-04-27] MEDS: MELATONIN 3 MG TAB PO PRN (20:10)
[2022-04-28 06:45] LABS: Hematocrit (blood only) 38.6 % (40.1-51.0); Hemoglobin 13.3 g/dl (14.0-18.0); Mean Corpuscular Hemoglobin 32.4 pg (25.0-34.0); Mean Corpuscular Hgb Conc 34.5 g/dL (32.0-36.0); Mean Corpuscular Volume 93.9 fL (80.0-100.0); Mean Platelet Volume 9.2 fL (9.4-12.4); Platelet Count 181 K/uL (130-400); RDW Coefficient of Variation 12.4 % (11.5-14.5); RDW Standard Deviation 42.9 fL (36.4-46.3); Red Blood Count 4.11 M/uL (4.63-6.08); White Blood Count 5.23 K/ul (4.8-10.8)
[2022-04-28 07:25] LABS: BUN Creatinine Ratio 26.6 (10-20); Calcium 8.2 mg/dl (8.5-10.1); Creatinine Clr Calc Pharmacy 42.2 ml/min; Est GFR (African American) 61.3 ml/min; Est GFR (Non-African American) 52.9 ml/min; Potassium 3.9 mmol/L (3.5-5.1)
[2022-04-28] MEDS: ENOXAPARIN INJ 40 MG/0.4 ML SYR SQ SCH (08:50)
[2022-04-28] MEDS: FLUoxetine HCL 20 MG CAP PO SCH (08:51)
[2022-04-28] MEDS: VITAMIN B COMPLEX TAB PO SCH (08:51)
[2022-04-28] MEDS: CHOLECALCIFEROL 1,000 UNITS 25 MCG TAB PO SCH (08:51)
[2022-04-28] MEDS: ASPIRIN 81 MG ECTAB PO SCH (08:51)
[2022-04-28] MEDS: ROSUVASTATIN CALCIUM 10 MG TAB PO SCH (08:51)
[2022-04-28] MEDS: predniSONE 5 MG TAB PO SCH (08:51)
[2022-04-28] MEDS: predniSONE 2.5 MG TAB PO SCH (08:51)
[2022-04-28] MEDS: QUEtiapine FUMARATE 25 MG TABLET PO SCH (08:51)
[2022-04-28] MEDS: FLUDROCORTISONE ACETATE 0.1 MG TAB PO SCH (08:51)
[2022-04-28] MEDS: predniSONE 1 MG TAB PO SCH (08:51)
[2022-04-28] MEDS: LIDOCAINE 5% 1 PATCH TD SCH (08:52)
[2022-04-28] MEDS: PANTOprazole 40 MG TAB PO SCH (19:58)
--- NOTE | 2022-04-28 22:27 | Hospitalist Progress Note ---
Date of Service April 28, 2022 Assessment & Plan (1) Fall: Plan: - Patient has been admitted 2 months ago for syncope, at that time he had a cardiac work-up that was largely unremarkable, echo showed hyperdynamic left ventricle with EF 70%, grade 1 diastolic dysfunction, negative for decreased wall motion [place], he was volume depleted with MANUEL and responded to fluids, TSH elevated at that time, morning cortisol was low as suggesting adrenal insufficiency in setting of steroid use for giant cell arteritis, therefore he was placed on prednisone 8.5 mg daily, as well as 0.1 mg fludrocortisone for orthostatic hypotension. He was evaluated PT/OT who recommended patient go to rehab, however insurance denied this so he was discharged home with home health and family support. Despite this, he is continue to have ongoing falls that are presumably due to generalized weakness with sounds like orthostatic hypotension given his falls are occurring upon becoming lightheaded with standing up. - His labs and imaging here are unremarkable, with the exception of rib fr actures noted on CXR. - We will control his pain with Tylenol and Lidoderm patches, as well as heating pad overnight. - Holding lisinopril and verapamil in setting of suspected orthostatic hypotension. - PT and OT to evaluate and treat - Added MING connere on 04/24. Not orthostatic on 04/25: 129/81, 121/68, 118/72. -> Back to orthostatic on 04/26 & 04/27: 148/81, 137/75, 99/66 & 160/80, 123/73, 95/59 respectively. - Received lisinopril 2.5 mg HS on 04/26 & 04/27. -> Will stop this as it clearly seems to have a large impact on his BP. I discussed with patient and sister today that maybe we just need to tolerate a fairly high BP to avoid orthostasis. It obviously will come with higher long- term [place] and CVA risk, but I'm not sure how else to get his quality of life improved. On 04/28, awaiting placeemnt. (2) Multiple rib fractures: Plan: - Pain management as above with Tylenol, Lidoderm patch, heating pad. - Without pneumothorax or flail chest. (3) Hypertension: Plan: BP today is 165/90, but see related issues. - For now, will hold lisinopril. Restarted on 04/25 in the evening, but immediately was orthostatic the next day. - Hold home verapamil. (4) Orthostatic hypotension: Plan: - Holding lisinopril and verapamil. Patient is on 8.5 mg prednisone for temporal arteritis, as well as 0.1 mg fludrocortisone which was prescribed on discharge last admission. Per sister, may or may not be taking these regularly. Also per sister, had planned to reduce prednisone with rheumatology as early as this Sunday. - Consider reaching out to rheumatology for recs on prednisone. - As above (5) CAD (coronary artery disease): Plan: - Chronic, stable. - Continue statin and aspirin. (6) GERD (gastroesophageal reflux disease): Plan: - Continue on omeprazole 20 mg at night, will have to switch to hospital formulary while admitted. (7) Depression: Plan: Affect is fairly stable, but does spend much of his day sleeping. - Continue Seroquel 25 mg daily and fluoxetine 40 mg daily. (8) Temporal arteritis: Plan: - History of. - Continue prednisone, follows with neurology. - Continue home tocilizumab 162 mg Q14 days - Sister brought it in. (9) Hyperlipidemia: Plan: - Continue patient is on rosuvastatin 10 mg daily. 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 Doherty. (11) Prostate cancer: Plan: S/p radiation, doing well without any current interventions. - Continue vitamin E for hot flashes. (12) DVT prophylaxis: Plan: Lovenox 40 mg SQ daily Admission and Anticipated Discharge Date Admission Date: April 25, 2022 Subjective Patient is confused. Review of Systems Review of Systems: Unobtainable due to cognitive status Physical Exam Constitutional: WD/WN, vitals as above Eyes: EOM intact bilaterally; no conjunctival abnormality ENMT: external ear and nose normal, oropharynx normal Neck: trachea midline, no thyromegaly normal visual inspection Respiratory: normal respiratory effort, lungs clear to auscultation no respiratory distress Cardiovascular: RRR, no murmur, no edema Gastrointestinal (Abdomen): Inspection/Auscultation: abdomen normal to inspection; abdomen not distended Musculoskeletal: no cyanosis or clubbing, extremities motor strength 5/5 Skin: no rashes, warm and dry Neurologic: moves all extremities and awake Psychiatric: Orientation: alert, oriented to person and cooperative PG Care Time/CCT Total # of Minutes Spent Total Time Spent with Patient: Total time spent is greater than 50% in coordination of care (as documented) at patient's floor/unit and/or counseling patient: Coding Level of Care Code 78850 Subseq Hosp Care Lvl 2 Diagnoses Fall W19.XXXA Multiple rib fractures S22.49XA Hypertension I10 Orthostatic hypotension I95.1 CAD (coronary artery disease) I25.10 GERD (gastroesophageal reflux disease) K21.9 Depression F32.9 Temporal arteritis M31.6 Hyperlipidemia E78.5 Neurofibromatosis Q85.00 Prostate cancer C61 DVT prophylaxis Z29.9 Time Spent (min) 25 Comment chart review
[2022-04-29] MEDS: FLUoxetine HCL 20 MG CAP PO SCH (08:10)
[2022-04-29] MEDS: QUEtiapine FUMARATE 25 MG TABLET PO SCH (08:10)
[2022-04-29] MEDS: FLUDROCORTISONE ACETATE 0.1 MG TAB PO SCH (08:11)
[2022-04-29] MEDS: CHOLECALCIFEROL 1,000 UNITS 25 MCG TAB PO SCH (08:11)
[2022-04-29] MEDS: predniSONE 5 MG TAB PO SCH (08:11)
[2022-04-29] MEDS: ASPIRIN 81 MG ECTAB PO SCH (08:11)
[2022-04-29] MEDS: predniSONE 2.5 MG TAB PO SCH (08:12)
[2022-04-29] MEDS: VITAMIN B COMPLEX TAB PO SCH (08:12)
[2022-04-29] MEDS: ROSUVASTATIN CALCIUM 10 MG TAB PO SCH (08:12)
[2022-04-29] MEDS: predniSONE 1 MG TAB PO SCH (08:12)
[2022-04-29] MEDS: ENOXAPARIN INJ 40 MG/0.4 ML SYR SQ SCH (08:12)
[2022-04-29] MEDS: LIDOCAINE 5% 1 PATCH TD SCH (08:13)
[2022-04-29] MEDS: ACETAMINOPHEN 325 MG TAB PO PRN ×2 (08:18→23:05)
[2022-04-29] MEDS: PANTOprazole 40 MG TAB PO SCH (20:00)
--- NOTE | 2022-04-29 21:58 | Hospitalist Progress Note ---
Date of Service April 29, 2022 Assessment & Plan (1) Fall: Plan: - Patient has been admitted 2 months ago for syncope, at that time he had a cardiac work-up that was largely unremarkable, echo showed hyperdynamic left ventricle with EF 70%, grade 1 diastolic dysfunction, negative for decreased wall motion [place], he was volume depleted with MANUEL and responded to fluids, TSH elevated at that time, morning cortisol was low as suggesting adrenal insufficiency in setting of steroid use for giant cell arteritis, therefore he was placed on prednisone 8.5 mg daily, as well as 0.1 mg fludrocortisone for orthostatic hypotension. He was evaluated PT/OT who recommended patient go to rehab, however insurance denied this so he was discharged home with home health and family support. Despite this, he is continue to have ongoing falls that are presumably due to generalized weakness with sounds like orthostatic hypotension given his falls are occurring upon becoming lightheaded with standing up. - His labs and imaging here are unremarkable, with the exception of rib fr actures noted on CXR. - We will control his pain with Tylenol and Lidoderm patches, as well as heating pad overnight. - Holding lisinopril and verapamil in setting of suspected orthostatic hypotension. - PT and OT to evaluate and treat - Added MING connere on 04/24. Not orthostatic on 04/25: 129/81, 121/68, 118/72. -> Back to orthostatic on 04/26 & 04/27: 148/81, 137/75, 99/66 & 160/80, 123/73, 95/59 respectively. - Received lisinopril 2.5 mg HS on 04/26 & 04/27. -> Will stop this as it clearly seems to have a large impact on his BP. I discussed with patient and sister today that maybe we just need to tolerate a fairly high BP to avoid orthostasis. It obviously will come with higher long- term [place] and CVA risk, but I'm not sure how else to get his quality of life improved. On 04/29, awaiting placeemnt. (2) Multiple rib fractures: Plan: - Pain management as above with Tylenol, Lidoderm patch, heating pad. - Without pneumothorax or flail chest. (3) Hypertension: Plan: BP today is 165/90, but see related issues. - For now, will hold lisinopril. Restarted on 04/25 in the evening, but immediately was orthostatic the next day. - Hold home verapamil. (4) Orthostatic hypotension: Plan: - Holding lisinopril and verapamil. Patient is on 8.5 mg prednisone for temporal arteritis, as well as 0.1 mg fludrocortisone which was prescribed on discharge last admission. Per sister, may or may not be taking these regularly. Also per sister, had planned to reduce prednisone with rheumatology as early as this Sunday. - Consider reaching out to rheumatology for recs on prednisone. - As above (5) CAD (coronary artery disease): Plan: - Chronic, stable. - Continue statin and aspirin. (6) GERD (gastroesophageal reflux disease): Plan: - Continue on omeprazole 20 mg at night, will have to switch to hospital formulary while admitted. (7) Depression: Plan: Affect is fairly stable, but does spend much of his day sleeping. - Continue Seroquel 25 mg daily and fluoxetine 40 mg daily. (8) Temporal arteritis: Plan: - History of. - Continue prednisone, follows with neurology. - Continue home tocilizumab 162 mg Q14 days - Sister brought it in. (9) Hyperlipidemia: Plan: - Continue patient is on rosuvastatin 10 mg daily. 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 Doherty. (11) Prostate cancer: Plan: S/p radiation, doing well without any current interventions. - Continue vitamin E for hot flashes. (12) DVT prophylaxis: Plan: Lovenox 40 mg SQ daily Admission and Anticipated Discharge Date Admission Date: April 25, 2022 Subjective 81 yo male reports no new symptoms. Review of Systems Review of Systems: All systems reviewed & are unremarkable except as noted in HPI & below Physical Exam Constitutional: WD/WN, vitals as above Eyes: EOM intact bilaterally; no conjunctival abnormality ENMT: external ear and nose normal, oropharynx normal Neck: trachea midline, no thyromegaly normal visual inspection Respiratory: normal respiratory effort, lungs clear to auscultation no respiratory distress Cardiovascular: RRR, no murmur, no edema Gastrointestinal (Abdomen): Inspection/Auscultation: abdomen normal to inspection; abdomen not distended Musculoskeletal: no cyanosis or clubbing, extremities motor strength 5/5 Skin: no rashes, warm and dry Neurologic: moves all extremities and awake Psychiatric: Orientation: alert, oriented to person and cooperative PG Care Time/CCT Total # of Minutes Spent Total Time Spent with Patient: Total time spent is greater than 50% in coordination of care (as documented) at patient's floor/unit and/or counseling patient: Coding Level of Care Code 30657 Subseq Hosp Care Lvl 2 Diagnoses Fall W19.XXXA Multiple rib fractures S22.49XA Hypertension I10 Orthostatic hypotension I95.1 CAD (coronary artery disease) I25.10 GERD (gastroesophageal reflux disease) K21.9 Depression F32.9 Temporal arteritis M31.6 Hyperlipidemia E78.5 Neurofibromatosis Q85.00 Prostate cancer C61 DVT prophylaxis Z29.9
[2022-04-30] MEDS: LIDOCAINE 5% 1 PATCH TD SCH (08:34)
[2022-04-30] MEDS: ENOXAPARIN INJ 40 MG/0.4 ML SYR SQ SCH (08:36)
[2022-04-30] MEDS: ASPIRIN 81 MG ECTAB PO SCH (08:36)
[2022-04-30] MEDS: FLUoxetine HCL 20 MG CAP PO SCH (08:37)
[2022-04-30] MEDS: CHOLECALCIFEROL 1,000 UNITS 25 MCG TAB PO SCH (08:37)
[2022-04-30] MEDS: predniSONE 5 MG TAB PO SCH (08:37)
[2022-04-30] MEDS: FLUDROCORTISONE ACETATE 0.1 MG TAB PO SCH (08:37)
[2022-04-30] MEDS: predniSONE 1 MG TAB PO SCH (08:38)
[2022-04-30] MEDS: ROSUVASTATIN CALCIUM 10 MG TAB PO SCH (08:38)
[2022-04-30] MEDS: VITAMIN B COMPLEX TAB PO SCH (08:38)
[2022-04-30] MEDS: predniSONE 2.5 MG TAB PO SCH (08:38)
[2022-04-30] MEDS: QUEtiapine FUMARATE 25 MG TABLET PO SCH (08:38)
[2022-04-30] MEDS: ACETAMINOPHEN 325 MG TAB PO PRN (19:55)
[2022-04-30] MEDS: PANTOprazole 40 MG TAB PO SCH (19:57)
--- NOTE | 2022-04-30 21:27 | Hospitalist Progress Note ---
Date of Service April 30, 2022 Assessment & Plan (1) Fall: Plan: - Patient has been admitted 2 months ago for syncope, at that time he had a cardiac work-up that was largely unremarkable, echo showed hyperdynamic left ventricle with EF 70%, grade 1 diastolic dysfunction, negative for decreased wall motion [place], he was volume depleted with MANUEL and responded to fluids, TSH elevated at that time, morning cortisol was low as suggesting adrenal insufficiency in setting of steroid use for giant cell arteritis, therefore he was placed on prednisone 8.5 mg daily, as well as 0.1 mg fludrocortisone for orthostatic hypotension. He was evaluated PT/OT who recommended patient go to rehab, however insurance denied this so he was discharged home with home health and family support. Despite this, he is continue to have ongoing falls that are presumably due to generalized weakness with sounds like orthostatic hypotension given his falls are occurring upon becoming lightheaded with standing up. - His labs and imaging here are unremarkable, with the exception of rib fr actures noted on CXR. - We will control his pain with Tylenol and Lidoderm patches, as well as heating pad overnight. - Holding lisinopril and verapamil in setting of suspected orthostatic hypotension. - PT and OT to evaluate and treat - Added MING connere on 04/24. Not orthostatic on 04/25: 129/81, 121/68, 118/72. -> Back to orthostatic on 04/26 & 04/27: 148/81, 137/75, 99/66 & 160/80, 123/73, 95/59 respectively. - Received lisinopril 2.5 mg HS on 04/26 & 04/27. -> Will stop this as it clearly seems to have a large impact on his BP. I discussed with patient and sister today that maybe we just need to tolerate a fairly high BP to avoid orthostasis. It obviously will come with higher long- term [place] and CVA risk, but I'm not sure how else to get his quality of life improved. On 04/30, awaiting placeemnt. (2) Multiple rib fractures: Plan: - Pain management as above with Tylenol, Lidoderm patch, heating pad. - Without pneumothorax or flail chest. (3) Hypertension: Plan: BP today is 165/90, but see related issues. - For now, will hold lisinopril. Restarted on 04/25 in the evening, but immediately was orthostatic the next day. - Hold home verapamil. (4) Orthostatic hypotension: Plan: - Holding lisinopril and verapamil. Patient is on 8.5 mg prednisone for temporal arteritis, as well as 0.1 mg fludrocortisone which was prescribed on discharge last admission. Per sister, may or may not be taking these regularly. Also per sister, had planned to reduce prednisone with rheumatology as early as this Sunday. - Consider reaching out to rheumatology for recs on prednisone. - As above (5) CAD (coronary artery disease): Plan: - Chronic, stable. - Continue statin and aspirin. (6) GERD (gastroesophageal reflux disease): Plan: - Continue on omeprazole 20 mg at night, will have to switch to hospital formulary while admitted. (7) Depression: Plan: Affect is fairly stable, but does spend much of his day sleeping. - Continue Seroquel 25 mg daily and fluoxetine 40 mg daily. (8) Temporal arteritis: Plan: - History of. - Continue prednisone, follows with neurology. - Continue home tocilizumab 162 mg Q14 days - Sister brought it in. (9) Hyperlipidemia: Plan: - Continue patient is on rosuvastatin 10 mg daily. 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 Doherty. (11) Prostate cancer: Plan: S/p radiation, doing well without any current interventions. - Continue vitamin E for hot flashes. (12) DVT prophylaxis: Plan: Lovenox 40 mg SQ daily Admission and Anticipated Discharge Date Admission Date: April 25, 2022 Subjective Patient has no new complaints. Review of Systems Review of Systems: All systems reviewed & are unremarkable except as noted in HPI & below Physical Exam Constitutional: WD/WN, vitals as above Eyes: EOM intact bilaterally; no conjunctival abnormality ENMT: external ear and nose normal, oropharynx normal Neck: trachea midline, no thyromegaly normal visual inspection Respiratory: normal respiratory effort, lungs clear to auscultation no respiratory distress Cardiovascular: RRR, no murmur, no edema Gastrointestinal (Abdomen): Inspection/Auscultation: abdomen normal to inspection; abdomen not distended Musculoskeletal: no cyanosis or clubbing, extremities motor strength 5/5 Skin: no rashes, warm and dry Neurologic: moves all extremities and awake Psychiatric: Orientation: alert, oriented to person and cooperative Results & Data Results & Data ([facility]) Vital Signs (Past 12 Hours) Vital Signs Temp Pulse Resp BP Pulse Ox O2 Del Method 04/30/22 15:56 36.9 C 65 20 142/87 H 95 Room Air PG Care Time/CCT Total # of Minutes Spent Total Time Spent with Patient: Total time spent is greater than 50% in coordination of care (as documented) at patient's floor/unit and/or counseling patient: Coding Level of Care Code 53036 Subseq Hosp Care Lvl 2 Diagnoses Fall W19.XXXA Multiple rib fractures S22.49XA Hypertension I10 Orthostatic hypotension I95.1 CAD (coronary artery disease) I25.10 GERD (gastroesophageal reflux disease) K21.9 Depression F32.9 Temporal arteritis M31.6 Hyperlipidemia E78.5 Neurofibromatosis Q85.00 Prostate cancer C61 DVT prophylaxis Z29.9
[2022-04-30] MEDS: MELATONIN 3 MG TAB PO PRN (23:03)
[2022-05-01] MEDS: ENOXAPARIN INJ 40 MG/0.4 ML SYR SQ SCH (08:19)
[2022-05-01] MEDS: predniSONE 1 MG TAB PO SCH (08:20)
[2022-05-01] MEDS: predniSONE 2.5 MG TAB PO SCH (08:20)
[2022-05-01] MEDS: predniSONE 5 MG TAB PO SCH (08:20)
[2022-05-01] MEDS: FLUoxetine HCL 20 MG CAP PO SCH (08:21)
[2022-05-01] MEDS: ROSUVASTATIN CALCIUM 10 MG TAB PO SCH (08:21)
[2022-05-01] MEDS: QUEtiapine FUMARATE 25 MG TABLET PO SCH (08:21)
[2022-05-01] MEDS: ASPIRIN 81 MG ECTAB PO SCH (08:21)
[2022-05-01] MEDS: LIDOCAINE 5% 1 PATCH TD SCH (08:22)
[2022-05-01] MEDS: VITAMIN B COMPLEX TAB PO SCH (08:22)
[2022-05-01] MEDS: FLUDROCORTISONE ACETATE 0.1 MG TAB PO SCH (08:22)
[2022-05-01] MEDS: CHOLECALCIFEROL 1,000 UNITS 25 MCG TAB PO SCH (08:22)
[2022-05-01] MEDS: ACETAMINOPHEN 325 MG TAB PO PRN (12:48)
[2022-05-01 15:08] VITALS: O2SAT 95
[2022-05-01] MEDS: PANTOprazole 40 MG TAB PO SCH (19:56)
--- NOTE | 2022-05-01 21:13 | Hospitalist Progress Note ---
Date of Service May 01, 2022 Assessment & Plan (1) Fall: Plan: - Patient has been admitted 2 months ago for syncope, at that time he had a cardiac work-up that was largely unremarkable, echo showed hyperdynamic left ventricle with EF 70%, grade 1 diastolic dysfunction, negative for decreased wall motion [place], he was volume depleted with MANUEL and responded to fluids, TSH elevated at that time, morning cortisol was low as suggesting adrenal insufficiency in setting of steroid use for giant cell arteritis, therefore he was placed on prednisone 8.5 mg daily, as well as 0.1 mg fludrocortisone for orthostatic hypotension. He was evaluated PT/OT who recommended patient go to rehab, however insurance denied this so he was discharged home with home health and family support. Despite this, he is continue to have ongoing falls that are presumably due to generalized weakness with sounds like orthostatic hypotension given his falls are occurring upon becoming lightheaded with standing up. - His labs and imaging here are unremarkable, with the exception of rib fr actures noted on CXR. - We will control his pain with Tylenol and Lidoderm patches, as well as heating pad overnight. - Holding lisinopril and verapamil in setting of suspected orthostatic hypotension. - PT and OT to evaluate and treat - Added MING connere on 04/24. Not orthostatic on 04/25: 129/81, 121/68, 118/72. -> Back to orthostatic on 04/26 & 04/27: 148/81, 137/75, 99/66 & 160/80, 123/73, 95/59 respectively. - Received lisinopril 2.5 mg HS on 04/26 & 04/27. -> Will stop this as it clearly seems to have a large impact on his BP. I discussed with patient and sister today that maybe we just need to tolerate a fairly high BP to avoid orthostasis. It obviously will come with higher long- term [place] and CVA risk, but I'm not sure how else to get his quality of life improved. On 05/01, awaiting placeemnt. (2) Multiple rib fractures: Plan: - Pain management as above with Tylenol, Lidoderm patch, heating pad. - Without pneumothorax or flail chest. (3) Hypertension: Plan: BP today remains above goal, but see related issues. - For now, will hold lisinopril. Restarted on 04/25 in the evening, but immediately was orthostatic the next day. - Hold home verapamil. (4) Orthostatic hypotension: Plan: - Holding lisinopril and verapamil. Patient is on 8.5 mg prednisone for temporal arteritis, as well as 0.1 mg fludrocortisone which was prescribed on discharge last admission. Per sister, may or may not be taking these regularly. Also per sister, had planned to reduce prednisone with rheumatology as early as this Sunday. - Consider reaching out to rheumatology for recs on prednisone. - As above (5) CAD (coronary artery disease): Plan: - Chronic, stable. - Continue statin and aspirin. (6) GERD (gastroesophageal reflux disease): Plan: - Continue on omeprazole 20 mg at night, will have to switch to hospital formulary while admitted. (7) Depression: Plan: Affect is fairly stable, but does spend much of his day sleeping. - Continue Seroquel 25 mg daily and fluoxetine 40 mg daily. (8) Temporal arteritis: Plan: - History of. - Continue prednisone, follows with neurology. - Continue home tocilizumab 162 mg Q14 days - Sister brought it in. (9) Hyperlipidemia: Plan: - Continue patient is on rosuvastatin 10 mg daily. 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 Doherty. (11) Prostate cancer: Plan: S/p radiation, doing well without any current interventions. - Continue vitamin E for hot flashes. (12) DVT prophylaxis: Plan: Lovenox 40 mg SQ daily Admission and Anticipated Discharge Date Admission Date: April 25, 2022 Subjective Patient reports no new symptoms. Review of Systems Review of Systems: All systems reviewed & are unremarkable except as noted in HPI & below Physical Exam Constitutional: WD/WN, vitals as above Eyes: EOM intact bilaterally; no conjunctival abnormality ENMT: external ear and nose normal, oropharynx normal Neck: trachea midline, no thyromegaly normal visual inspection Respiratory: normal respiratory effort, lungs clear to auscultation no respiratory distress Cardiovascular: RRR, no murmur, no edema Gastrointestinal (Abdomen): Inspection/Auscultation: abdomen normal to insp ection; abdomen not distended Musculoskeletal: no cyanosis or clubbing, extremities motor strength 5/5 Skin: no rashes, warm and dry Neurologic: moves all extremities and awake Psychiatric: Orientation: alert, oriented to person and cooperative Results & Data Results & Data ([facility]) Vital Signs (Past 12 Hours) Vital Signs Temp Pulse Resp BP Pulse Ox O2 Del Method 05/01/22 15:04 36.5 C 73 19 132/81 95 Room Air PG Care Time/CCT Total # of Minutes Spent Total Time Spent with Patient: Total time spent is greater than 50% in coordination of care (as documented) at patient's floor/unit and/or counseling patient: Coding Level of Care Code 99980 Subseq Hosp Care Lvl 2 Diagnoses Fall W19.XXXA Multiple rib fractures S22.49XA Hypertension I10 Orthostatic hypotension I95.1 CAD (coronary artery disease) I25.10 GERD (gastroesophageal reflux disease) K21.9 Depression F32.9 Temporal arteritis M31.6 Hyperlipidemia E78.5 Neurofibromatosis Q85.00 Prostate cancer C61 DVT prophylaxis Z29.9
[2022-05-01] MEDS: MELATONIN 3 MG TAB PO PRN (23:06)
[2022-05-02 06:31] VITALS: TEMP 97.7
[2022-05-02] MEDS: FLUDROCORTISONE ACETATE 0.1 MG TAB PO SCH (08:00)
[2022-05-02] MEDS: predniSONE 5 MG TAB PO SCH (08:00)
[2022-05-02] MEDS: CHOLECALCIFEROL 1,000 UNITS 25 MCG TAB PO SCH (08:00)
[2022-05-02] MEDS: ROSUVASTATIN CALCIUM 10 MG TAB PO SCH (08:00)
[2022-05-02] MEDS: ASPIRIN 81 MG ECTAB PO SCH (08:00)
[2022-05-02] MEDS: predniSONE 1 MG TAB PO SCH (08:00)
[2022-05-02] MEDS: QUEtiapine FUMARATE 25 MG TABLET PO SCH (08:00)
[2022-05-02] MEDS: predniSONE 2.5 MG TAB PO SCH (08:00)
[2022-05-02] MEDS: FLUoxetine HCL 20 MG CAP PO SCH (08:00)
[2022-05-02] MEDS: VITAMIN B COMPLEX TAB PO SCH (08:00)
[2022-05-02] MEDS: LIDOCAINE 5% 1 PATCH TD SCH (08:01)
[2022-05-02] MEDS: ENOXAPARIN INJ 40 MG/0.4 ML SYR SQ SCH (08:01)
[2022-05-02 13:35] VITALS: BP 148/71; PULSE 76
--- NOTE | 2022-05-03 09:39 | Discharge Summary ---
Date of Service May 02, 2022 Admission HPI Per Admitting Provider Donavon Bartlett is a 81-year-old male with a past medical history significant for hypertension, hyperlipidemia, CAD, neurofibromatosis, prostate cancer, temporal arteritis, GERD, depression, and frequent falls presents today due to ongoing falls and dizziness at home. Yesterday he was outside smoking a cigarette, and when he stood up he got lightheaded and fell down, landing on his back. After the fall, he had some back pain and a mild headache, which is actually been going on for several days now, otherwise without pain. He denies losing consciousness or hitting his head. He did not have any chest pain, shortness of breath, palpitations, vision loss or change, nausea, vomiting, abdominal pain, bowel or bladder incontinence, or diaphoresis before or during the fall. Previously been feeling well but does note that he is felt generally weak lately. He did not take anything for pain at home. In ED, vital signs are within normal limits and stable. Labs largely unremarkable, he is without leukocytosis, anemia, electrolyte deficiency, renal function is at baseline, no transaminitis. Without evidence of UTI, COVID negative. CXR shows right-sided rib fractures, stable cardiomegaly, left basilar patchy density atelectasis versus pneumonia. Head CT shows no significant changes compared to previous study from 02/2022. Principal Diagnosis Fall Discharge Exam Constitutional WD/WN, vitals as above Eyes EOM intact bilaterally; no conjunctival abnormality ENMT external ear and nose normal, oropharynx normal Neck trachea midline, no thyromegaly normal visual inspection Respiratory normal respiratory effort, lungs clear to auscultation no respiratory distress Cardiovascular RRR, no murmur, no edema Gastrointestinal (Abdomen) Inspection/Auscultation: abdomen normal to inspection; abdomen not distended Musculoskeletal no cyanosis or clubbing, extremities motor strength 5/5 Skin no rashes, warm and dry Neurologic moves all extremities and awake Psychiatric Orientation: alert, oriented to person and cooperative Discharge Data Allergies Allergy/AdvReac Type Severity Reaction Status Date / Time mirabegron [From Myrbetriq] AdvReac Hypertensio Verified 03/29/22 10:05 n Consultations 04/23/22 20:09 ED Decision to Admit Stat Ordered Studies 04/23/22 16:27 CT head/brain wo con Stat Hospital Course (1) Fall: - Patient has been admitted 2 months ago for syncope, at that time he had a cardiac work-up that was largely unremarkable, echo showed hyperdynamic left ventricle with EF 70%, grade 1 diastolic dysfunction, negative for decreased wall motion [place], he was volume depleted with MANUEL and responded to fluids, TSH elevated at that time, morning cortisol was low as suggesting adrenal insufficiency in setting of steroid use for giant cell arteritis, therefore he was placed on prednisone 8.5 mg daily, as well as 0.1 mg fludrocortisone for orthostatic hypotension. He was evaluated PT/OT who recommended patient go to rehab, however insurance denied this so he was discharged home with home health and family support. Despite this, he is continue to have ongoing falls that are presumably due to generalized weakness with sounds like orthostatic hypotension given his falls are occurring upon becoming lightheaded with standing up. - His labs and imaging here are unremarkable, with the exception of rib fracture s noted on CXR. - We will control his pain with Tylenol and Lidoderm patches, as well as heating pad overnight. - Holding lisinopril and verapamil in setting of suspected orthostatic hypotension. - PT and OT to evaluate and treat - Added MING hose on 04/24. Not orthostatic on 04/25: 129/81, 121/68, 118/72. -> Back to orthostatic on 04/26 & 04/27: 148/81, 137/75, 99/66 & 160/80, 123/73, 95/59 respectively. - Received lisinopril 2.5 mg HS on 04/26 & 04/27. -> Will stop this as it clearly seems to have a large impact on his BP. I discussed with patient and sister today that maybe we just need to tolerate a fairly high BP to avoid orthostasis. It obviously will come with higher long- term [place] and CVA risk, but I'm not sure how else to get his quality of life improved. Will discharge off blood pressure meds. May need to cut back on his fludrocortisone, if BP remains elevated. Will defer to PCP. (2) Multiple rib fractures: - Pain management as above with Tylenol, Lidoderm patch, heating pad. - Without pneumothorax or flail chest. (3) Hypertension: BP today remains above goal, but see related issues. - For now, will hold lisinopril. Restarted on 04/25 in the evening, but immediately was orthostatic the next day. - Hold home verapamil. (4) Orthostatic hypotension: - Holding lisinopril and verapamil. Patient is on 8.5 mg prednisone for temporal arteritis, as well as 0.1 mg fludrocortisone which was prescribed on discharge last admission. Per sister, may or may not be taking these regularly. Also per sister, had planned to reduce prednisone with rheumatology as early as this Sunday. - Consider reaching out to rheumatology for recs on prednisone. - As above (5) CAD (coronary artery disease): - Chronic, stable. - Continue statin and aspirin. (6) GERD (gastroesophageal reflux disease): - Continue on omeprazole 20 mg at night, will have to switch to hospital formulary while admitted. (7) Depression: Affect is fairly stable, but does spend much of his day sleeping. - Continue Seroquel 25 mg daily and fluoxetine 40 mg daily. (8) Temporal arteritis: - History of. - Continue prednisone, follows with neurology. - Continue home tocilizumab 162 mg Q14 days - Sister brought it in. (9) Hyperlipidemia: - Continue patient is on rosuvastatin 10 mg daily. (10) Neurofibromatosis: - Chronic, follows with rheumatology, Dr. Doherty. (11) Prostate cancer: S/p radiation, doing well without any current interventions. - Continue vitamin E for hot flashes. (12) DVT prophylaxis: Lovenox 40 mg SQ daily Total Time Total Time Spent Total Time Spent (In Minutes): 35 Discharge Plan Discharge Items Patient Disposition: Transfer [facility] Fac Reason For Visit: ORTHOSTASIS Discharge Diagnosis: orthostasis Activity: Resume your previous activity Non-emergency contact: Primary Care Provider Call non-emergency contact if: you have any medication questions Follow-up/Referrals: Hilda Ochoa MD [Primary Care Provider] - Diet: Heart Healthy Addtl Attending Provider Instructions: You were found to develop low blood pressure while you took your blood pressure medicine. To avoid these episodes which could result in a fall, we will limit your blood pressure medicine for now. It obviously will come with higher long-term [place] and CVA risk, but these falls will worsen your quality of life. Recommend followup with PCP in 1-2 weeks. Recommend followup with [facility] Technician in 1-2 weeks. For information of the next dose of Actemra: Previous dose of Actemra: Apr 27 2022. Pending Studies at Discharge: No Stand-Alone Forms: My [facility] Skilled Items Patient informed of condition?: No DNR: Yes Discharge Level of Care: Skilled Communicable Disease: No Discharge Prognosis: Stable Lines: None Urinary Catheter: No Medications and DC Order Prescriptions: New lidocaine 5 % Adhesive Patch,Medicated 1 patch transdermal QAM Qty: 30 0RF Continued vitamin B complex [B Complex-Vitamin B12] Tablet 1 tab PO DAILY Prolia 60 mg/mL syringe 60 mg subcut .q 6 month docusate sodium [Dulcolax Stool Softener (dss)] 100 mg capsule 100 mg PO DAILY PRN (Reason: Constipation) prednisone 5 mg tablet 5 mg PO DAILY MDD 8.5 mg daily Qty: 90 0RF Rx Instructions: Patient to take 5 mg, 2.5 mg and 1 mg tablet daily for total 8.5 mg daily prednisone 2.5 mg tablet 2.5 mg PO DAILY Qty: 90 0RF Rx Instructions: patient to take 5 mg, 2.5 mg and 1 mg together daily prednisone 1 mg tablet 1 mg PO DAILY Qty: 90 0RF Rx Instructions: Patient to take 5 mg, 2.5 mg and 1 mg daily for total of 8.5 mg daily omeprazole 20 mg capsule,delayed release(DR/EC) 20 mg PO HS aspirin 81 mg Tablet,Delayed Release (Dr/Ec) 81 m PO DAILY Rx Instructions: Patient reports he sometimes takes twice a day. quetiapine [Seroquel] 25 mg tablet 25 mg PO DAILY fluoxetine [Prozac] 40 mg capsule 40 mg PO DAILY rosuvastatin 10 mg tablet 10 mg PO DAILY cholecalciferol (vitamin D3) [Vitamin D3] 25 mcg (1,000 unit) Tablet 25 mcg PO DAILY albuterol sulfate 90 mcg/actuation HFA aerosol inhaler 2 puff INHALATION QID PRN (Reason: Shortness Of Breath) fludrocortisone 0.1 mg Tablet 0.1 mg PO QAM Qty: 30 0RF Changed Actemra 162 mg/0.9 mL syringe 162 mg subcut Q14D Qty: 2 0RF Rx Instructions: previous dose Apr 27 Discontinued verapamil [Calan SR] 120 mg tablet extended release 120 mg PO DAILY lisinopril 2.5 mg tablet 2.5 mg PO DAILY Discharge Orders: Discharge Order (Routine); Ordered 05/02/22 Ordered By: Lance Sandoval/Other Patient Handouts: Falls Prevent Adjust Living Space, Falls Prevent Use Cane Walker, Preventing Falls: Staying Active, Orthostatic Hypotension Admission Data Admit Date/Time: 04/25/22 15:09 Attending Provider: Lance Valera Admit Provider: Jose Flanagan Primary Care Provider: Hilda Ochoa Other Providers: [facility] ; [facility] [place] ; [facility] ; [facility] ; Jose Flanagan Other Interventions: Discharge Summary Assessment (RN) Last Done: 05/02/22 13:34 Coding Level of Care Code D/C DAY MANAGEMENT >30 MINS Diagnoses Fall W19.XXXA Multiple rib fractures S22.49XA Hypertension I10 Orthostatic hypotension I95.1 CAD (coronary artery disease) I25.10 GERD (gastroesophageal reflux disease) K21.9 Depression F32.9 Temporal arteritis M31.6 Hyperlipidemia E78.5 Neurofibromatosis Q85.00 Prostate cancer C61 DVT prophylaxis Z29.9
== END 2022-05-02 15:01 ==
LOC: 2N 15:57 → ED 15:57 → SUATTDRO 21:26 → 2N 22:39 → SUATTDRO 04-25 15:09 → 2N 04-30 00:48

== ENCOUNTER 2022-08-23 08:13 | Observation (INO) ==
[2022-08-23] MEDS ORDERED: hydrALAZINE HCL 20 MG/ML VIAL IV STA (08:27)
--- NOTE | 2022-08-23 08:27 | Emergency Department Note ---
Impression & Plan Chest pain, HTN (hypertension), Elevated troponin ED Provider Note NAME: ARTEMIO CATES AGE: 81 SEX: M : 1940 ARRIVES VIA: Ambulance INFORMANT: Patient ED PROVIDER(S): Manjinder Bonilla DO CHIEF COMPLAINT: chest pain HPI: Patient is a 81-year-old male with a past medical history of CAD, temporal arteritis, hyperlipidemia, hypertension, adrenal insufficiency, GERD who presents to the ER for left-sided chest pressure. He describes it as a crushing chest pressure. It was there for 1 to 2 hours. It has abated. Associate with shortness of breath. He notes this feels similar to his previous MIs. He also has had left-sided chest pain for the past 4 days which was separate to the pain that he was feeling earlier today. The left-sided chest pain has been constant and is worse when you push on the left side of the chest in a specific area. Denies any belly pain nausea vomiting or diarrhea. No dysuria urgency or frequency. No other exacerbating or remitting factors. Following this the pain went away. He did not receive nitro. He received 324 of aspirin. ROS: See above HPI for pertinent positives & negatives. A total of 10 systems reviewed and were otherwise negative. PAST MEDICAL HISTORY:See Below PAST SURGICAL HISTORY:See Below FAMILY HISTORY:See Below SOCIAL HISTORY:See Below HOME MEDICATIONS:See Below ALLERGIES:See Below VITALS:See Below PHYSICAL EXAMINATION: GENERAL: Sitting up in bed, alert, well appearing, well nourished, no distress, non-toxic EYE EXAM: normal conjunctiva. OROPHARYNX: mucous membranes are moist CHEST: Reproducible anterior chest wall pain different onto stated complaint LUNGS: Clear to auscultation. Normal chest wall mechanics HEART: no murmurs, S1 normal and S2 normal ABDOMEN: abdomen soft, non-tender, normo-active bowel sounds, no masses, no rebound or guarding. UPPER EXTREMITIES: upper extremities are grossly normal. LOWER EXTREMITIES: No pitting edema. NEURO EXAM: Normal sensorium, cranial nerves II-XII grossly intact, normal speech, no gross weakness of arms, no gross weakness of legs. MEDICAL DECISION MAKING: Patient 81-year-old male who presents the ER for chest pain. IV was established blood work was obtained. Labs show no significant leukocytosis or anemia. BMP along with LFTs bilirubin was unremarkable. Troponin was elevated at 24. Lipase was normal. COVID was negative. Completely chest pain-free at this time. EKG with new Q waves. Discussed with hospitalist and patient was admitted and will be worked up as an inpatient. Pain-free upon admission. Patient was given hydralazine upon admission due to systolics of 200. Triage Nursing notes reviewed. Limited review of prior medical records performed Vital Signs: reviewed and remarkable for HTN Differential diagnosis: Cardiac ischemia, aortic dissection, pulmonary embolism, pneumothorax, pneumonia, pericarditis, myocarditis, esophageal rupture, GERD, cholecystitis, pancreatitis, musculoskeletal, as well as other pathologies. ER treatment provided: See below Diagnostics interpreted by me: ECG: Sinus rhythm rate of 62 Left axis No PVCs Nonspecific ST wave changes in the high lateral leads QTC 424 Septal Q waves Septal Q waves are new in comparison to previous on May 2022 Cardiac Monitoring: An order was placed for continuous cardiac monitoring. The monitor shows a rate of 65 with sinus rhythm. Laboratory studies: As stated above and show below. Imaging studies: Portable AP upright 1 view of the chest unremarkable Consultation(s): Discussed with the hospitalist for further evaluation Procedures: none Critical Care: None Past Med/Surg History Medical History Acute kidney injury MANUEL (acute kidney injury) BPH loc w urin obs/LUTS Dehydration Frequency of micturition Hyperlipidemia Neurofibromatosis Nocturia Prostate cancer (02/17/21) Temporal arteritis Surgical History History of cataract surgery History of hernia repair Family History Mother , age 68 of COPD complications COPD (chronic obstructive pulmonary disease) Neurofibromatosis Cancer Lung Cancer Father , age 77 of ruptured abdominal aortic aneurysm AAA (abdominal aortic aneurysm) Family/Other Neurofibromatosis Grandmother (Maternal) Neurofibromatosis Son Neurofibromatosis Daughter Neurofibromatosis Social History Smoking Status: Former smoker Tobacco Type: Cigarettes Cigarettes Per Day: 3; Second Hand Exposure: No; Do You Dip or Chew Tobacco: No; Hx Alcohol Use: No Hx Substance Use: No Preferred Language: [place]ian Communication Ability: Effective Visual Impairment: Blindness Hearing Ability: Hard of Hearing Esthetician/Spa Coordinator Required: No Beliefs That Will Affect Care: None Current Living Situation: Intermediate Current Living Situation Comment: [facility] current occupational status: retired 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, 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, 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 Other Information That Helps Us Care for You: No Feels Safe at Home: No Is there a partner from a previous relationship who is making you feel unsafe now?: No Would You Like to Speak to Someone About Your Situation: No Safety Concerns: Feels Safe At This Time caffeine: Yes during the past year weight has: remained stable Dental Care, Regularly: No Physical Activity Frequency: 5-6 Times per Week Assistive Devices: Cane and Walker Allergies Allergies Allergy/AdvReac Type Severity Reaction Status Date / Time No Known Drug Allergies Allergy Mild Unknown Verified 08/23/22 12:29 [email or web address] [From Myrbetriq] AdvReac Hypertensio Verified 08/23/22 12:27 n Home Meds Home Medications Medication Instructions Recorded Confirmed aspirin 81 mg tablet,delayed 81 m PO DAILY 09/29/18 06/30/22 release omeprazole 20 mg capsule,delayed 20 mg PO HS 09/29/18 06/30/22 release fluoxetine 40 mg capsule (Prozac) 40 mg PO DAILY 01/16/20 06/30/22 quetiapine 25 mg tablet (Seroquel) 25 mg PO DAILY 01/16/20 06/30/22 denosumab 60 mg/mL subcutaneous 60 mg subcut .q 6 month 03/17/21 06/30/22 syringe (Prolia) docusate sodium 100 mg capsule 100 mg PO DAILY PRN Constipation 03/17/21 06/30/22 (Dulcolax Stool Softener (docusate)) cholecalciferol (vitamin D3) 25 25 mcg PO DAILY 02/03/22 06/30/22 mcg (1,000 unit) tablet (Vitamin D3) rosuvastatin 10 mg tablet 10 mg PO DAILY 02/03/22 06/30/22 acetaminophen 325 mg tablet 650 mg PO QID PRN 06/14/22 06/30/22 (Tylenol) bisacodyl 10 mg rectal suppository 10 mg SD DAILY PRN 06/30/22 06/30/22 (Dulcolax (bisacodyl)) calcium carbonate 600 mg calcium 600 mg PO BID 06/30/22 06/30/22 (1,500 mg) tablet (Calcium) hydrocodone 7.5 mg-acetaminophen 1 tab PO BID PRN 06/30/22 06/30/22 325 mg tablet ibuprofen 600 mg tablet 600 mg PO Q8H PRN 06/30/22 06/30/22 ipratropium bromide 17 1 puff inhalation QID PRN 06/30/22 06/30/22 mcg/actuation HFA aerosol inhaler (Atrovent HFA) Previous Rx's Medication Instructions Recorded fludrocortisone 0.1 mg tablet 0.1 mg PO QAM #30 tabs 03/08/22 lidocaine 5 % topical patch 1 patch transdermal QAM #30 ea 05/02/22 tocilizumab 162 mg/0.9 mL 162 mg (0.9 mL) subcut Q14D #2 mL 05/02/22 subcutaneous syringe (Actemra) hydrocortisone 20 mg tablet 20 mg PO .COMPLEX #135 tabs 06/14/22 Results & Data (ED) Vital Signs Vital Signs - 24 hr 08/23/22 08:18 08/23/22 08:18 08/23/22 08:18 Temperature 36.6 C Temperature Source Oral Pulse Rate 61 Pulse Rate [Apical] 61 Pulse Rate from SpO2 Sensor Respiratory Rate 20 20 Respiratory Effort / Characteristics Non-Labored Spontaneous Non-Labored Spontaneous Respiratory Depth Normal Normal Respiratory Pattern Regular Regular Blood Pressure 191/112 H Blood Pressure [Left Arm] 191/112 H Blood Pressure Mean 138 Blood Pressure Mean [Left Arm] 138 Pulse Oximetry 95 95 95 Oxygen Delivery Method Room Air Room Air Room Air Sepsis Recent Fever Within 48 Hours No Sepsis New/Unexplained Change in Mental Status No Sepsis Action Taken by Nursing No Action Required 08/23/22 08:18 08/23/22 08:44 08/23/22 08:46 Temperature Temperature Source Pulse Rate 61 60 59 L Pulse Rate [Apical] Pulse Rate from SpO2 Sensor Respiratory Rate 20 20 20 Respiratory Effort / Characteristics Respiratory Depth Respiratory Pattern Blood Pressure 186/99 H 186/109 H Blood Pressure [Left Arm] Blood Pressure Mean 128 134 Blood Pressure Mean [Left Arm] Pulse Oximetry 95 97 95 Oxygen Delivery Method Room Air Room Air Room Air Sepsis Recent Fever Within 48 Hours Sepsis New/Unexplained Change in Mental Status Sepsis Action Taken by Nursing 08/23/22 09:22 08/23/22 10:10 08/23/22 08:26 Temperature Temperature Source Pulse Rate 74 60 Pulse Rate [Apical] 68 Pulse Rate from SpO2 Sensor 60 Respiratory Rate 20 20 20 Respiratory Effort / Characteristics Non-Labored Spontaneous Respiratory Depth Normal Respiratory Pattern Regular Blood Pressure 149/91 H Blood Pressure [Left Arm] 170/96 H Blood Pressure Mean 110 Blood Pressure Mean [Left Arm] 120 Pulse Oximetry 96 95 94 Oxygen Delivery Method Room Air Room Air Sepsis Recent Fever Within 48 Hours Sepsis New/Unexplained Change in Mental Status Sepsis Action Taken by Nursing 08/23/22 08:30 08/23/22 08:43 08/23/22 08:43 Temperature Temperature Source Pulse Rate 59 L 60 Pulse Rate [Apical] Pulse Rate from SpO2 Sensor 60 60 Respiratory Rate 19 17 Respiratory Effort / Characteristics Respiratory Depth Respiratory Pattern Blood Pressure 186/99 H Blood Pressure [Left Arm] Blood Pressure Mean 128 Blood Pressure Mean [Left Arm] Pulse Oximetry 95 94 Oxygen Delivery Method Sepsis Recent Fever Within 48 Hours Sepsis New/Unexplained Change in Mental Status Sepsis Action Taken by Nursing 08/23/22 08:46 08/23/22 08:46 08/23/22 09:00 Temperature Temperature Source Pulse Rate 60 Pulse Rate [Apical] Pulse Rate from SpO2 Sensor 59 L Respiratory Rate 19 Respiratory Effort / Characteristics Respiratory Depth Respiratory Pattern Blood Pressure 186/109 H 149/91 H Blood Pressure [Left Arm] Blood Pressure Mean 134 110 Blood Pressure Mean [Left Arm] Pulse Oximetry 94 Oxygen Delivery Method Sepsis Recent Fever Within 48 Hours Sepsis New/Unexplained Change in Mental Status Sepsis Action Taken by Nursing 08/23/22 09:00 08/23/22 09:30 08/23/22 09:30 Temperature Temperature Source Pulse Rate 65 68 Pulse Rate [Apical] Pulse Rate from SpO2 Sensor 66 68 Respiratory Rate 16 17 Respiratory Effort / Characteristics Respiratory Depth Respiratory Pattern Blood Pressure 151/79 H Blood Pressure [Left Arm] Blood Pressure Mean 103 Blood Pressure Mean [Left Arm] Pulse Oximetry 94 96 Oxygen Delivery Method Sepsis Recent Fever Within 48 Hours Sepsis New/Unexplained Change in Mental Status Sepsis Action Taken by Nursing 08/23/22 10:00 08/23/22 10:00 Temperature Temperature Source Pulse Rate 82 Pulse Rate [Apical] Pulse Rate from SpO2 Sensor 76 Respiratory Rate 18 Respiratory Effort / Characteristics Respiratory Depth Respiratory Pattern Blood Pressure 170/96 H Blood Pressure [Left Arm] Blood Pressure Mean 120 Blood Pressure Mean [Left Arm] Pulse Oximetry 96 Oxygen Delivery Method Sepsis Recent Fever Within 48 Hours Sepsis New/Unexplained Change in Mental Status Sepsis Action Taken by Nursing Laboratory Data Result diagrams: 08/23/22 08:26 08/23/22 08:26 Lab Results 08/23/22 08/23/22 08/23/22 Range/Units 08:26 08:26 08:41 WBC 8.13 (4.8-10.8) K/ul RBC 4.41 L (4.63-6.08) M/uL Hgb 13.5 L (14.0-18.0) g/dl Hct 41.0 (40.1-51.0) % MCV 93.0 (80.0-100.0) fL MCH 30.6 (25.0-34.0) pg MCHC 32.9 (32.0-36.0) g/dL RDW Std Deviation 41.4 (36.4-46.3) fL RDW Coeff of Alexei 11.9 (11.5-14.5) % Plt Count 187 (130-400) K/uL MPV 9.4 (9.4-12.4) fL Immature Gran % (Auto) 2.6 % Neut % (Auto) 69.6 % Lymph % (Auto) 15.6 % Menard % (Auto) 10.1 % Eos % (Auto) 1.5 % Baso % (Auto) 0.6 % Neut # (Auto) 5.66 (1.4-6.5) K/uL Lymph # (Auto) 1.27 (1.2-3.4) K/uL Menard # (Auto) 0.82 (0.24-0.82) K/uL Eos # (Auto) 0.12 (0-0.50) K/uL Baso # (Auto) 0.05 (0-0.2) K/uL Immature Gran # (Auto) 0.21 H (0.00-0.02) K/uL Sodium 143 (136-145) mmol/L Potassium 3.5 (3.5-5.1) mmol/L Chloride 105 (98-107) mmol/L Carbon Dioxide 33 H (21-32) mmol/L Anion Gap 5 (3-11) BUN 31 H (6-23) mg/dl Creatinine 1.21 (0.6-1.4) mg/dl Est Cr Clr Drug Dosing 49.3 ml/min Est GFR ( Amer) 65.6 ml/min Est GFR (Non-Af Amer) 56.6 ml/min BUN/Creatinine Ratio 25.6 H (10-20) Glucose 76 (70-99(Fasting)) mg/dl Calcium 8.2 L (8.5-10.1) mg/dl Total Bilirubin 0.9 (0.2-1.0) mg/dl AST 20 (13-39) U/L ALT 42 (7-52) U/L Alkaline Phosphatase 71 (34-104) U/L Troponin I High Sens 24.4 H (0-20) pg/ml Total Protein 5.8 L (6.0-8.3) gm/dl Albumin 3.7 (3.4-5.0) gm/dl Globulin 2.1 L (2.5-4.0) gm/dl Albumin/Globulin Ratio 1.8 (0.9-2) Lipase 23 (11-82) U/L SARS-CoV-2, RNA, NAAT NEGATIVE (NEGATIVE) Administered Medications Acetaminophen (Acetaminophen 325 Mg Tab) 650 mg PO QID PRN PRN Reason: Pain or Fever Stop: 09/22/22 11:41 Last Admin: 08/23/22 12:45 Dose: 650 mg Documented By: ROBERTO Nitroglycerin (Nitroglycerin 2% Ointment 30gm Tube) 1 inch EXT Q6 [facility] Stop: 09/22/22 11:59 Last Admin: 08/23/22 11:48 Dose: Not Given Documented By: ROBERTO Discontinued Medications Hydralazine HCl (Hydralazine Hcl 20 Mg/Ml Vial) 10 mg IV NOW STA Stop: 08/23/22 08:28 Last Admin: 08/23/22 08:45 Dose: 10 mg Documented By: KRYS Miscellaneous Information (Patient's Allergy Info Needs Entered) 1 each N/A Q30M [facility] Stop: 09/22/22 12:29 Last Admin: 08/23/22 12:28 Dose: Not Given Documented By: ROBERTO Nitroglycerin (Nitroglycerin 2% Ointment 30gm Tube) 1 inch EXT NOW STA Stop: 08/23/22 10:48 Last Admin: 08/23/22 10:56 Dose: 1 inch Documented By: KRYS Imaging Data Radiologist's Impression: Chest X-Ray 12/21/22 08:17 XR chest 1V portable CLINICAL HISTORY: Chest pain, nonspecific COMPARISON STUDY: Chest radiograph August 15, 2022. FINDINGS: Innumerable soft tissue nodules are again noted. There is no pneumothorax or pleural effusion. Cardiomegaly is unchanged. There is no evidence for pulmonary edema. There is no consolidation to suggest pneumonia. Minimal left basilar opacity favors atelectasis. Nodular density projecting in the right lung likely reflects a skin nodule. Old right-sided rib fractures are again noted. IMPRESSION: No acute cardiopulmonary findings. No significant change in appearance of the chest. ACT 112: Negative or not required by law. Electronically signed by: Don Ferreira M.D. 08/23/2022 8:55 AM Discharge Plan Visit Data Chief Complaint: Chest Pain Stated Complaint: CHEST PAIN ED Provider: Manjinder Bonilla Discharge Problem: Chest pain, HTN (hypertension), Elevated troponin Patient Disposition: Admitted As Inpatient Discharge Instructions Interventions: ED Discharge Assessment Last Done: 08/23/22 11:17
[2022-08-23 08:46] LABS: Basophils # (auto) 0.05 K/uL (0-0.2); Basophils % (auto) 0.6 %; Eosinophils # (auto) 0.12 K/uL (0-0.50); Eosinophils % (auto) 1.5 %; Hemoglobin 13.5 g/dl (14.0-18.0); Immature Granulocytes # (auto) 0.21 K/uL (0.00-0.02); Immature Granulocytes % (auto) 2.6 %; Lymphocytes # (auto) 1.27 K/uL (1.2-3.4); Lymphocytes % (auto) 15.6 %; Mean Corpuscular Hemoglobin 30.6 pg (25.0-34.0); Mean Corpuscular Hgb Conc 32.9 g/dL (32.0-36.0); Mean Platelet Volume 9.4 fL (9.4-12.4); Monocytes # (auto) 0.82 K/uL (0.24-0.82); Monocytes % (auto) 10.1 %; Neutrophils # (auto) 5.66 K/uL (1.4-6.5); Neutrophils % (auto) 69.6 %; Platelet Count 187 K/uL (130-400); RDW Coefficient of Variation 11.9 % (11.5-14.5); RDW Standard Deviation 41.4 fL (36.4-46.3); Red Blood Count 4.41 M/uL (4.63-6.08); White Blood Count 8.13 K/ul (4.8-10.8)
--- NOTE | 2022-08-23 08:56 | XRay Report ---
XR chest 1V portable CLINICAL HISTORY: Chest pain, nonspecific COMPARISON STUDY: Chest radiograph August 15, 2022. FINDINGS: Innumerable soft tissue nodules are again noted. There is no pneumothorax or pleural effusi on. Cardiomegaly is unchanged. There is no evidence for pulmonary edema. There is no consolidation to suggest pneumonia. Minimal left basilar opacity favors atelectasis. Nodular density projecting in th e right lung likely reflects a skin nodule. Old right-sided rib fractures are again noted. IMPRESSION: No acute cardiopulmonary findings. No significant change in appearance of the chest. ACT 112: Negative or not required by law. Electronically signed by: Don Ferreira M.D. 08/23/2022 8:55 AM
[2022-08-23 09:19] LABS: Albumin Globulin Ratio 1.8 (0.9-2); Albumin Level 3.7 gm/dl (3.4-5.0); BUN Creatinine Ratio 25.6 (10-20); Bilirubin,Total 0.9 mg/dl (0.2-1.0); Calcium 8.2 mg/dl (8.5-10.1); Creatinine Clr Calc Pharmacy 49.3 ml/min; Est GFR (African American) 65.6 ml/min; Est GFR (Non-African American) 56.6 ml/min; Globulin 2.1 gm/dl (2.5-4.0); Potassium 3.5 mmol/L (3.5-5.1); Total Protein 5.8 gm/dl (6.0-8.3)
[2022-08-23 09:22] LABS: Troponin I High Sensitivity 24.4 pg/ml (0-20)
--- NOTE | 2022-08-23 10:18 | History & Physical Report ---
Date of Service August 23, 2022 Assessment & Plan (1) Chest pain: Plan: - Several minutes of left-sided chest pressure 10/10 this morning onset with rest, abated after several minutes without intervention. - Initial troponin 24.4, EKG with new Q waves in V2, V3 changed from EKG on 08/15. - Was significantly hypertensive on arrival, 191/110, given 10 mg IV hydralazine. - Initially without chest pain on presentation, however recurrence of -02/2010 chest pressure, nitroglycerin paste ordered. - We will repeat troponin (2 hr repeat decreased 23.9), echocardiogram ordered, if repeat troponin at any point becomes significantly elevated and chest pain continues, will consult cardiology and consider heparin drip/cardiac cath. - Bedrest orders. - Lipid panel in AM. (2) CAD (coronary artery disease): Plan: - No formal diagnosis via catheterization, was told years ago by provider in [place] he has had multiple heart attacks based on EKG changes. - Chest pain workup as above. - Continue statin, aspirin. - Previously on lisinopril and verapamil, however had to be d/c'd due to ongoing falls, orthostatic hypotension. (3) Hypertension: Plan: - Previously on verapamil and lisinopril, during prior hospitalization in April, they were held on admission due to falls and hypotension and gradually reintroduced during stay, however even with reduced doses and addition of only 1 agent as opposed to both, patient continued to be hypotensive and they were ultimately discontinued to improve quality of life/reduce falls, with acknowledgement that this would increase his risk of future SC/C.VA - He has been hypertensive here, initially given 10 mg IV hydralazine and then nitropaste for chest pain and continued elevation in his BP. - Unsure what the best course would be if he continues to be hypertensive requiring frequent intervention, especially if he continues to have chest pain with elevated pressures. Will continue with nitropaste for now. (4) Adrenal insufficiency due to corticosteroid withdrawal: Plan: - Continue hydrocortisone 20 mg in a.m. and 10 mg at night. (5) Giant cell arteritis: Plan: - Hx of 3 years ago. 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 - Previously on chronic prednisone, transitioned from prednisone --> hydrocortisone 20 mg in AM, 10 mg PM for adrenal insufficiency. (6) Orthostatic hypotension: Plan: - Continue fludrocortisone, also on hydrocortisone now, transitioned off prednisone by endocrinology. (7) Frequent falls: Plan: - Fall precautions. History of orthostatic hypotension, continue fludrocortisone. - PT/OT while admitted. (8) Hyperlipidemia: Plan: - Continue rosuvastatin 10 mg daily, lipid panel with a.m. labs. (9) Depression: Plan: - Continue Prozac and Seroquel. (10) Neurofibromatosis: Plan: - Chronic, follows with Dr. Doherty. (11) BPH (benign prostatic hyperplasia): Plan: - Flomax recently stopped due to orthostatic hypotension and frequent falls. (12) GERD (gastroesophageal reflux disease): Plan: - Continue PPI, switch omeprazole to pantoprazole per hospital formulary. Plan - Obs med/tele. - SCDs, Lovenox for VTE ppx. - DNR/DNI. History of Present Illness Chief Complaint: chest pain since this morning Primary Care Provider: [facility] Donavon Bartlett is a 81 y/o male with a PMH significant for CAD, hypertension, hyperlipidemia, neurofibromatosis, prostate cancer, temporal arteritis, GERD, depression, and frequent falls presenting today from [facility] with chest pain. For the past 4 days he has been having chest pain that is reproducible on pressing on his left chest wall, however this morning had several minutes of 10/10 crushing left-sided chest pressure that was associated with shortness of breath and radiated to his back. It did not radiate to his shoulders, arms, neck, or jaw. He had no lightheadedness, dizziness, or palpitations with it. The chest pain came on while patient was at rest and went away on its own without requiring any medication. EMS was called, who gave him full dose 324 mg aspirin in route. Patient has been told he has had heart attacks based on EKG findings in the past, however has not had any stents placed or CABG procedure. He is a former smoker, however recently quit. He had previously been on antihypertensive, however they have been discontinued several months due to orthostatic hypotension and frequent falls. No history of diabetes. On presentation, BP 191/112, given 10 mg IV hydralazine repeat blood pressure 170/96. Otherwise vital signs within normal limits, stable. His initial troponin is 24, EKG with septal Q waves in V2 and V3, changed from EKG last week 08/15. He was initially chest pain-free on presentation, however now complaining of 5-6/10 chest pain. Allergies Allergy/AdvReac Type Severity Reaction Status Date / Time No Known Drug Allergies Allergy Mild Unknown Verified 08/23/22 12:29 [email or web address] [From Myrbetriq] AdvReac Hypertensio Verified 08/23/22 12:27 n Home Medications Medication Instructions Recorded Confirmed Type aspirin 81 mg tablet,delayed 81 m PO DAILY 09/29/18 06/30/22 History release omeprazole 20 mg capsule,delayed 20 mg PO HS 09/29/18 06/30/22 History release fluoxetine 40 mg capsule (Prozac) 40 mg PO DAILY 01/16/20 06/30/22 History quetiapine 25 mg tablet (Seroquel) 25 mg PO DAILY 01/16/20 06/30/22 History denosumab 60 mg/mL subcutaneous 60 mg subcut .q 6 month 03/17/21 06/30/22 History syringe (Prolia) docusate sodium 100 mg capsule 100 mg PO DAILY PRN Constipation 03/17/21 06/30/22 History (Dulcolax Stool Softener (docusate)) cholecalciferol (vitamin D3) 25 25 mcg PO DAILY 02/03/22 06/30/22 History mcg (1,000 unit) tablet (Vitamin D3) rosuvastatin 10 mg tablet 10 mg PO DAILY 02/03/22 06/30/22 History fludrocortisone 0.1 mg tablet 0.1 mg PO QAM #30 tabs 03/08/22 06/30/22 Rx lidocaine 5 % topical patch 1 patch transdermal QAM #30 ea 05/02/22 06/30/22 Rx tocilizumab 162 mg/0.9 mL 162 mg (0.9 mL) subcut Q14D #2 mL 05/02/22 06/30/22 Rx subcutaneous syringe (Actemra) acetaminophen 325 mg tablet 650 mg PO QID PRN 06/14/22 06/30/22 History (Tylenol) hydrocortisone 20 mg tablet 20 mg PO .COMPLEX #135 tabs 06/14/22 06/30/22 Rx bisacodyl 10 mg rectal suppository 10 mg AK DAILY PRN 06/30/22 06/30/22 History (Dulcolax (bisacodyl)) calcium carbonate 600 mg calcium 600 mg PO BID 06/30/22 06/30/22 History (1,500 mg) tablet (Calcium) hydrocodone 7.5 mg-acetaminophen 1 tab PO BID PRN 06/30/22 06/30/22 History 325 mg tablet ibuprofen 600 mg tablet 600 mg PO Q8H PRN 06/30/22 06/30/22 History ipratropium bromide 17 1 puff inhalation QID PRN 06/30/22 06/30/22 History mcg/actuation HFA aerosol inhaler (Atrovent HFA) Past Med/Surg History Medical History Acute kidney injury MANUEL (acute kidney injury) BPH loc w urin obs/LUTS Dehydration Frequency of micturition Hyperlipidemia Neurofibromatosis Nocturia Prostate cancer (02/17/21) Temporal arteritis Surgical History History of cataract surgery History of hernia repair Family History Mother , age 68 of COPD complications COPD (chronic obstructive pulmonary disease) Neurofibromatosis Cancer Lung Cancer Father , age 77 of ruptured abdominal aortic aneurysm AAA (abdominal aortic aneurysm) Family/Other Neurofibromatosis Grandmother (Maternal) Neurofibromatosis Son Neurofibromatosis Daughter Neurofibromatosis Social History Smoking Status: Former smoker Tobacco Type: Cigarettes Cigarettes Per Day: 3; Second Hand Exposure: No; Do You Dip or Chew Tobacco: No; Hx Alcohol Use: No Hx Substance Use: No Preferred Language: Georgian Communication Ability: Effective Visual Impairment: Blindness Hearing Ability: Hard of Hearing Second Language Tutor Required: No Beliefs That Will Affect Care: None Current Living Situation: Jail Current Living Situation Comment: [facility] current occupational status: retired 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, 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, 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 Other Information That Helps Us Care for You: No Feels Safe at Home: No Is there a partner from a previous relationship who is making you feel unsafe now?: No Would You Like to Speak to Someone About Your Situation: No Safety Concerns: Feels Safe At This Time caffeine: Yes during the past year weight has: remained stable Dental Care, Regularly: No Physical Activity Frequency: 5-6 Times per Week Assistive Devices: Cane and Walker Review of Systems Review of Systems: Constitutional: No fever/chills, weakness, fatigue, myalgias, anorexia, night sweats Eyes: No diplopia, no worsening or blurred vision ENT: normal hearing, no trouble swallowing Respiratory: SOB associated with chest pressure this AM; No cough, sputum Cardiovascular: reproducible left chest pain separate from a waxing/waning crushing chest pressure onset this AM Abdomen: No pain, nausea, vomiting, diarrhea or constipation : Denies dysuria, hematuria, increased urgency/frequency, urinary retention Musculoskeletal: No joint pain, calf pain, swelling Neurologic: No weakness, numbness/tingling, or balance problems Psychiatric: No anxiety or depression Skin: No rash or itch Physical Exam Physical Exam: General: awake, alert, no apparent distress Head: Normocephalic, atraumatic ENT: PERRL, EOMI, no pharyngeal exudate, mucous membranes moist Chest: Clear to auscultation, on room air, no adventitious breath sounds Cardiac: Regular rate and rhythm, no murmur, no JVD, normal peripheral pulses, good capillary refill Abdominal: NABS x 4 quadrants, soft, nontender to palpation, no rebound, guarding or tenderness Extremities: Normal inspection, no peripheral edema or erythema, calfs nontender to palpation Psych: Normal mood and affect Neuro: AAO x 3, strength intact bilaterally and rated 5/5, no motor deficits, speech is clear, no peripheral sensory deficits Skin: no rash or erythema Results & Data Results & Data ([facility]) Vital Signs (Past 12 Hours) Vital Signs Temp Pulse Pulse Resp BP BP Pulse Ox 08/23/22 09:22 74 20 149/91 H 96 08/23/22 08:46 59 L 20 186/109 H 95 08/23/22 08:44 60 20 186/99 H 97 08/23/22 08:18 61 20 95 08/23/22 08:18 61 20 191/112 H 95 08/23/22 08:18 95 08/23/22 08:18 36.6 C 61 20 191/112 H 95 O2 Del Method 08/23/22 09:22 Room Air 08/23/22 08:46 Room Air 08/23/22 08:44 Room Air 08/23/22 08:18 Room Air 08/23/22 08:18 Room Air 08/23/22 08:18 Room Air 08/23/22 08:18 Room Air Laboratory Results Abnormal lab results 08/23/22 08/23/22 Range/Units 08:26 08:26 RBC 4.41 L (4.63-6.08) M/uL Hgb 13.5 L (14.0-18.0) g/dl Immature Gran # (Auto) 0.21 H (0.00-0.02) K/uL Carbon Dioxide 33 H (21-32) mmol/L BUN 31 H (6-23) mg/dl BUN/Creatinine Ratio 25.6 H (10-20) Calcium 8.2 L (8.5-10.1) mg/dl Troponin I High Sens 24.4 H (0-20) pg/ml Total Protein 5.8 L (6.0-8.3) gm/dl Globulin 2.1 L (2.5-4.0) gm/dl Diagnostic Findings Chest X-Ray 08/23/22 08:17 XR chest 1V portable CLINICAL HISTORY: Chest pain, nonspecific COMPARISON STUDY: Chest radiograph August 15, 2022. FINDINGS: Innumerable soft tissue nodules are again noted. There is no pneumothorax or pleural effusion. Cardiomegaly is unchanged. There is no evidence for pulmonary edema. There is no consolidation to suggest pneumonia. Minimal left basilar opacity favors atelectasis. Nodular density projecting in the right lung likely reflects a skin nodule. Old right-sided rib fractures are again noted. IMPRESSION: No acute cardiopulmonary findings. No significant change in appearance of the chest. ACT 112: Negative or not required by law. Electronically signed by: Don Ferreira M.D. 08/23/2022 8:55 AM ECG Additional Comments: Poor data quality, interpretation may be adversely affected Sinus rhythm with 1st degree A-V block Left axis deviation Minimal voltage criteria for LVH, may be normal variant Anteroseptal infarct , age undetermined Abnormal ECG When compared with ECG of 15-AUG-2022 13:13, Anteroseptal infarct is now Present. Code Status & VTE Plan Code Status DNR/DNI. Supervising Physician Co-Signing Physician Notes I supervised Maine Callahan PA-C on this admission. I interviewed and examined the patient independently of her. The plan is as written in the note except for any following changes/exceptions: None 81yo M w/ hx of CAD & neurofibromatosis who presents with chest pain. Lasted about 2 hours, then went away. No major radiation. Otherwise, doing ok. Troponins so far stable. will get an ischemic work-up with echo and repeat EKGs troponins. If no elevation, can consider outpatient stress testing as warranted. PG Care Time/CCT Total # of Minutes Spent Total Time Spent with Patient: Total time spent is greater than 50% in coordination of care (as documented) at patient's floor/unit and/or counseling patient: Coding Level of Care Code INT OBSERVATION CARE 70M LVL 3 Diagnoses Chest pain R07.9 CAD (coronary artery disease) I25.10 Hypertension I10 Adrenal insufficiency due to corticosteroid withdrawal E27.3; T38.0X5A Giant cell arteritis M31.6 Orthostatic hypotension I95.1 Frequent falls R29.6 Hyperlipidemia E78.5 Depression F32.9 Neurofibromatosis Q85.00 BPH (benign prostatic hyperplasia) N40.0 GERD (gastroesophageal reflux disease) K21.9
[2022-08-23] MEDS ORDERED: NITROGLYCERIN 2% OINTMENT 30GM TUBE EXT STA (10:47)
[2022-08-23] MEDS ORDERED: bisacodyL 10 MG SUPP PR PRN (11:42)
[2022-08-23] MEDS ORDERED: ACETAMINOPHEN 325 MG TAB PO PRN (11:42)
[2022-08-23] MEDS ORDERED: ALUMINUM/MAGNESIUM SUSP 30 ML UDC PO PRN (11:42)
[2022-08-23] MEDS ORDERED: DOCUSATE SODIUM 100 MG CAP PO PRN (11:42)
[2022-08-23] MEDS ORDERED: IPRATROPIUM BROMIDE HFA INHALER INH PRN (11:42)
[2022-08-23] MEDS ORDERED: MoRPHine SULFATE 2 MG/ML CARP IV PRN (11:42)
[2022-08-23] MEDS ORDERED: IBUPROFEN 600 MG TAB PO PRN (11:42)
[2022-08-23] MEDS ORDERED: ONDANSETRON INJ 2 MG/ML 2 ML VIAL IV PRN (11:42)
[2022-08-23] MEDS ORDERED: HYDROCORTISONE 10 MG TAB PO SCH ×2 (11:42→16:30)
[2022-08-23] MEDS ORDERED: NITROGLYCERIN 2% OINTMENT 30GM TUBE EXT SCH (12:00)
[2022-08-23] MEDS ORDERED: Patient's ALLERGY Info needs ENTERED SCH (12:30)
--- NOTE | 2022-08-23 16:31 | XCELERA ---
[id number]
[2022-08-23] MEDS: CALCIUM CARBONATE 1250MG TAB PO SCH (20:46)
[2022-08-23] MEDS ORDERED: MELATONIN 3 MG TAB PO PRN (20:58)
[2022-08-23] MEDS ORDERED: PANTOprazole 40 MG TAB PO SCH (21:00)
[2022-08-24] MEDS: MICONAZOLE NITRATE POWDER 43 GM EXT SCH ×2 (03:28→08:44)
--- NOTE | 2022-08-24 05:36 | Electrocardiogram Report ---
Test Reason : Blood Pressure : / mmHG Vent. Rate : 062 BPM Atrial Rate : 062 BPM P-R Int : 256 ms QRS Dur : 068 ms QT Int : 418 ms P-R-T Axes : 057 -36 061 degrees QTc Int : 424 ms Poor data quality, interpretation may be adversely affected Sinus rhythm with 1st degree A-V block Left axis deviation Minimal voltage criteria for LVH, may be normal variant Anteroseptal infarct , age undetermined Abnormal ECG When compared with ECG of 15-AUG-2022 13:13, Anteroseptal infarct is now Present Confirmed by Jhon Gómez ([id number]) on 08/24/2022 5:36:27 AM Referred By: Confirmed By:Jhon Gómez
[2022-08-24] MEDS ORDERED: HYDROCORTISONE 10 MG TAB PO SCH (07:30)
[2022-08-24 08:12] LABS: Chol HDL Ratio 2.5 (0-5)
[2022-08-24 08:15] LABS: Troponin I High Sensitivity 24.6 pg/ml (0-20)
[2022-08-24] MEDS: CALCIUM CARBONATE 1250MG TAB PO SCH (08:43)
[2022-08-24] MEDS ORDERED: ASPIRIN 81 MG ECTAB PO SCH (09:00)
[2022-08-24] MEDS ORDERED: ROSUVASTATIN CALCIUM 10 MG TAB PO SCH (09:00)
[2022-08-24] MEDS ORDERED: FLUDROCORTISONE ACETATE 0.1 MG TAB PO SCH (09:00)
[2022-08-24] MEDS ORDERED: FLUoxetine HCL 20 MG CAP PO SCH (09:00)
[2022-08-24] MEDS ORDERED: CHOLECALCIFEROL 1,000 UNITS 25 MCG TAB PO SCH (09:00)
[2022-08-24] MEDS ORDERED: QUEtiapine FUMARATE 25 MG TABLET PO SCH (09:00)
[2022-08-24] MEDS ORDERED: ENOXAPARIN INJ 40 MG/0.4 ML SYR SQ SCH (09:00)
[2022-08-24 11:03] LABS: Basophils # (auto) 0.04 K/uL (0-0.2); Basophils % (auto) 0.5 %; Eosinophils # (auto) 0.14 K/uL (0-0.50); Eosinophils % (auto) 1.8 %; Immature Granulocytes # (auto) 0.31 K/uL (0.00-0.02); Lymphocytes # (auto) 0.86 K/uL (1.2-3.4); Mean Corpuscular Hgb Conc 33.3 g/dL (32.0-36.0); Mean Corpuscular Volume 92.9 fL (80.0-100.0); Mean Platelet Volume 9.2 fL (9.4-12.4); Monocytes # (auto) 0.84 K/uL (0.24-0.82); Monocytes % (auto) 10.8 %; Neutrophils % (auto) 71.9 %; Platelet Count 177 K/uL (130-400); RDW Coefficient of Variation 12.1 % (11.5-14.5); RDW Standard Deviation 41.3 fL (36.4-46.3); Red Blood Count 4.52 M/uL (4.63-6.08); White Blood Count 7.79 K/ul (4.8-10.8)
--- NOTE | 2022-08-24 11:14 | Discharge Summary ---
Date of Service August 24, 2022 Admission HPI Per Admitting Provider Donavon Bartlett is a 81 y/o male with a PMH significant for CAD, hypertension, hyperlipidemia, neurofibromatosis, prostate cancer, temporal arteritis, GERD, depression, and frequent falls presenting today from [facility] with chest pain. For the past 4 days he has been having chest pain that is reproducible on pressing on his left chest wall, however this morning had several minutes of 10/10 crushing left-sided chest pressure that was associated with shortness of breath and radiated to his back. It did not radiate to his shoulders, arms, neck, or jaw. He had no lightheadedness, dizziness, or palpitations with it. The chest pain came on while patient was at rest and went away on its own without requiring any medication. EMS was called, who gave him full dose 324 mg aspirin in route. Patient has been told he has had heart attacks based on EKG findings in the past, however has not had any stents placed or CABG procedure. He is a former smoker, however recently quit. He had previously been on antih ypertensive, however they have been discontinued several months due to orthostatic hypotension and frequent falls. No history of diabetes. On presentation, BP 191/112, given 10 mg IV hydralazine repeat blood pressure 170/96. Otherwise vital signs within normal limits, stable. His initial troponin is 24, EKG with septal Q waves in V2 and V3, changed from EKG last week 08/15. He was initially chest pain-free on presentation, however now complaining of 5-6/10 chest pain. Principal Diagnosis Noncardiac chest pain Discharge Exam General-alert and oriented x3, no fevers, no chills HEENT-head atraumatic and normocephalic, pupils equal and reactive to light, extraocular muscles intact Neck-no lymphadenopathy or thyromegaly, trachea midline Chest-clear to auscultation percussion. No rales wheezing or rhonchi Cardiac-regular rate and rhythm, normal S1 and S2 Abdomen-normal bowel sounds, nontender, no hepatosplenomegaly Extremities-no cyanosis, clubbing, or edema Skinextensive uncountable neurofibromas on face trunk and extremities Neuro-cranial nerves II through XII intact, motor and sensory function within normal limits, strength symmetrical , no focal deficits Psych-normal affect, normal mood Discharge Data Allergies Allergy/AdvReac Type Severity Reaction Status Date / Time No Known Drug Allergies Allergy Mild Unknown Verified 08/23/22 12:29 [email or web address] [From Myrbetriq] AdvReac Hypertensio Verified 08/23/22 12:27 n Consultations 08/23/22 09:29 ED Decision to Admit Stat Hospital Course (1) Chest pain: Now resolved. Appears to be noncardiac. Troponin is only minimally elevated and not trending. Cardiac echo reveals no wall motion abnormalities. EKG reveals no acute changes. (2) CAD (coronary artery disease): No formal diagnosis via catheterization, was told years ago by provider in [place] he has had multiple heart attacks based on EKG changes. No new EKG findings. Chest discomfort has now resolved. Continue statin, aspirin. (3) Hypertension: Controlled on current medication management. (4) Adrenal insufficiency due to corticosteroid withdrawal: Stable on usual glucocorticoid replacement therapy. (5) Giant cell arteritis: Steroid-dependent treatment. Stable (6) Orthostatic hypotension: Stable on fludrocortisone and glucocorticoid therapy. (7) Frequent falls: Fall precautions. History of orthostatic hypotension, continue fludrocortisone. PT/OT while admitted. (8) Hyperlipidemia: -Continue rosuvastatin 10 mg daily (9) Depression: Continue Prozac and Seroquel. (10) Neurofibromatosis: Chronic, follows with Dr. Doherty. (11) BPH (benign prostatic hyperplasia): Flomax recently stopped due to orthostatic hypotension and frequent falls. (12) GERD (gastroesophageal reflux disease): Continue PPI Plan Discharge back to [facility] today, August 24 Total Time Total Time Spent Total Time Spent (In Minutes): 35 minutes Discharge Plan Discharge Items Patient Disposition: Transfer Custodial Fac Reason For Visit: CHEST PAIN Discharge Diagnosis: Noncardiac chest pain Activity: Resume your previous activity Non-emergency contact: Primary Care Provider Call non-emergency contact if: you have any medication questions Follow-up/Referrals: [facility] [Primary Care Provider] - Diet: Heart Healthy Addtl Attending Provider Instructions: Chest pain appears to be noncardiac. Continue medications as previously prescribed Pending Studies at Discharge: No Stand-Alone Forms: My Open-Plug Skilled Items Patient informed of condition?: Yes DNR: Yes Discharge Level of Care: Skilled Communicable Disease: No Discharge Prognosis: Stable Lines: None Urinary Catheter: No Medications and DC Order Prescriptions: New hydrocortisone [Cortef] 10 mg Tablet 20 mg PO QDB Qty: 10 0RF hydrocortisone [Cortef] 10 mg Tablet 10 mg PO QDD Qty: 10 0RF Continued Prolia 60 mg/mL syringe 60 mg subcut .q 6 month docusate sodium [Dulcolax Stool Softener (dss)] 100 mg capsule 100 mg PO DAILY PRN (Reason: Constipation) calcium carbonate [Calcium 600] 600 mg calcium (1,500 mg) tablet 600 mg PO BID Atrovent HFA 17 mcg/actuation HFA aerosol inhaler 1 puff inhalation QID PRN bisacodyl [Dulcolax (bisacodyl)] 10 mg suppository 10 mg [place] DAILY PRN hydrocodone-acetaminophen 7.5-325 mg tablet 1 tab PO BID PRN ibuprofen 600 mg tablet 600 mg PO Q8H PRN acetaminophen [Tylenol] 325 mg tablet 650 mg PO QID PRN omeprazole 20 mg capsule,delayed release(DR/EC) 20 mg PO HS aspirin 81 mg Tablet,Delayed Release (Dr/Ec) 81 m PO DAILY Rx Instructions: Patient reports he sometimes takes twice a day. quetiapine [Seroquel] 25 mg tablet 25 mg PO DAILY fluoxetine [Prozac] 40 mg capsule 40 mg PO DAILY rosuvastatin 10 mg tablet 10 mg PO DAILY cholecalciferol (vitamin D3) [Vitamin D3] 25 mcg (1,000 unit) Tablet 25 mcg PO DAILY fludrocortisone 0.1 mg Tablet 0.1 mg PO QAM Qty: 30 0RF lidocaine 5 % Adhesive Patch,Medicated 1 patch transdermal QAM Qty: 30 0RF Actemra 162 mg/0.9 mL syringe 162 mg subcut Q14D Qty: 2 0RF Rx Instructions: previous dose Apr 27 Discontinued hydrocortisone 20 mg tablet 20 mg PO .COMPLEX Qty: 135 1RF Rx Instructions: 20 mg orally 1 tablet in the am with breakfast, and 1/2 tablet in the evening with dinner; Discharge Orders: Discharge Order (Routine); Ordered 08/24/22 Ordered By: Get Torres Admission Data Admit Date/Time: 08/23/22 10:30 Attending Provider: Get Torres Admit Provider: Valente Santana Primary Care Provider: [facility] Other Providers: Valente Santana Coding Level of Care Code D/C DAY MANAGEMENT >30 MINS Diagnoses Chest pain R07.9 CAD (coronary artery disease) I25.10 Hypertension I10 Adrenal insufficiency due to corticosteroid withdrawal E27.3; T38.0X5A Giant cell arteritis M31.6 Orthostatic hypotension I95.1 Frequent falls R29.6 Hyperlipidemia E78.5 Depression F32.9 Neurofibromatosis Q85.00 BPH (benign prostatic hyperplasia) N40.0 GERD (gastroesophageal reflux disease) K21.9
[2022-08-24 11:27] VITALS: PULSE 64; TEMP 97.2; O2SAT 91
[2022-08-24 13:17] VITALS: BP 142/89
--- NOTE | 2022-08-25 22:43 | Electrocardiogram Report ---
Test Reason : Blood Pressure : / mmHG Vent. Rate : 070 BPM Atrial Rate : 070 BPM P-R Int : 254 ms QRS Dur : 070 ms QT Int : 416 ms P-R-T Axes : 058 -40 051 degrees QTc Int : 449 ms Sinus rhythm with 1st degree A-V block Left axis deviation Inferior infarct , age undetermined Abnormal ECG When compared with ECG of 23-AUG-2022 08:18, Criteria for Anteroseptal infarct are no longer Present Confirmed by Jhon Gómez ([id number]) on 08/25/2022 10:43:21 PM Referred By: [facility] Confirmed By:Jhon Gómez
== END 2022-08-24 15:08 ==
LOC: ED 08:13 → 2W 08:13 → SUATTDRO 10:30 → 2W 11:17